=== PATIENT | female | born 1945 | race Caucasian/White ===

== ENCOUNTER 2023-05-15 14:36 | Inpatient (IN) | payer OTHER, SELFPAY ==
[2023-05-15] VITALS (9 sets, daily range): BP systolic 102–175; BP diastolic 60–108; BMI 19.4
--- NOTE | 2023-05-15 10:14 | ED.GENMED ---
History of Present Illness
General
Chief Complaint: Abdominal Symptoms
Source: patient and ambulance crew
Exam Limitations: none
Time Seen by Provider: 05/15/23 10:11
History of Present Illness
History of Present Illness:
See MDM
Past History
Past History
ED Past Medical History: Arrthythmia, Cancer (Breast) and Other (Recurrent urinary tract infection.)
ED Past Surgical History: Cardiac (AICD 03/27/2015) and Gynecological (Hysterectomy)
Social History
Tobacco: Non-smoker
Alcohol: None
Drug: None
Personal:
Living: with family
Employment: Retired
Family History
Family History: Other (Noncontributory)
Phy Exam
Physical Exam
Physical Exam:
See MDM
Course
Orders/Labs/Results
Orders:
Orders
05/15/23 10:13
Electrocardiogram (*1) Urgent
Reason for Study: Abdominal Pain
CT Abd/pelvis W Iv Cont Urgent
Comment:
Reason For Exam: vomiting, general abd pain
EKG- Treatment ONCE
0.9% Sodium Chloride 1000 ml [Nss] 1,000 ml IV BOLUS
Ondansetron Injectable [Zofran] 4 mg IV NOW STA
05/15/23 10:38
Complete Blood Count/With Diff Urgent
Comprehensive Metabolic Panel Urgent
Lipase Urgent
Troponin I Urgent
Abnormal Lab Results
05/15/23
10:38
MCH 31.1 H pg
(27.0-31.0)
Absolute Neuts (auto) 6.9 H 10^3/uL
(1.4-6.5)
Absolute Lymphs (auto) 1.1 L 10^3/uL
(1.2-3.4)
Neutrophils % 81.5 H %
(42.2-75.2)
Lymphocytes % 12.5 L %
(20.5-51.1)
Sodium 132 L mmol/L
(135-145)
Carbon Dioxide 21 L mmol/L
(22-30)
Glucose 149 H mg/dl
(70-99)
AST 43 H U/L
(14-36)
05/15/23 10:38
05/15/23 10:38
Vital Signs
Initial and Last Documented VS:
Initial Vital Signs
Pulse Resp Pulse Ox
112 20 96
05/15/23 10:17 05/15/23 10:17 05/15/23 10:17
Last Documented Vital Signs
Temp Pulse Resp BP Pulse Ox
98.4 F 109 29 162/91 97
05/15/23 10:23 05/15/23 12:00 05/15/23 12:00 05/15/23 12:00 05/15/23 12:00
MDM/Problems Addressed
Differential Diagnosis Includes:
HPI and MDM Narrative:
77-year-old female presenting with generalized abdominal discomfort that is associated with vomiting and diarrhea. This has been ongoing for the past day or so. Patient has been having trouble with p.o. intake. She denies sick contact
On arrival, patient actively vomiting. Will start IV fluids and give Zofran. Given her age and GI complaint, will obtain EKG and troponin in addition to CT abdomen/pelvis to rule out small bowel obstruction
Physical exam
General: Intermittently gagging and vomit
HEENT: protecting airway. Dry mucous membranes
Neck: appears supple
CV: No evidence of cyanosis. Regular rate and rhythm
Resp: No accessory muscle use. Lungs clear
Abd: Non-distended. No point tenderness. Vague discomfort. No distention
Extremities: No deformities
Neuro: alert
Psych: Normal affect
Skin: Intact
Problems Addressed including Acute and Chronic Conditions affecting care:
1. Nausea and vomiting
Acuity: acute
Prognosis: stable
Details: Will give dose of Zofran
2. [Dehydration
Acuity: acute
Prognosis: stable
Details: Will start IV fluids
3. Abdominal pain
Acuity: acute
Prognosis: stable
Details: Will obtain CT abdomen/pelvis
Updates
CT negative for acute pathology. There are many chronic findings. On reassessment, patient still wiped out and unable to tolerate p.o. Given her inability to tolerate p.o., will
Differential Diagnosis (but not limited to): Viral gastroenteritis, small bowel obstruction, ACS, colitis, pancreatitis
Testing considered: Urinalysis
Drug therapy (if applicable): OTC meds, please see d/c instruction regarding Rx drugs
Amount and/or Complexity of Data Reviewed
Clinical info obtained from: Patient
External data reviewed: N/A
Labs I independently reviewed (but not limited to): White blood cell count normal
Radiology: The CT scan was personally and independently reviewed. In addition, official CT report reviewed.
Pulse Ox: not hypoxic
EKG independently reviewed: N/A
Casting Machine Operator: N/A
Critical Care: N/A
Risk of Complication:
Social Determinants of health: Good social support
Discussed with other providers: Hospitalist
Escalation of Care includes Admit/Obs: Given her inability to tolerate p.o., will admit
Occasional wrong word or 'sound a like' substitutions may have occurred due to the inherent limitations of voice recognition software. Read the chart carefully and recognize, using context, where substitutions have occurred.
*Critical Care Note
Total Time (30-74mins, 75-104mins- exclusive of procedures): Not Applicable
ED Attending Note
-
Portions of this chart may have been created with voice recognition software.� Occasional wrong word or��sound alike� substitutions may have occurred due to the inherent limitations of voice recognition software.
Discharge Plan
Departure
Patient Disposition: Admit
Date of Disposition: 05/15/23
Time of Disposition: 13:14
Admit to: Med/Surg
Presentation/result/management discussed w/ accepting MD/DO: Hospitalist
Discharge Problem:
Acute dehydration, Gastroenteritis
Prescriptions:
No Action
latanoprost 0.005 % Drops
1 drp BOTH EYES HS
carvedilol 6.25 mg Tablet
6.25 mg PO BID
methimazole 5 mg Tablet
2.5 mg PO DAILY
brimonidine-timolol [Combigan] 0.2-0.5 % Drops
1 drp BOTH EYES BID
Eliquis 5 mg Tablet
5 mg PO BID
gabapentin 100 mg Capsule
100 mg PO DAILY
gabapentin 100 mg Capsule
200 mg PO HS
methenamine hippurate 1 gram Tablet
1 g PO BID
lorazepam 0.5 mg Tablet
0.5 mg PO BID
Probiotic
1 cap PO DAILY
Vitamin D3
1 cap PO DAILY
tramadol 50 mg tablet
50 mg PO Q8H PRN (Reason: Pain) Qty: 20 0RF
Referrals:
Petty Wall PA-C [Family Provider] -
Interventions
Interventions:
*Risk Screen - Suicide Last Done: 05/15/23 10:17
*General Assessment Last Done: 05/15/23 10:17
*Neglect/Abuse Screening Last Done: 05/15/23 10:17
VJ-Xfbaxn-Piaancdonq Assessment Last Done: 05/15/23 10:17
[2023-05-15] MEDS: ZOFRAN 4 MG IV ×2 (10:41→16:08)
[2023-05-15] MEDS: NSS 1000 IV (10:42)
[2023-05-15 10:45] LABS: % Basophils 0.2 % (0-2); % Eosinophils 0.1 % (0-6); % Immature Granulocytes 0.4 % (0-0.5); % Lymphocytes 12.5 % (20.5-51.1); % Monocytes 5.3 % (1.7-9.3); % Neutrophils 81.5 % (42.2-75.2); Absolute Lymphocytes 1.1 10^3/uL (1.2-3.4); Absolute Monocytes 0.5 10^3/uL (0.1-0.6); Absolute Neutrophils 6.9 10^3/uL (1.4-6.5); Hematocrit 41.1 % (37.0-47.0); Hemoglobin 14.5 g/dL (12.0-16.0); Mean Corp Hgb Conc. 35.3 g/dL (33.0-37.0); Mean Corpuscular Hgb 31.1 pg (27.0-31.0); Mean Corpuscular Volume 88.2 fL (81.0-99.0); Nucleated Red Blood Cells % 0 %; Platelet Count 175 10^3/uL (130-400); Red Blood Cell Count 4.66 10^6/uL (4.20-5.40); Red Cell Dist. Width 13.6 % (11.5-14.5); White Blood Cell Count 8.5 10^3/uL (4.8-10.8)
[2023-05-15 11:00] LABS: ALT (SGPT) 21 U/L (0-35); AST (SGOT) 43 U/L (14-36); Albumin 4.6 g/dl (3.5-5.0); Alkaline Phosphatase 85 U/L (38-126); Blood Urea Nitrogen 15 mg/dl (7-17); Calcium 9.2 mg/dl (8.4-10.2); Carbon Dioxide 21 mmol/L (22-30); Chloride 98 mmol/L (98-107); Glucose 149 mg/dl (70-99); Lipase 90 U/L (23-300); Potassium 4.3 mmol/L (3.5-5.1); Sodium 132 mmol/L (135-145); Total Bilirubin 1.2 mg/dl (0.2-1.3); eGFR > 60.00
[2023-05-15 11:11] LABS: Troponin I 0.019 ng/ml
--- NOTE | 2023-05-15 13:14 | HPS.HSE ---
Addendum entered and electronically signed by Nomi Elliott MD 05/15/23 17:40:
Patient apparently also has a new left bundle branch block we will have to be careful with Zofran dosing we will get another EKG in the a.m.
Addendum entered and electronically signed by Nomi Elliott MD 05/15/23 15:05:
Patient's proBNP trended to be almost 14,000/her cough by description is intractable and that is what causes her eventual emesis so cough is also probably cardiogenic we will give IV Lasix tonight obtain cardiology consultation 2D echocardiogram may
also benefit from small doses of morphine for her cardiogenic cough.
Addendum entered and electronically signed by Nomi Elliott MD 05/15/23 14:29:
I saw and examined the patient.
The SCALE INSTALLER or PA's note was reviewed and I agree with the note.
Comment:
77-year-old with intractable emesis and some diarrhea started as upper respiratory cough tested numerous times negative for COVID presents with tachycardia and dehydration initial tx �replacing with fluids but being cautious �also CT imaging showing
mild cardiogenic edema that could be instigating her cough getting BNP if markedly elevated would �get cardiology ( CBC) involved as has history of nonischemic cardiomyopathy and bioprosthetic AV from AI/unable to take her Coreg or Eliquis for days
for PAF also markedly distended bladder on CT / �ED did not order urine/ ordered straight cath as needed and urine for culture checking for influenza and norovirus. On my exam does not look to be fluid overloaded and seems to be hypovolemic
although blood pressure is elevated but she is tachycardic otherwise for the time being we will treat as presentation of probable viral gastroenteritis with the above concerns.
Original Note:
Family Physician
-
Family Physician: Petty Wall PA-C
Chief Complaint
-
n/v/d
cough runny nose, congestion
History of Present Illness
77 year old with PMH for breast ca, UTI, atrial fib,hyperthyroidism presented to us with n/v/d since . patient stated it started off with non productive, runny nose and congestion. then she developed constant diarrhea, vomiting. patient not
tolerating any oral intake. denied abdominal pain. denied fever, chills, chest pain, sob. denied ALTMAN, dizzy or syncopal episode. denied dysuria or hematuria. denied any recent use of abx. denied any recent travel. denied any sick contract.
CT abdomen pelvis negative. admitting for further management.
Medical History
Past Medical History
Past Medical History: Reports Other
Additional Past Medical History:
breast ca
atrial fib
UTI
Past Surgical History: Reports Other
Additional Past Surgical History:
colon resection
pacemaker
CABG
AICD
hysterectomy
Social History
Tobacco: Non-smoker
Alcohol: Occasional
Drug: None
Personal:
Living: With Family
Family History
Family History: Not pertinent
Allergies / Home Medications
Allergies reflects when Allergies were last updated in [employer].
Home Medications with original date entered in [employer]
Allergy/Medication List:
Allergies
Allergy/AdvReac Type Severity Reaction Status Date / Time
levofloxacin AdvReac developed Verified 05/15/23 10:23
C-Diff
vancomycin AdvReac developed Verified 05/15/23 10:23
C-diff
Home Medications
apixaban 5 mg tablet (Eliquis) 5 mg PO BID Blood Clot Prevention/Tx 08/26/22
brimonidine 0.2 %-timolol 0.5 % eye drops (Combigan) 1 drp BOTH EYES BID Eye Condition 08/26/22
carvedilol 6.25 mg tablet 6.25 mg PO BID Blood Pressure 08/26/22
gabapentin 100 mg capsule 100 mg PO BID Pain 08/26/22
gabapentin 100 mg capsule 100 mg PO DAILY Pain 08/26/22
latanoprost 0.005 % eye drops 1 drp BOTH EYES HS Eye Condition 08/26/22
methimazole 5 mg tablet 2.5 mg PO DAILY Thyroid 08/26/22
Probiotic 1 cap PO DAILY Supplement 11/10/22
Vitamin D3 1 cap PO DAILY Supplement 11/10/22
lorazepam 0.5 mg tablet 0.5 mg PO BID Mental Health/Anxiety 11/10/22
methenamine hippurate 1 gram tablet 1 g PO BID Urinary Issue 11/10/22
tramadol 50 mg tablet 50 mg PO Q8H PRN Pain #20 tabs 11/17/22
mirtazapine 15 mg tablet (Remeron) 7.5 mg PO HS 05/15/23
Review of Systems
-
Constitutional: Reports No Symptoms
EENT: Reports No Symptoms
Respiratory: Reports Cough, Hemoptysis and Trouble Breathing
Cardiac: Reports No Symptoms
Abdomen/GI: Reports Nausea, Vomiting and Diarrhea
: Reports No Symptoms
Musculoskeletal: Reports No Symptoms
Skin: Reports No Symptoms
Neurological: Reports No Symptoms
Endocrine: Reports No Symptoms
Hematologic/Lymphatic: Reports No Symptoms
Psych: Reports No Symptoms
Physical Exam
Vital Signs
Vital Signs
Temp Pulse Resp BP Pulse Ox
98.4 F 116 27 154/91 95
05/15/23 10:23 05/15/23 13:00 05/15/23 13:00 05/15/23 13:00 05/15/23 13:00
Physical Exam
General: Well Developed, Well Nourished and No Apparent Distress
HEENT: NormoCephalic, Moist mucous membranes and Atraumatic
Respiratory: Clear
Cardiac: S1/S2 and Regular Rhythm; No Murmur or Rub
GI: Soft, Non Tender, Non Distended and Normal Bowel Sounds; No Organomegaly
Rectal: Deferred by Provider
Musculoskeletal: No Clubbing, No Cyanosis and No Edema
Skin: No Rash
Neuro: AO x 3 and Nonfocal/grossly intact
Psych: Calm
Laboratory Results
-
05/15/23 10:38
05/15/23 10:38
Laboratory Results
Total Bilirubin 1.2 mg/dl (0.2-1.3) 05/15/23 10:38
AST 43 U/L (14-36) H 05/15/23 10:38
ALT 21 U/L (0-35) 05/15/23 10:38
Alkaline Phosphatase 85 U/L (38-126) 05/15/23 10:38
Troponin I 0.019 ng/ml 05/15/23 10:38
Lipase 90 U/L (23-300) 05/15/23 10:38
Data Reviewed
-
Lab Data: Labs Reviewed by me
Impression/Plan
-
#n/v/d likely gastroenteritis
-Ct abdomen pelvis �Severe distention of the urinary bladder.
2. � Weakness of the muscles of the pelvic floor with a cystocele and rectocele.
3. � Severe calcific atherosclerotic plaque in the abdominal aorta.
4. � Moderate chronic left renal atrophy.
5. � Small hiatal hernia.
6. � Mild biliary and pancreatic ductal dilatation which appears unchanged.
7. � 7.8 mm calcified appendicolith or radiopaque pill at the base of the appendix.
8. � Previous cholecystectomy, hysterectomy, and sigmoidectomy.
9. � Severe multilevel discogenic degenerative disease in the lumbar spine.
10. � Left total hip arthroplasty in place.
11. � Mild interstitial cardiogenic pulmonary edema.
-sips of clears, advance as tolerated
-fluids continued for hydration
-Zofran prn for n/v
-obtain flu, covid
-obtain stool for cultures, c diff
#cough/runny nose congestion
-likely from cardiogenic
-Tessalon, Mucinex prn for cough
#severe distention of urinary bladder
-obtain bladder scan
-obtain UA
#Hyponatremia likely from n/v/d
-na 132
-fluids continued
-monitor BMP in am
#tachycardia likely from dehydration
-HR 100's
-monitor HR
#paroxysmal Atrial Fibrillation
-Continue Eliquis for anticoagulation
-Continue Coreg for rate control
#Essential Hypertension
-Continue Coreg
#Hyperthyroidism
-Continue Methimazole
#Insomnia
-Continue Xanax
�
#Hx Breast Cancer s/p Right Lumpectomy
#Hx Valvular Heart Disease s/p Bioprosthetic Aortic Valve Replacement and Mitral Valve Repair
#DVT proph: Eliquis
#Code Status: Full Code
[2023-05-15 14:43] LABS: COVID-19 Antigen Negative (Negative)
[2023-05-15 14:50] LABS: NT-proBNP 13800 pg/ml
[2023-05-15 14:58] LABS: Urine Albumin 3+ (Neg - Trace); Urine Bilirubin Negative (Negative); Urine Character Clear (Clear); Urine Color Yellow; Urine Glucose Negative (Negative); Urine Ketone 1+ (Negative); Urine Leukocyte Negative (Negative); Urine Nitrite Negative (Negative); Urine Occult Blood Negative (Negative); Urine Urobilinogen Negative (Neg - 1+); Urine pH 6.5 (5.0-9.0)
[2023-05-15] MEDS: LASIX 40 MG IV (15:09)
[2023-05-15 15:15] LABS: Urine Bacteria Few (Negative); Urine Red Blood Cell 0-2 /HPF (0-2)
[2023-05-15] MEDS: MORPHINE SULFATE 0.5 MG IV (16:09)
--- NOTE | 2023-05-15 17:30 | PTCARENOTE ---
05/15- Patient transferred and oriented to unit. AAOX3 but fatigued, flat affect and drowsy. She vomited once upon sitting in bed. UF=464, MH=695/115, checked twice automatic. Manual AX=612/110. Notified Physician immediately. Patient
currently denies headache, changes in vision, SOB or CP. Skin=pale/warm/dry; Cap refill<2sec X4; +pulses/sensationX4.
[2023-05-15] MEDS: LOPRESSOR 5 MG IV (18:18)
[2023-05-15 19:35] LABS: TSH Reflex To Free T4 2.85 uIU/ml (0.47-4.68)
[2023-05-15] MEDS: COREG 6.25 MG PO (20:17)
[2023-05-15] MEDS: MUCINEX 600 MG PO (20:17)
[2023-05-15] MEDS: HIPREX 1 GRAM PO (20:17)
[2023-05-15] MEDS: ELIQUIS 5 MG PO (20:17)
[2023-05-15] MEDS: REGLAN 5 MG IV (20:17)
[2023-05-15] MEDS: ULTRAM 50 MG PO (20:18)
[2023-05-15] MEDS: COMBIGAN EYE DROPS 1 DROP BOTH EYES (20:19)
[2023-05-16] MEDS: XALATAN OPHTHALMIC SOLUTION BOTH EYES (00:32)
[2023-05-16 03:20] VITALS: BP 105/68
[2023-05-16 07:00] VITALS: BP 124/75
[2023-05-16 07:34] LABS: Hematocrit 39.9 % (37.0-47.0); Hemoglobin 13.8 g/dL (12.0-16.0); Mean Corp Hgb Conc. 34.6 g/dL (33.0-37.0); Mean Corpuscular Hgb 31.5 pg (27.0-31.0); Mean Corpuscular Volume 91.1 fL (81.0-99.0); Mean Platelet Volume 10.6 fL (7.4-10.4); Platelet Count 171 10^3/uL (130-400); Red Blood Cell Count 4.38 10^6/uL (4.20-5.40); Red Cell Dist. Width 13.7 % (11.5-14.5); White Blood Cell Count 7.7 10^3/uL (4.8-10.8)
[2023-05-16 08:24] LABS: Blood Urea Nitrogen 29 mg/dl (7-17); Calcium 9.4 mg/dl (8.4-10.2); Carbon Dioxide 25 mmol/L (22-30); Chloride 97 mmol/L (98-107); Estimated Creatinine Clearance 37 ml/min; Glucose 106 mg/dl (70-99); Potassium 3.9 mmol/L (3.5-5.1); Sodium 135 mmol/L (135-145); eGFR > 60.00
--- NOTE | 2023-05-16 08:45 | CON.CAR ---
Addendum entered and electronically signed by Barak Gautam MD 05/16/23 11:37:
I saw and examined the patient.
The DIRECTOR OF RESPIRATORY THERAPY's note was reviewed and I agree with the note.
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
MR) who is here for evaluation. She had been having nausea, vomiting, and diarrhea. However, on today's TTE she has new mild to moderately reduced EF and I discussed further evaluation with coronary angiography. She would like to discuss with her
and Dr Quintana. We will start GDMT in the interim.
- NPO after midnight in case of possible cath tomorrow
- Aspirin 325 today and 81 mg starting tomorrow
- Hold Eliquis tomorrow AM
- Entresto low dose starting this evening
- lipid profile tomorrow AM
- Consider SGLT2i once tolerating Entresto
Original Note:
Consultation
Consultation Request
Date/Time Consultation Requested: 05/15/23 3542
Date/Time Consultation Performed: 05/16/23 0815
Requesting Provider: Mare Peña
Performing Provider: Rayne BARRERA for Dr. Gautam
Reason for Consultation: concern for heart failure
Medical History
-
Chief Complaint: cough
History of Present Illness:
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
is here for evaluation. Per chart, she has been having nausea, vomiting, and poor intake. However, she told me that her main issue has been cough since . She feels congested. Cough minimally productive. No fever/chills. She thinks the n/v is
related to cough. There is no SOB or PND. She always sleeps propped up because it is more comfortable. She denies any weight gain or edema. Covid and flu are negative. On arrival, she was felt to be dehydrated and was given fluids, but afterward it
was noted that her BNP was elevated. CT scan read severe bladder distention (now s/p straight cath), and mild interstitial cardiogenic pulmonary edema. Therefore, we are consulted to evaluate for possible heart failure. She follows with .
Mariano as OP.
Past Medical History
Past Medical History: Arrhythmias, Cancer, HTN, Valvular Disease and Other (As above)
Social History
Tobacco: Non-Smoker
Family History
Family History: Reviewed & Not Pertinent
Allergies / Home Medications
Allergy/AdvReac Type Severity Reaction Status Date / Time
levofloxacin AdvReac developed Verified 05/15/23 10:23
C-Diff
vancomycin AdvReac developed Verified 05/15/23 10:23
C-diff
Medication Instructions Recorded Confirmed Type
apixaban 5 mg tablet (Eliquis) 5 mg PO BID Blood Clot 08/26/22 05/15/23 History
Prevention/Tx
brimonidine 0.2 %-timolol 0.5 % 1 drp BOTH EYES BID Eye Condition 08/26/22 05/15/23 History
eye drops (Combigan)
carvedilol 6.25 mg tablet 6.25 mg PO BID Blood Pressure 08/26/22 05/15/23 History
gabapentin 100 mg capsule 100 mg PO BIDPRN PRN NERVE PAIN 08/26/22 05/15/23 History
latanoprost 0.005 % eye drops 1 drp BOTH EYES HS Eye Condition 08/26/22 05/15/23 History
methimazole 5 mg tablet 2.5 mg PO DAILY Thyroid 08/26/22 05/15/23 History
Lactobac no.2-Bifidobac no.1-S. 1 cap PO DAILY Supplement ##0 11/10/22 05/15/23 History
thermo 112.5 billion cell capsule
(Visbiome)
methenamine hippurate 1 gram tablet 1 g PO BID Urinary Issue 11/10/22 05/15/23 History
acetaminophen 325 mg tablet 650 mg PO Q4H PRN MILD PAIN 05/15/23 05/15/23 History
(Tylenol)
benzonatate 100 mg capsule 100 mg PO BID PRN COUGH 05/15/23 05/15/23 History
bisacodyl 5 mg tablet,delayed 5 mg PO HSPRN PRN CONSTIPATION 05/15/23 05/15/23 History
release (Dulcolax (bisacodyl))
therapeutic multivitamin 1 tab PO DAILY Supplement 05/15/23 05/15/23 History
tramadol 50 mg tablet 50 mg PO BID PRN SEVERE PAIN 05/15/23 05/15/23 History
Review of Systems
-
History Source: Patient
All other systems: Negative unless noted
Respiratory: Cough
Abdomen/GI: Nausea and Vomiting
Physical Exam
Vital Signs
Temp Pulse Resp BP Pulse Ox
98.5 F 97 18 124/75 97
05/16/23 07:00 05/16/23 07:00 05/16/23 07:00 05/16/23 07:00 05/16/23 07:00
Lab Results
05/16/23 07:12
05/16/23 07:12
Troponin I 0.019 ng/ml 05/15/23 10:38
Lic-C-Omumvpxufft Pept 20723 pg/ml 05/15/23 10:38
Physical Exam
General: Well Developed and No Apparent Distress
HEENT: Normocephalic and Anicteric
Respiratory: Clear and Non Labored Respirations
Cardiac: Regular Rhythm
GI: Soft, Non Distended and Normal Bowel Sounds
Musculoskeletal: No Edema
Skin: Warm and Dry
Neuro: AO x 3
Psych: Calm
Impression / Plan
-
Cough, congestion, nausea/vomiting:
-etiology currently unclear
Elevated BNP, abnormal CT scan (mild interstitial cardiogenic pulmonary edema):
-first received IVF, then dose IV lasix
-does not appear volume overloaded to clinical assessment this AM (lungs clear, no edema)
-check echo
VT:
-continue BB
-ICD in place, denies shocks- stable on recent outpatient check
-continue monitoring telemetry
Severe AI, severe MR:
-stable s/p bio AVR, MV repair (now mild to moderate)
-checking echo
PAF:
-stable in SR
-continue coreg and Eliquis
Data Reviewed
-
EKG: Tracing Personally Visualized and interpreted (ST, LBBB [address] Scan: Report Reviewed by me (CT scan: Mild interstitial cardiogenic pulmonary edema. Severe bladder distention.)
Medical Tests (Nuc Med, Echo etc): Report Reviewed by me (02/09/22: Ejection fraction is 60%, Mitral valve repair with mean gradient of 7 mmHg, Mild to moderate mitral regurgitation. Bioprosthetic aortic valve replacement with peak/mean gradients
of 16/11 mmHg.)
Labs: Labs Reviewed by me
[2023-05-16] MEDS: TAPAZOLE 2.5 MG PO (09:03)
[2023-05-16] MEDS: COMBIGAN EYE DROPS 1 DROP BOTH EYES ×2 (09:05→19:45)
[2023-05-16] MEDS: HIPREX 1 GRAM PO (09:05)
[2023-05-16] MEDS: ELIQUIS 5 MG PO ×2 (09:05→19:40)
[2023-05-16] MEDS: MUCINEX 600 MG PO (09:05)
[2023-05-16] MEDS: COREG 6.25 MG PO ×2 (09:05→19:40)
--- NOTE | 2023-05-16 11:17 | CM ---
Addendum entered by Marisela Angel 05/16/23 11:46:
CM consult re medication costs:
Entresto 24/26 mg po BID
Per [facility] pharmacy: $47 per month.
Original Note:
Patient seen bedside.
IA completed.
Patient lives with spouse in a 1 story apartment with elevator access.
Patient ambulates with a cane.
Does not drive.
Patient has had [facility] in the past and been in [facility].
Patient denies home care needs at this time.
[place]: [place] Croft ([place]
Pharmacy: [facility]
Plan: home no needs anticipated.
--- NOTE | 2023-05-16 11:22 | W.PN.UPDATE ---
Update Note
Progress Note Update
Patient EF reduced by echo. Dr. Gautam spoke with her about cath. She currently doesn't think that she will want that (per GK), but wants to talk to Dr. Quintana in AM (her primary investment trader). We will start aspirin. We will start Entresto
(consult CM for pricing). We will make her NPO for AM in case she decides that she would like to proceed. I will hold AM Eliquis, but it will need to be resumed if she does not have cath, or post-cath if she goes that route.
[2023-05-16 11:28] VITALS: BP 113/69
--- NOTE | 2023-05-16 12:00 | PTCARENOTE ---
11:30 Noted pt no c/o further diarrhea or vomiting. Pt had small soft BM this am. Dr. Allen notified ordered low cholesterol diet and cancelled stool specimen orders. Explain to pt, continue to monitor pt closely.
[2023-05-16] MEDS: TESSALON PERLES 100 MG PO ×2 (13:55→21:05)
[2023-05-16] MEDS: ASPIRIN 325 MG PO (13:55)
[2023-05-16 15:00] VITALS: BP 118/63
--- NOTE | 2023-05-16 15:12 | W.PN.HOSP.TC ---
Today's Communication/Plan
-
Supportive care
Possible Cath tomorrow
ASA, Entresto
Cont BB
Assessment / Plan
Assessment / Plan
Physical Exam
General: Well Developed, Well Nourished and No Apparent Distress
HEENT: NormoCephalic, Moist mucous membranes and Atraumatic
Respiratory: Clear
Cardiac: S1/S2 and Regular Rhythm; No Murmur or Rub
GI: Soft, Non Tender, Non Distended and Normal Bowel Sounds; No Organomegaly
Rectal: Deferred by Provider
Musculoskeletal: No Clubbing, No Cyanosis and No Edema
Skin: No Rash
Neuro: AO x 3 and Nonfocal/grossly intact
Psych: Calm
#Cough
#Acute on chronic HFrEF
-I believe cardiogenic +/- URI symptoms causing cough
-EF 35-40%
-S/p IV lasix
-ctm response
�N.p.o. for possible cath tomorrow if patient confirms after speaking to and Dr. Quintana
� Continue aspirin, Entresto
� Hold Eliquis anticipating cath
#N/V
-most likely reflexive 2/2 to intractable cough
-no longer having similar symptoms inpatient
�Advance diet as tolerated
#severe distention of urinary bladder
-no urinary symptoms
-ctm, has had this issue in the past
-monitor TOV
#Hyponatremia
-improving
-ctm
#paroxysmal Atrial Fibrillation
-Eliquis for anticoagulation (holding for cath)
-Continue Coreg for rate control
#Essential Hypertension
-Continue Coreg
#Hyperthyroidism
-Continue Methimazole
#Insomnia
-Continue Xanax
�
#Hx Breast Cancer s/p Right Lumpectomy
#Hx Valvular Heart Disease s/p Bioprosthetic Aortic Valve Replacement and Mitral Valve Repair
#DVT proph: Holding Eliquis for Cath tomorrow
#Code Status: Full Code
Total time spent on today's encounter was 50 minutes which included time spent in counseling the patient/family regarding diagnosis and treatment plan as listed above, goals of care, and symptom management. Case was discussed with nursing staff,
specialists, and care coordinators/case management. All labs and imaging personally reviewed by me. Remainder the time spent in detailed review of previous records, lab data, imaging, and other medical provider documentation.
Anticipated Discharge: 24 - 48 hours
Subjective/Interval History
-
Date of Service: May 16, 2023
Coughing, no further vomiting
Objective Data
-
Labs:
Laboratory Results
05/16/23
07:12
WBC 7.7
Hgb 13.8
Hct 39.9
Plt Count 171
Sodium 135
Potassium 3.9
Chloride 97 L
Carbon Dioxide 25
BUN 29 H
Creatinine 0.9
Glucose 106 H
Calcium 9.4
Vital Signs:
Vital Signs
Temp Pulse Resp BP Pulse Ox
98.6 F 95 16 113/69 95
05/16/23 11:28 05/16/23 11:28 05/16/23 11:28 05/16/23 11:28 05/16/23 11:28
Review of Systems
-
History Source: Patient
All other systems: Not reviewed unless documented
Data Reviewed
-
CT Scan: Image personally visualized and interpreted and Report Reviewed by me
Medical Tests (Nuc Med, Echo etc): Image personally visualized and interpreted and Report Reviewed by me
Labs: Labs Reviewed by me
[2023-05-16] MEDS: ENTRESTO 24 MG/26 MG 1 TAB PO (19:41)
[2023-05-16] MEDS: HIPREX PO ×2 (19:41→22:36)
[2023-05-16] MEDS: XALATAN OPHTHALMIC SOLUTION 1 DROP BOTH EYES (21:05)
[2023-05-16] MEDS: MELATONIN 5 MG PO (22:30)
[2023-05-16 23:00] VITALS: BP 102/53
[2023-05-17] VITALS (8 sets, daily range): BP systolic 92–127; BP diastolic 50–69; PULSE 96; BMI 19.1
[2023-05-17] MEDS: TAPAZOLE 2.5 MG PO (08:08)
[2023-05-17] MEDS: COREG 6.25 MG PO ×2 (08:08→20:24)
[2023-05-17] MEDS: ENTRESTO 24 MG/26 MG 1 TAB PO ×2 (08:11→20:23)
[2023-05-17] MEDS: HIPREX 1 GRAM PO (08:11)
[2023-05-17] MEDS: LOW STRENGTH ASPIRIN 81 MG PO (08:11)
[2023-05-17] MEDS: COMBIGAN EYE DROPS 1 DROP BOTH EYES ×2 (08:13→20:24)
[2023-05-17 08:34] LABS: Hematocrit 41.7 % (37.0-47.0); Hemoglobin 14.7 g/dL (12.0-16.0); Mean Corp Hgb Conc. 35.3 g/dL (33.0-37.0); Mean Platelet Volume 10.9 fL (7.4-10.4); Platelet Count 198 10^3/uL (130-400); Red Blood Cell Count 4.74 10^6/uL (4.20-5.40); Red Cell Dist. Width 13.6 % (11.5-14.5); White Blood Cell Count 7.9 10^3/uL (4.8-10.8)
--- NOTE | 2023-05-17 09:02 | W.PN.CD ---
Today's Communication / Plan
-
- BB/ARNI
- no further inpatient cardiac workup anticipated and I will sign off
- I will follow up re: decline EF in the office (Jun 01 at 2:40)
- MEDS: carvedilol 6.25 po BID, Eliquis 5 po BID, Entresto / po BID (new)
- BMP in 10 days
Impression / Plan
-
Impression: 77F admitted with N/V and hypovolemia. Then cough, interstitial edema, elevated pBNP after volume resuscitation. Echo shows her EF has declined again to 40-45% and there are concerning regional wall motion abnormalities.
Plan
Abnormal Echo
- ARNI started
- Continue BB
- we discussed C to evaluate for CAD. We will defer to outpatient setting given her complete lack of CP.
Cough, congestion, nausea/vomiting: etiology currently unclear
Elevated BNP, abnormal CT scan (mild interstitial cardiogenic pulmonary edema): CXR pending
VT:
-continue BB
-ICD in place, denies shocks - stable on recent outpatient check
-continue monitoring telemetry
Severe AI, severe MR:
-stable s/p bio AVR, MV repair (now 'at least' moderate)
PAF:
-stable in SR
-continue Coreg and Eliquis
Dispo
- BB/ARNI
- no further inpatient cardiac workup anticipated and I will sign off
- I will follow up re: decline EF in the office (Jun 01 at 2:40)
- MEDS: carvedilol 6.25 po BID, Eliquis 5 po BID, Entresto / po BID (new)
- BMP in 10 days
Subjective: No CP or palps. Still with productive cough.
Laboratory Data
05/15/23 05/16/23 05/17/23
10:38 07:12 07:04
Hgb 14.7
Creatinine 0.9
Hhi-Q-Titximgvaxv Pept [id number]
Generic Name Dose Route Start Last Admin
Trade Name Deepali PRN Reason Stop Dose Admin
Apixaban 5 mg 05/15/23 20:00
Apixaban (Eliquis) 5 Mg Tablet PO 06/12/23 19:59
BID JOSE
Carvedilol 6.25 mg 05/15/23 20:00
Carvedilol 6.25 Mg Tablet PO 06/12/23 19:59
BID JOSE
Aspirin 81 mg 05/17/23 08:00
Aspirin 81 Mg Chewable Tablet PO 06/14/23 07:59
DAILY JOSE
Sacubitril/Valsartan 1 tab 05/16/23 20:00
Sacubitril 24 Mg/Valsartan 26 Mg (Entresto) Tab PO 06/13/23 19:59
BID JOSE
Physical Exam
Vital Signs/Labs
Vital Signs
Temp Pulse Resp BP Pulse Ox
36.6 C 92 18 127/69 97
05/17/23 07:00 05/17/23 08:11 05/17/23 07:00 05/17/23 08:11 05/17/23 07:00
05/16/23 05/17/23 05/18/23
06:59 06:59 06:59
Actual Weight 102 lb 8 oz 100 lb 14.4 oz
05/17/23 07:04
05/15/23
10:38
Pwu-G-Biffrgeusql Pept [id number]
LAB Results
05/15/23
10:38
Troponin I 0.019
Physical Exam
Constitutional: No acute distress
EENT: Anicteric and Moist mucous membranes
Cardiovascular: Rhythm & rate is regular, Pedal edema is absent, Systolic murmur absent and Diastolic murmur absent
Respiratory: Respiratory effort normal
GI: Soft, Distention absent, Non tender and Normal bowel sounds
Neuro/Psych: Alert
Data Reviewed
-
Date of Service: May 17, 2023
Echo: Other (Reviewed echo - not sure WMA is not LBBB)
[2023-05-17 09:28] LABS: Blood Urea Nitrogen 35 mg/dl (7-17); Calcium 9.5 mg/dl (8.4-10.2); Carbon Dioxide 22 mmol/L (22-30); Chloride 97 mmol/L (98-107); Estimated Creatinine Clearance 41 ml/min; Glucose 106 mg/dl (70-99); HDL Cholesterol 36 mg/dl; LDL Cholesterol, Calculated 86 mg/dl; Potassium 3.9 mmol/L (3.5-5.1); Sodium 133 mmol/L (135-145); Total Cholesterol 154 mg/dl (50-199); Triglyceride 163 mg/dl (10-149); Very Low Density Lipoprotein 32 mg/dl (0-30); eGFR > 60.00
--- NOTE | 2023-05-17 11:16 | PTCARENOTE ---
At 1050 pt with 11-beat run of vtach. Pt says she was having a coughing fit at the time, otherwise no new complaints. Pt now back in SR with HR in 90s. BP 94/56, SpO2 94% on RA. Dr. Allen notified. Will await further orders.
--- NOTE | 2023-05-17 12:00 | W.PN.HOSP.TC ---
Today's Communication/Plan
-
Trial Doxycycline x 5 days
F/u PCP within 1 week
carvedilol 6.25 po BID, Eliquis 5 po BID, Entresto 24/26 po BID�
BMP in 10 days
F/u With Dr. Quintana as scheduled
Assessment / Plan
Assessment / Plan
Physical Exam
General: Well Developed, Well Nourished and No Apparent Distress
HEENT: NormoCephalic, Moist mucous membranes and Atraumatic
Respiratory: Clear
Cardiac: S1/S2 and Regular Rhythm; No Murmur or Rub
GI: Soft, Non Tender, Non Distended and Normal Bowel Sounds; No Organomegaly
Rectal: Deferred by Provider
Musculoskeletal: No Clubbing, No Cyanosis and No Edema
Skin: No Rash
Neuro: AO x 3 and Nonfocal/grossly intact
Psych: Calm
#Cough
#Viral Bronchitis
-URI symptoms
-Supportive Care
-Can Rx Doxycycline x 5 days
-F/u PCP within 1 week
-CXR with no evidence of PNA, afebrile, non purelent sputum
-Incentive Madhav
#Acute on Chronic HFrEF
-EF 35-40%
-S/p IV lasix
-now appears euvolemic
�As per Cardiology: no further inpatient cardiac workup anticipated
-Cards will follow up re: decline EF in the office (Jun 01 at 2:40)
-MEDS: carvedilol 6.25 po BID, Eliquis 5 po BID, Entresto 24/26 po BID (new)
- BMP in 10 days
#N/V
-most likely reflexive 2/2 to intractable cough
-no longer having similar symptoms inpatient
�Advance diet as tolerated - Low residue if this is in fact viral gastroenteritis
#severe distention of urinary bladder
-no urinary symptoms
-ctm, has had this issue in the past
-monitor TOV
-Urology outpatient
#Hyponatremia
-ctm
-f/u bmp outpatient
#paroxysmal Atrial Fibrillation
-Eliquis
-Continue Coreg for rate control
#Essential Hypertension
-Continue Coreg
#Hyperthyroidism
-Continue Methimazole
#Insomnia
-Continue Xanax
�
#Hx Breast Cancer s/p Right Lumpectomy
#Hx Valvular Heart Disease s/p Bioprosthetic Aortic Valve Replacement and Mitral Valve Repair
#DVT proph:eliquis
#Code Status: Full Code
More than 30 minutes spent in discharge including
Final examination of the patient
Summarizing hospital stay
Instructions for continuing care to all relevant caregivers
Preparation of discharge records, prescriptions, and referral forms
Total time spent (35 in minutes):
Anticipated Discharge: Today
Subjective/Interval History
-
Date of Service: May 17, 2023
still coughing, mild sputum production, non purulent
Objective Data
-
Labs:
Laboratory Results
05/17/23
07:04
WBC 7.9
Hgb 14.7
Hct 41.7
Plt Count 198
Sodium 133 L
Potassium 3.9
Chloride 97 L
Carbon Dioxide 22
BUN 35 H
Creatinine 0.8
Glucose 106 H
Calcium 9.5
Vital Signs:
Vital Signs
Temp Pulse Resp BP Pulse Ox
97.8 F 97 18 94/56 94
05/17/23 07:00 05/17/23 11:00 05/17/23 11:00 05/17/23 11:00 05/17/23 11:00
I&O
05/16/23 05/17/23 05/18/23
06:59 06:59 06:59
Intake Total 920 / 920
Balance /
Review of Systems
-
History Source: Patient
All other systems: Not reviewed unless documented
Data Reviewed
-
Diagnostic Radiology: Image personally visualized and interpreted and Report Reviewed by me
CT Scan: Image personally visualized and interpreted and Report Reviewed by me
Medical Tests (Nuc Med, Echo etc): Image personally visualized and interpreted and Report Reviewed by me
Labs: Labs Reviewed by me
--- NOTE | 2023-05-17 12:10 | W.DS.TRANS ---
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
-
Discharge Instructions:
Discharge Diagnosis/Procedures bronchitis - most likely viral, URI
Diet Low Fiber,Restrict fluids to 48 oz
Activity As tolerated
Blood Work BMP in [address] Quintana
Instructions:
Stand-Alone Forms:
Changes to Home Medications: Yes
Discharge Medications:
DC Medications w/original date entered in [employer]
apixaban 5 mg tablet (Eliquis) 5 mg PO BID Blood Clot Prevention/Tx 08/26/22
brimonidine 0.2 %-timolol 0.5 % eye drops (Combigan) 1 drp BOTH EYES BID Eye Condition 08/26/22
carvedilol 6.25 mg tablet 6.25 mg PO BID Blood Pressure 08/26/22
gabapentin 100 mg capsule 100 mg PO BIDPRN PRN NERVE PAIN 08/26/22
latanoprost 0.005 % eye drops 1 drp BOTH EYES HS Eye Condition 08/26/22
methimazole 5 mg tablet 2.5 mg PO DAILY Thyroid 08/26/22
Lactobac no.2-Bifidobac no.1-S. thermo 112.5 billion cell capsule (Visbiome) 1 cap PO DAILY Supplement ##0 11/10/22
methenamine hippurate 1 gram tablet 1 g PO BID Urinary Issue 11/10/22
acetaminophen 325 mg tablet (Tylenol) 650 mg PO Q4H PRN MILD PAIN 05/15/23
benzonatate 100 mg capsule 100 mg PO BID PRN COUGH 05/15/23
bisacodyl 5 mg tablet,delayed release (Dulcolax (bisacodyl)) 5 mg PO HSPRN PRN CONSTIPATION 05/15/23
therapeutic multivitamin 1 tab PO DAILY Supplement 05/15/23
tramadol 50 mg tablet 50 mg PO BID PRN SEVERE PAIN 05/15/23
melatonin 5 mg tablet 5 mg PO HS PRN sleep 05/16/23
doxycycline hyclate 100 mg capsule 100 mg PO Q12 5 days #10 caps 05/17/23
sacubitril 24 mg-valsartan 26 mg tablet (Entresto) 1 tab PO BID 30 days #60 tabs 05/17/23
Home Medication Changes
doxycycline hyclate 100 mg capsule 100 mg PO Q12 5 days #10 caps 05/17/23
sacubitril 24 mg-valsartan 26 mg tablet (Entresto) 1 tab PO BID 30 days #60 tabs 05/17/23
Pending Results: No
[2023-05-17] MEDS: VIBRAMYCIN 100 MG PO ×2 (12:12→20:23)
--- NOTE | 2023-05-17 12:44 | CM ---
Addendum entered by Marisela Angel 05/17/23 12:49:
IMM completed.
Original Note:
Patient seen bedside.
Spouse concerned with patients decr activity level at home and would like Vn.
patient had [facility] in the past.
Referral placed.
Private caregiver info provided.
Plan: home with [facility]
[2023-05-17] MEDS: HIPREX PO ×2 (20:22→21:04)
[2023-05-17] MEDS: ELIQUIS 5 MG PO (20:23)
[2023-05-17] MEDS: MELATONIN 10 MG PO (22:05)
[2023-05-17] MEDS: XALATAN OPHTHALMIC SOLUTION 1 DROP BOTH EYES (22:05)
[2023-05-17] MEDS: TESSALON PERLES 100 MG PO (22:11)
[2023-05-18] VITALS (8 sets, daily range): BP systolic 78–122; BP diastolic 47–82; PULSE 81; O2SAT 99; BMI 19.0
[2023-05-18] MEDS: TYLENOL 650 MG PO (00:17)
[2023-05-18] MEDS: LOPRESSOR 5 MG IV (00:40)
--- NOTE | 2023-05-18 00:59 | PTCARENOTE ---
Pt reports difficulty sleeping. House URBAN SOCIOLOGIST Radha Millan notified, order for melatonin 5mg HS increased to 10mg HS. Pt woke up around midnight this AM saying she doesn't 'know where she is. I thought it was midday' and called her to ask
where he was. Pt reoriented to place and time, dunn loring HETAL Millan notified and melatonin decreased back to 5mg HS. Will continue to monitor.
[2023-05-18] MEDS: ULTRAM 50 MG PO (01:34)
--- NOTE | 2023-05-18 05:20 | PTCARENOTE ---
Pt's BP manually this AM was 82/50. Pt reports feeling dizzy when standing up but not laying down. House WILDLIFE ECOLOGY PROFESSOR Radha Millan notified, order for 1x IV bolus normal saline 500mL ordered. Will continue to monitor.
[2023-05-18] MEDS: NSS 500 IV (05:47)
[2023-05-18 07:43] LABS: Hematocrit 41.3 % (37.0-47.0); Hemoglobin 14.7 g/dL (12.0-16.0); Mean Corp Hgb Conc. 35.6 g/dL (33.0-37.0); Mean Corpuscular Hgb 31.3 pg (27.0-31.0); Mean Corpuscular Volume 88.1 fL (81.0-99.0); Mean Platelet Volume 10.8 fL (7.4-10.4); Platelet Count 220 10^3/uL (130-400); Red Blood Cell Count 4.69 10^6/uL (4.20-5.40); Red Cell Dist. Width 13.6 % (11.5-14.5); White Blood Cell Count 9.7 10^3/uL (4.8-10.8)
[2023-05-18] MEDS: COMBIGAN EYE DROPS 1 DROP BOTH EYES (07:50)
[2023-05-18] MEDS: TAPAZOLE 2.5 MG PO (07:50)
[2023-05-18] MEDS: VIBRAMYCIN 100 MG PO (07:51)
[2023-05-18] MEDS: ELIQUIS 5 MG PO (07:52)
[2023-05-18] MEDS: LOW STRENGTH ASPIRIN PO ×2 (07:52→08:04)
[2023-05-18] MEDS: HIPREX PO (07:59)
[2023-05-18] MEDS: ENTRESTO 24 MG/26 MG PO (10:08)
--- NOTE | 2023-05-18 10:11 | W.PN.CD ---
Today's Communication / Plan
-
- stop Entresto 2/2 hypotension, will try and add as outpt
Impression / Plan
-
Impression: 77F admitted with N/V and hypovolemia. Then cough, interstitial edema, elevated pBNP after volume resuscitation. Echo shows her EF has declined again to 40-45% and there are concerning regional wall motion abnormalities.
Plan
Abnormal Echo
- Entresto will hold given low BP, will try and add as outpt
- Continue BB
- we discussed C to evaluate for CAD. We will defer to outpatient setting given her complete lack of CP.
Cough, congestion, nausea/vomiting: etiology currently unclear
Elevated BNP, abnormal CT scan (mild interstitial cardiogenic pulmonary edema): CXR pending
VT:
-continue BB
-ICD in place, denies shocks - stable on recent outpatient check
-continue monitoring telemetry
Severe AI, severe MR:
-stable s/p bio AVR, MV repair (now 'at least' moderate)
PAF:
-stable in SR
-continue Coreg and Eliquis
Dispo
- BB/ARNI
- no further inpatient cardiac workup anticipated and I will sign off
- I will follow up re: decline EF in the office (Jun 01 at 2:40)
- MEDS: carvedilol 6.25 po BID, Eliquis 5 po BID, Entresto po BID (new)
- BMP in 10 days
Subjective: No CP or palps. Still with productive cough.
Laboratory Data
05/15/23 05/16/23 05/17/23
10:38 07:12 07:04
Hgb 14.7
Creatinine 0.9
Apf-J-Ikhqghrumhx Pept [id number]
Generic Name Dose Route Start Last Admin
Trade Name Freq PRN Reason Stop Dose Admin
Apixaban 5 mg 05/15/23 20:00
Apixaban (Eliquis) 5 Mg Tablet PO 06/12/23 19:59
BID JOSE
Carvedilol 6.25 mg 05/15/23 20:00
Carvedilol 6.25 Mg Tablet PO 06/12/23 19:59
BID JOSE
Aspirin 81 mg 05/17/23 08:00
Aspirin 81 Mg Chewable Tablet PO 06/14/23 07:59
DAILY JOSE
Sacubitril/Valsartan 1 tab 05/16/23 20:00
Sacubitril 24 Mg/Valsartan 26 Mg (Entresto) Tab PO 06/13/23 19:59
BID JOSE
Physical Exam
Vital Signs/Labs
Vital Signs
Temp Pulse Resp BP Pulse Ox
98.1 F 85 18 78/54 96
05/18/23 07:30 05/18/23 07:30 05/18/23 07:30 05/18/23 10:04 05/18/23 07:30
05/17/23 05/18/23 05/19/23
06:59 06:59 06:59
Actual Weight 100 lb 14.4 oz 100 lb 4 oz
05/18/23 06:59
Triglycerides 163 mg/dl (10-149) H 05/17/23 07:04
LDL Cholesterol, Calc 86 mg/dl 05/17/23 07:04
VLDL Cholesterol, Calc 32 mg/dl (0-30) H 05/17/23 07:04
HDL Cholesterol 36 mg/dl 05/17/23 07:04
05/15/23
10:38
Kph-X-Ejbebdwjzmk Pept [id number]
LAB Results
05/15/23
10:38
Troponin I 0.019
Physical Exam
Constitutional: No acute distress
EENT: Anicteric
Cardiovascular: Rhythm & rate is regular and Pedal edema is absent
Respiratory: Respiratory effort normal and Lungs clear to auscul.
GI: Soft
Neuro/Psych: AO x 3
Data Reviewed
-
Date of Service: May 18, 2023
EKG: Tracing Personally Visualized and interpreted
Echo: Report Reviewed by me
Labs: Labs Reviewed by me
[2023-05-18 10:18] LABS: Blood Urea Nitrogen 47 mg/dl (7-17); Calcium 9.8 mg/dl (8.4-10.2); Carbon Dioxide 23 mmol/L (22-30); Chloride 98 mmol/L (98-107); Estimated Creatinine Clearance 18 ml/min; Glucose 145 mg/dl (70-99); Potassium 3.8 mmol/L (3.5-5.1); Sodium 135 mmol/L (135-145); eGFR 28.31
--- NOTE | 2023-05-18 11:14 | CM ---
Spoke with pt and
Discussed IMM
Plan - d/c to home with LETICIA Fierro
Sri
[2023-05-18] MEDS: COREG PO (11:25)
--- NOTE | 2023-05-18 12:01 | W.PN.HOSP.TC ---
Addendum entered and electronically signed by Jacob Allen MD 05/18/23 18:14:
[id number]
Addendum entered and electronically signed by Jacob Allen MD 05/18/23 17:36:
Underweight
Addendum entered and electronically signed by Jacob Allen MD 05/18/23 17:36:
Spoke to and patient regarding ALCON. Patient was given options of me providing a lab prescription, PCP provide muscular: Back to the hospital. Patient has did not come back to the hospital. Therefore educated on adequate p.o. intake,
increasing fluid intake for the next 2 days. Follow-up BMP in 2 days. Also advised to come back to the hospital if urine output decreases. At this point patient is urinating 3 times daily. Will closely monitor patient
Addendum entered and electronically signed by Jacob Allen MD 05/18/23 17:24:
ALCON 0- f/u outpatient; spoke to patient to drink adeqaute fluids and f/u bmp in 2 days with pcp
Original Note:
Today's Communication/Plan
-
Trial Doxycycline x 5 days
F/u PCP within 1 week
carvedilol 6.25 po BID, Eliquis 5 po BID, holding Entresto 24/ po BID�for hypotension, can consider starting outpatient
BMP in 9 days
F/u With Dr. Quintana as scheduled
Assessment / Plan
Assessment / Plan
Physical Exam
General: Well Developed, Well Nourished and No Apparent Distress
HEENT: NormoCephalic, Moist mucous membranes and Atraumatic
Respiratory: Clear
Cardiac: S1/S2 and Regular Rhythm; No Murmur or Rub
GI: Soft, Non Tender, Non Distended and Normal Bowel Sounds; No Organomegaly
Rectal: Deferred by Provider
Musculoskeletal: No Clubbing, No Cyanosis and No Edema
Skin: No Rash
Neuro: AO x 3 and Nonfocal/grossly intact
Psych: Calm
#Cough
#Viral Bronchitis
-URI symptoms
-Supportive Care
-Can Rx Doxycycline x 5 days
-F/u PCP within 1 week
-CXR with no evidence of PNA, afebrile, non purelent sputum
-Incentive Madhav
#Acute on Chronic HFrEF
-EF 35-40%
-S/p IV lasix
-now appears euvolemic
�As per Cardiology: no further inpatient cardiac workup anticipated
-Cards will follow up re: decline EF in the office (Jun 01 at 2:40)
-MEDS: carvedilol 6.25 po BID, Eliquis 5 po BID, holding Entresto 24/26 po BID due to lower Blood pressure - can f/u outpatient for resuming
- BMP in 9 days
#N/V
-most likely reflexive 2/2 to intractable cough
-no longer having similar symptoms inpatient
�Advance diet as tolerated - Low residue if this is in fact viral gastroenteritis
-resolved
#severe distention of urinary bladder
-no urinary symptoms
-ctm, has had this issue in the past
-monitor TOV
-Urology outpatient
#Hyponatremia
-ctm
-f/u bmp outpatient
#paroxysmal Atrial Fibrillation
-Eliquis
-Continue Coreg for rate control
#Essential Hypertension
-Continue Coreg
#Hyperthyroidism
-Continue Methimazole
#Insomnia
-Continue Xanax
�
#Hx Breast Cancer s/p Right Lumpectomy
#Hx Valvular Heart Disease s/p Bioprosthetic Aortic Valve Replacement and Mitral Valve Repair
#DVT proph:eliquis
#Code Status: Full Code
More than 30 minutes spent in discharge including
Final examination of the patient
Summarizing hospital stay
Instructions for continuing care to all relevant caregivers
Preparation of discharge records, prescriptions, and referral forms
Total time spent (35 in minutes):
Anticipated Discharge: Today
Subjective/Interval History
-
Date of Service: May 18, 2023
Patient hypotensive, stop Entresto
Objective Data
-
Labs:
Laboratory Results
05/18/23
06:59
WBC 9.7
Hgb 14.7
Hct 41.3
Plt Count 220
Sodium 135
Potassium 3.8
Chloride 98
Carbon Dioxide 23
BUN 47 H
Creatinine 1.8 H
Glucose 145 H
Calcium 9.8
Vital Signs:
Vital Signs
Temp Pulse Resp BP Pulse Ox
98.1 F 85 18 78/54 96
05/18/23 07:30 05/18/23 07:30 05/18/23 07:30 05/18/23 10:04 05/18/23 07:30
I&O
05/17/23 05/18/23 05/19/23
06:59 06:59 06:59
Intake Total 920 / 920 720 / 720
Balance 920 / 920 720 / 720
Review of Systems
-
History Source: Patient
All other systems: Not reviewed unless documented
Data Reviewed
-
Diagnostic Radiology: Image personally visualized and interpreted and Report Reviewed by me
CT Scan: Image personally visualized and interpreted and Report Reviewed by me
Medical Tests (Nuc Med, Echo etc): Image personally visualized and interpreted and Report Reviewed by me
Labs: Labs Reviewed by me
--- NOTE | 2023-05-18 12:02 | PN.CDI ---
CDI
- -
CDI:
Physician Documentation Request
Admit Date: 05/15/23 14:36
Dear Doctor Alejandro ,
Please review the following and provide your response in the progress notes.
Clinical Indicators:
Height: 5 ft 1 in
Weight: 100 lb 4 oz
BMI: 18.9
If possible, please provide an associated diagnosis related to the abnormal BMI, such as:
BMI < or = to 19
Underweight
Cachectic
- Other
Use of terms such as suspected, likely, concern for, or probable (associated with a specific diagnosis that is being evaluated, monitored, or treated as if it exists) are acceptable and can be coded in the inpatient setting, when documented at the
time of discharge.
Thank you,
Liset Roman RN
CDI Specialist
[place] [employer]
Please use your independent medical judgment in providing your response.
--- NOTE | 2023-05-18 12:04 | W.DS.TRANS ---
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
-
Discharge Instructions:
Discharge Diagnosis/Procedures bronchitis - most likely viral, URI
Diet Low Fiber,Restrict fluids to 48 oz
Activity As tolerated
Blood Work BMP in [address] Quintana
Instructions:
Stand-Alone Forms:
Changes to Home Medications: Yes
Discharge Medications:
DC Medications w/original date entered in [employer]
apixaban 5 mg tablet (Eliquis) 5 mg PO BID Blood Clot Prevention/Tx 08/26/22
brimonidine 0.2 %-timolol 0.5 % eye drops (Combigan) 1 drp BOTH EYES BID Eye Condition 08/26/22
carvedilol 6.25 mg tablet 6.25 mg PO BID Blood Pressure 08/26/22
gabapentin 100 mg capsule 100 mg PO BIDPRN PRN NERVE PAIN 08/26/22
latanoprost 0.005 % eye drops 1 drp BOTH EYES HS Eye Condition 08/26/22
methimazole 5 mg tablet 2.5 mg PO DAILY Thyroid 08/26/22
Lactobac no.2-Bifidobac no.1-S. thermo 112.5 billion cell capsule (Visbiome) 1 cap PO DAILY Supplement ##0 11/10/22
methenamine hippurate 1 gram tablet 1 g PO BID Urinary Issue 11/10/22
acetaminophen 325 mg tablet (Tylenol) 650 mg PO Q4H PRN MILD PAIN 05/15/23
benzonatate 100 mg capsule 100 mg PO BID PRN COUGH 05/15/23
bisacodyl 5 mg tablet,delayed release (Dulcolax (bisacodyl)) 5 mg PO HSPRN PRN CONSTIPATION 05/15/23
therapeutic multivitamin 1 tab PO DAILY Supplement 05/15/23
tramadol 50 mg tablet 50 mg PO BID PRN SEVERE PAIN 05/15/23
melatonin 5 mg tablet 5 mg PO HS PRN sleep 05/16/23
doxycycline hyclate 100 mg capsule 100 mg PO BID 4 days #8 caps 05/18/23
Home Medication Changes
doxycycline hyclate 100 mg capsule 100 mg PO BID 4 days #8 caps 05/18/23
Pending Results: No
--- NOTE | 2023-05-18 12:08 | PN.CDI ---
CDI
- -
CDI:
Physician Documentation Request
Admit Date: 05/15/23 14:36
Dear Doctor Alejandro,
Please review the following and provide your response in the progress notes.
Clinical Indicators:
Pt admitted with Acute on Chronic HFrEF /on IV diuresis
Renal functions are as below /Did get IVF bolus today
05/15/23 05/16/23 05/17/23
10:38 07:12 07:04
Creatinine 0.7 0.9 0.8
05/18/23
06:59
Creatinine 1.8 H
Clarify which of the following accurately represents the patient's renal status:
ALCON
Abnormal lab value of clinical insignificance
Other
Criteria for ALCON*
1 Increase in serum creatinine by > or = to 0.3 mg/dL (> or = to 26.5 micromol/L) within 48 hours, OR
2 Increase in serum creatinine to > or = to 1.5 times baseline, which is known or presumed to have occurred within 7 days, OR
3 Urine volume < 0.5 nL/kg/hour for six hours
Use of terms such as suspected, likely, concern for, or probable (associated with a specific diagnosis that is being evaluated, monitored, or treated as if it exists) are acceptable and can be coded in the inpatient setting, when documented at the
time of discharge.
Thank you,
Liset Roman RN
CDI Specialist
[place] [employer]
Please use your independent medical judgment in providing your response.
*Source: Kidney Disease: Improving Global Outcomes (KDIGO) 2012
[2023-05-18] MEDS: COREG 6.25 MG PO (15:03)
--- NOTE | 2023-05-24 14:00 | W.HF.CON ---
Heart Failure
- LV Function
Left ventricular function study result: LV Ejection fraction >35% - 40%
Ejection Fraction Percentage: 35-40
- ARNI
Patient already on ARNI: No
Heart Failure ARNI Contraindication: Acute Renal Failure, Hypotension
- ACEI/ARB
Patient already on ACEI/ARB: No
Heart Failure ACEI/ARB Contraindication: Acute Renal Failure, Hypotension
- Beta Rebeca
Patient already on Evidence Based Beta Rebeca: Yes
- Mineralocorticord Receptor Antagonist
Patient already on MRA: No
Heart Failure MRA Contraindication: Acute Renal Insufficiency
- SGLT-2 Inhibitor
Patient already on SGLT-2 Inhibitor: No
Heart Failure SGLT-2 Inhibitor Contraindication: Patient Refusal
- Afib Anticoagulation
Patient already on Anticoagulation for Afib: Yes
- NYHA CHF Classification
NYHA CHF Classification Level: Class III - Symptoms w/ min exertion, interferes w/ nml daily activity
- ACC/AHA Stage
ACC/AHA Stage: Stage C: Symptomatic Heart Failure
== END 2023-05-18 15:49 | disposition home health service (06) | DRG 291 ==
LOC: 4 WEST ACU 14:36
PROVIDERS: Registered Nurse; ADMITTING PHYSICIAN Internal Medicine; ATTENDING PHYSICIAN Internal Medicine; EMERGENCY PHYSICIAN Student in an Organized Health Care Education/Training Program; FAMILY PHYSICIAN Student in an Organized Health Care Education/Training Program; OTHER PHYSICIAN Internal Medicine Cardiovascular Disease
DX: I11.0 Hypertensive heart disease with heart failure (principal); I50.23 Acute on chronic systolic (congestive) heart failure; E87.1 Hypo-osmolality and hyponatremia; Z68.1 Body mass index [BMI] 19.9 or less, adult; N17.9 Acute kidney failure, unspecified; J20.8 Acute bronchitis due to other specified organisms; I42.8 Other cardiomyopathies; E86.0 Dehydration; I44.7 Left bundle-branch block, unspecified; I48.0 Paroxysmal atrial fibrillation; N26.1 Atrophy of kidney (terminal); N32.89 Other specified disorders of bladder; K38.1 Appendicular concretions; K44.9 Diaphragmatic hernia without obstruction or gangrene; K86.89 Other specified diseases of pancreas; R00.0 Tachycardia, unspecified; I08.0 Rheumatic disorders of both mitral and aortic valves; R11.2 Nausea with vomiting, unspecified; R63.6 Underweight; M62.81 Muscle weakness (generalized); N99.3 Prolapse of vaginal vault after hysterectomy; E05.90 Thyrotoxicosis, unspecified without thyrotoxic crisis or storm; Z87.440 Personal history of urinary (tract) infections; Z95.810 Presence of automatic (implantable) cardiac defibrillator; Z85.3 Personal history of malignant neoplasm of breast; Z11.52 Encounter for screening for COVID-19; Z79.01 Long term (current) use of anticoagulants; Z95.1 Presence of aortocoronary bypass graft; Z88.1 Allergy status to other antibiotic agents; Z90.49 Acquired absence of other specified parts of digestive tract; Z96.642 Presence of left artificial hip joint; Z95.3 Presence of xenogenic heart valve
CPT/HCPCS: 71046; 74177; 80048; 80053; 80061; 81003; 81015; 83690; 83880; 84443; 84484; 85025; 85027; 87502; 87811; 93005; 93306; 96361; 96374; 97162; 97166; 99285; Q9967

== ENCOUNTER → 2023-05-20 10:57 | Outpatient (REF) | payer OTHER, SELFPAY ==
[2023-05-20 14:09] LABS: Blood Urea Nitrogen 29 mg/dl (7-17); Carbon Dioxide 27 mmol/L (22-30); Chloride 101 mmol/L (98-107); Glucose 109 mg/dl (70-99); Potassium 4.2 mmol/L (3.5-5.1); Sodium 139 mmol/L (135-145); eGFR 57.31
== END ==
LOC: HWLAB 10:57
PROVIDERS: ATTENDING PHYSICIAN Internal Medicine; FAMILY PHYSICIAN Student in an Organized Health Care Education/Training Program
DX: R79.89 Other specified abnormal findings of blood chemistry (principal)
CPT/HCPCS: 36415; 80048

== ENCOUNTER → 2023-07-13 11:49 | Outpatient (REF) | payer OTHER, SELFPAY | LOC: HWWDC 11:49 | PROVIDERS: ATTENDING PHYSICIAN Student in an Organized Health Care Education/Training Program | DX: Z12.31 Encounter for screening mammogram for malignant neoplasm of breast (principal) | CPT/HCPCS: 77063; 77067 ==

== ENCOUNTER → 2023-08-17 11:17 | Outpatient (REF) | payer OTHER, SELFPAY | LOC: HWRCS 11:17 | PROVIDERS: ATTENDING PHYSICIAN Internal Medicine Cardiovascular Disease; FAMILY PHYSICIAN Student in an Organized Health Care Education/Training Program | DX: I42.8 Other cardiomyopathies (principal) | CPT/HCPCS: 93306 ==

== ENCOUNTER → 2023-08-24 | Outpatient (REF) | payer OTHER, SELFPAY | LOC: DHSLP | PROVIDERS: ATTENDING PHYSICIAN Nurse Practitioner Adult Health; FAMILY PHYSICIAN Internal Medicine | DX: G47.33 Obstructive sleep apnea (adult) (pediatric) (principal) | CPT/HCPCS: 95800 ==

== ENCOUNTER → 2023-12-21 09:00 | Outpatient (REF) | payer OTHER, SELFPAY ==
[2023-12-21 13:01] VITALS: BMI 19.5
[2023-12-21 13:32] LABS: % Basophils 0.2 % (0-2); % Immature Granulocytes 0.2 % (0-0.5); % Lymphocytes 20.2 % (20.5-51.1); % Monocytes 7.3 % (1.7-9.3); % Neutrophils 71.1 % (42.2-75.2); Absolute Eosinophils 0.1 10^3/uL (0-0.7); Absolute Lymphocytes 2.5 10^3/uL (1.2-3.4); Absolute Monocytes 0.9 10^3/uL (0.1-0.6); Absolute Neutrophils 8.8 10^3/uL (1.4-6.5); Hematocrit 38.2 % (37.0-47.0); Hemoglobin 12.7 g/dL (12.0-16.0); Mean Corp Hgb Conc. 33.2 g/dL (33.0-37.0); Mean Corpuscular Hgb 31.5 pg (27.0-31.0); Mean Corpuscular Volume 94.8 fL (81.0-99.0); Mean Platelet Volume 10.2 fL (7.4-10.4); Nucleated Red Blood Cells % 0 %; Platelet Count 210 10^3/uL (130-400); Red Blood Cell Count 4.03 10^6/uL (4.20-5.40); Red Cell Dist. Width 13.7 % (11.5-14.5); White Blood Cell Count 12.4 10^3/uL (4.8-10.8)
[2023-12-21 14:20] LABS: ALT (SGPT) 18 U/L (0-35); AST (SGOT) 24 U/L (14-36); Albumin 4.3 g/dl (3.5-5.0); Alkaline Phosphatase 69 U/L (38-126); Blood Urea Nitrogen 14 mg/dl (7-17); Calcium 9.6 mg/dl (8.4-10.2); Carbon Dioxide 26 mmol/L (22-30); Chloride 105 mmol/L (98-107); Estimated Creatinine Clearance 38 ml/min; Glucose 85 mg/dl (70-99); Potassium 4.2 mmol/L (3.5-5.1); Sodium 143 mmol/L (135-145); Total Bilirubin 0.5 mg/dl (0.2-1.3); Total Protein 7.2 g/dl (6.3-8.2); eGFR > 60.00
== END ==
LOC: REG 09:00
PROVIDERS: ATTENDING PHYSICIAN Internal Medicine Cardiovascular Disease; FAMILY PHYSICIAN Student in an Organized Health Care Education/Training Program
DX: Z01.810 Encounter for preprocedural cardiovascular examination (principal); I11.0 Hypertensive heart disease with heart failure
CPT/HCPCS: 36415; 80053; 85025; 93005

== ENCOUNTER 2024-01-18 07:04 | Emergency (ER) | payer OTHER, SELFPAY ==
[2024-01-18 07:07] VITALS: BP 154/89
[2024-01-18] MEDS: DECADRON 10 MG PO (08:15)
[2024-01-18] MEDS: ROXICODONE 5 MG PO ×2 (08:15→10:26)
--- NOTE | 2024-01-18 09:00 | ED.GENMED ---
History of Present Illness
General
Chief Complaint: Extremity Pain (non-traumatic)
Source: patient and spouse
Exam Limitations: none
Time Seen by Provider: 01/18/24 07:12
Nursing documentation reviewed up to this point in time: agreed with
History of Present Illness
History of Present Illness:
78-year-old female with past ministry of A-fib currently on Eliquis, cardiac defibrillator, inflammatory arthritis presenting to the emergency department today with concerns of right-sided wrist and hand discomfort over the past week or so has been
taking Medrol Dosepak and concluded this yesterday relief. Denies fevers or any additional symptoms other than wrist pain. Denies any preceding trauma. Does have follow-up with a administrative processor at 1:00 today.
Past History
Past History
ED Past Medical History: Arrthythmia, Cancer (Breast) and Other (Recurrent urinary tract infection.)
ED Past Surgical History: Cardiac (AICD 03/27/2015) and Gynecological (Hysterectomy)
Social History
Tobacco: Non-smoker
Alcohol: None
Drug: None
Personal:
Living: with family
Employment: Retired
Family History
Family History: Other (Noncontributory)
Review of Systems
Review of Systems
Allergies reviewed?: Yes
All Other Systems: ROS reviewed and negative except as documented in HPI and ROS
Phy Exam
Physical Exam
Physical Exam:
GENERAL: Alert , in no apparent distress
EYE: pupils equal and reactive
NECK: Supple, no significant adenopathy.
ENT: o/p clr, mmm.
CARDIAC: Regular rate and rhythm .
LUNGS: Clear breath sounds bilaterally, no acute respiratory distress, no wheezes/rales/rhonchi
ABDOMEN: Soft, without focal tenderness, no r/g, no cvat
NEUROLOGICAL: Alert and oriented, no focal neuro deficits
SKIN: Warm and dry, skin intact.
MUSCULOSKELETAL: No significant swelling to the right wrist but does have discomfort mainly on the dorsal aspect of the wrist no significant warmth is able to range but does have discomfort when moving at the wrist flexion and extension. No
tenderness about the hand fingers or remainder of the forearm. No edema, well perfused.
PSYCH: Normal and appropriate interaction.
Course
Orders/Labs/Results
Orders:
Orders
01/18/24 08:07
Dexamethasone [Decadron] 10 mg PO NOW STA
Oxycodone [Roxicodone] 5 mg PO NOW STA
CR Wrist - Right Min 3 Views Urgent
Comment:
Reason For Exam: wrist pain
01/18/24 10:22
Oxycodone [Roxicodone] 5 mg PO NOW STA
Vital Signs
Initial and Last Documented VS:
Initial Vital Signs
Temp Pulse Resp BP Pulse Ox
97.7 F 89 18 154/89 99
01/18/24 07:07 01/18/24 07:07 01/18/24 07:07 01/18/24 07:07 01/18/24 07:07
Last Documented Vital Signs
Temp Pulse Resp BP Pulse Ox
97.7 F 89 18 154/89 99
01/18/24 07:07 01/18/24 07:07 01/18/24 07:07 01/18/24 07:07 01/18/24 07:07
MDM/Problems Addressed
MDM/Problems Addressed:
78-year-old female presenting to the emergency department with right hand and wrist discomfort over the past week tried taking Medrol Dosepak considering this felt very similar to previous episodes of arthritis without relief. Will be following up
with the administrative processor later today. Denies fever or any systemic symptoms. On examination there is very small amount of light redness to the dorsal aspect of the wrist but otherwise had does have some range of motion septic arthritis seems
unlikely concern no progression of symptoms no fever after a week. Vital signs are normal here. Otherwise generally well-appearing will follow-up with the administrative processor 1:00 today stable for outpatient management return precautions given.
*Critical Care Note
Total Time (30-74mins, 75-104mins- exclusive of procedures): Not Applicable
ED Attending Note
-
Portions of this chart may have been created with voice recognition software.� Occasional wrong word or��sound alike� substitutions may have occurred due to the inherent limitations of voice recognition software.
Discharge Plan
Departure
Patient Disposition: Home (Routine Discharge)
Date of Disposition: 01/18/24
Time of Disposition:
Patient with high blood pressure during this ER visit?: No
Condition: Good
Covid-19: Not Applicable
Discharge Problem:
Right wrist pain
Instructions: Rheumatoid Arthritis (DC)
Prescriptions:
New
prednisone 10 mg Tablet
See Rx Instructions .ROUTE .COMPLEX Qty: 30 0RF
Rx Instructions:
Take By Mouth:
40 mg daily x3 days, 30 mg daily x3 days,
20 mg daily x3 days, 10 mg daily x3 days.
oxycodone 5 mg tablet
5 mg PO Q6H PRN (Reason: Pain) Qty: 7 0RF
No Action
latanoprost 0.005 % Drops
1 drp BOTH EYES HS
carvedilol 6.25 mg Tablet
6.25 mg PO BID
methimazole 5 mg Tablet
2.5 mg PO DAILY
brimonidine-timolol [Combigan] 0.2-0.5 % Drops
1 drp BOTH EYES BID
Eliquis 5 mg Tablet
5 mg PO BID
gabapentin 100 mg Capsule
100 mg PO BIDPRN PRN (Reason: NERVE PAIN)
methenamine hippurate 1 gram Tablet
1 g PO BID
Visbiome 112.5 billion cell Capsule
1 cap PO DAILY Qty: 0
acetaminophen [Tylenol] 325 mg Tablet
650 mg PO Q4H PRN (Reason: MILD PAIN)
therapeutic multivitamin Tablet
1 tab PO DAILY
tramadol 50 mg Tablet
50 mg PO BID PRN (Reason: SEVERE PAIN)
melatonin 5 mg Tablet
5 mg PO HS PRN (Reason: sleep)
Referrals:
Petty Ventura PA-C [Family Provider] -
Activity Restrictions/Additional Instructions:
You came to the emergency department today with concerns of inflammation and discomfort to your wrist. Your x-ray showed arthritis but no evidence of emergent process otherwise. Please take prescribed medications and follow-up closely with your
rheumatology group. Return to the emergency department any worsening, new or concerning symptoms.
Interventions
Interventions:
*Risk Screen - Suicide Last Done: 01/18/24 07:07
*General Assessment Last Done: 01/18/24 10:46
*Neglect/Abuse Screening Last Done: 01/18/24 07:07
ED- Fall Risk Assessment Last Done: 01/18/24 10:46
*ED COVID-19 Vaccine History Last Done: 01/18/24 07:07
*Nursing Disposition Last Done: 01/18/24 10:46
ED-Skin Assessment Last Done: 01/18/24 10:45
ED-Peripheral Vascular Assessment Last Done: 01/18/24 10:45
ED-Musculoskeletal Assessment Last Done: 01/18/24 10:45
Discharge Date and Time
Discharge Date/Time: 01/18/24 10:47
Print Language: TUNISIAN
== END 2024-01-18 10:47 | disposition home or self-care (01) ==
LOC: EMR 07:04
PROVIDERS: EMERGENCY PHYSICIAN Emergency Medicine; FAMILY PHYSICIAN Student in an Organized Health Care Education/Training Program
DX: M25.531 Pain in right wrist (principal); I48.91 Unspecified atrial fibrillation; Z79.01 Long term (current) use of anticoagulants; Z85.3 Personal history of malignant neoplasm of breast; Z90.710 Acquired absence of both cervix and uterus; Z95.810 Presence of automatic (implantable) cardiac defibrillator
CPT/HCPCS: 99283; 73110

== ENCOUNTER → 2024-02-02 12:37 | Outpatient (REF) | payer OTHER, SELFPAY | LOC: HWRAD 12:37 | PROVIDERS: ATTENDING PHYSICIAN Physician Assistant; FAMILY PHYSICIAN Student in an Organized Health Care Education/Training Program | DX: E04.1 Nontoxic single thyroid nodule (principal) | CPT/HCPCS: 76536 ==

== ENCOUNTER 2024-02-03 08:31 | Day surgery (SDC) | payer OTHER, SELFPAY ==
[2024-01-25 12:32] VITALS: BMI 18.9
[2024-01-25 13:01] LABS: % Basophils 0.1 % (0-2); % Eosinophils 0.1 % (0-6); % Immature Granulocytes 1.2 % (0-0.5); % Lymphocytes 10.5 % (20.5-51.1); % Monocytes 3.8 % (1.7-9.3); % Neutrophils 84.3 % (42.2-75.2); Absolute Immature Granulocytes 0.2 10^3/uL (0-0.05); Absolute Lymphocytes 1.8 10^3/uL (1.2-3.4); Absolute Monocytes 0.6 10^3/uL (0.1-0.6); Absolute Neutrophils 14.4 10^3/uL (1.4-6.5); Hematocrit 38.7 % (37.0-47.0); Hemoglobin 12.8 g/dL (12.0-16.0); Mean Corp Hgb Conc. 33.1 g/dL (33.0-37.0); Mean Corpuscular Hgb 30.1 pg (27.0-31.0); Mean Corpuscular Volume 91.1 fL (81.0-99.0); Mean Platelet Volume 10.2 fL (7.4-10.4); Nucleated Red Blood Cells % 0 %; Platelet Count 239 10^3/uL (130-400); Red Blood Cell Count 4.25 10^6/uL (4.20-5.40); Red Cell Dist. Width 14.1 % (11.5-14.5); White Blood Cell Count 17.1 10^3/uL (4.8-10.8)
[2024-01-25 13:15] LABS: ALT (SGPT) 25 U/L (0-35); AST (SGOT) 26 U/L (14-36); Albumin 4.3 g/dl (3.5-5.0); Alkaline Phosphatase 67 U/L (38-126); Blood Urea Nitrogen 29 mg/dl (7-17); Calcium 9.8 mg/dl (8.4-10.2); Carbon Dioxide 26 mmol/L (22-30); Chloride 101 mmol/L (98-107); Estimated Creatinine Clearance 38 ml/min; Glucose 99 mg/dl (70-99); Potassium 4.6 mmol/L (3.5-5.1); Sodium 140 mmol/L (135-145); Total Bilirubin 0.4 mg/dl (0.2-1.3); Total Protein 7.2 g/dl (6.3-8.2); eGFR > 60.00
--- NOTE | 2024-01-25 13:35 | HPS.HSE ---
Family Physician
-
Family Physician: Petty Ventura PA-C
Chief Complaint
-
Ventricular tachycardia. Nonischemic cardiomyopathy. Congestive heart failure.
History of Present Illness
The patient is an 78-year-old female with a past medical history of ventricular tachycardia, nonischemic cardiomyopathy, and congestive heart failure. She had a Medtronic dual-chamber ICD implanted March 27, 2015, due to recurrent syncope. Her most
recent transthoracic echocardiogram on August 17, 2023 demonstrated an ejection fraction of 35-40% with global hypokinesis, a well-seated mitral annuloplasty ring, and a well-seated Trifecta bioprosthetic aortic valve replacement. She is currently due
for a generator change and denies significant complaints today, including chest pain, shortness of breath, palpitations, nausea, vomiting, diarrhea, lightheadedness, dizziness, cough, sore throat, or fever.
Medical History
Past Medical History
Past Medical History: Reports Other
Additional Past Medical History:
1. Ventricular tachycardia with recurrent syncope, status post Medtronic dual chamber ICD insertion 2015.
2. Nonischemic cardiomyopathy.
3. Congestive heart failure, reduced ejection fraction.
4. Left bundle branch block.
5. Paroxysmal atrial fibrillation, pharmacological therapy with Carvedilol and oral anticoagulation with Eliquis.
6. Severe aortic insufficiency, status post [employer] bioprosthetic aortic valve replacement.
7. Severe mitral regurgitation, status post mitral valve repair.
8. Mild obstructive sleep apnea, no current device.
9. Diverticulitis, 11/2022, status post sigmoid resection.
10. Irritable bowel syndrome.
11. Peripheral neuropathy.
12. Degenerative disc disease.
13. Osteoarthritis.
14. Reactive arthritis with recent Prednisone use.
15. Hyperthyroidism.
16. Breast cancer, >10 years ago, status post right lumpectomy and lymph node dissection, chemotherapy, and radiation.
17. Melanoma, >10 years ago, status post excision.
18. Glaucoma.
19. Questionable history of Lyme disease.
20. History of C diff.
21. Osteopenia.
22. Insomnia.
23. Leukocytosis in the setting of recent Prednisone, asymptomatic.
Past Surgical History: Reports Other
Additional Past Surgical History:
1. Medtronic dual-chamber ICD implantation.
2. Mitral valve repair.
3. [employer] bioprosthetic aortic valve repair.
4. Right total knee arthroplasty.
5. Right total knee revision.
6. Left total hip arthroplasty.
7. Left total hip revision x2.
8. Sigmoid resection and cholecystectomy.
9. Right breast lumpectomy with lymph node dissection.
10. Cataract extraction.
11. Multiple colonoscopies.
Social History
Tobacco: Non-smoker
Alcohol: Occasional
Personal:
Living: Other (She lives in a second floor, 1 story apartment at [facility]. )
Family History
Family History: Not pertinent
Allergies / Home Medications
Allergy/Medication List:
Home medications:
1. Combigan ophthalmic solution 1 drop both eyes twice a day.
2. Carvedilol 6.25 mg p.o. twice a day.
3. Eliquis 5 mg p.o. twice a day.
4. Gabapentin 200 mg p.o. at bedtime.
5. Latanoprost ophthalmic solution 1 drop both eyes at bedtime.
6. Melatonin 5 mg p.o. at bedtime as needed.
7. Methenamine hippurate 1 gm p.o. twice a day.
8. Methimazole 2.5 mg p.o. daily.
9. Tramadol 50 mg p.o. twice a day as needed.
10. Multivitamin 1 tablet p.o. daily.
11. Visbiome 1 capsule p.o. daily.
12. Prednisone 10 mg tablets p.o. as directed.
13. Acetaminophen 650 mg p.o. every 4 hours as needed.
Allergies: Levofloxacin. Vancomycin.
Review of Systems
-
A 12 point ROS was completed and negative except as noted: Yes
Physical Exam
Vital Signs
Blood pressure 151/83. Heart rate 82. Respirations 18. Pulse ox 97% on room air.
Height 5 feet, 3 inches. Weight 48.3 kg. BMI 18.9.
Physical Exam
General: Well Developed, Well Nourished and No Apparent Distress
HEENT: NormoCephalic, Moist mucous membranes and Atraumatic
Respiratory: Clear
Cardiac: Regular Rhythm and Other (ICE site intact. )
GI: Soft, Non Tender and Non Distended
Musculoskeletal: No Edema and Other (Patient walks with a single point cane. )
Skin: Warm and Dry
Neuro: AO x 3 and Nonfocal/grossly intact
Laboratory Results
-
01/25/24 12:41
01/25/24 12:41
Laboratory Results
Total Bilirubin 0.4 mg/dl (0.2-1.3) 01/25/24 12:41
AST 26 U/L (14-36) 01/25/24 12:41
ALT 25 U/L (0-35) 01/25/24 12:41
Alkaline Phosphatase 67 U/L (38-126) 01/25/24 12:41
EKG 01/25/2024: Normal sinus rhythm with first degree AV block. Left axis deviation. Left bundle branch block.
Impression/Plan
-
IMPRESSION/PLAN:
1. Ventricular tachycardia, nonischemic cardiomyopathy, congestive heart failure: The patient is in need of an ICD generator change with Dr. Fabián Marrufo on 02/03/2024. The benefits and risks of the procedure have been explained to the patient. The
patient understands these risks and wishes to proceed. She was noted to have leukocytosis pre-operatively which is likely related to her Prednisone use for reactive arthritis. She will be off Prednisone prior to surgery. She denies fever, shortness
of breath, cough, sore throat, nausea, vomiting, and urinary frequency and burning. Should symptoms present prior to her procedure, she will call Dr. Marrufo's office for possible postponement.
[2024-02-03] VITALS (8 sets, daily range): BP systolic 144–179; BP diastolic 73–142; BMI 19.0
--- NOTE | 2024-02-03 09:12 | W.ICD.CONTRA ---
Post ICD/FARM WORKER-D
-
History of MA?: No
LV Function
Left ventricular function study result?: Ejection Fraction >35% - <40%
ACEI/ARB/ARNI
Patient already on ACEI/ARB/ARNI: No
ACEI/ARB/ARNI Contraindication: Hypotension
Beta-Rebeca
Patient already on Beta Rebeca: Yes
--- NOTE | 2024-02-03 11:32 | ITS.CL.ICD ---
Grinder Setup Operator - ICD
Implantable Cardioverter Defibrillator
Procedure Report:
Date of Procedure: February 03, 2024.
Procedures: ICD Pulse Generator Explantation and ICD Pulse Generator Implantation.
Indication: ICD at the elective replacement indicator from natural battery depletion. The initial device was implanted as a secondary prevention ICD.
Performing physician: Fabián Marrufo MD, [facility].
Implant: ICD Pulse Generator: Medtronic; Model# [id number]; Serial# [id number].
Explanted ICD Pulse Generator (Implanted 03/27/2015): Medtronic; Model#[id number]; Serial#[id number]
Retained Leads (Implanted 03/27/2015):
Atrial Lead: Medtronic: Model# [id number]; Serial# [id number]
Right Ventricular Lead: Medtronic; Model# [id number]; Serial#[id number]
Technique: A time-out was performed. The procedure site was identified. The anesthesia service anesthetized the patient. Preoperative cefazolin was administered before the skin incision. The patient was prepped and draped in the usual fashion. Local
anesthetic was applied to the left pre-pectoral subcutaneous tissue. A 3-inch incision was made over the pulse generator. The capsule was entered with Bovie cautery. The old ICD pulse generator was explanted. No Bovie cautery was applied to the lead
system. The leads were appropriately attached to the new ICD pulse generator. The pocket was revised to allow the new device to be inserted. The pocket was irrigated with an antibiotic solution. Hemostasis was excellent. The device and leads were
placed in the pocket. The incision was closed in three layers with an absorbable suture. Steri-strips and an silver impregnated dressing were applied. The estimated blood loss was 1 mL. There were no complications. No fluoroscopy was used.
Lead Analysis:
RA lead: P: 3 mV; Threshold: 0.75 V @ 0.4 ms; Impedance: 450 ohms.
RV lead: R: 10 mV; Threshold: 0.75 V @ 0.4 ms; Impedance: 1170 ohms.
Final Programming: VT/VF 188 bpm; Parish: MVP-R (AAIR to DDDR) 60-130 bpm.
Conclusion: Uncomplicated ICD pulse generator change. The ICD system is MRI safe/conditional.
Recommendation: Routine post ICD care.
cc: KULWANT Goodwin and Theodore Henderson MD.
== END 2024-02-03 12:20 | disposition home or self-care (01) ==
LOC: CATH 08:31
PROVIDERS: ATTENDING PHYSICIAN Internal Medicine Cardiovascular Disease; FAMILY PHYSICIAN Student in an Organized Health Care Education/Training Program
DX: Z45.02 Encounter for adjustment and management of automatic implantable cardiac defibrillator (principal); I47.20 Ventricular tachycardia, unspecified; I11.0 Hypertensive heart disease with heart failure; R55 Syncope and collapse; I42.8 Other cardiomyopathies; I50.22 Chronic systolic (congestive) heart failure; I48.0 Paroxysmal atrial fibrillation; Z95.3 Presence of xenogenic heart valve; G47.33 Obstructive sleep apnea (adult) (pediatric); I08.0 Rheumatic disorders of both mitral and aortic valves; Z90.49 Acquired absence of other specified parts of digestive tract; K58.9 Irritable bowel syndrome, unspecified; G62.9 Polyneuropathy, unspecified; M19.90 Unspecified osteoarthritis, unspecified site; E05.90 Thyrotoxicosis, unspecified without thyrotoxic crisis or storm; Z92.21 Personal history of antineoplastic chemotherapy; Z85.3 Personal history of malignant neoplasm of breast; H40.9 Unspecified glaucoma; Z86.19 Personal history of other infectious and parasitic diseases; M85.80 Other specified disorders of bone density and structure, unspecified site; G47.00 Insomnia, unspecified; D72.829 Elevated white blood cell count, unspecified; Z79.899 Other long term (current) drug therapy; Z79.01 Long term (current) use of anticoagulants; Z79.52 Long term (current) use of systemic steroids; Z88.1 Allergy status to other antibiotic agents
CPT/HCPCS: 33263; 36415; 80053; 85025; 93005; C1721

== ENCOUNTER 2024-03-06 07:48 | Day surgery (SDC) | payer OTHER, SELFPAY ==
[2024-03-06 08:42] VITALS: BMI 19.8
== END 2024-03-06 09:43 | disposition home or self-care (01) ==
LOC: CATH 07:48
PROVIDERS: ATTENDING PHYSICIAN Internal Medicine Cardiovascular Disease; FAMILY PHYSICIAN Student in an Organized Health Care Education/Training Program; OTHER PHYSICIAN Student in an Organized Health Care Education/Training Program
DX: I48.0 Paroxysmal atrial fibrillation (principal); Z53.09 Procedure and treatment not carried out because of other contraindication; I47.20 Ventricular tachycardia, unspecified; I42.8 Other cardiomyopathies; I50.22 Chronic systolic (congestive) heart failure; I44.7 Left bundle-branch block, unspecified; Z85.3 Personal history of malignant neoplasm of breast; Z79.01 Long term (current) use of anticoagulants
CPT/HCPCS: 93005

== ENCOUNTER → 2024-03-09 09:11 | Outpatient (REF) | payer OTHER, SELFPAY | LOC: HWRAD 09:11 | PROVIDERS: ATTENDING PHYSICIAN Student in an Organized Health Care Education/Training Program; FAMILY PHYSICIAN Student in an Organized Health Care Education/Training Program | DX: M54.50 Low back pain, unspecified (principal); G89.29 Other chronic pain; R10.30 Lower abdominal pain, unspecified; M25.531 Pain in right wrist; M79.641 Pain in right hand; M79.642 Pain in left hand; M79.671 Pain in right foot; M79.672 Pain in left foot; M81.0 Age-related osteoporosis without current pathological fracture | CPT/HCPCS: 73130; 73630; 74176 ==

== ENCOUNTER → 2024-03-27 10:52 | Outpatient (REF) | payer OTHER, SELFPAY | LOC: HWRAD 10:52 | PROVIDERS: ATTENDING PHYSICIAN Student in an Organized Health Care Education/Training Program | DX: M54.50 Low back pain, unspecified (principal) | CPT/HCPCS: 72110 ==

== ENCOUNTER 2024-03-29 12:22 | Emergency (ER) | payer OTHER, SELFPAY ==
[2024-03-29] VITALS (16 sets, daily range): BP systolic 89–142; BP diastolic 53–119; PULSE 76–95; BMI 20.3
[2024-03-29 13:02] LABS: % Basophils 0.5 % (0-2); % Immature Granulocytes 0.9 % (0-0.5); % Monocytes 6.5 % (1.7-9.3); % Neutrophils 62.1 % (42.2-75.2); Absolute Basophils 0.1 10^3/uL (0-0.2); Absolute Eosinophils 0.3 10^3/uL (0-0.7); Absolute Immature Granulocytes 0.1 10^3/uL (0-0.05); Absolute Lymphocytes 3.6 10^3/uL (1.2-3.4); Absolute Monocytes 0.8 10^3/uL (0.1-0.6); Hematocrit 39.6 % (37.0-47.0); Hemoglobin 12.9 g/dL (12.0-16.0); Mean Corp Hgb Conc. 32.6 g/dL (33.0-37.0); Mean Corpuscular Hgb 30.4 pg (27.0-31.0); Mean Corpuscular Volume 93.4 fL (81.0-99.0); Mean Platelet Volume 10.2 fL (7.4-10.4); Nucleated Red Blood Cells % 0 %; Platelet Count 227 10^3/uL (130-400); Red Blood Cell Count 4.24 10^6/uL (4.20-5.40); Red Cell Dist. Width 15.1 % (11.5-14.5); White Blood Cell Count 12.8 10^3/uL (4.8-10.8)
[2024-03-29 13:05] LABS: COVID-19 Antigen Negative (Negative)
[2024-03-29 13:11] LABS: Lactic Acid 1.7 mmol/L (0.7-2.0)
[2024-03-29 13:12] LABS: ALT (SGPT) 18 U/L (0-35); AST (SGOT) 23 U/L (14-36); Alkaline Phosphatase 65 U/L (38-126); Blood Urea Nitrogen 24 mg/dl (7-17); Calcium 9.6 mg/dl (8.4-10.2); Carbon Dioxide 25 mmol/L (22-30); Chloride 102 mmol/L (98-107); Estimated Creatinine Clearance 34 ml/min; Glucose 114 mg/dl (70-99); Potassium 4.2 mmol/L (3.5-5.1); Sodium 138 mmol/L (135-145); Total Bilirubin 0.5 mg/dl (0.2-1.3); Total Protein 6.8 g/dl (6.3-8.2); eGFR 56.95
--- NOTE | 2024-03-29 13:56 | ED.GENMED ---
History of Present Illness
General
Chief Complaint: Weakness
Source: patient and spouse
Exam Limitations: none
Time Seen by Provider: 03/29/24 12:41
Nursing documentation reviewed up to this point in time: agreed with
History of Present Illness
History of Present Illness:
78-year-old female with past medical history of hypertension, hyperlipidemia, atrial fibrillation, AICD/pacemaker who presents to the ER with her for evaluation of lightheadedness. Of note patient has recently had UTI symptoms�she reports
over the past 48 hours she has had some mild dysuria and cloudy urine and yesterday she was started on Macrobid and took a dose last night and a dose this morning. She comes to the emergency room today because she has had lightheadedness and had
near syncopal event�she says that she was outside of her apartment building/living facility with her and she felt lightheaded and sat down to her chair. She says she did not pass out or have any serious fall/injury. She says that she asked
her to take her upstairs to their apartment in a wheelchair because of this episode and when they got upstairs says that she looked somewhat clammy and pale and so he checked her blood pressure and noted that it was in the 70s. He
waited a bit and checked again and it remained in the 70s and so EMS was called to bring her to the hospital. She says that she still feels mildly weak/lightheaded here but denies any other complaints. She says that she did not have and does not
have any chest pain, palpitations, shortness of breath. She denies any abdominal pain. Has not had any nausea or vomiting. She has had an episode of loose stools today, nonbloody�she attributed this to Macrobid. She says that cloudy urine
actually has improved today after only a few doses of antibiotics. She denies any flank pain. She denies fever or chills. She denies any other complaints.
Past History
Past History
ED Past Medical History: Arrthythmia, Cancer (Breast) and Other (Recurrent urinary tract infection.)
ED Past Surgical History: Cardiac (AICD 03/27/2015) and Gynecological (Hysterectomy)
Social History
Tobacco: Non-smoker
Alcohol: None
Drug: None
Personal:
Living: with family
Employment: Retired
Family History
Family History: Other (Noncontributory)
Review of Systems
Review of Systems
All Other Systems: ROS reviewed and negative except as documented in HPI and ROS
Constitutional: Denies fever or chills
Respiratory: Denies cough or trouble breathing
Cardiac: Reports syncope (Near syncope); Denies chest pain or palpitations
ABD/GI: Reports diarrhea; Denies abdominal pain, nausea, vomiting or bloody stools
: Reports dysuria and dark urine; Denies flank pain
Musculoskeletal: Denies neck pain or back pain
Neurological: Reports dizzy; Denies headache
Phy Exam
Physical Exam
Physical Exam:
General: Awake, alert, oriented x3; no acute distress
Head: Normocephalic, atraumatic
Eyes: Conjunctiva normal, EOMI
Throat: Airway intact, slightly dry mucous membrane
Neck: Trachea midline, supple without meningismus
Lungs: Clear to auscultation bilaterally, no wheezing, rales, rhonchi
Heart: Regular rate and rhythm, midsystolic murmur
Abd: Soft, non distended, nontender, no palpable masses
Back: No CVA tenderness
Neuro: No gross deficit
Skin: no rash
Extremities: No edema in extremities, warm and well-perfused
Scores
Heart Failure Risk
Heart Failure Risk Score: Not Applicable
Heart Score for Chest Pain Patients
STEMI patient?: Not applicable
Withdrawal Assessment of Alcohol
Withdrawal Assessment Completed?: Not applicable
Course
Orders/Labs/Results
Orders:
Orders
03/29/24 12:42
Electrocardiogram (*1) Urgent
Reason for Study: Fatigue / Weakness
EKG- Treatment ONCE
03/29/24 12:43
Orthostatic VS- Treatment ONCE
03/29/24 12:47
COVID-19 Antigen Urgent
Source: Nasal Swab
Complete Blood Count/With Diff Urgent
Comprehensive Metabolic Panel Urgent
Lactate Level [Lactic Acid] Urgent
Influenza A+B Rapid Molecular Urgent
TONY Source: Nasal Swab
Specimen Description:
03/29/24 13:56
0.9% Sodium Chloride 1000 ml [Nss] 1,000 ml IV BOLUS
03/29/24 13:57
Interrogate Pacemaker- Treatment ONCE
03/29/24 15:58
Urinalysis Reflex To Culture Urgent
Date Specimen was Collected: 03/29/24
Time Specimen was Collected: 15:54
Urine Microscopic Reflex Cult Urgent
Urine Culture Urgent
TONY Source: U
Specimen Description:
Date Specimen was Collected: 03/29/24
Time Specimen was Collected: 15:54
03/29/24 17:09
Orthostatic VS- Treatment ONCE
Abnormal Lab Results
03/29/24 03/29/24
12:47 15:58
WBC 12.8 H 10^3/uL
(4.8-10.8)
MCHC 32.6 L g/dL
(33.0-37.0)
RDW 15.1 H %
(11.5-14.5)
Abs Immat Gran (auto) 0.1 H 10^3/uL
(0-0.05)
Absolute Neuts (auto) 8.0 H 10^3/uL
(1.4-6.5)
Absolute Lymphs (auto) 3.6 H 10^3/uL
(1.2-3.4)
Absolute Monos (auto) 0.8 H 10^3/uL
(0.1-0.6)
Immature Gran % 0.9 H %
(0-0.5)
BUN 24 H mg/dl
(7-17)
Glucose 114 H mg/dl
(70-99)
Ur Occult Blood Reflex 4+ A
(Negative)
Leukocyte Esterase Rfl 2+ A
(Negative)
Urine RBC 16-20 A /HPF
(0-2)
Urine WBC (Reflex) 90-100 A /HPF
(0-5)
Urine Bacteria (Reflex) Many A
(Negative)
Urine Albumin (Reflex) 1+ A
(Neg - Trace)
03/29/24 12:47
03/29/24 12:47
Vital Signs
Blood pressure: 143/62
Initial and Last Documented VS:
Initial Vital Signs
Temp Pulse Resp BP Pulse Ox
36.5 C 81 28 130/73 99
03/29/24 12:27 03/29/24 12:27 03/29/24 12:27 03/29/24 12:27 03/29/24 12:27
Last Documented Vital Signs
Temp Pulse Resp BP Pulse Ox
36.5 C 83 17 125/53 100
03/29/24 12:27 03/29/24 16:00 03/29/24 16:00 03/29/24 15:00 03/29/24 16:00
MDM/Problems Addressed
Differential Diagnosis Includes:
Dehydration, sepsis, orthostasis; nothing on exam or by history to suggest heart failure/cardiogenic cause of hypertension; similarly no findings to suggest obstructive shock
MDM/Problems Addressed:
78-year-old female presents for evaluation of lightheadedness and hypotension in the setting of recent UTI symptoms. Hypertensive at home currently in the 70s. Blood pressure initially normal here on my assessment she was 92/76. Rest of vitals
normal. Physical exam as above. She does appear slightly dehydrated on exam. Place an IV check labs including CBC and CMP. Will check urinalysis. Check lactate. Will send blood cultures. Will provide IV fluids. Check chest x-ray and EKG.
Interrogate device. Monitor closely reassess after the above.
Pacemaker report reviewed: Patient did have 1 episode of AT/AF on March 26 with heart rate of 107 lasted 2 hours and 10 minutes. No sensed episodes of VT/VF, no shocks/treatable rhythms. Low suspicion at this accounts for her lightheadedness
today.
Labs reviewed: CBC shows marginal leukocytosis 12.8 in the setting of current treatment for UTI. Her CMP shows no clinically significant abnormalities. Lactate less than 2. Her urinalysis is cloudy with signs of acute infection. Her blood
pressure has normalized after liter of IV fluids and after initially positive orthostatic vital signs patient felt well with change in position. Continue to monitor blood pressure remained stable and she feels well I think be reasonable to continue
outpatient treatment for UTI and follow-up with PCP. She has only had 2 doses of Macrobid, I think she can continue this course.
Blood pressure normal to slightly high after fluids. Orthostatic vital signs which were initially positive have normalized. She is feeling much better�this point I think she stable for discharge. Continue antibiotic course as described. She
feels very comfortable with this plan. We spoke about return precautions all questions answered.
*Radiology
Radiology exam reviewed: radiology read reviewed
*Pulse Oximetry
Patient hypoxic: no
*EKG
Interpreted by ED Provider?: Yes
Comparison EKG: no changes
Heart Rate: 78
Rate: normal
Rhythm: sinus
Ford: left axis deviation
Interval: normal interval
QRS Pattern: left bundle branch block
Ischemia: non-specific ST changes
*Critical Care Note
Total Time (30-74mins, 75-104mins- exclusive of procedures): Not Applicable
Data Reviewed
Source: patient, records and spouse
Patient Management
Escalation/DeEscalation of care consider admission/obs:
Considered admission for observation�patient declined, plan for outpatient treatment
ED Attending Note
-
Portions of this chart may have been created with voice recognition software.� Occasional wrong word or��sound alike� substitutions may have occurred due to the inherent limitations of voice recognition software.
Discharge Plan
Departure
Patient Disposition: Home (Routine Discharge)
Date of Disposition: 03/29/24
Time of Disposition: 17:37
Patient with high blood pressure during this ER visit?: No
Discharge Problem:
Acute UTI, Orthostatic hypotension, Dehydration
Instructions: Urinary tract infections in adults, Orthostatic hypotension
Prescriptions:
No Action
latanoprost 0.005 % Drops
1 drp BOTH EYES HS
methimazole 5 mg Tablet
2.5 mg PO DAILY
Eliquis 5 mg Tablet
5 mg PO BID
gabapentin 100 mg Capsule
200 mg PO HS
acetaminophen [Tylenol] 325 mg Tablet
650 mg PO Q4H PRN (Reason: MILD PAIN)
therapeutic multivitamin Tablet
1 tab PO DAILY
tramadol 50 mg Tablet
50 mg PO BID PRN (Reason: SEVERE PAIN)
methylprednisolone 4 mg Tablets,Dose Pack
3 mg PO PER PKG DIR
metoprolol tartrate 50 mg Tablet
50 mg PO BID
mirtazapine 7.5 mg Tablet
7.5 mg PO HS
brimonidine-timolol [Combigan] 0.2-0.5 % Drops
1 drp OPHTHALMIC (EYE) BID
Referrals:
Era Klein DO [Family Provider] - Follow up in 2-3 days
Activity Restrictions/Additional Instructions:
Thank you for visiting the Emergency Department at [facility].
1. Please schedule a follow up appointment as directed. Call first thing tomorrow morning to make an appointment.
2. If indicated, please take your medications as instructed and indicated on discharge paperwork.
3. If any of your symptoms do not improve, or persist, or become more severe within 6-12 hours, please return to the emergency department for further care.
4. Please return to the emergency department if you develop a headache, neck pain/stiffness, fever greater than 100.4F, chest pain, shortness of breath, persistent nausea, vomiting, slurred speech, difficulty walking, numbness/tingling, weakness,
signs of infection or any other symptoms that are worrisome to you.
Please call [phone] if you have any questions.
Interventions
Interventions:
*Risk Screen - Suicide Last Done: 03/29/24 12:27
*General Assessment Last Done: 03/29/24 12:27
*Neglect/Abuse Screening Last Done: 03/29/24 12:27
ED- Fall Risk Assessment Last Done: 03/29/24 13:08
*ED COVID-19 Vaccine History Last Done: 03/29/24 12:27
ED- Cardiac Assessment Last Done: 03/29/24 13:08
ED- Neurological Assessment Last Done: 03/29/24 13:08
ED- Pulmonary Assessment Last Done: 03/29/24 13:08
Discharge Date and Time
Print Language: ROMANIAN
[2024-03-29] MEDS: NSS 1000 IV (14:35)
[2024-03-29 16:25] LABS: Urine Albumin 1+ (Neg - Trace); Urine Bilirubin Negative (Negative); Urine Character Very Cloudy (Clear); Urine Color Yellow; Urine Glucose Negative (Negative); Urine Ketone Negative (Negative); Urine Leukocyte 2+ (Negative); Urine Nitrite Negative (Negative); Urine Occult Blood 4+ (Negative); Urine Specific Gravity 1.015 (<1.030); Urine Urobilinogen Negative (Neg - 1+)
[2024-03-29 16:39] LABS: Urine Squamous Cell 0-2 /LPF (Few)
[2024-03-29 16:40] LABS: Urine Bacteria Many (Negative); Urine Red Blood Cell 16-20 /HPF (0-2); Urine White Cell 90-100 /HPF (0-5)
== END 2024-03-29 18:27 | disposition home or self-care (01) ==
LOC: EMR 12:22
PROVIDERS: EMERGENCY PHYSICIAN Emergency Medicine; FAMILY PHYSICIAN Family Medicine
DX: N39.0 Urinary tract infection, site not specified (principal); I95.1 Orthostatic hypotension; E86.0 Dehydration; Z95.810 Presence of automatic (implantable) cardiac defibrillator; Z11.52 Encounter for screening for COVID-19; I10 Essential (primary) hypertension; E78.5 Hyperlipidemia, unspecified; I48.91 Unspecified atrial fibrillation
CPT/HCPCS: 99284; 96360; 93289; 80053; 81003; 81015; 83605; 85025; 87086; 87502; 87811; 93005

== ENCOUNTER 2024-04-09 13:43 | Inpatient (IN) | payer OTHER, SELFPAY ==
[2024-04-09] VITALS (15 sets, daily range): BP systolic 112–198; BP diastolic 61–98; BMI 21.1; BMI 20.3
[2024-04-09 07:04] LABS: % Basophils 0.2 % (0-2); % Eosinophils 0.4 % (0-6); % Immature Granulocytes 1.5 % (0-0.5); % Lymphocytes 14.6 % (20.5-51.1); % Monocytes 3.5 % (1.7-9.3); % Neutrophils 79.8 % (42.2-75.2); Absolute Eosinophils 0.1 10^3/uL (0-0.7); Absolute Immature Granulocytes 0.3 10^3/uL (0-0.05); Absolute Lymphocytes 2.6 10^3/uL (1.2-3.4); Absolute Monocytes 0.6 10^3/uL (0.1-0.6); Absolute Neutrophils 14.3 10^3/uL (1.4-6.5); Hematocrit 39.6 % (37.0-47.0); Hemoglobin 12.9 g/dL (12.0-16.0); Mean Corp Hgb Conc. 32.6 g/dL (33.0-37.0); Mean Corpuscular Hgb 30.4 pg (27.0-31.0); Mean Corpuscular Volume 93.4 fL (81.0-99.0); Mean Platelet Volume 10.1 fL (7.4-10.4); Nucleated Red Blood Cells % 0 %; Platelet Count 257 10^3/uL (130-400); Red Blood Cell Count 4.24 10^6/uL (4.20-5.40); Red Cell Dist. Width 14.5 % (11.5-14.5); White Blood Cell Count 17.9 10^3/uL (4.8-10.8)
--- NOTE | 2024-04-09 07:06 | ED.GENMED ---
History of Present Illness
General
Chief Complaint: Facial Problem
Time Seen by Provider: 04/09/24 06:10
History of Present Illness
History of Present Illness:
Patient is a 78 year old woman with history of A-fib on Eliquis, rheumatoid arthritis presenting to the emergency department with headache. Patient states that a week ago she developed a left-sided headache that was worse on her [employer]. She went
to her national coverage specialist who had blood work and 2 days ago she was started on prednisone. She is taking 40 mg prednisone daily. Yesterday the headache worsened. Is all over her entire left side. It is not in her jaw. She denies any shooting pain.
No vision changes. No numbness tingling. No weakness. No trauma. No neck pain. No fevers or chills.
Past History
Past History
ED Past Medical History: Arrthythmia, Cancer (Breast) and Other (Recurrent urinary tract infection.)
ED Past Surgical History: Cardiac (AICD 03/27/2015) and Gynecological (Hysterectomy)
Social History
Tobacco: Non-smoker
Alcohol: None
Drug: None
Personal:
Living: with family
Employment: Retired
Family History
Family History: Other (Noncontributory)
Phy Exam
Physical Exam
Physical Exam:
GENERAL: in no acute distress
HEENT: normocephalic, left-sided temporal artery tenderness, extraocular movements intact, moist oral mucosa
NECK: normal inspection
RESPIRATORY: no respiratory distress, clear to auscultation bilaterally
CARDIOVASCULAR: regular rate and rhythm
ABDOMEN/: soft, non-distended, non-tender to palpation, no rebound or guarding
EXTREMITIES: non-tender, no edema/swelling
NEUROLOGIC: awake and alert, moves all extremities
SKIN: warm
Course
Orders/Labs/Results
Orders:
Orders
04/09/24 06:41
0.9% Sodium Chloride 1000 ml [Nss] 1,000 ml IV BOLUS
Acetaminophen [Tylenol] 1,000 mg PO NOW STA
Metoclopramide [Reglan] 10 mg IV NOW STA
04/09/24 06:42
CT Head W/o Iv Contrast Urgent
Comment:
Reason For Exam: headache
04/09/24 06:58
Basic Metabolic Panel Urgent
C-Reactive Protein Urgent
Comment: ADD ON
Complete Blood Count/With Diff Urgent
Erythrocyte Sed Rate Urgent
Comment: ADD ON
04/09/24 10:50
Add On- LAB Urgent
Tests Added?: esr, crp
04/09/24 11:06
MethylPREDNISolone PF [Solu-Medrol Pf] 500 mg IV NOW STA
Abnormal Lab Results
04/09/24
06:58
WBC 17.9 H 10^3/uL
(4.8-10.8)
MCHC 32.6 L g/dL
(33.0-37.0)
Abs Immat Gran (auto) 0.3 H 10^3/uL
(0-0.05)
Absolute Neuts (auto) 14.3 H 10^3/uL
(1.4-6.5)
Immature Gran % 1.5 H %
(0-0.5)
Neutrophils % 79.8 H %
(42.2-75.2)
Lymphocytes % 14.6 L %
(20.5-51.1)
BUN 28 H mg/dl
(7-17)
04/09/24 06:58
04/09/24 06:58
Vital Signs
Initial and Last Documented VS:
Initial Vital Signs
Temp
97.6 F
04/09/24 05:50
Last Documented Vital Signs
Temp Pulse Resp BP Pulse Ox
97.6 F 68 16 174/78 98
04/09/24 05:50 04/09/24 10:55 04/09/24 10:55 04/09/24 10:55 04/09/24 10:55
MDM/Problems Addressed
Differential Diagnosis Includes:
Patient is a 78-year-old woman presenting to the emergency department with a headache for the past week. On arrival patient vitals unremarkable and exam does show temporal artery tenderness. Differential consists of temporal arteritis versus
tension headache versus migraine. History and exam not consistent with meningitis or thrombosis or glaucoma. It is reassuring that she does not have any vision involvement. Will check blood work as well as a CT scan of her head. Will pain
control. Will discuss with rheumatology.
*Critical Care Note
Total Time (30-74mins, 75-104mins- exclusive of procedures): Not Applicable
Update Note
Update Note:
On reevaluation still has a mild headache. It is notable for leukocytosis. Certainly could be secondary to steroids. CT of the head per my interpretation with no obvious hemorrhage or mass
On reevaluation patient states the headache is resolved. I discussed with patient's national coverage specialist who recommended admission for biopsy given that this diagnosis is still a work in progress. After discussion we will start on IV steroids at 500 mg
Solu-Medrol. Discussed with hospitalist who accepted patient to their service
ED Attending Note
-
Portions of this chart may have been created with voice recognition software.� Occasional wrong word or��sound alike� substitutions may have occurred due to the inherent limitations of voice recognition software.
Discharge Plan
Departure
Patient Disposition: Admit
Date of Disposition: 04/09/24
Time of Disposition: 11:07
Presentation/result/management discussed w/ accepting MD/DO: Hospitalist
Discharge Problem:
Headache
Prescriptions:
No Action
latanoprost 0.005 % Drops
1 drp BOTH EYES HS
methimazole 5 mg Tablet
2.5 mg PO DAILY
Eliquis 5 mg Tablet
5 mg PO BID
gabapentin 100 mg Capsule
200 mg PO HS
acetaminophen [Tylenol] 325 mg Tablet
650 mg PO Q4H PRN (Reason: MILD PAIN)
therapeutic multivitamin Tablet
1 tab PO DAILY
tramadol 50 mg Tablet
50 mg PO BID PRN (Reason: SEVERE PAIN)
methylprednisolone 4 mg Tablets,Dose Pack
3 mg PO PER PKG DIR
metoprolol tartrate 50 mg Tablet
50 mg PO BID
mirtazapine 7.5 mg Tablet
7.5 mg PO HS
brimonidine-timolol [Combigan] 0.2-0.5 % Drops
1 drp OPHTHALMIC (EYE) BID
Referrals:
Petty Ventura PA-C [Family Provider] -
Interventions
Interventions:
*Risk Screen - Suicide Last Done: 04/09/24 05:50
*General Assessment Last Done: 04/09/24 05:50
*Neglect/Abuse Screening Last Done: 04/09/24 05:50
ED- Fall Risk Assessment Last Done: 04/09/24 05:50
*ED COVID-19 Vaccine History Last Done: 04/09/24 05:50
ED- Neurological Assessment Last Done: 04/09/24 05:50
ED-Skin Assessment Last Done: 04/09/24 05:56
Discharge Date and Time
Print Language: HUNGARIAN
[2024-04-09 07:22] LABS: Blood Urea Nitrogen 28 mg/dl (7-17); Carbon Dioxide 26 mmol/L (22-30); Chloride 105 mmol/L (98-107); Estimated Creatinine Clearance 44 ml/min; Glucose 98 mg/dl (70-99); Sodium 139 mmol/L (135-145); eGFR > 60.00
--- NOTE | 2024-04-09 07:33 | EDRN ---
the pt was received from previous night coordinator RN, the pt is resting in stretcher in the lowest position, side rails up x2, call laguerre within reach, HOB elevated, no s/s of distress, the pt is hypertensive and the provider Dr. Monroe was notified, the
pt refused tylenol due to the pt stating that she took tylenol at 0400 this AM and the pt refused reglan due to 'googling it and i really don't need that', the pt denies needing anything at this time, will continue to monitor the pt closely
[2024-04-09] MEDS: NSS 1000 IV (07:35)
--- NOTE | 2024-04-09 09:21 | EDRN ---
Dr. Monroe currently at the pts bedside
--- NOTE | 2024-04-09 09:54 | EDRN ---
the pt is resting in stretcher in the lowest position, side rails up x2, call laguerre within reach, HOB elevated, no s/s of distress, no c/o headache, the pt denies needing anything at this time, awaiting for an update from Dr. Monroe
--- NOTE | 2024-04-09 10:53 | EDRN ---
Dr. Monroe currently at the pts bedside
--- NOTE | 2024-04-09 10:53 | EDRN ---
the provider is aware of the pts elevated blood pressure
[2024-04-09 11:17] LABS: Erythrocyte Sed Rate 24 mm/hour (0-20)
[2024-04-09] MEDS: SOLU-MEDROL PF 500 MG IV (11:53)
--- NOTE | 2024-04-09 12:12 | EDRN ---
awaiting for the pt to be admitted, IV steroids administered
--- NOTE | 2024-04-09 12:43 | HPS.HSE ---
Addendum entered and electronically signed by Steven Crisostomo MD 04/09/24 14:32:
Seen and examined by me independently in collaboration with the nurse practitioner Casey.
Past medical history/social history/medication/allergies reviewed.
Lab data and imaging data reviewed.
78-year-old patient with history of reactive arthritis for which she requires Medrol Dosepak.
Couple of weeks ago she had a back pain for which a Medrol Dosepak was prescribed by PCP and then she had another Medrol Dosepak again.
1 week ago she had a sudden onset of left-sided headache.
Continuous More intensified.
It started mostly in the back of her head, sort of radiates to the center of the head and comes around the ER to the front. She has no facial pain. No frontal headache. No neck stiffness.
No associated nausea or vomiting.
No associated photo or phonophobia.
No tinnitus. No jaw claudication.
Denies shoulder or pelvic girdle weakness.
No history of primary headaches like migraine.
Her linotype operator was concerned about temporal arteritis and she was started on 40 mg of prednisone which she has been taking since Tuesday without much benefit.
She had methylprednisolone in the ER and that she says she is feeling improved in the ER so far. Did not receive any pain medication.
Nonfocal neurologically. Left temporal artery palpable but not hard, pulsatile and not tenderness over it. No scalp tenderness anteriorly. She had some scalp tenderness in the left lateral occipital area. She said it was more intense therefore
could not touch that area.
Acute onset of left-sided headache predominantly posterior with no other associated symptoms.
Unclear if this is GCA-no systemic complaints, acute presentation, very intense pain, no temporal artery tenderness. Continue with the plan of ruling out temporal arteritis per rheumatology-obtain biopsy, continue with empirical steroids for now.
Rule out primary headache syndrome including type of migraine
Rule out posterior occipital neuralgia
Will add as needed Toradol for breakthrough pains along with Tylenol. Consult neurology. CT of the head shows no evidence of acute findings.
Holding Eliquis for TA bx tomorrow.
Original Note:
Family Physician
-
Family Physician: Petty Ventura PA-C
Chief Complaint
-
Headache
History of Present Illness
Patient is an 78-year-old female past medical history of CHF, A-fib, diabetes heart disease, hypothyroidism, and reactive arthritis who presents with headache. Patient developed left-sided headache about 1 week ago. It got progressively worse over
the course of the week. She had routine appointment with her linotype operator on Tuesday at which time she was started on oral prednisone for possible temporal arteritis. Despite starting oral steroids she continues with significant headache. She
describes pain located in the left side of her posterior head and face. She denies any visual changes.
Medical History
Past Medical History
Past Medical History: Reports Other
Additional Past Medical History:
Chronic HFrEF
Ventricular Tachycardia s/p ICD
Paroxysmal Atrial Fibrillation
Valvular Heart Disease s/p Bioprosthetic Aortic Valve Replacement and Dianne Valve Reapir
Essential Hypertension
Hyperthyroidism
Peripheral Neuropathy
Degenerative Disc Disease
Osteoarthritis
Insomnia
Reactive Arthritis
Irritable Bowel Syndrome
Diverticulitis s/p Sigmoid Resection
Breast Cancer s/p Right Lumpectomy and Lymph Node Dissection, Chemotherapy and Radiation
Past Surgical History: Reports Other
Additional Past Surgical History:
Pacemaker/AICD
Bioprosthetic Aortic Valve Replacement
Mitral Valve Repair
Right Breast Lumpectomy
Hysterectomy
Siigmoidectomy
Melanoma Excision
Left Hip Replacement
Right Knee Replacement
Social History
Tobacco: Non-smoker
Alcohol: None
Personal:
Living: With Family
Family History
Family History: Not pertinent
Allergies / Home Medications
Allergies reflects when Allergies were last updated in [employer].
Home Medications with original date entered in [employer]
Allergy/Medication List:
Allergies
Allergy/AdvReac Type Severity Reaction Status Date / Time
allopurinol Allergy Unknown Verified 04/09/24 05:49
colchicine Allergy Unknown Verified 04/09/24 05:49
levofloxacin AdvReac developed Verified 04/09/24 05:49
C-Diff
vancomycin AdvReac developed Verified 04/09/24 05:49
C-diff
Home Medications
apixaban 5 mg tablet (Eliquis) 5 mg PO BID Blood Clot Prevention/Tx 08/26/22
gabapentin 100 mg capsule 200 mg PO HS 08/26/22
latanoprost 0.005 % eye drops 1 drp BOTH EYES HS Eye Condition 08/26/22
methimazole 5 mg tablet 2.5 mg PO DAILY Thyroid 08/26/22
brimonidine 0.2 %-timolol 0.5 % eye drops (Combigan) 1 drp BOTH EYES BID 03/06/24
mirtazapine 7.5 mg tablet 7.5 mg PO HS 03/06/24
acetaminophen 500 mg tablet (Tylenol Extra Strength) 1,000 mg PO DAILYPRN PRN HEADACHES 04/09/24
carvedilol 6.25 mg tablet (Coreg) 6.25 mg PO BID 04/09/24
methenamine hippurate 1 gram tablet 1 g PO BID 04/09/24
prednisone 10 mg tablet 40 mg PO DAILY 04/09/24
Review of Systems
-
A 12 point ROS was completed and negative except as noted: Yes
Constitutional: Denies Fever or Chills
Respiratory: Denies Cough or Trouble Breathing
Cardiac: Denies Chest Pain or Palpitations
Neurological: Reports See HPI
Physical Exam
Vital Signs
Vital Signs
Temp Pulse Resp BP Pulse Ox
97.6 F 68 16 174/78 98
04/09/24 05:50 04/09/24 10:55 04/09/24 10:55 04/09/24 10:55 04/09/24 10:55
Physical Exam
General: Comfortable and Conversant
HEENT: Anicteric and Moist mucous membranes
Respiratory: Clear and Non Labored Respirations
Cardiac: S1/S2 and Regular Rhythm
GI: Soft and Non Tender
Rectal: Deferred by Provider
Musculoskeletal: No Clubbing, No Cyanosis and No Edema
Skin: Warm and Dry
Neuro: Awake, Alert and Oriented
Psych: Calm
Laboratory Results
-
04/09/24 06:58
04/09/24 06:58
Data Reviewed
-
Lab Data: Labs Reviewed by me
Old Records: Reviewed
Impression/Plan
-
Severe Left Headache/Facial Pain, differential includes trigeminal/occipital neuralgia, migraine headache, low suspicion for temporal artertitis
-Consult Vascular Surgery for temporal artery biopsy
-Consult Neurology
-Continue methylprednisolone 500mg IV Daily as recommended by Rheumatology
-Continue Tylenol and Toradol for pain
Chronic HFrEF
-Echo July 2023: Left ventricular ejection fraction 3-40%. Global hypokinesis.
-Monitor Daily Weights particularly while on high dose steroids
Paroxysmal Atrial Fibrillation
-Eliquis on hold for biopsy
-Continue Coreg for rate control
Essential Hypertension
-Continue Coreg with hold parameters
Hyperthyroidism
-Continue Methimazole
Peripheral Neuropathy
-Continue gabapentin
Reactive Arthritis
-Follows with Rheumatology as outpatient
Hx Ventricular Tachycardia s/p ICD
Hx Valvular Heart Disease s/p Bioprosthetic Aortic Valve Replacement and Mitral Valve Repair
Hx Breast Cancer s/p Right Lumpectomy and Lymph Node Dissection, Chemotherapy and Radiation
DVT Proph: SCDs until able to resume Eliquis
Code Status: Full Code
--- NOTE | 2024-04-09 13:34 | EDRN ---
hospitalist currently at the pts bedside
--- NOTE | 2024-04-09 13:43 | CON.VAS ---
Consultation
Consultation Request
Requesting Provider: Hospitalist
Performing Provider: Divya Giron, HETAL-C for Blaine Lockhart MD
Reason for Consultation: Left sided headache rule out giant cell arteritis
Medical History
-
Chief Complaint: Left-sided headache
History of Present Illness:
This is a 78-year-old female significant past medical history for chronic HFrEF, ventricular tachycardia, paroxysmal atrial fibrillation, valvular heart disease, hypertension, hypothyroidism, peripheral neuropathy, osteoarthritis, irritable bowel
syndrome, diverticulitis, and breast cancer who presents to [facility] on 04/09/2024 with reports of worsening acute left sided headache over roughly the past week. Patient and patient's are at bedside contributing to HPI. Patient
and her endorse roughly 1 week ago she had acute onset of left-sided headache mostly in the occipital area that radiates up towards her head and back of neck. She was evaluated by her vp security on Tuesday (04/06/2024) who initiated oral
prednisone for concern of giant cell arteritis. However, over the weekend pain persisted and did not improve prompting her to seek ED evaluation. Patient denies accompanying vision loss or changes aside from her baseline floaters. She denies pain
over her temporal area or any pain with palpation at moravian area. She denies accompanying tinnitus, jaw pain, nausea, vomiting, fever, or chills. She does endorse receiving some headache relief following administration of increase steroid here in
the ED. Currently resting comfortably in stretcher.
Past Medical History
Past Medical History: Arrhythmias (Paroxysmal Atrial Fibrillation, ventricular tachycardia), CHF (Chronic HFrEF), HTN, Hyperthyroidism, Valvular Disease (Valvular Heart Disease s/p Bioprosthetic Aortic Valve Replacement and mitral valve Reapir) and
Other (Peripheral neuropathy, degenerative disc disease, osteoarthritis, insomnia, reactive arthritis, irritable bowel syndrome, diverticulitis, breast cancer)
Past Surgical History: Cardiac (Pacemaker/AICD, Bioprosthetic Aortic Valve Replacement, Mitral Valve Repair), Gynecological (Hysterectomy) and Other (Sigmoidectomy, left hip replacement, right knee replacement, melanoma excision, right breast
lumpectomy)
Social History
Tobacco: Non-Smoker
Alcohol: None
Drug: None
Personal:
Living: With Family
Allergies / Home Medications
Allergy/AdvReac Type Severity Reaction Status Date / Time
allopurinol Allergy Unknown Verified 04/09/24 05:49
colchicine Allergy Unknown Verified 04/09/24 05:49
levofloxacin AdvReac developed Verified 04/09/24 05:49
C-Diff
vancomycin AdvReac developed Verified 04/09/24 05:49
C-diff
�Medication �Instructions �Recorded �Confirmed �Type
apixaban 5 mg tablet (Eliquis) 5 mg PO BID Blood Clot 08/26/22 04/09/24 History
Prevention/Tx
gabapentin 100 mg capsule 200 mg PO HS 08/26/22 04/09/24 History
latanoprost 0.005 % eye drops 1 drp BOTH EYES HS Eye Condition 08/26/22 04/09/24 History
methimazole 5 mg tablet 2.5 mg PO DAILY Thyroid 08/26/22 04/09/24 History
brimonidine 0.2 %-timolol 0.5 % 1 drp BOTH EYES BID 03/06/24 04/09/24 History
eye drops (Combigan)
mirtazapine 7.5 mg tablet 7.5 mg PO HS 03/06/24 04/09/24 History
acetaminophen 500 mg tablet 1,000 mg PO DAILYPRN PRN HEADACHES 04/09/24 04/09/24 History
(Tylenol Extra Strength)
carvedilol 6.25 mg tablet (Coreg) 6.25 mg PO BID 04/09/24 04/09/24 History
methenamine hippurate 1 gram tablet 1 g PO BID 04/09/24 04/09/24 History
prednisone 10 mg tablet 40 mg PO DAILY 04/09/24 04/09/24 History
Review of Systems
-
History Source: Patient
Constitutional: Reports No Symptoms
EENT: Reports Other (Left-sided headache persistent for 1 week)
Respiratory: Reports No Symptoms
Cardiac: Reports No Symptoms
Abdomen/GI: Reports No Symptoms
: Reports No Symptoms
Musculoskeletal: Reports No Symptoms
Skin: Reports No Symptoms
Neurological: Reports Headache (Left-sided headache)
Endocrine: Reports No Symptoms
Physical Exam
Vital Signs
Temp Pulse Resp BP Pulse Ox
97.6 F 68 16 176/65 97
04/09/24 05:50 04/09/24 10:55 04/09/24 10:55 04/09/24 12:00 04/09/24 12:45
Lab Results
04/09/24 06:58
04/09/24 06:58
Physical Exam
General: No Apparent Distress and Comfortable
HEENT: Normocephalic, Anicteric and Atraumatic
Respiratory: Non Labored Respirations
Cardiac: Negative JVD
GI: Soft, Non Tender and Non Distended
Musculoskeletal: No Edema
Skin: Warm
Neuro: AO x 3
Psych: Calm
Assessment / Plan
-
Assessment: 78-year-old female admitted for rule out giant cell arteritis, left-sided
Plan:
Asked for rheumatology and hospitalist team to do left temporal artery biopsy to rule out giant cell arteritis, we will proceed with the OR tomorrow with Dr. Ti Rios III
N.p.o. after midnight
Agree with holding Eliquis for procedure tomorrow
--- NOTE | 2024-04-09 13:53 | CON.NEURO4 ---
Addendum entered and electronically signed by Estevan Bernal MD 04/09/24 16:03:
Studies reviewed.
I have personally examined the patient. I reviewed and agree with the PARA MACHINE OPERATOR's Note.
My addenda:
Awake, alert, interactive. No acute distress.
Speech intact.
Follows 2-step requests w/o difficulty. No tremor.
Extra-ocular movements grossly intact.
Facial movements full and symmetric. Hearing intact to normal conversational volume.
Normal UE movements bilaterally.
Neck: full ROM.
Chest: no dyspnea
Heart: no JVD
Ext: (-) Clubbing, (-) Cyanosis, (-) Edema
IMPRESSIONS/RECOMMENDATIONS:
Abrupt onset of left sided headache with radiation down the left neck across multiple days
Not clearly emblematic of temporal arteritis. Not all criteria met for migraine, although more likely diagnosis. Reactive headache due to hypertension is also possible
goal of normotension
unable to obtain MRI of brain due to ICD, repeat CT head in AM for comparison
provide metoclopramide and diphenhydramine for headache control for now
continue prednisone for now
consider valproic acid for headache control
OK for temporal artery biopsy although both ESR and CRP minimally elevated days after start of prednisone
restart apixaban after biopsy
continue Gabapentin for neuropathy pain presumed to be due to Lyme disease
Will continue to follow patient.
Original Note:
Consultation - Neurology 4
-
CONSULTING PHYSICIAN: Dr. Estevan Bernal
REFERRING PHYSICIAN: MARCO A Valentine
DICTATED BY: HOLLY Cherry
DATE/TIME OF REQUEST: 04/09/2024
DATE/TIME OF CONSULTATION: 04/09/2024
Reason for Consultation: headache, possible temporal arteritis
History of Present Illness:
This is a 78-year-old female patient with past medical history inflammatory arthritis, hypertension, right breast cancer, malignant melanoma, mitral valve prolapse, atrial fibrillation with defibrillator on Eliquis, nonischemic cardiomyopathy,
herniated disc, osteoarthritis, Magalie's syndrome, glaucoma, C. difficile, hypothyroid, glaucoma, peripheral neuropathy, and Lyme disease who presented to the hospital with severe left-sided headache in the middle of the night at 4 AM on 04/09/2024.
She reports headache started about 1 week ago. Since it has significantly increased. She did see her bagger meat on who thought this was possible temporal arteritis and started her on prednisone 40 mg. She is going to
coordinate and outpatient temporal artery biopsy. She had a dose of prednisone on Tuesday and Tuesday however in the middle the night last night pain was so severe she could no longer tolerate it. Reported sharp 10/10 pain. She reports
pain was left-sided head radiating backwards down her neck. She denied any acute vision changes. She does report she has had floaters for over 30 years. She denies any facial pain. She denies any pain with chewing or brushing her teeth. She
denies any significant pain upon palpation. Early this morning in the ER she was given Reglan 10 mg as well as methylprednisone 500 mg and she had significant improvement in headache.
Past Medical History: inflammatory arthritis, hypertension, right breast cancer, malignant melanoma, mitral valve prolapse, atrial fibrillation with defibrillator on , nonischemic cardiomyopathy, herniated disc, osteoarthritis, Magalie's
syndrome, glaucoma, C. difficile, hypothyroid, glaucoma, peripheral neuropathy, Lyme disease
Surgical History: Right breast lumpectomy, right knee replacement, right knee revision, bilateral hip replacements with revisions, [employer] ICD, mitral valve repair, aortic valve replacement, D&C, cataract surgery, sigmoid resection, cholecystectomy
Family History: Reviewed and noncontributory
Social History: lives with does not smoke or drink ETOH
Allergies: see below
Home Medications: see below
Review of Symptoms:
Patient denies any fever, headache, chest pain, shortness of breath, GI or symptoms.
Vital Signs: see below
Physical Exam:
The patient is afebrile, No dyspnea, abd soft NT.
Neurologic Examination:
The patient is awake, alert and oriented x 3. She is able to follow commands and answer questions appropriately. There is no aphasia or dysarthria. On cranial nerve assessment, pupils are 3 mm bilateral, round and reactive to light and
accommodation. Visual krishnamurthy are full. Extraocular movements are intact. Facial sensations are intact and bilaterally symmetrical, there is no facial asymmetry. Hearing is intact bilaterally to normal conversation volume. Tongue palate and uvula
are midline. Sternocleidomastoid strengths are full bilaterally. Motor strengths are 5/5 bilateral upper and lower extremities on medical research [place] scale. There is no drift or involuntary movement noted. Deep tendon reflexes are 2+ bilateral
upper and lower extremities and Babinski is absent bilaterally. Sensations of pain, touch, temperature and vibration are intact and bilaterally symmetrical. There was no extinction noted on double simultaneous stimulation. Coordination is intact by
finger to nose bilaterally.
Lab Results: see below
Neuro Imaging:
CT head 04/09/2024
No acute intracranial abnormalities.
Findings compatible with diffuse cortical atrophy with nonspecific white matter changes
Impression:
JAYSON COLLIER is a 78 year old F who has presented to the hospital with severe left sided headache possible causes temporal arteritis, migraine, or structural cause not likely trigeminal neuralgia. Patient also with history of peripheral
neuropathy.
Recommendations:
-reviewed CT head, will repeat, ideally MRI brain if defibrillator compatible
-continue prednisone for now, plan for bx,
-hold apixaban for temporal bx for tomorrow, restart as soon as possible
-Need rheumatology records for review
-Continue Reglan, Benadryl, and Tylenol as a headache breaker if needed
-Continue gabapentin 200 mg nightly
-DVT prophylaxis
-Rest of medical management per primary care team
-Will need follow-up in our office as an outpatient
Discussed patient care with: Patient, , and neurologist Dr. Bernal
Medication and Allergies
Home Medications
Home Medications
�Medication �Instructions �Recorded
apixaban 5 mg tablet (Eliquis) 5 mg PO BID Blood Clot 06/08/23
Prevention/Tx
gabapentin 100 mg capsule 200 mg PO HS 08/26/22
latanoprost 0.005 % eye drops 1 drp BOTH EYES HS Eye Condition 08/26/22
methimazole 5 mg tablet 2.5 mg PO DAILY Thyroid 08/26/22
brimonidine 0.2 %-timolol 0.5 % 1 drp BOTH EYES BID 03/06/24
eye drops (Combigan)
mirtazapine 7.5 mg tablet 7.5 mg PO HS 03/06/24
acetaminophen 500 mg tablet 1,000 mg PO DAILYPRN PRN HEADACHES 04/09/24
(Tylenol Extra Strength)
carvedilol 6.25 mg tablet (Coreg) 6.25 mg PO BID 04/09/24
methenamine hippurate 1 gram tablet 1 g PO BID 04/09/24
prednisone 10 mg tablet 40 mg PO DAILY 04/09/24
Allergies
Allergies
Allergy/AdvReac Type Severity Reaction Status Date / Time
allopurinol Allergy Unknown Verified 04/09/24 05:49
colchicine Allergy Unknown Verified 04/09/24 05:49
levofloxacin AdvReac developed Verified 04/09/24 05:49
C-Diff
vancomycin AdvReac developed Verified 04/09/24 05:49
C-diff
Vital Signs / Labs
-
Vital Signs and Labs:
Temp Pulse Resp BP Pulse Ox
97.6 F 68 16 189/90 97
04/09/24 05:50 04/09/24 10:55 04/09/24 10:55 04/09/24 14:00 04/09/24 14:45
04/09/24 06:58
04/09/24 06:58
04/09/24
06:58
WBC 17.9 H
MCHC 32.6 L
Abs Immat Gran (auto) 0.3 H
Absolute Neuts (auto) 14.3 H
Immature Gran % 1.5 H
Neutrophils % 79.8 H
Lymphocytes % 14.6 L
ESR 24 H
BUN 28 H
C-Reactive Protein 12.30 H
--- NOTE | 2024-04-09 14:18 | EDRN ---
this RN called the receiving nurse and notified them that paper report was tubed up
--- NOTE | 2024-04-09 14:43 | CM ---
CM met with pt and spouse bedside
They reside in a [place] apartment at [facility]
0STE and elevator access
Pt is indep with her ADLs with use of a SPC
Pt has a raised toilet seat, grab bars, wheelchair, and rollator as well for use as needed
Does not drive
Denies financial insecurities
PCP- Petty Allen
Rx- JOSETTE Kim
Discharge Disposition- anticipate home, watch for possible VN needs
[2024-04-09] MEDS: BENADRYL 25 MG IV (17:13)
[2024-04-09] MEDS: TORADOL 15 MG IV (17:53)
[2024-04-09] MEDS: APRESOLINE 5 MG IV (17:53)
[2024-04-09] MEDS: COREG 6.25 MG PO (20:10)
[2024-04-09] MEDS: HIPREX 1 GRAM PO (20:11)
[2024-04-09] MEDS: REMERON 7.5 MG PO (22:21)
[2024-04-09] MEDS: NEURONTIN 200 MG PO (22:21)
[2024-04-10] VITALS (12 sets, daily range): BP systolic 139–191; BP diastolic 72–94; BMI 19.9
[2024-04-10 07:28] LABS: Hematocrit 38.2 % (37.0-47.0); Hemoglobin 12.5 g/dL (12.0-16.0); Mean Corp Hgb Conc. 32.7 g/dL (33.0-37.0); Mean Corpuscular Hgb 30.3 pg (27.0-31.0); Mean Corpuscular Volume 92.5 fL (81.0-99.0); Mean Platelet Volume 10.2 fL (7.4-10.4); Platelet Count 282 10^3/uL (130-400); Red Blood Cell Count 4.13 10^6/uL (4.20-5.40); Red Cell Dist. Width 14.7 % (11.5-14.5); White Blood Cell Count 13.9 10^3/uL (4.8-10.8)
[2024-04-10 07:49] LABS: INR 1.23; PT 15.8 Sec (11.4-14.6)
[2024-04-10 07:50] LABS: Blood Urea Nitrogen 38 mg/dl (7-17); Calcium 9.3 mg/dl (8.4-10.2); Carbon Dioxide 21 mmol/L (22-30); Chloride 108 mmol/L (98-107); Estimated Creatinine Clearance 34 ml/min; Glucose 139 mg/dl (70-99); Potassium 3.7 mmol/L (3.5-5.1); Sodium 140 mmol/L (135-145); eGFR 56.95
[2024-04-10] MEDS: COREG 6.25 MG PO ×2 (08:01→20:09)
[2024-04-10] MEDS: HIPREX 1 GRAM PO ×2 (08:01→20:09)
[2024-04-10] MEDS: TAPAZOLE 2.5 MG PO (08:01)
--- NOTE | 2024-04-10 11:14 | W.PN.NEURO.1 ---
Addendum entered and electronically signed by Estevan Bernal MD 04/10/24 13:37:
Studies reviewed.
I have personally examined the patient. I reviewed and agree with the DIGITAL SALES ASSISTANT's Note.
My addenda:
Awake, alert, interactive. No acute distress.
Speech intact.
Follows 2-step requests w/o difficulty. No tremor.
Extra-ocular movements grossly intact.
Facial movements full and symmetric. Hearing intact to normal conversational volume.
Normal UE movements bilaterally.
Neck: full ROM.
Chest: no dyspnea
Heart: no JVD
Ext: (-) Clubbing, (-) Cyanosis, (-) Edema
IMPRESSIONS/RECOMMENDATIONS:
Abrupt onset of left sided headache. Prior presumption was temporal arteritis. Current diagnosis is daily persistent headache. Patient is significantly improved today
Continue to provide metoclopramide as needed for headache management
Patient likely will require rimegepant as outpatient to remediate symptomatology completely
Would restart apixaban when possible following temporal artery biopsy
Would taper the patient's methylprednisolone by 10 mg/week until off
Repeated CT of the head was unrevealing for new changes
D/W patient / family
All questions answered.
Will continue to follow as outpatient.
Original Note:
Documented by User: HOLLY Cherry 04/10/24 11:25
Today's Communication / Plan
-
-Temporal artery biopsy
-Continue methylprednisone
-Headache management
Neuro Assessment/Plan
Assessment
This is an 78-year-old female patient who presented to the ER yesterday in the wee hours on 04/09/2024 with significant left-sided headache. Headache had been going on for about a week. Coincidentally she had seen her clinical exercise specialist, who she sees
for reactive arthritis, who thought this may be temporal arteritis and started prednisone 40 mg. Unfortunately after 2 days of medication she continued to have significant headache and worsened early Tuesday morning. C-reactive protein 12.3 ESR
24. Has planned biopsy today for possible temporal arteritis.
Plan
-Agree with continued plan for temporal artery biopsy
-Continue medication for headache management including Tylenol, Reglan, and Benadryl if needed
-Would avoid NSAIDs as patient is on Eliquis which is being held temporarily for biopsy
-Continue methylprednisone at this time
-Reviewed repeat CT of the head which was unremarkable
-Continue gabapentin for neuropathy
-DVT prophylaxis
-Rest of medical management per primary care team
Subjective/Objective
Subjective Data
Date of Service: April 10, 2024
Patient seen at bedside. She reports headache was well-controlled throughout the night. She does report she has not slept well.
Objective Data
Vital Signs
Temp Pulse Resp BP Pulse Ox
97.5 F 87 20 145/79 97
04/10/24 07:44 04/10/24 08:01 04/10/24 07:44 04/10/24 08:01 04/10/24 07:44
Lab Results
04/10/24 07:07
04/10/24 07:07
PT 15.8 Sec (11.4-14.6) H 04/10/24 07:07
INR 1.23 04/10/24 07:07
Sodium 140 mmol/L (135-145) 04/10/24 07:07
Potassium 3.7 mmol/L (3.5-5.1) 04/10/24 07:07
BUN 38 mg/dl (7-17) H 04/10/24 07:07
Glucose 139 mg/dl (70-99) H 04/10/24 07:07
Calcium 9.3 mg/dl (8.4-10.2) 04/10/24 07:07
Patient Allergies
allopurinol Allergy (Verified 04/09/24 05:49)
Unknown
colchicine Allergy (Verified 04/09/24 05:49)
Unknown
levofloxacin Allergy (Verified 04/09/24 17:42)
developed C-Diff
vancomycin Allergy (Verified 04/09/24 17:42)
developed C-diff
Review of Systems
-
History Source: Patient
All other systems: Reviewed and negative
Constitutional: No Symptoms
EENT: No Symptoms Reported
Respiratory: No Symptoms
Cardiac: No Symptoms
Abdomen/GI: No Symptoms
Genitourinary: No Symptoms
Musculoskeletal: No Symptoms
Skin: No Symptoms
Neuro: Headache (significantly improved), Numbness (b/l toes) and See existing Neuro Note
Endocrine: No Symptoms
Allergy / Immunology: No Symptoms
Physical Exam
-
General: Well Developed, Well Nourished and No Apparent Distress
Eyes: Round OU
HEENT: Normocephalic and Atraumatic
Neck: Full Range of Motion
Respiratory: No Dyspnea
GI: Soft
Skin: Unremarkable
Extremities: No Clubbing
Extended Neurological Exam
Mood & Affect: Mood Unremarkable and Affect Unremarkable
Attention Span & Concentration: Awake, Alert, Interactive, No Difficulty with 2 Step Request and No Problem with Right/Left Differentiation
Memory: Unremarkable
Tremor: Hand Tremor Absent and Head Tremor Absent
Involuntary Movement: None
Speech: Quality Unremarkable, Quantity Unremarkable and Rate of Production Unremarkable
Cranial Nerve II: Left Eye: Pupillary Reactivity Unremarkable and Pupillary Size Unremarkable
Cranial Nerve II: Right Eye: Pupillary Reactivity Unremarkable and Pupillary Size Unremarkable
Cranial Nerves III, IV, : Extraocular Movement: Extraocular Movement Full in all Directions
Cranial Nerve VII: Facial Symmetry: Normal Facial Symmetry
Cranial Nerve VIII: Hearing: Unremarkable Hearing to Normal Conversational Volume
Cranial Nerves IX, X: Palate Movement: Palate Elevation Symmetric
Cranial Nerve XI: Shoulder Shrug: Unremarkable
Cranial Nerve XII: Tongue Protusion: Midline
Muscle Strength, Overall: Full Throughout
Muscle Bulk & Tone: Bulk Unremarkable and Tone Unremarkable
Pronator Drift: No Drift in Upper Extremities and No Drift in Lower Extremities
Coordination: Hsdkst-rctt-[id number] Testing Unremarkable
Data Reviewed
-
CT Head: Report Reviewed
Lipid Profile: Report Reviewed

Documented by User: Estevan Bernal MD 04/10/24 13:23
Past History
Past History
ED Past Medical History: Arrthythmia, Cancer (Breast) and Other (Recurrent urinary tract infection, episode of change of mental status 2016)
ED Past Surgical History: Cardiac (AICD 03/27/2015) and Gynecological (Hysterectomy)
Social History
Tobacco: Non-smoker
Alcohol: None
Drug: None
Personal:
Living: with family
Employment: Retired
Family History
Family History: Other (Noncontributory)
Medications
-
Medications:
Generic Name Dose Route Start Last Admin
Trade Name Freq PRN Reason Stop Dose Admin
Acetaminophen 650 mg 04/09/24 15:54
Acetaminophen 325 Mg Tablet PO 05/07/24 15:53
Q4HPRN PRN
mild pain/ fever>100.5F
Carvedilol 6.25 mg 04/09/24 20:00 04/10/24 08:01
Carvedilol 6.25 Mg Tablet PO 05/07/24 19:59 6.25 mg
BID JOSE Administration
Gabapentin 200 mg 04/09/24 22:00 04/09/24 22:21
Gabapentin 100 Mg Capsule PO 05/07/24 21:59 200 mg
HS JOSE Administration
Hydralazine HCl 5 mg 04/09/24 17:40 04/09/24 17:53
Hydralazine 20 Mg/Ml Vial IV 05/07/24 17:39 5 mg
Q4HPRN PRN Administration
SBP>160 or DBP>100
Hydromorphone HCl 0.25 mg 04/10/24 11:29
Hydromorphone 0.25 Mg/0.5 Ml Syringe IV 04/11/24 11:29
PACU-Q5MPRN PRN
severe pain
Methylprednisolone Sodium 108 mls @ 108 mls/hr 04/10/24 12:00
Succinate 500 mg/ Sodium IV 04/12/24 11:59
Chloride Q24H JOSE
Parenteral Electrolytes 1,000 mls @ 100 mls/hr 04/10/24 11:30
Normosol-R/Plasmalyte-A IV 04/11/24 11:29
PER PROTOCOL JOSE
Ketorolac Tromethamine 15 mg 04/09/24 15:54 04/09/24 17:53
Ketorolac 15 Mg/Ml Injection IV 04/14/24 15:53 15 mg
Q6HPRN PRN Administration
moderate/severe pain
Meperidine HCl 12.5 mg 04/10/24 11:29
Meperidine 25 Mg/Ml Injection IV 04/11/24 11:29
PACU-Q5MPRN PRN
shivers
Methenamine Hippurate 1 gram 04/09/24 20:00 04/10/24 08:01
Methenamine Hippurate 1 Gram Tablet PO 1 gram
BID JOSE Administration
Methimazole 2.5 mg 04/10/24 08:00 04/10/24 08:01
Methimazole 5 Mg Tablet PO 05/08/24 07:59 2.5 mg
DAILY JOSE Administration
Mirtazapine 7.5 mg 04/09/24 22:00 04/09/24 22:21
Mirtazapine 7.5 Mg Regular Release Tablet PO 05/07/24 21:59 7.5 mg
HS JOSE Administration
Morphine Sulfate 1 mg 04/10/24 11:29
Morphine 2 Mg/Ml Syringe IV 04/11/24 11:29
PACU-Q5MPRN PRN
moderate pain
Ondansetron HCl 4 mg 04/10/24 11:29
Ondansetron 4 Mg/2 Ml Vial IV 04/11/24 11:29
PACU-ONCEPRN PRN
nausea/vomiting
Prochlorperazine Edisylate 5 mg 04/10/24 11:29
Prochlorperazine 10 Mg/2 Ml Vial IV 04/11/24 11:29
PACU-ONCEPRN PRN
nausea/vomiting
Sodium Chloride 0 flush 04/09/24 17:00
Sodium Chloride 0.9% (Flush) Syringe IV 05/07/24 16:59
PER PROTOCOL JOSE
[2024-04-10] MEDS: BACTROBAN 2% OINTMENT 1 APPLIC NASAL (11:56)
[2024-04-10] MEDS: PERIDEX 0.12% ORAL RINSE 15 ML PO (11:58)
--- NOTE | 2024-04-10 12:37 | W.SUR.PREOP ---
Pre-Operative Surgical Note
-
I have examined this patient prior to the performance of the scheduled procedure.
The patient's condition is unchanged from the time of the current History and
Physical and the patient is able to undergo the scheduled procedure.
[2024-04-10] MEDS: SOLU-MEDROL 108 MG IV (13:05)
--- NOTE | 2024-04-10 13:51 | W.IMMPOSTOP ---
Surgical Immed Post Op Note
-
Primary Surgeon: Blanca
Assisting Surgeon: Yany
Pre-op Diagnosis: Constellation of symptoms c/f giant cell arteritis
Post-op Diagnosis: Constellation of symptoms c/f giant cell arteritis
Procedure Performed: L sided temporal artery biopsy
Anesthesia Type: Sedation/local
Specimen / Cultures: None
Estimated Blood Loss: 2 cc
Complications: None
Operative Findings: L sided temporal artery biopsy
--- NOTE | 2024-04-10 13:56 | OR.RPT ---
Operative Report
Operative Report
Date of Operation: 04/10/2024
Pre Op Diagnosis: Symptom constellation raising suspicion for temporal arteritis
Post Op Diagnosis: Symptom constellation raising suspicion for temporal arteritis
Procedure: LEFT temporal artery biopsy
Surgeon: Ti Rios III, MD
Hospital Chief Executive Officer: Harley Slade MD PGY1
Anesthesia: Sedation/local
Complications: None
Estimated Blood Loss: Less than 5 cc
History and Indications for Procedure: 78-year-old female with symptom constellation concerning for temporal arteritis.
Procedure in Detail: Maria A Cisneros was correctly identified and placed supine on the operating table. After adequate induction of anesthesia, the left temporal pulse was palpated. The left temporal region was then shaved. The temporal artery
pulse was marked and then the temporal region was prepped and draped in the usual sterile fashion. Preoperative antibiotics were administered. A time-out procedure was performed with the nursing and anesthesia staff confirming the patient's
identity as well as nature and laterality of the procedure. An incision was made over the marked temporal pulse. Careful sharp dissection and electrocautery were used to dissect down to the temporal artery. Adequate length of specimen was then
sharply dissected out and the proximal and distal artery was ligated with silk ties. The intervening segment of artery was then removed after ligating the proximal and distal ends. The artery segment was identified and then passed off to the back
table to be sent to pathology. Hemostasis was then achieved within the wound bed. The wound was irrigated with warm saline solution. The wound was closed in layers and sterile skin glue was applied. The patient tolerated the procedure well and
was taken to the recovery room in good condition.
Attestation: I was present and responsible for the entire procedure.
Signed:
Ti Rios III, MD
[facility]
[phone] (edta)
--- NOTE | 2024-04-10 15:09 | CM ---
patient s/p biopsy today
Cm will continue to follow for d/c needs.
--- NOTE | 2024-04-10 15:19 | PTCARENOTE ---
received pt back from procedure. aaox3, GAR, Left temporal site approximated with surgical glue present. MD Crisostomo made aware of BP. spouse at bedside. plan of care continues to be followed.
[2024-04-10] MEDS: APRESOLINE 5 MG IV (15:27)
--- NOTE | 2024-04-10 16:11 | W.PN.HOSP.TC ---
Today's Communication/Plan
-
Resume Eliquis.
Continue with steroids
Continue with as needed Reglan and Benadryl
Follow blood pressure readings and use as needed hydralazine along with Coreg for now.
Assessment / Plan
Assessment / Plan
Acute onset of left-sided headache predominantly posterior with no other associated symptoms.
Unclear if this is GCA-no systemic complaints, acute presentation, very intense pain, no temporal artery tenderness. Continue with the plan of ruling out temporal arteritis per rheumatology-obtain biopsy, continue with empirical steroids for now.
Rule out primary headache syndrome including type of migraine, posterior occipital neuralgia
Appreciate neurology input who thinks this may be primary headache syndromes and advises symptomatic treatment with Reglan and Benadryl. It is also advises to consider tapering of steroids.
Will add as needed Toradol for breakthrough pains along with Tylenol. CT of the head shows no evidence of acute findings.
Chronic HFrEF
-Echo July 2023: Left ventricular ejection fraction 3-40%. Global hypokinesis.
-Monitor Daily Weights particularly while on high dose steroids
Paroxysmal Atrial Fibrillation
-Resume Eliquis
-Continue Coreg for rate control
Essential Hypertension
-Continue Coreg with hold parameters
-Occasional spikes in blood pressure readings noted here and she attributes that to the headache. She says mostly her blood pressure is under goal at home. Continue with the treatments of headache and her Coreg and use as needed hydralazine for
now.
Hyperthyroidism
-Continue Methimazole
Peripheral Neuropathy
-Continue gabapentin
Reactive Arthritis
-Follows with Rheumatology as outpatient
Hx Ventricular Tachycardia s/p ICD
Hx Valvular Heart Disease s/p Bioprosthetic Aortic Valve Replacement and Mitral Valve Repair
Hx Breast Cancer s/p Right Lumpectomy and Lymph Node Dissection, Chemotherapy and Radiation
DVT Proph: SCDs until able to resume Eliquis
Code Status: Full Code
Anticipated Discharge: Within 24 hours
Subjective/Interval History
-
Date of Service: April 10, 2024
Back from left temporal artery biopsy.
Currently she is explaining some mild left posterior head twinges of pain. No nausea vomiting.
Objective Data
-
Labs:
Laboratory Results
04/10/24
07:07
WBC 13.9 H
Hgb 12.5
Hct 38.2
Plt Count 282
PT 15.8 H
INR 1.23
Sodium 140
Potassium 3.7
Chloride 108 H
Carbon Dioxide 21 L
BUN 38 H
Creatinine 1.0
Glucose 139 H
Calcium 9.3
Vital Signs:
Vital Signs
Temp Pulse Resp BP Pulse Ox
98.0 F 85 18 143/72 97
04/10/24 15:35 04/10/24 15:35 04/10/24 15:35 04/10/24 15:35 04/10/24 15:35
I&O
04/09/24 04/10/24 04/11/24
06:59 06:59 06:59
Intake Total 50 / 50
Balance 50 / 50
Review of Systems
-
Respiratory: Denies Trouble Breathing
Cardiac: Denies Chest Pain
Abdomen/GI: Denies Abdominal Pain
Neuro: Reports Headache; Denies Dizzy
Physical Exam
-
General: No Apparent Distress
Respiratory: Non Labored Respirations; Negative Accessory Resp Muscle Use
Cardiac: Regular Rhythm and S1/S2
Neuro: AO x 3 and Other (Left vertebral artery biopsy site without bleeding)
Psych: Calm; Negative Confused
Data Reviewed
-
Labs: Labs Reviewed by me
--- NOTE | 2024-04-10 16:36 | TRANSFER ---
verbal report provided via phone to Saida Ham. pt being transferred to [facility]. PCT to transport pt via wheelchair in the next 10 mins. spouse at bedside. all belongings with pt.
--- NOTE | 2024-04-10 17:44 | PTCARENOTE ---
Arrived to unit from [facility]. Oriented to room. Biopsy site to L latter-day is [place]. No complaints of headache at this time. Plan of care ongoing.
[2024-04-10] MEDS: ELIQUIS 5 MG PO (20:09)
[2024-04-10] MEDS: REMERON 7.5 MG PO (21:51)
[2024-04-10] MEDS: NEURONTIN 200 MG PO (21:51)
[2024-04-10] MEDS: TORADOL 15 MG IV (22:03)
--- NOTE | 2024-04-11 02:16 | DOWNTIME ---
There was a [employer] Client Adhesive Bandage Machine Operator Downtime on 04/11/2024 from 0100 to 04/11/2023 at 0205 . Downtime documentation of patient's care, including medication administrations, has been reconciled in the electronic record per guidelines. Refer to the
patient's paper chart under the miscellaneous tab to see printed paper medication records and downtime forms.
[2024-04-11 03:48] VITALS: BP 144/80
--- NOTE | 2024-04-11 04:17 | PTCARENOTE ---
site checks to left buddhism completed through the night Q4h. Area of incision is CDI. Pt sleeping throughout the night, plan of care ongoing.
[2024-04-11 06:47] LABS: Hemoglobin 12.6 g/dL (12.0-16.0); Mean Corp Hgb Conc. 34.1 g/dL (33.0-37.0); Mean Corpuscular Hgb 31.2 pg (27.0-31.0); Mean Corpuscular Volume 91.6 fL (81.0-99.0); Mean Platelet Volume 10.2 fL (7.4-10.4); Platelet Count 269 10^3/uL (130-400); Red Blood Cell Count 4.04 10^6/uL (4.20-5.40); Red Cell Dist. Width 15.2 % (11.5-14.5); White Blood Cell Count 13.9 10^3/uL (4.8-10.8)
[2024-04-11 07:10] LABS: Blood Urea Nitrogen 45 mg/dl (7-17); Calcium 9.5 mg/dl (8.4-10.2); Carbon Dioxide 16 mmol/L (22-30); Chloride 112 mmol/L (98-107); Estimated Creatinine Clearance 38 ml/min; Glucose 129 mg/dl (70-99); Potassium 4.9 mmol/L (3.5-5.1); Sodium 142 mmol/L (135-145); eGFR > 60.00
[2024-04-11 07:31] VITALS: BP 176/88
[2024-04-11] MEDS: TAPAZOLE 2.5 MG PO (08:15)
[2024-04-11] MEDS: COREG 6.25 MG PO (08:15)
[2024-04-11] MEDS: HIPREX 1 GRAM PO (08:15)
[2024-04-11] MEDS: ELIQUIS 5 MG PO (08:15)
--- NOTE | 2024-04-11 09:19 | PN.CDI ---
CDI
- -
CDI:
Physician Documentation Request
Admit Date: 04/09/24 13:43
Dear Doctor Kranthi,
Please review the following and provide your response in the progress notes.
Clinical Indicators:
- Patient admit for a headache
- 04/10 PN 'Essential Hypertension'
- Systolic BP >180
- IV Hydralazine given x 2
Selected Entries
04/09/24
05:56 04/09/24
06:00 04/09/24
14:00
Blood pressure 198/98 193/96 189/90
04/09/24
15:56 04/10/24
15:05 04/10/24
15:27
Blood pressure 196/98 191/94 191/94
Please clarify which, if any of the following, is a more accurate diagnosis reflecting the type and acuity of the documented hypertension:
Essential primary hypertension only
Hypertensive Urgency - B/P is severely elevated (systolic > or = to 180 or diastolic > or = to 110) but there is no associated organ damage. Symptoms may include: headache, shortness of breath, nosebleeds, severe anxiety. Treatment usually consists
of addition to or adjusting of oral medications and does not generally necessitate hospitalization.
Hypertensive Emergency - B/P is severely elevated (systolic > or = to 180 or diastolic > or = to 110) but can occur at lower levels especially in patients who did not previously have high B/P. There is usually associated organ damage. Symptoms may
include: memory loss, LOC, CVA, FL, angina, renal failure, pulmonary edema. Generally requires more aggressive treatment and a hospitalization.
Hypertensive Crisis - an acute elevation in B/P that can lead to organ damage. Broad term that is further differentiated to include urgency or emergency based on presence of organ damage.
Other (please specify)
Use of terms such as suspected, likely, concern for, or probable (associated with a specific diagnosis that is being evaluated, monitored, or treated as if it exists) are acceptable and can be coded in the inpatient setting, when documented at the
time of discharge.
Thank you,
Rhiannon Lipscomb RN
CDI Specialist
Please use your independent medical judgment in providing your response.
[2024-04-11 10:39] LABS: Urine Albumin Trace (Neg - Trace); Urine Bilirubin Negative (Negative); Urine Character Clear (Clear); Urine Color Yellow; Urine Glucose Negative (Negative); Urine Ketone Negative (Negative); Urine Leukocyte Negative (Negative); Urine Nitrite Negative (Negative); Urine Occult Blood Negative (Negative); Urine Specific Gravity 1.025 (<1.030); Urine Urobilinogen Negative (Neg - 1+)
--- NOTE | 2024-04-11 10:44 | W.PN.HOSP.TC ---
Addendum entered and electronically signed by Steven Crisostomo MD 04/14/24 16:45:
Essential hypertension only
Original Note:
Today's Communication/Plan
-
DC planning
Assessment / Plan
Assessment / Plan
Acute onset of left-sided headache predominantly posterior with no other associated symptoms.
Unclear if this is GCA-no systemic complaints, acute presentation, very intense pain, no temporal artery tenderness. Continue with the plan of ruling out temporal arteritis per rheumatology-obtained biopsy 04/10, continue with empirical steroids
for now and follow with Rheum.
Rule out primary headache syndrome including type of migraine, posterior occipital neuralgia
Appreciate neurology input who thinks this may be primary headache syndromes and advises symptomatic treatment with Reglan and Benadryl. It is also advises to consider tapering of steroids.
CT of the head shows no evidence of acute findings.
Improved ALTMAN today - dc home with OP follow up .
Chronic HFrEF
-Echo July 2023: Left ventricular ejection fraction 3-40%. Global hypokinesis.
- Daily Weights stable
Paroxysmal Atrial Fibrillation
-cw Eliquis
-Continue Coreg for rate control
Essential Hypertension
-Continue Coreg with hold parameters
-Occasional spikes in blood pressure readings noted here and she attributes that to the headache. She says mostly her blood pressure is under goal at home. Continue with her Coreg and follow with PCP.
Hyperthyroidism
-Continue Methimazole
Peripheral Neuropathy
-Continue gabapentin
Reactive Arthritis
-Follows with Rheumatology as outpatient
Hx Ventricular Tachycardia s/p ICD
Hx Valvular Heart Disease s/p Bioprosthetic Aortic Valve Replacement and Mitral Valve Repair
Hx Breast Cancer s/p Right Lumpectomy and Lymph Node Dissection, Chemotherapy and Radiation
Dysuria - noted today .Afeb. Hx of recurrent UTI. Check UA with reflux culture
DVT Proph: SCDs until able to resume Eliquis
Code Status: Full Code
Anticipated Discharge: Today
Subjective/Interval History
-
Date of Service: April 11, 2024
This morning a pretty much resolved headache and some vague discomfort in the left posterior head. No nausea vomiting.
Yesterday she felt confused with all the moves from 1 unit to a unit but she feels fine now.
Denies any vision disturbance or speech disturbance. No motor weakness.
No nausea vomiting. Tolerating diet.
Objective Data
-
Labs:
Laboratory Results
04/11/24
05:57
WBC 13.9 H
Hgb 12.6
Hct 37.0
Plt Count 269
Sodium 142
Potassium 4.9 D
Chloride 112 H
Carbon Dioxide 16 L
BUN 45 H
Creatinine 0.9
Glucose 129 H
Calcium 9.5
Vital Signs:
Vital Signs
Temp Pulse Resp BP Pulse Ox
98.6 F 89 18 176/88 99
04/11/24 07:31 04/11/24 07:31 04/11/24 07:31 04/11/24 07:31 04/11/24 07:31
I&O
04/10/24 04/11/24 04/12/24
06:59 06:59 06:59
Intake Total 50 / 50
Balance 50 / 50
Review of Systems
-
Constitutional: Denies Fever
Respiratory: Denies Trouble Breathing
Cardiac: Denies Chest Pain
Genitourinary: Reports Dysuria
Neuro: Denies Dizzy
Physical Exam
-
General: Comfortable
Respiratory: Non Labored Respirations and Accessory Resp Muscle Use; Negative Clear to Auscultation
Cardiac: Regular Rhythm and S1/S2
GI: Soft and Nontender
Skin: Other (Left temporal artery biopsy site clean)
Neuro: AO x 3
Psych: Calm; Negative Confused or Agitated
Data Reviewed
-
Labs: Labs Reviewed by me
--- NOTE | 2024-04-11 10:48 | PTCARENOTE ---
Patient with complaints of burning with urination. notified. Urine culture/UA sent. Awaiting results.
[2024-04-11] MEDS: SOLU-MEDROL 108 MG IV (11:50)
--- NOTE | 2024-04-11 11:51 | CM ---
Spoke with pt she said she is waiting on test results.
She said her with drive [place]
They reside in a [place] apartment at [facility].
Offered VN she declined need.
PLAN Home no needs
[2024-04-11] MEDS: TORADOL 15 MG IV (12:44)
[2024-04-11 13:53] VITALS: BP 159/82
--- NOTE | 2024-04-11 16:10 | PTCARENOTE ---
IV removed. Reviewed discharge instructions with patient and . Both verbalize understanding of discharge instructions and deny questions. patient left via wheelchair with staff escort. at bedside to transport home.
== END 2024-04-11 16:08 | disposition home or self-care (01) | DRG 516 ==
LOC: 4 EAST ACU 13:43
PROVIDERS: Physician Assistant Medical; Surgery Vascular Surgery; ADMITTING PHYSICIAN Internal Medicine; CONSULT PHYSICIAN Psychiatry & Neurology Neurology; CONSULT PHYSICIAN Surgery Vascular Surgery; EMERGENCY PHYSICIAN Student in an Organized Health Care Education/Training Program; FAMILY PHYSICIAN Student in an Organized Health Care Education/Training Program
PROC: 03BT0ZX Excision of Left Temporal Artery, Open Approach, Diagnostic (ICD-10-PCS; 2024-04-10)
DX: M31.6 Other giant cell arteritis (principal); I50.22 Chronic systolic (congestive) heart failure; I11.0 Hypertensive heart disease with heart failure; I48.0 Paroxysmal atrial fibrillation; E05.90 Thyrotoxicosis, unspecified without thyrotoxic crisis or storm; E11.40 Type 2 diabetes mellitus with diabetic neuropathy, unspecified; Z79.01 Long term (current) use of anticoagulants; Z95.3 Presence of xenogenic heart valve
CPT/HCPCS: 88305; 37609; 70450; 80048; 81003; 85025; 85027; 85610; 85652; 86140; 88313; 96361; 96374; 99285

== ENCOUNTER → 2024-05-07 08:18 | Outpatient (REF) | payer OTHER, SELFPAY | LOC: HWRAD 08:18 | PROVIDERS: ATTENDING PHYSICIAN Physician Assistant; FAMILY PHYSICIAN Student in an Organized Health Care Education/Training Program; REFERRING PHYSICIAN Student in an Organized Health Care Education/Training Program | DX: M81.0 Age-related osteoporosis without current pathological fracture (principal) | CPT/HCPCS: 77080; 77081 ==

== ENCOUNTER 2024-07-07 10:37 | Inpatient (IN) | payer OTHER, SELFPAY ==
[2024-07-07] VITALS (33 sets, daily range): BP systolic 80–159; BP diastolic 26–102
--- NOTE | 2024-07-07 07:35 | ED.CVA ---
History of Present Illness
General
Chief Complaint: CVA/TIA Symptoms
Time Seen by Provider: 07/07/24 07:34
Onset of Stroke Symptoms
Onset of symptoms known: No
Time pt last seen normal is known: Yes
Date last time pt seen normal: 07/06/24
Time last time pt seen normal: 22:00
History of Present Illness
History of Present Illness:
TIME OF INITIAL ENCOUNTER:
HPI: At 10 PM last night, the patient was last seen normal and went to bed. I spoke to EMS and the for history. The states that at about 5:30 in the morning, the patient was found to be sitting on the bed for a prolonged period of
time which is very abnormal for her. She ultimately tried to get up and use a walker but was walking extremely slowly which was abnormal for her. She stopped in the doorway and was not responding to the appropriately. She did complain of
a headache as well. She is on Eliquis for A-fib.
EXAM:
GENERAL: The patient is ill-appearing
HEENT: Moist oral mucosa
CARDIOVASCULAR: No murmurs, tachycardic heart rate, irregular rhythm, No chest wall pain
LUNG: Minimal respiratory distress with some rales heard anteriorly
ABDOMEN: Soft with no peritoneal signs, no tenderness
NEUROLOGIC: The patient has trouble following simple commands, she primarily keeps her eyes closed, she cannot name the month and cannot tell me her age
PSYCHIATRIC: Appropriate mental status, normal insight and judgement
EXTREMITIES: Nontender, no edema, moves all extremities equally
SKIN: She appears pale
NUMBER AND COMPLEXITY OF PROBLEMS ADDRESSED AT THE ENCOUNTER
� Chronic conditions affecting care: A-fib on Eliquis
� Acute Exacerbation and/or Progression of Chronic Illness: This is an acute problem
� Differential Diagnosis includes: CVA/TIA, hypoglycemia, electrolyte abnormality,
AMOUNT AND/OR COMPLEXITY OF DATA TO BE REVIEWED AND ANALYZED
� I performed an independent evaluation of and my interpretation is:
EKG: Suspect sinus with rate of 127, left bundle branch block similar to prior but more prominent likely rate related
CT: CT head shows no acute abnormality, CTA head neck with contrast shows no LVO but there is some atherosclerosis of the carotids
X-rays: Suspect pulmonary vascular congestion on chest x-ray
Laboratory Studies: Initial blood sugar 103, chemistries unremarkable
Other:
� Review of other/old records: The patient was seen here 2 months ago with concerns for temporal arteritis and is now status post temporal artery biopsy
� Clinical information was obtained by an independent historian: I spoke to and EMS for history
� Prescriptions/Medications Considered but not given:
� Further testing considered but not performed:
RISK OF COMPLICATIONS AND/OR MORBIDITY OR MORTALITY OF PATIENT MANAGEMENT
� Social determinants of health affecting care: Lives at home with
� Discussion with other providers: I spoke to Dr. Fields at 7:43 AM he was evaluated the patient and CT. Hospitalist, Dr. Hartman for admission.
� Escalation of care including admission/observation vs risk of discharge considered: The patient has an acute change in her mental status. She is not following commands appropriately. She has expressive aphasia. She cannot
name the month or tell me her age. Her strength is good in all extremities.
ANY OTHER UPDATES:
The patient remains tachycardic in the emergency department with rates around 130. She has a left bundle branch block, question atrial flutter will give beta-imani. She is also found to be hypoxic with room air sats of 88%. Chest x-ray by my
read suggestion interstitial edema. Will give a low-dose of Lasix and I added on BNP.
Past History
Past History
ED Past Medical History: Arrthythmia, Cancer (Breast) and Other (Recurrent urinary tract infection, episode of change of mental status 2016)
ED Past Surgical History: Cardiac (AICD 03/27/2015) and Gynecological (Hysterectomy)
Social History
Tobacco: Non-smoker
Alcohol: None
Drug: None
Personal:
Living: with family
Employment: Retired
Family History
Family History: Other (Noncontributory)
Phy Exam
Physical Exam
Physical Exam:
See HPI
Course
Orders/Labs/Results
Orders:
Orders
07/07/24 07:34
Electrocardiogram (*1) Urgent
Reason for Study: TIA/Stroke
CT HEAD STROKE ALERT W/o Cont Urgent
Comment:
Reason For Exam: acute expressive aphasia
CT HEAD/NECK ANG STROKE ALERT Urgent
Comment:
Reason For Exam: acute expressive aphasia
EKG- Treatment ONCE
07/07/24 07:38
Complete Blood Count/With Diff Urgent
Comprehensive Metabolic Panel Urgent
Free T3 Urgent
Comment: ADD ON
Free T4 Urgent
NT-proBNP Urgent
Comment: ADD ON
TSH Urgent
Comment: ADD ON
07/07/24 08:10
CR Chest Portable - 1 View Urgent
Comment:
Reason For Exam: hypoxia
Reason Study Needs to be Portable: Patient Unstable
07/07/24 08:27
Add On- LAB Urgent
Tests Added?: bnp
07/07/24 08:37
Metoprolol [Lopressor] 2.5 mg IV NOW STA
07/07/24 08:39
Furosemide [Lasix] 20 mg IV NOW STA
07/07/24 09:42
Add On- LAB Urgent
Tests Added?: TSH, FT4, FT3
07/07/24 09:44
CARDIOLOGY CONSULT Routine
Consulting Provider: Theodore Henderson
Was physician already notified: Yes
Reason for consult: Afib with RVR, pulmonary edema
07/07/24 09:47
NEUROLOGY CONSULT Routine
Consulting Provider: Kristin Fields
Was physician already notified: Yes
Reason for consult: stroke
MRI Brain [MR Brain Without Contrast] Routine
Comment:
Reason For Exam: stroke
Recent pill cam endoscopy?: No
07/07/24 10:09
CT Abd/pel W Iv And Oral Contr Urgent
Comment:
Reason For Exam: abdominal pain, urinary retention
COVID-19 Antigen Urgent
Source: Nasal Swab
PT/INR [Prothrombin Time] Stat
PTT Stat
Influenza A+B Rapid Molecular Urgent
TONY Source: Nasal Swab
Specimen Description:
Iohexol [Omnipaque] See Protocol PO NOW STA
Rios Catheter [Catheter- Indwelling] As Directed
Reason for insertion: Acute Retention
Discontinue Date/Time: 07/10/24 0600
07/07/24 10:20
Add On- LAB Urgent
Tests Added?: Lipase
07/07/24 10:21
Echo 2D MMode Color/Doppler Routine
Reason for Study: CHF
07/07/24 10:22
UA Reflex to Culture [Urinalysis Reflex To Culture] Stat
Date Specimen was Collected: 07/07/24
Time Specimen was Collected: 10:10
Blood Culture Q30M
TONY Source: Blood/Venous
Specimen Description:
Blood Culture Q30M
TONY Source: Blood/Venous
Specimen Description:
07/07/24 10:24
Admit/Transfer Patient As Directed
Co-Sign Provider:
Level of Care: Inpatient admission
Assign to:: Telemetry
Physician / Group: Hospitalist
Diagnosis: stroke, abd pain
Reason for Telemetry: Arrhythmia
Date to Stop Telemetry: 07/10/24
Time to Stop Telemetry: 11:00
Reason for Hospitalization: stroke, abd pain
Expected length of stay greater than two midnights?: Yes
ELOS- Estimated Length of Stay in days: 4
I certify the patient meets the requirements for IP care: Yes
PRN Pain Medication Management As Directed
May give lesser potent ordered pain med per pt: Yes
preference::
Protocol:: Medication orders for pain may be administered in a
manner that supports deferring to patient preference
when the pt is:
- Requesting an ordered lesser potent pain medication.
Least to most potent pain medications are defined
as: acetaminophen < NSAID < tramadol < opioids
(morphine, oxycodone, hydromorphone).
- Requesting a lesser dose of the same medication IF
ORDERED.
- Requesting a less intrusive route of administration
if both routes are prescribed by the provider (PO <
IV).
07/07/24 10:27
Code Status As Directed
Resuscitation Status: Full Code
07/07/24 10:30
Troponin I Q8H
07/07/24 10:31
Aspirin 325 mg PO NOW STA
07/07/24 12:00
CefTRIAXone [Rocephin] 1,000 mg IV Q24H
Sterile Water [Sterile Water For Injection] 10 ml IV Q24H
07/07/24 18:30
Troponin I Q8H
07/08/24 02:30
Troponin I Q8H
07/10/24 11:00
DC Protocol for Telemetry ONCE
Abnormal Lab Results
07/07/24 07/07/24
07:32 07:38
RBC 3.18 L 10^6/uL
(4.20-5.40)
Hgb 10.6 L g/dL
(12.0-16.0)
Hct 32.2 L %
(37.0-47.0)
MCV 101.3 H fL
(81.0-99.0)
MCH 33.3 H pg
(27.0-31.0)
MCHC 32.9 L g/dL
(33.0-37.0)
RDW 20.4 H %
(11.5-14.5)
Abs Immat Gran (auto) 0.5 H 10^3/uL
(0-0.05)
Immature Gran % 5.5 H %
(0-0.5)
Lymphocytes % 14.6 L %
(20.5-51.1)
BUN 22 H mg/dl
(7-17)
Glucose 102 H mg/dl
(70-99)
POC Glucose 103 H mg/dl
(70-99)
07/07/24 07:38
07/07/24 07:38
Vital Signs
Initial and Last Documented VS:
Initial Vital Signs
Pulse Resp Pulse Ox
134 16 95
07/07/24 07:32 07/07/24 07:32 07/07/24 07:32
Last Documented Vital Signs
Temp Pulse Resp BP Pulse Ox
36.5 C 122 32 136/65 95
07/07/24 09:31 07/07/24 09:30 07/07/24 09:30 07/07/24 09:00 07/07/24 09:30
*Critical Care Note
Total Time (30-74mins, 75-104mins- exclusive of procedures): Not Applicable
ED Attending Note
-
Portions of this chart may have been created with voice recognition software.� Occasional wrong word or��sound alike� substitutions may have occurred due to the inherent limitations of voice recognition software.
Discharge Plan
Departure
Patient Disposition: Admit
Date of Disposition: 07/07/24
Time of Disposition: 08:43
Presentation/result/management discussed w/ accepting MD/DO: Hospitalist
Discharge Problem:
Acute CVA (cerebrovascular accident)
Interventions
Interventions:
*General Assessment Last Done: 07/07/24 07:46
*Neglect/Abuse Screening Last Done: 07/07/24 07:46
*ED- Fall Risk Assessment Last Done: 07/07/24 07:46
*ED COVID-19 Vaccine History Last Done: 07/07/24 07:50
ED- Pulmonary Assessment Last Done: 07/07/24 08:04
ED- Neurological Assessment Last Done: 07/07/24 08:04
ED- Cardiac Assessment Last Done: 07/07/24 08:04
[2024-07-07 07:37] LABS: Glucose - Point of Care 103 mg/dl (70-99)
--- NOTE | 2024-07-07 07:44 | CON.NEURO ---
Consultation
Order
Date of Consultation: 07/07/24
Requesting Provider: Cliff Amin DO
Reason for Consult: Stroke alert
Prehospital notification: 7:23 am
Neurology Consultation Note.
HPI: This is an 78-year-old woman who presented to [facility] on July 07, 2028 with headache and encephalopathy.
The patient is unable to provide the history. Last time seen in usual state of health�10 PM on July 06, 2024.
Blayne was seen by neurology service in March 2024 for headaches.
Left temporal artery biopsy (04/10/2024)�focal calcifications and focal disruption of the elastic lamina suggestive of previous arthritis versus trauma.
ER VS: 150/102, 137, afebrile
PDMP:Tramadol Hcl 50 Mg�30 tablets filled in on 02/24/2024
Labs: Pending
CT head wo contrast�basal ganglia calcification, atrophy and left cerebellar infarct
PMH: R Breast cancer, malignant melanoma, A-fib on AC, hypothyroidism, HTN, HFrEF, NICM, IBS, inflammatory arthropathy, glaucoma, FRITZ, polyneuropathy, giant cell arteritis, Magalie's Syndrome, ambulatory dysfunction
PSH: AICD, bilateral cataract surgery, R TKA, bioprosthetic AVR, MVR, BL NENA, sigmoidectomy, tubal ligation, TVH + anterior colporrhaphy,, cholecystectomy,
SH: ,
FH: Not contributory to current presentation
All: Allopurinol, colchicine, levofloxacin, vancomycin
ROS: Unable due to encephalopathy
General: In moderate distress due to head
Cardio: Regular rate and rhythm without murmur. Extremities are without cyanosis or edema.
Neuro:
Mental Status: Alert, attends to examiner, oriented to name. Follows simple requests consistently. Poor attention increased processing time. Nonfluent. No hemineglect
Cranial Nerves: Pupils are equally round, surgical. Horizontal extraocular movements are intact. Blink to threat bilaterally. No facial weakness, hearing is preserved
Motor: No pronator or arm drift.
Sensory: Localizes noxious stimuli
Coordination: No tremors myoclonic movements. Does not cooperate with dysmetria evaluation
Gait: deferred
Assessment and Plan:
I. Acute encephalopathy. Not a candidate for IV TNK due to active systemic anticoagulation in the last time seen in usual state of health
II. PA AFib
III. History of inflammatory arthropathy
-Continue Telemetry monitoring
-Please check TFTs, ESR, CRP, ua, ua cx, followup CBC, COMP
-Follow-up CTA head and neck to rule out dissection or aneurysm.
-Hold Eliquis and start aspirin 81 mg once a day
-Obtain brain MRI (if AICD is MRI compatible) will repeat CT head in 24 hours
-Will contact patient's family to obtain collateral history
-DVT prophylaxis.
I personally reviewed all radiology and labs along with past medical records pertinent to current medical problems. Total time spent in patient care is 60 minutes.
Thank you for allowing us to participate in the care of this patient. We will continue to follow. Please do not hesitate to contact us with any questions or concerns.
Subjective/Objective
Subjective Data
Date of Service: July 07, 2024
Objective Data
Vital Signs
Pulse Resp BP Pulse Ox
127 20 150/102 97
07/07/24 07:40 07/07/24 07:40 07/07/24 07:40 07/07/24 07:40
Patient Allergies
allopurinol Allergy (Verified 04/09/24 05:49)
Unknown
colchicine Allergy (Verified 04/09/24 05:49)
Unknown
levofloxacin Allergy (Verified 04/09/24 17:42)
developed C-Diff
vancomycin Allergy (Verified 04/09/24 17:42)
developed C-diff
Medications
-
Home Medications
�Medication �Instructions �Recorded
apixaban 5 mg tablet (Eliquis) 5 mg PO BID Blood Clot 08/26/22
Prevention/Tx
gabapentin 100 mg capsule 200 mg PO HS 08/26/22
latanoprost 0.005 % eye drops 1 drp BOTH EYES HS Eye Condition 08/26/22
methimazole 5 mg tablet 2.5 mg PO DAILY Thyroid 08/26/22
brimonidine 0.2 %-timolol 0.5 % 1 drp BOTH EYES BID 03/06/24
eye drops (Combigan)
mirtazapine 7.5 mg tablet 7.5 mg PO HS 03/06/24
acetaminophen 500 mg tablet 1,000 mg PO DAILYPRN PRN HEADACHES 04/09/24
(Tylenol Extra Strength)
carvedilol 6.25 mg tablet (Coreg) 6.25 mg PO BID 04/09/24
methenamine hippurate 1 gram tablet 1 g PO BID 04/09/24
prednisone 10 mg tablet 40 mg PO DAILY 04/09/24
Vital Signs and Labs
-
Vital Signs and Labs:
Vital Signs
Pulse Resp BP Pulse Ox
133 20 159/81 94
07/07/24 07:46 07/07/24 07:40 07/07/24 07:46 07/07/24 07:46
Lab Results
07/07/24 07:38
Sodium 140 mmol/L (135-145) 07/07/24 07:38
Potassium 4.0 mmol/L (3.5-5.1) 07/07/24 07:38
BUN 22 mg/dl (7-17) H 07/07/24 07:38
Glucose 102 mg/dl (70-99) H 07/07/24 07:38
Calcium 9.0 mg/dl (8.4-10.2) 07/07/24 07:38
Home Medications
-
Home Medications
apixaban 5 mg tablet (Eliquis) 5 mg PO BID Blood Clot Prevention/Tx 08/26/22
gabapentin 100 mg capsule 200 mg PO HS 08/26/22
latanoprost 0.005 % eye drops 1 drp BOTH EYES HS Eye Condition 08/26/22
methimazole 5 mg tablet 2.5 mg PO DAILY Thyroid 08/26/22
brimonidine 0.2 %-timolol 0.5 % eye drops (Combigan) 1 drp BOTH EYES BID 03/06/24
mirtazapine 7.5 mg tablet 7.5 mg PO HS 03/06/24
acetaminophen 500 mg tablet (Tylenol Extra Strength) 1,000 mg PO DAILYPRN PRN HEADACHES 04/09/24
carvedilol 6.25 mg tablet (Coreg) 6.25 mg PO BID 04/09/24
methenamine hippurate 1 gram tablet 1 g PO BID 04/09/24
prednisone 10 mg tablet 40 mg PO DAILY 04/09/24
[2024-07-07 08:03] LABS: ALT (SGPT) 32 U/L (0-35); AST (SGOT) 28 U/L (14-36); Albumin 3.9 g/dl (3.5-5.0); Alkaline Phosphatase 66 U/L (38-126); Blood Urea Nitrogen 22 mg/dl (7-17); Carbon Dioxide 26 mmol/L (22-30); Chloride 106 mmol/L (98-107); Glucose 102 mg/dl (70-99); Sodium 140 mmol/L (135-145); Total Bilirubin 1.3 mg/dl (0.2-1.3); Total Protein 6.5 g/dl (6.3-8.2); eGFR > 60.00
[2024-07-07 08:33] LABS: Hematocrit 32.2 % (37.0-47.0); Hemoglobin 10.6 g/dL (12.0-16.0); Mean Corp Hgb Conc. 32.9 g/dL (33.0-37.0); Mean Corpuscular Hgb 33.3 pg (27.0-31.0); Mean Corpuscular Volume 101.3 fL (81.0-99.0); Platelet Count 202 10^3/uL (130-400); Red Blood Cell Count 3.18 10^6/uL (4.20-5.40); Red Cell Dist. Width 20.4 % (11.5-14.5); White Blood Cell Count 8.4 10^3/uL (4.8-10.8)
[2024-07-07] MEDS: LOPRESSOR 2.5 MG IV (08:46)
[2024-07-07] MEDS: LASIX 20 MG IV (08:46)
[2024-07-07 09:01] LABS: NT-proBNP 5500 pg/ml
[2024-07-07 09:54] LABS: % Basophils 0.4 % (0-2); % Eosinophils 1.6 % (0-6); % Immature Granulocytes 5.5 % (0-0.5); % Lymphocytes 14.6 % (20.5-51.1); % Monocytes 3.6 % (1.7-9.3); % Neutrophils 74.3 % (42.2-75.2); Absolute Eosinophils 0.1 10^3/uL (0-0.7); Absolute Immature Granulocytes 0.5 10^3/uL (0-0.05); Absolute Lymphocytes 1.2 10^3/uL (1.2-3.4); Absolute Monocytes 0.3 10^3/uL (0.1-0.6); Absolute Neutrophils 6.2 10^3/uL (1.4-6.5)
--- NOTE | 2024-07-07 10:33 | HPS.HSE ---
Family Physician
-
Family Physician: Petty Ventura PA-C
Chief Complaint
-
confusion, aphasia
History of Present Illness
78yo F with PMHx of anemia, possible PUD followed by Venegasib on eliquis, HFrEF, s/p ICD, HTN, glaucoma, frequent UTI, hyperthyroidism, GCA on high dose prednisone brought by after he found her confused and non-verbal sitting on the
side of the bed in AM. Patient had also started with headache and worsening L abd pain at the night prior. DUe to non-verbal status stroke code called in ED. CTA was without LVO or hemodinamically significant carotid stenosis, no tPa 2/2 last known
normal was a night prior. Patient in ED found with tachycardia, abdominal pain and urinary retention. XR concerning for pulmonary edema, however bedside no clinical signs of volume overload, however in distress 2/2 lower abdominal pain
On bedside eval patient without neurological deficit, however confused and in distress due to abdominal pain, but responding to commands and questions appropriately
Medical History
Past Medical History
Past Medical History: Reports Other (See HPI)
Past Surgical History: Reports Other (see HPI)
Social History
Tobacco: Non-smoker
Alcohol: None
Drug: None
Family History
Family History: Not pertinent
Allergies / Home Medications
Allergies reflects when Allergies were last updated in [facility].
Home Medications with original date entered in [facility]
Allergy/Medication List:
Allergies
Allergy/AdvReac Type Severity Reaction Status Date / Time
allopurinol Allergy Unknown Verified 07/07/24 08:04
colchicine Allergy Unknown Verified 07/07/24 08:04
levofloxacin Allergy developed Verified 07/07/24 08:04
C-Diff
vancomycin Allergy developed Verified 07/07/24 08:04
C-diff
Home Medications
apixaban 5 mg tablet (Eliquis) 5 mg PO BID Blood Clot Prevention/Tx 08/26/22
gabapentin 100 mg capsule 200 mg PO HS 08/26/22
latanoprost 0.005 % eye drops 1 drp BOTH EYES HS Eye Condition 08/26/22
methimazole 5 mg tablet 2.5 mg PO DAILY Thyroid 08/26/22
brimonidine 0.2 %-timolol 0.5 % eye drops (Combigan) 1 drp BOTH EYES BID 03/06/24
mirtazapine 7.5 mg tablet 7.5 mg PO HS 03/06/24
acetaminophen 500 mg tablet (Tylenol Extra Strength) 1,000 mg PO DAILYPRN PRN HEADACHES 04/09/24
carvedilol 6.25 mg tablet (Coreg) 6.25 mg PO BID 04/09/24
methenamine hippurate 1 gram tablet 1 g PO BID 04/09/24
prednisone 10 mg tablet 40 mg PO DAILY 04/09/24
famotidine 40 mg tablet 40 mg PO DAILY 07/07/24
Review of Systems
-
History Source: Patient and Family
A 12 point ROS was completed and negative except as noted: Yes
Abdomen/GI: Reports Abdominal Pain
: Reports Difficulty Voiding
Physical Exam
Vital Signs
Vital Signs
Temp Pulse Resp BP Pulse Ox
97.7 F 122 32 136/65 95
07/07/24 09:31 07/07/24 09:30 07/07/24 09:30 07/07/24 09:00 07/07/24 09:30
Physical Exam
General: Comfortable, Appears in Distress and Pain
HEENT: NormoCephalic, Anicteric and Moist mucous membranes
Respiratory: Clear; No Wheezes or Crackles
Cardiac: Regular Rhythm and Tachycardia; No Murmur
GI: Soft, Tender and Distended
Musculoskeletal: No Clubbing, No Cyanosis and No Edema
Skin: Warm; No Rash or Jaundice
Neuro: Awake, Alert, Oriented, AO x 3 and No Motor Deficits
Psych: Calm
Laboratory Results
-
07/07/24 07:38
07/07/24 07:38
Laboratory Results
Total Bilirubin 1.3 mg/dl (0.2-1.3) 07/07/24 07:38
AST 28 U/L (14-36) 07/07/24 07:38
ALT 32 U/L (0-35) 07/07/24 07:38
Alkaline Phosphatase 66 U/L (38-126) 07/07/24 07:38
Data Reviewed
-
Diagnostic Radiology: Report Reviewed by me
CT Scan: Report Reviewed by me
Lab Data: Labs Reviewed by me
Impression/Plan
-
A/P:
#Aphasia, acute metabolic encephalopathy, concern for CVA
high risk for stroke 2/2 GCA
telemetry
Permissive HTN
Neuro consult, hold eliquis until evaluated
MRI brain
Echo
check TSH, HgbA1c, Lipids
ASA, high dose statin
#Abdominal pain with Hx of frequent UTI
#Acute urinary retention
Rios
Ucx
Bcx
CT abd/pelvis, meanwhile NPO, no IVF with pulmonary edema
#Pulmonary edema, possible mild acute on chronic HFrEF
#Possible Afib with RVR
s/p lasix, BB in ED
Suspect 2/2 abdomina pain and urinary retention
ProBNP 5500 - lasix as needed
telemetry
cont rate control
Cardio consult
cont rate control
Echo
Currently without recent Hx of respiratory symptoms - unlikely pneumonia, will favor edema on XR
#Anemia, macrocytic
chronic
Anemia w/u
switch to PPI
follow CBC
check stool
#Insomnia
cont Remeron
#GCA
cont prednisone
check EST
#Hyperthyroidism
cont Methimazole
check TSH, FT4, T#
DVT ppx on SCDs
Full code - discussed in details with family bedside
I have spent at least 78min reviewing the chart, test results, communication with consultants and providing direct patient care
[2024-07-07 10:35] LABS: Urine Albumin Negative (Neg - Trace); Urine Bilirubin Negative (Negative); Urine Character Clear (Clear); Urine Color Yellow; Urine Glucose Negative (Negative); Urine Ketone Negative (Negative); Urine Leukocyte Negative (Negative); Urine Nitrite Negative (Negative); Urine Occult Blood Negative (Negative); Urine Urobilinogen Negative (Neg - 1+)
[2024-07-07 10:50] LABS: COVID-19 Antigen Negative (Negative)
[2024-07-07 10:51] LABS: PT 15.5 Sec (11.4-14.6)
[2024-07-07 10:52] LABS: APTT 32.2 Sec (23.4-35.0)
[2024-07-07 11:21] LABS: Lipase 228 U/L (23-300)
[2024-07-07 11:28] LABS: Troponin I 0.041 ng/ml
[2024-07-07 11:40] LABS: Free T3 3.39 pg/ml (2.77-5.27); Free T4 1.44 ng/dl (0.78-2.19)
[2024-07-07] MEDS: ASPIRIN 325 MG PO (11:49)
[2024-07-07] MEDS: OMNIPAQUE 50 ML PO (11:49)
[2024-07-07] MEDS: ROCEPHIN 1000 MG IV (11:50)
[2024-07-07] MEDS: STERILE WATER FOR INJECTION 10 ML IV (11:50)
[2024-07-07 11:54] LABS: TSH 3.71 uIU/ml (0.47-4.68)
--- NOTE | 2024-07-07 12:22 | CON.CAR ---
Addendum entered and electronically signed by Theodore Henderson MD 07/07/24 14:25:
I saw and examined the patient.
The ICE RINK ATTENDANT's note was reviewed and I agree with the note.
Comment:
Mrs. Cisneros is an 78 yo female with paroxysmal Afib on Eliquis, anemia, HFrEF, EF 35-40%, Medtronic ICD, HTN, s/p MV annuloplasty ring, moderate mitral regurgitation, bioprosthetic aortic valve, GCA on prednisone, who was brought to the ER by
family for confusion. Stroke alert was called and CT imaging was unremarkable. She was noted to have sinus tachycardia up to 140 bpm, given IV Lopressor. She is admitted to the hospitalist service and we are consulted for Afib/HFrEF. History was
obtained from patient and family. Her reports that she was in her usual state of health prior to this morning she woke up and was very confused, moving very slowly, not herself. Of note, she saw her PCP this week for visual changes and
brain MRI had been ordered but not done yet. She has improved slightly since arrival to the ED but remains confused. She denies chest pain, shortness of breath, lower extremity edema, palpitations and orthopnea. She has had a 10 pound weight gain
in the past 3 months which had initially been attributed to prednisone.
On exam she appears to be in mild distress with an elevated respiratory rate, satting 98% on 2 L nasal cannula, crackles in bilateral lung bases, fast HR with regular rhythm, no murmurs, no lower extremity edema. Labs notable for troponin 0.04 ->
0.195, proBNP 5500, creatinine 0.9, hemoglobin 10.6.
Acute hypoxic respiratory failure
-She has bilateral infiltrates on chest x-ray, elevated NT proBNP, and crackles. Likely has some component of acute on chronic HFrEF, but her BNP is lower than it has been in the past and she examines otherwise euvolemic, so I wonder if there is an
additional pulmonary process going on.
-So far she has received 20 mg IV Lasix and we will continue with 40 mg IV Lasix daily.
-Strict I/Os, daily standing weights
-Consider chest CT if not improving with Lasix
Acute on chronic HFrEF
-Severe exacerbation requiring IV diuresis and close monitoring of labs and telemetry
-TTE 08/17/2023: EF 35-40%, mildly reduced RV function, MVRe with normal gradients and moderate MR, bio AVR with normal gradients
-40 mg IV Lasix daily as above
-Continue home carvedilol 6.25 mg twice daily
-Has not been able to tolerate any other GDMT due to hypotension and frequent UTIs
-S/p ICD
-Update echo this admission
Altered mental status
-CT head and CTA head/neck are unremarkable. TSH normal. No evidence of UTI by UA.
-Brain MRI will need to be Tuesday because of her device
-Neurology following
-Plan is for repeat CT head tomorrow morning
-Hold Eliquis
Troponin elevation
-Likely due to nonischemic myocardial injury in the setting of heart failure exacerbation +/- possible stroke. She denies chest pain. ECG with stable LBBB.
-Continue to trend troponin with ECGs to peak
Sinus tachycardia
-Unclear etiology. No evidence of A-fib on telemetry.
-Continue pain workup (follow-up CT A/P) and neuro work-up
Paroxysmal atrial fibrillation
-In sinus rhythm here
-Continue carvedilol
-No Eliquis due to concern for stroke
Original Note:
Consultation
Consultation Request
Date/Time Consultation Requested: 07/07/24 9:45a
Date/Time Consultation Performed: 07/07/24 11:45a
Requesting Provider: Dr. Domínguez
Performing Provider: HOLLY Vargas for Dr. Henderson
Reason for Consultation: Afib, pulmonary edema
Medical History
-
Chief Complaint: confusion
History of Present Illness:
Mrs. Cisneros is an 78 yo female with paroxysmal Afib on Eliquis, anemia, HFrEF, EF 35-40%, Medtronic ICD, HTN, s/p MV annuloplasty ring, moderate mitral regurgitation, bioprosthetic aortic valve, GCA on prednisone, who was brought to the ER by
family for confusion. Stroke alert was called and CT imaging was unremarkable. She was noted to have sinus tachycardia up to 140 bpm, given IV Lopressor and now BP is low. She is admitted to the hospitalist service and we are consulted for
Afib/HFrEF. She has stable weights at home and does not appear volume overloaded on exam today.
Past Medical History
Past Medical History: Other (as above)
Social History
Tobacco: Non-Smoker
Personal:
Living: With Family
Family History
Family History: Reviewed & Not Pertinent
Allergies / Home Medications
Allergy/AdvReac Type Severity Reaction Status Date / Time
allopurinol Allergy Unknown Verified 07/07/24 08:04
colchicine Allergy Unknown Verified 07/07/24 08:04
levofloxacin Allergy developed Verified 07/07/24 08:04
C-Diff
vancomycin Allergy developed Verified 07/07/24 08:04
C-diff
�Medication �Instructions �Recorded �Confirmed �Type
apixaban 5 mg tablet (Eliquis) 5 mg PO BID Blood Clot 08/26/22 07/07/24 History
Prevention/Tx
gabapentin 100 mg capsule 200 mg PO HS 08/26/22 07/07/24 History
latanoprost 0.005 % eye drops 1 drp BOTH EYES HS Eye Condition 08/26/22 07/07/24 History
methimazole 5 mg tablet 2.5 mg PO DAILY Thyroid 08/26/22 07/07/24 History
brimonidine 0.2 %-timolol 0.5 % 1 drp BOTH EYES BID 03/06/24 07/07/24 History
eye drops (Combigan)
mirtazapine 7.5 mg tablet 7.5 mg PO HS 03/06/24 07/07/24 History
acetaminophen 500 mg tablet 1,000 mg PO DAILYPRN PRN HEADACHES 04/09/24 07/07/24 History
(Tylenol Extra Strength)
carvedilol 6.25 mg tablet (Coreg) 6.25 mg PO BID 04/09/24 07/07/24 History
methenamine hippurate 1 gram tablet 1 g PO BID 04/09/24 07/07/24 History
prednisone 10 mg tablet 40 mg PO DAILY 04/09/24 07/07/24 History
famotidine 40 mg tablet 40 mg PO DAILY 07/07/24 07/07/24 History
Review of Systems
-
History Source: Patient
All other systems: Negative unless noted
Physical Exam
Vital Signs
Temp Pulse Resp BP Pulse Ox
97.7 F 136 29 106/59 97
07/07/24 09:31 07/07/24 11:30 07/07/24 11:30 07/07/24 11:00 07/07/24 11:30
Lab Results
07/07/24 07:38
07/07/24 07:38
Troponin I 0.041 ng/ml H* 07/07/24 07:38
Ooi-N-Qma[place]a Pept 5500 pg/ml 07/07/24 07:38
Physical Exam
General: Well Developed and Other (mild distress from abdominal discomfort and tachypnea)
HEENT: Normocephalic and Anicteric
Respiratory: Clear and Accessory Resp Muscle Use (at times, tachypnea)
Cardiac: S1/S2 and Regular Rhythm (tachycardia)
Breast: Deferred by me
GI: Soft, Normal Bowel Sounds and Distended
Rectal: Deferred by Provider
Genito-urinary: Clear Urine (Rios)
Musculoskeletal: No Edema
Skin: Warm and Dry
Neuro: Awake, Alert and Oriented
Psych: Calm
Impression / Plan
-
Sinus tachycardia - given IV Lopressor 2.5mg in the ER.
- rates down to 120s, on Coreg as outpatient but with TIA symptoms, permissive HTN.
- monitor on tele.
- has paroxysmal Afib on Eliquis, holding it for now with TIA symptoms.
Confusion - at home, now improved.
- BAO/aphasia/TIA symptoms.
- CT head negative.
- neurology consulted.
- brain MRI ordered.
HFrEF - chronic.
- compensated.
- monitor daily weights.
Abdominal pain - somewhat improved with Rios.
- CT ordered per hospitalist.
ICD - stabe with normal function, no discharges.
GCA - chronic, on prednisone.
Data Reviewed
-
EKG: Tracing Personally Visualized and interpreted (ST 127, LBBB)
Radiology: Report Reviewed by me (CXR: mild interstitial pulmonary edema)
Medical Tests (Nuc Med, Echo etc): Report Reviewed by me (echo 07/2023: EF 35-40%, global hypokinesis with anteroseptal akinesis/dyskinesis, Well-seated #26 mm Aleena mitral annuloplasty ring, moderate mitral regurgitation, well-seated #21mm
Trifecta bioprosthetic aortic valve peak/mean gradient 10/5 mmHg.)
Labs: Labs Reviewed by me
Old Records: Reviewed
--- NOTE | 2024-07-07 12:55 | W.PN.UPDATE ---
Update Note
Progress Note Update
mild trop elevation 2/2 Afib with rvre -cont to monitor. Card to follow
[2024-07-07 14:07] LABS: Troponin I 0.195 ng/ml
[2024-07-07 15:44] LABS: Erythrocyte Sed Rate 41 mm/hour (0-20)
[2024-07-07] MEDS: PROTONIX IV 40 MG IV (15:46)
[2024-07-07] MEDS: NSS (PRESERVATIVE FREE) 10 ML IV (15:46)
[2024-07-07] MEDS: COREG 6.25 MG PO ×2 (15:46→20:37)
[2024-07-07 15:54] LABS: HDL Cholesterol 46 mg/dl; LDL Cholesterol, Calculated 112 mg/dl; Total Cholesterol 195 mg/dl (50-199); Triglyceride 189 mg/dl (10-149); Very Low Density Lipoprotein 37 mg/dl (0-30)
--- NOTE | 2024-07-07 17:06 | PTCARENOTE ---
Rec'd pt from ED. NIHSS completed w/ ED SUSIE Galloway. NIHSS-1. Pt unable to correctly give birthday. Pt is slightly anxious and confused at times but able to be reoriented. at bedside. Pt has no complaints at this time. Rios catheter draining
clear yellow urine. Tele- Afib. HR 120-140s. Assessment completed as documented. Plan of care reviewed w/ pt and verbalizes understanding. Currently in bed; call carlotta w/in reach.
[2024-07-07] MEDS: LIPITOR 80 MG PO (18:23)
[2024-07-07 20:27] LABS: Troponin I 0.213 ng/ml
[2024-07-07] MEDS: TIMOPTIC 0.5% OPHTHALMIC SOLUTION 1 DROP BOTH EYES (20:37)
[2024-07-07] MEDS: ALPHAGAN 0.2% EYE DROPS 1 DROP BOTH EYES (20:37)
[2024-07-07 21:37] LABS: Glucose - Point of Care 122 mg/dl (70-99)
[2024-07-07 21:48] LABS: Hematocrit 29.5 % (37.0-47.0); Mean Corp Hgb Conc. 33.9 g/dL (33.0-37.0); Mean Corpuscular Volume 97.4 fL (81.0-99.0); Mean Platelet Volume 10.7 fL (7.4-10.4); Platelet Count 180 10^3/uL (130-400); Red Blood Cell Count 3.03 10^6/uL (4.20-5.40); Red Cell Dist. Width 20.4 % (11.5-14.5); White Blood Cell Count 11.3 10^3/uL (4.8-10.8)
[2024-07-07 22:10] LABS: Blood Urea Nitrogen 28 mg/dl (7-17); Calcium 8.4 mg/dl (8.4-10.2); Carbon Dioxide 21 mmol/L (22-30); Chloride 101 mmol/L (98-107); Glucose 111 mg/dl (70-99); Magnesium 1.7 mg/dl (1.6-2.3); Potassium 3.4 mmol/L (3.5-5.1); Sodium 136 mmol/L (135-145); eGFR 45.76
[2024-07-07 22:36] LABS: Lactic Acid 1.7 mmol/L (0.7-2.0)
[2024-07-07 22:44] LABS: B.E. 1.8 mmol/L; HCO3 23.7 mmol/L (21-28); PCO2 29 mmHg (32-35); PO2 118 mmHg (83-108); pH 7.52 (7.35-7.45)
--- NOTE | 2024-07-07 22:53 | W.PN.UPDATE ---
Update Note
Progress Note Update
RN reported patient HR in 130's-180's, BP 82/40's, EKG noted. Patient seen and evaluated. AA oriented to name, Lung rales at bases, irregular HR, +BS 4 quad. slightly clammy, facial expression with pain, but denies chest pain, shortness of breath,
lightheadedness, dizziness. NIH 1 per nursing, VS 89/60 manual 86/54, HR 130's-150's, Afib, RR 22 Eliquis on hold, blood sugar 122. Received Coreg 6.25 at 8:30 PM. Trop results noted. Labs ordered.
Dr. Henderson made aware. Advised Amiodarone bolus with drip.
meanwhile Patient notably drowsy, arousable with sternal rub, BP 86/40's HR 128 RR 28 Oxygen sat 98% 2l, IV bolus x1, Ordered stat ABG, lactic acid.
Dr. Henderson advised empiric antibiotics, Norepinephrine drip keep map >65 Repeated BP 86/32 MAP 50 HR 128
orders in, ICU CONSUMER RELATIONS SPECIALIST made aware, Hospitalist aware, will transfer patient to ICU
likely sepsis source lungs? , chest Xray results noted, lab results noted. repleted potassium,urine results noted, blood culture pending, ABG pending
Spouse made aware.
--- NOTE | 2024-07-07 23:08 | PTCARENOTE ---
pt. upgraded from IVU to ICU. for hypotension concerns potential need to start norepi.
Pt. arrived to ICU, proper sized BP cuff placed on pt. now Normotensive.
Awaiting orders.
--- NOTE | 2024-07-07 23:37 | PTCARENOTE ---
STAT head ct completed.
[2024-07-07] MEDS: NEURONTIN PO (23:44)
--- NOTE | 2024-07-07 23:44 | PTCARENOTE ---
Amio bolus never started in IVU. GTT , pharmacy notified, new bag to be sent up.
[2024-07-07] MEDS: REMERON PO (23:45)
[2024-07-07] MEDS: NSS 500 IV (23:45)
[2024-07-07] MEDS: MAGNESIUM SULFATE 100 IV (23:46)
[2024-07-07] MEDS: ZOSYN 50 IV (23:50)
[2024-07-07] MEDS: KCL 270 MEQ IV (23:50)
[2024-07-07] MEDS: XALATAN OPHTHALMIC SOLUTION 1 DROP BOTH EYES (23:52)
[2024-07-07] MEDS: CORDARONE 103 MG IV (23:57)
[2024-07-08] VITALS (63 sets, daily range): BP systolic 73–134; BP diastolic 34–82; BMI 21.5
--- NOTE | 2024-07-08 | PTCARENOTE ---
Received patient at change of shift. Afib on the monitor, HR in the 120s. VSS on 2L. NIHSS 1, completed with dayshift nurse. Patient oriented x3 but drowsy. No change from previous shift. PM dose of Coreg 6.25mg administered around 20:30, shortly
after pt HR increased, ranging from 140-170s. WOOL GROWER Kulwant Kruger notified and came to bedside. BP 82/52. 99% on 2L. New labs obtained and IV fluids started. Patient became difficult to arouse. Report given to ICU nurse and patient transferred per WOOL GROWER.
[2024-07-08] MEDS: CORDARONE 518 MG IV (00:30)
[2024-07-08] MEDS: VANCOCIN 530 MG IV (01:40)
[2024-07-08] MEDS: LEVOPHED 250 IV ×2 (01:40→23:48)
[2024-07-08 03:23] LABS: % Basophils 0.3 % (0-2); % Eosinophils 1.3 % (0-6); % Immature Granulocytes 2.3 % (0-0.5); % Lymphocytes 9.6 % (20.5-51.1); % Monocytes 3.7 % (1.7-9.3); % Neutrophils 82.8 % (42.2-75.2); Absolute Eosinophils 0.1 10^3/uL (0-0.7); Absolute Immature Granulocytes 0.2 10^3/uL (0-0.05); Absolute Monocytes 0.4 10^3/uL (0.1-0.6); Absolute Neutrophils 8.3 10^3/uL (1.4-6.5); Hematocrit 24.2 % (37.0-47.0); Hemoglobin 8.2 g/dL (12.0-16.0); Mean Corp Hgb Conc. 33.9 g/dL (33.0-37.0); Mean Corpuscular Hgb 33.7 pg (27.0-31.0); Mean Corpuscular Volume 99.6 fL (81.0-99.0); Mean Platelet Volume 10.4 fL (7.4-10.4); Nucleated Red Blood Cells % 0.2 %; Platelet Count 146 10^3/uL (130-400); Red Blood Cell Count 2.43 10^6/uL (4.20-5.40); Red Cell Dist. Width 20.2 % (11.5-14.5); Reticulocyte Count 4.5 % (0.4-2.8)
[2024-07-08 03:47] LABS: ALT (SGPT) 26 U/L (0-35); AST (SGOT) 24 U/L (14-36); Albumin 2.7 g/dl (3.5-5.0); Alkaline Phosphatase 51 U/L (38-126); Blood Urea Nitrogen 29 mg/dl (7-17); Calcium 7.5 mg/dl (8.4-10.2); Carbon Dioxide 23 mmol/L (22-30); Chloride 106 mmol/L (98-107); Estimated Creatinine Clearance 26 ml/min; Glucose 114 mg/dl (70-99); HDL Cholesterol 31 mg/dl; Iron < 20 ug/dl (37-170); LDH 592 U/L (120-246); LDL Cholesterol, Calculated 46 mg/dl; Magnesium 2.3 mg/dl (1.6-2.3); Potassium 3.7 mmol/L (3.5-5.1); Sodium 136 mmol/L (135-145); Total Bilirubin 1.3 mg/dl (0.2-1.3); Total Cholesterol 106 mg/dl (50-199); Total Protein 4.8 g/dl (6.3-8.2); Triglyceride 147 mg/dl (10-149); Very Low Density Lipoprotein 29 mg/dl (0-30); eGFR 41.57
[2024-07-08 03:53] LABS: Troponin I 0.304 ng/ml
[2024-07-08 03:55] LABS: Percent Saturation 9.21658 % (20-50); Total Iron Binding Capacity 217 ug/dl (265-497)
[2024-07-08 04:46] LABS: Folate > 20.0 ng/ml (2.76-20); Vitamin B12 444 pg/ml (239-931)
--- NOTE | 2024-07-08 05:02 | PTCARENOTE ---
Pt. still having confused speech, however it is clear.
Amio gtt running, BP low after amio, norepi started.
No further changes in assessment.
[2024-07-08] MEDS: ZOSYN 50 IV ×4 (05:40→23:49)
[2024-07-08 07:45] LABS: Hematocrit 25.4 % (37.0-47.0); Hemoglobin 8.5 g/dL (12.0-16.0)
[2024-07-08] MEDS: ALPHAGAN 0.2% EYE DROPS 1 DROP BOTH EYES ×2 (07:53→20:59)
[2024-07-08] MEDS: SOLU-CORTEF 200 MG IV (07:53)
[2024-07-08] MEDS: LOW STRENGTH ASPIRIN 81 MG PO (07:54)
[2024-07-08] MEDS: NSS (PRESERVATIVE FREE) 10 ML IV ×2 (07:54→21:01)
[2024-07-08] MEDS: LASIX 40 MG IV (07:54)
[2024-07-08] MEDS: TAPAZOLE 2.5 MG PO (07:54)
[2024-07-08] MEDS: PROTONIX IV 40 MG IV ×2 (07:54→21:00)
[2024-07-08] MEDS: TIMOPTIC 0.5% OPHTHALMIC SOLUTION 1 DROP BOTH EYES ×2 (07:55→21:01)
--- NOTE | 2024-07-08 07:55 | PHA.VAN.IN ---
Assessment
- Assessment
Renal Function: Appears elevated from baseline
Renal Function may be Overestimated due to: age and weight
Concomitant Antimicrobials: zosyn
Plan
- Plan
Initial / Loading Dose: 1500mg
Maintenance Regimen: prn by level
Monitoring: random 07/09 in am
MRSA Screen: Ordered per protocol (initial pcr invalid, Vesna from micro reordered)
Pharmacokinetics Vancomycin I
- -
Patient Age: 78
Patient Sex: Female
Vancomycin Day #: 1
Indication: Pulmonary/Respiratory
Requesting Provider: Vanna Kruger
Pertinent Antimicrobial Allergies:
vanco=developed c-diff
levofloxacin=developed c-diff
Height / Weight:
Height 5 ft 1 in
Actual Weight 51.5 kg
IBW in k.8
- Vital Signs / Lab Results
Temp Pulse Resp BP Pulse Ox
98.6 F 88 22 113/44 100
07/08/24 07:31 07/08/24 04:45 07/08/24 04:45 07/08/24 04:45 07/08/24 07:31
Lab Results - Hematology
07/07/24 07/07/24 07/08/24
07:38 21:41 03:12
WBC 8.4 11.3 H 10.0
Lab Results - Chemistry
07/07/24 07/07/24 07/08/24
07:38 21:41 03:12
BUN 22 H 28 H 29 H
Creatinine 0.9 1.2 H 1.3 H
Estimated Creat Clear 26
Albumin 3.9 2.7 L
07/07/24
22:16
Lactic Acid 1.7
Lab Results - Urine
07/07/24
10:22
Urine Nitrite (Reflex) Negative
Leukocyte Esterase Rfl Negative
Microbiology Results
07/08/24 03:12 Nasal Screen MRSA (PCR) - Final
Nose
07/07/24 10:09 Influenza Types A & B ([facility]AN[facility]) - Final
Nasal Swab Negative for Influenza A & B, NAAT
Negative results must be combined with clinical observations
and patient history.
Nucleic Acid Amplification test (NAAT)performed on the
[employer] platform.
[2024-07-08 08:15] LABS: Troponin I 0.408 ng/ml
[2024-07-08 08:21] LABS: Procalcitonin 6.33 ng/ml (0.0-0.25)
--- NOTE | 2024-07-08 08:25 | CON.INTV ---
Consultation
Consultation Request
Date/Time Consultation Requested: 07/08/2024154
Date/Time Consultation Performed: 07/08/2024817
Requesting Provider: HOLLY Thorne
Performing Provider: Dr. Morrissey
Reason for Consultation: Hypoxia, rapid A-fib, Hypotensive on pressors
Medical History
-
Chief Complaint: Confusion
History of Present Illness:
78-year-old female with past medical history of Afib on eliquis, HFrEF, s/p ICD, HTN, glaucoma, frequent UTI, hyperthyroidism, GCA on prednisone who presented with confusion, last known normal the night prior at 10 PM. She had a headache with
worsening left-sided abdominal pain the night prior. In the ER, a stroke alert was called with CT head showing no acute intracranial abnormality, and CTA head/neck showing no high-grade stenosis, LVO, and <50% stenosis of the bilateral carotid
bulbs. Neurology was consulted to evaluate for tPA and she was not considered a candidate due to active systemic anticoagulation with Eliquis. Initial labs showed Hb 10.6, glucose 102, troponin 0.041, CRP 47.3, proBNP 5500, TSH 3.71, urinalysis
with no signs of UTI, and COVID-19 antigen negative. Flu swab A/B both negative + blood cultures were obtained. She was found to be in rapid A-fib with heart rate in the 150s, BP initially 150/102, and saturating 95% on room air. In the ER she
was given 20 mg IV Lasix +2.5mg Lopressor. She was initially admitted to telemetry. Throughout the evening on 07/07 - 07/08, heart rate became more uncontrolled with rates in the 130�180s and she became hypotensive. Amiodarone drip started and
Levophed also started, and patient transferred to the ICU for further care. Enhanced Environmental Operator service is now consulted for additional management/recommendations.
When I saw the patient today, she was resting in bed, sleepy but easily arousable. NIHSS this morning was 2. Current heart rate 79, BP 78/34 with Levophed at 2 mcg/min. Saturating 97% on room air. Also on amiodarone at 0.5 mg/min. Her ,
Josh, and her son, Vernon, both at bedside. Per the family, she has been 'off' for several months. Her hemoglobin is low but she has not had any bloody or black stool. No other change in her medications recently. She currently denies SOB at rest
or headache.
PMHx: R Breast cancer (2003) s/p lumpectomy, XRT + chemo, malignant melanoma - RUE (2011), A-fib on eliquis, hyperthyroidism, HTN, chronic HFrEF, NICM, IBS, inflammatory arthropathy, glaucoma, FRITZ, polyneuropathy, giant cell arteritis on outpatient
methylprednisolone, Magalie's Syndrome, ambulatory dysfunction, MVP, history of Lyme disease, history of VF s/p ICD placement (03/2015)
PSHx: Right breast lumpectomy, AICD, bilateral cataract surgery, R TKA, bioprosthetic AVR, MV-repair, BL NENA, sigmoidectomy, tubal ligation, TVH + anterior colporrhaphy, cholecystectomy, cataract surgery bilaterally, sigmoid resection
Past Medical History
Past Medical History: Other (Above as per HPI)
Past Surgical History: Other (Above as per HPI)
Social History
Tobacco: Non-smoker
Alcohol: None
Drug: None
Personal:
Living: With Family
Family History
Family History: CAD (Father), Hypertension (Mother) and Other (Mother: Osteoporosis + glaucoma)
Allergies / Home Medications
Allergies
Allergy/AdvReac Type Severity Reaction Status Date / Time
allopurinol Allergy Unknown Verified 07/07/24 08:04
colchicine Allergy Unknown Verified 07/07/24 08:04
levofloxacin Allergy developed Verified 07/07/24 08:04
C-Diff
vancomycin Allergy developed Verified 07/07/24 08:04
C-diff
Home Medications
�Medication �Instructions �Recorded �Confirmed �Last Taken �Type
apixaban 5 mg tablet (Eliquis) 5 mg PO BID Blood Clot 06/08/23 04/19/25 04/18/25 20:00 History
Prevention/Tx
gabapentin 100 mg capsule 100 mg PO HS Pain 08/26/22 07/08/24 07/06/24 22:00 History
latanoprost 0.005 % eye drops 1 drp BOTH EYES HS Eye Condition 08/26/22 07/07/24 07/06/24 22:00 History
methimazole 5 mg tablet 2.5 mg PO DAILY Thyroid 08/26/22 07/07/24 07/06/24 08:00 History
brimonidine 0.2 %-timolol 0.5 % 1 drp BOTH EYES BID Eye Condition 03/06/24 07/07/24 07/06/24 20:00 History
eye drops (Combigan)
mirtazapine 7.5 mg tablet 7.5 mg PO HS PRN Mental 03/06/24 07/07/24 07/06/24 22:00 History
Health/Anxiety
acetaminophen 500 mg tablet 1,000 mg PO DAILYPRN PRN HEADACHES 04/09/24 07/07/24 04/09/24 History
(Tylenol Extra Strength)
carvedilol 6.25 mg tablet (Coreg) 6.25 mg PO BID Blood Pressure 04/09/24 07/07/24 07/07/24 15:00 History
methenamine hippurate 1 gram tablet 1 g PO BID Urinary Issue 04/09/24 07/07/24 07/06/24 20:00 History
famotidine 40 mg tablet 40 mg PO DAILY Gastrointestinal 07/07/24 07/07/24 07/06/24 20:00 History
Issue
methylprednisolone 4 mg tablet 2 mg PO 2000 07/08/24 07/08/24 Unknown History
methylprednisolone 4 mg tablet 4 mg PO 0800,1200 07/08/24 07/08/24 07/06/24 12:00 History
Review of Systems
-
Unable to Obtain full review of systems at this time due to: Acuity
Vitals / Labs / Diagnostic Testing
Vital Signs
Temp Pulse Resp BP Pulse Ox
98.6 F 88 22 113/44 100
07/08/24 07:31 07/08/24 04:45 07/08/24 04:45 07/08/24 04:45 07/08/24 07:31
Lab Data
07/08/24 03:12
Laboratory Results
07/07/24 07/07/24
10:09 22:30
PT 15.5 H
INR 1.20
APTT 32.2
pH 7.52 H
pCO2 29 L
pO2 118 H
HCO3 23.7
O2 Delivery Level
Microbiology
07/08/24 03:12 Nose Nasal Screen MRSA (PCR) - Final
07/07/24 10:09 Nasal Swab Influenza Types A & B (HANH) - Final
Negative for Influenza A & B, NAAT
Negative results must be combined with clinical observations
and patient history.
Nucleic Acid Amplification test (NAAT)performed on the
[employer] platform.
Diagnostic Testing:
Physical Exam
-
HEENT: Normocephalic and Anicteric
Cardiovascular: Irregular Rhythm and Peripheral Edema (negative)
Respiratory: Wheeze (negative), Rhonchi (negative), Non-Labored Respirations, Other (Bilateral coarse breath sounds) and Other (Diminished breath sounds bilaterally)
GI: Soft, Non Distended, Non Tender and Normal Bowel Sounds
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
Skin: Warm and Dry
General: Respiratory Distress (negative), Comfortable, Fever (negative) and Chills (negative)
Assessment
-
Assessment: 78-year-old female with past medical history of Afib on eliquis, HFrEF, s/p ICD, HTN, glaucoma, frequent UTI, hyperthyroidism, GCA on prednisone who presented with confusion, last known normal the night prior at 10 PM. She had a
headache with worsening left-sided abdominal pain the night prior. In the ER, a stroke alert was called with CT head showing no acute intracranial abnormality, and CTA head/neck showing no high-grade stenosis, LVO, and <50% stenosis of the
bilateral carotid bulbs. Neurology was consulted to evaluate for tPA and she was not considered a candidate due to active systemic anticoagulation with Eliquis. Initial labs showed Hb 10.6, glucose 102, troponin 0.041, CRP 47.3, proBNP 5500, TSH
3.71, urinalysis with no signs of UTI, and COVID-19 antigen negative. Flu swab A/B both negative + blood cultures were obtained. She was found to be in rapid A-fib with heart rate in the 150s, BP initially 150/102, and saturating 95% on room air.
In the ER she was given 20 mg IV Lasix +2.5mg Lopressor. She was initially admitted to telemetry. Throughout the evening on 07/07 - 07/08, heart rate became more uncontrolled with rates in the 130�180s and she became hypotensive. Amiodarone drip
started and Levophed also started, and patient transferred to the ICU for further care. Enhanced Environmental Operator service is now consulted for additional management/recommendations.
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
Impression:
#Acute respiratory failure predominantly due to interstitial pulmonary edema in the setting of pneumonia
#CAP - upper lobe predominant (R >L)
#Acute on chronic HFrEF exacerbation
#Acute expressive aphasia (CT head negative for acute intracranial abnormality; CTA H/N negative for stenosis or LVO)
#ALCON (baseline creatinine 0.9)
#Iron deficiency anemia
#Elevated troponin
#Moderate MR
#s/p mitral annuloplasty + bioprosthetic AVR
#History of suspected GCA on outpatient methylprednisolone (8 mg AM and afternoon with 10mg HS - managed by rheumatology via Dr. Crain)
#History of ventricular fibrillation s/p dual-ICD implantation (03/2015)
#History of right-sided breast cancer (2003) s/p lumpectomy, XRT + chemotherapy
#Chronic left cerebellar infarct
Plan:
- CT chest obtained today shows interlobular septal thickening with bilateral upper lobe predominant consolidations with centrilobular groundglass with scattered subpleural interstitial thickening
- On the lung krishnamurthy from prior CT abdomen/pelvis from 03/09/2024 there was also some subtle subpleural interstitial changes at that time
- Would continue to diurese if BP can tolerate with strict I/O and monitor UOP
- Empirically continue antibiotics (currently on Vanco/Zosyn/Doxy); procal is elevated but in the setting of ALCON unclear how accurate this is
- Follow-up infectious workup with blood cultures; check sputum culture if patient can produce a decent sample; can DC IV vancomycin if MRSA swab negative
- Echo checked today showed LVEF 47% (previously 35-40% via TTE from 08/17/2023) with anteroseptal dyskinesis, normal RV size with mildly reduced RV systolic function, mild TR with a PASP 27 mmHg
- Maintain SpO2 >90-94%
- Wean down supplemental O2 flow rate as tolerated while maintaining SpO2 as above
- Aspiration precautions
- prn nebulized bronchodilators - not currently bronchospastic
- Continue amio gtt
- Goal HR<110
- Cards consulted - recs appreciated
- Consider ICD interrogation
- Repeat echo (see below for results) - of note, last echo done on 08/17/2023 showing reduced LVEF at 35-40% with global hypokinesis with anteroseptal akinesis/dyskinesis, normal RV size with mildly reduced systolic function, with moderate MR and a
well-seated mitral annuloplasty ring + well-seated bioprosthetic aortic valve
- Incentive spirometer encouraged 10x per hour for at least 4 hrs a day
- Maintain MAP>65
- Currently on vasopressors with Levophed; wean down as tolerated to maintain MAP as above
- May need to switch to Gaston-Synephrine if arrhythmia worsens while on Levophed
- Hold antihypertensives for now
- Continue stress dose steroids, weaning as she clinically improved
- Once she is off pressors then can quickly wean off hydrocortisone and return back to her home dose of methylprednisolone 8mg AM and afternoon and 10mg HS (follows Dr. Crain as outpt)
- Trend sCr
- Replete electrolytes with K>4, Mg>2
- Monitor UOP
- Renally dose all meds/ABx
- Continue with neurochecks + NIHSS q shift
- MRI brain pending
- Neuro on board - recs appreciated
- Aspirin started and Eliquis currently being held
- She does have a history of a chronic left cerebellar infarct
- Maintain euglycemia with goal BG 140-180; HbA1c 5.6 from 07/07/2024
- Trend H/H and transfuse if needed to keep Hb>7g/dL; keep plt>20k, unless there is concern for bleeding then keep plt>50k
- Currently patient is not clinically bleeding; per the , the anemia has been known as an outpatient and she was supposed to submit a stool occult but have not mailed it yet
- GI has been consulted and recs appreciated
- For now, continue with PPI 40 mg IV q12hr
- Eliquis being held and ASA started, per neurology; may need to hold aspirin if Hb continues to decrease
- DVT ppx: SCDs for now
- Full Code
Continue ICU level of care for this critically ill patient. Dr. Morrissey updated the family ( Josh + son Vernon) at the bedside and answered all her questions.
Critical care statement: A total of 42 minutes of critical care time was provided for this patient today. This includes management of unstable vital signs, evaluation of the patient at bedside, reviewing the patient's pertinent medical records
including radiographs, microbiology, laboratory evaluations, and discussion with primary team, consultants, pharmacy, nutrition, physical therapy, case management, charge nurse, critical care nursing, and respiratory therapy.
Data:
Transthoracic echocardiogram 07/08/2024:
Normal left ventricular size with mildly reduced systolic function. LVEF 47%.
Anteroseptal wall dyskinesis.
Normal right ventricular size with mildly reduced systolic function.
Well-seated mitral annuloplasty ring with mean gradient 6 mmHg.
Well-seated bioprosthetic aortic valve with mean gradient 12 mmHg and mild AR.
Mild tricuspid regurgitation. PASP 27 mmHg.
Compared to prior echocardiogram on 08/17/2023, there is now mild paravalvular
aortic regurgitation. No obvious vegetations visualized. Echocardiogram is
otherwise stable.
CT chest 07/08/2024: Bilateral interstitial and groundglass pulmonary opacities most suspicious for pulmonary edema. Other etiologies including an atypical infectious process would be difficult to completely exclude.
[2024-07-08] MEDS: COREG PO (08:56)
--- NOTE | 2024-07-08 09:21 | W.PN.HOSP.TC ---
Today's Communication/Plan
-
CT chest
Stress dose steroids
PPI BID
US appendix
cont Abx
GI and nephrology consult
Lasix
Cardiology informed on further troponin elevation
Assessment / Plan
Assessment / Plan
78yo F with PMHx of anemia, possible PUD followed by , Afib on eliquis, HFrEF, s/p ICD, HTN, glaucoma, frequent UTI, hyperthyroidism, GCA on high dose prednisone brought by after he found her confused and non-verbal sitting on the
side of the bed in AM. Developed hypotension overnight with Afib with RVR on 07/08/24. Managed for possible stroke and infection, likely pneumonia, but abd CT with termianl ileum thickening. COmplicated with elevated troponin, anemia and ALCON
A/P:
#Septic shock
Unclear source, maybe pneumonia
s/p norepinephrine - weaned off
CT chest
Vanco/Zosyn - procalcitonin 6.33
Bcx
UA neg for infection
#Aphasia, then word finding difficulty with acute metabolic encephalopathy, concern for CVA
high risk for stroke 2/2 GCA
telemetry
Permissive HTN
CTA head: bilateral carotid bulbs contributing to less than 50% stenosis, no LVO
Neuro consult, hold eliquis until MRI brain results
check TSH, HgbA1c, Lipids
ASA, high dose statin
repeated CT head without acute findings
#Acute urinary retention
Patel and target early TOV
#Pulmonary edema, possible mild acute on chronic HFrEF
#Afib with RVR
#Elevated troponin, most likely non-ischemic myocardial injury and 2/2 tachycardia and CHF
AMio drip
s/p lasix, BB in ED
ProBNP 5500
telemetry
cont rate control
Cardio consult
cont rate control
Lasix,Echo, follow electrolytes and daily weights
#ALCON
had CTA head neck in ED, cannot exclude JUAN
Urinary studies
already with patel
follow Cr
Nephrology due to need in diuresis
#Anemia, macrocytic, acute on chronic
#5 mm segment of the terminal ileum with mild circumferential wall thickening
Lactate WNL
closely related to appendix, but no definite appendicitis signs on CT - dedicated US f appendix ordered
Hold off iron with concern for infection
WIth high LDH - check Croombs and haptoglobin, follow LDH
PPI BID
serial H&H, transfuse as needed -consent from obtained over the phone
Check FOBT
GI consult
#Rectal fecal impaction
laxatives, enema PRN
#Insomnia
cont Remeron
#GCA
Increase to stress dose steroids with sepsis and elevated ESR
#Hyperthyroidism
cont Methimazole
TSH, FT4, FT3 WNL
DVT ppx on SCDs
Full code - discussed in details with family bedside
I have spent at least 78min critical care time reviewing the chart, test results, communication with consultants and providing direct patient care
Anticipated Discharge: > 48 hours
Subjective/Interval History
-
Date of Service: July 08, 2024
Objective Data
-
Labs:
Laboratory Results
07/07/24 07/07/24 07/08/24
21:41 22:30 03:12
WBC 11.3 H 10.0
Hgb 10.0 L 8.2 L
Hct 29.5 L 24.2 L
Plt Count 180 146
HCO3 23.7
Sodium 136 136
Potassium 3.4 L 3.7
Chloride 101 106
Carbon Dioxide 21 L 23
BUN 28 H 29 H
Creatinine 1.2 H 1.3 H
Glucose 111 H 114 H
Calcium 8.4 7.5 L
Total Bilirubin 1.3
AST 24
ALT 26
Alkaline Phosphatase 51
07/08/24 07/08/24 07/08/24
07:37 15:15 23:15
WBC
Hgb 8.5 L Pending Pending
Hct 25.4 L Pending Pending
Plt Count
HCO3
Sodium
Potassium
Chloride
Carbon Dioxide
BUN
Creatinine
Glucose
Calcium
Total Bilirubin
AST
ALT
Alkaline Phosphatase
Vital Signs:
Vital Signs
Temp Pulse Resp BP Pulse Ox
98.6 F 88 22 113/44 100
07/08/24 07:31 07/08/24 04:45 07/08/24 04:45 07/08/24 04:45 07/08/24 07:31
I&O
07/07/24 07/08/24 07/09/24
06:59 06:59 06:59
Intake Total 1305.6 / 1305.6
Output Total 560 / 560
Balance 745.6 / 745.6
Review of Systems
-
Unable to obtain full review of systems at this time due to: Other (dysarthria )
History Source: Patient
Physical Exam
-
General: No Apparent Distress
HEENT: Normocephalic
Respiratory: Clear to Auscultation
Cardiac: Irregular Rhythm
GI: Soft, Nontender and Nondistended
Genito-urinary: No Costovertebral Tender
Musculoskeletal: No Clubbing, No Cyanosis and No Edema
Skin: Dry
Neuro: Awake, Alert, Oriented and Other (trouble with words finding)
Psych: Confused
[2024-07-08 09:42] LABS: Glycohemoglobin (HgbA1c) 5.6 % (4.0-5.6)
[2024-07-08 09:59] LABS: Erythrocyte Sed Rate 72 mm/hour (0-20)
--- NOTE | 2024-07-08 10:25 | W.CON.NEPH ---
Consultation
-
Date/Time Consultation Requested: 07/08/24 0915
Date/Time Consultation Performed: 07/08/24 1030
Requesting Provider: Ruben Jean Baptiste
Performing Provider: Josue Ruby
Reason for Consultation: ALCON
Medical History
-
Chief Complaint: Confusion, aphasia
History of Present Illness:
78yo F with PMHx of possible PUD followed by on pepcid, Afib on eliquis on coreg, HFrEF not on lasix, s/p ICD, s/p MV annuloplasty ring, moderate mitral regurgitation, bioprosthetic aortic valve, HTN, glaucoma, frequent UTI, hyperthyroidism
on Methimazole, GCA on prednisone brought by after he found her confused and non-verbal sitting on the side of the bed in AM on 07/07. Patient had also started with headache and worsening L abd pain at the night prior. CTA head and neck was
negative. She also had urinary retention and patel placed. She also underwent CT abd with contrast on 07/07 with no acute findings, CXR concerning for pulmonary edema. She received lasix. She also had Pa fib for which she was on Amio briefly. No in
sinus. Her cr on admit was at 0.9 and this am at 1.3 hence nephrology consulted. Family reports no prior kidney disease. Pt is remains confused and unable to provide history. No noted fever.
Past Medical History
PUD, Afib on eliquis, HFrEF, s/p ICD, s/p MV annuloplasty ring, moderate mitral regurgitation, bioprosthetic aortic valve, HTN, glaucoma, frequent UTI, hyperthyroidism/goiter on Methimazole, GCA
Social History
Tobacco: Non-Smoker
Alcohol: None
Drug: None
Personal:
Living: With Family
Employment: Other ([employer])
Family History
Family History: Not Pertinent
Allergies / Home Medications
Allergy/AdvReac Type Severity Reaction Status Date / Time
allopurinol Allergy Unknown Verified 07/07/24 08:04
colchicine Allergy Unknown Verified 07/07/24 08:04
levofloxacin Allergy developed Verified 07/07/24 08:04
C-Diff
vancomycin Allergy developed Verified 07/07/24 08:04
C-diff
�Medication �Instructions �Recorded �Confirmed �Type
apixaban 5 mg tablet (Eliquis) 5 mg PO BID Blood Clot 08/26/22 07/07/24 History
Prevention/Tx
gabapentin 100 mg capsule 100 - 300 mg PO HS PRN neuropathy 08/26/22 07/08/24 History
latanoprost 0.005 % eye drops 1 drp BOTH EYES HS Eye Condition 08/26/22 07/07/24 History
methimazole 5 mg tablet 2.5 mg PO DAILY Thyroid 08/26/22 07/07/24 History
brimonidine 0.2 %-timolol 0.5 % 1 drp BOTH EYES BID Eye Condition 03/06/24 07/07/24 History
eye drops (Combigan)
mirtazapine 7.5 mg tablet 7.5 mg PO HS PRN Mental 03/06/24 04/09/24 History
Health/Anxiety
acetaminophen 500 mg tablet 1,000 mg PO DAILYPRN PRN HEADACHES 04/09/24 07/07/24 History
(Tylenol Extra Strength)
carvedilol 6.25 mg tablet (Coreg) 6.25 mg PO BID Blood Pressure 04/09/24 07/07/24 History
methenamine hippurate 1 gram tablet 1 g PO BID Urinary Issue 04/09/24 07/07/24 History
famotidine 40 mg tablet 40 mg PO 1800 Gastrointestinal 07/07/24 07/08/24 History
Issue
melatonin 5 mg tablet 5 mg PO HS 07/08/24 07/08/24 History
methotrexate sodium 2.5 mg tablets 10 mg PO MO 07/08/24 History
in a dose pack
methylprednisolone 4 mg tablet 2 mg PO 2000 07/08/24 07/08/24 History
methylprednisolone 4 mg tablet 4 mg PO 0800,1200 07/08/24 07/08/24 History
tramadol 25 mg tablet 25 mg PO Q6H PRN pain 07/08/24 History
Review of Systems
-
unable to obtain pt is confused
Physical Exam
Vital Signs
Vital Signs
Temp Pulse Resp BP Pulse Ox
98.6 F 88 22 113/44 100
07/08/24 07:31 07/08/24 04:45 07/08/24 04:45 07/08/24 04:45 07/08/24 07:31
Lab Results
WBC 10.0 10^3/uL (4.8-10.8) 07/08/24 03:12
RBC 2.43 10^6/uL (4.20-5.40) L 07/08/24 03:12
Plt Count 146 10^3/uL (130-400) 07/08/24 03:12
Sodium 136 mmol/L (135-145) 07/08/24 03:12
Potassium 3.7 mmol/L (3.5-5.1) 07/08/24 03:12
Chloride 106 mmol/L (98-107) 07/08/24 03:12
Carbon Dioxide 23 mmol/L (22-30) 07/08/24 03:12
BUN 29 mg/dl (7-17) H 07/08/24 03:12
Creatinine 1.3 mg/dL (0.6-1.0) H 07/08/24 03:12
eGFR 41.57 07/08/24 03:12
Glucose 114 mg/dl (70-99) H 07/08/24 03:12
Calcium 7.5 mg/dl (8.4-10.2) L 07/08/24 03:12
Yhd-N-Twkotxfnkmu Pept 5500 pg/ml 07/07/24 07:38
Albumin 2.7 g/dl (3.5-5.0) L 07/08/24 03:12
Physical Exam
General: No Distress, Nontoxic and Other (lethargic, arousable)
HEENT: EOMI, Anicteric, Conjunctivae Clear and Facial Symmetry
Respiratory: Crackels, Normal Excursion and Nonlabored Respirations
Cardiac: S1/S2 and Regular Rate/Rhythm
Breast: Deferred by me
Abdomen: Soft, Nontender and Nondistended
Musculoskeletal: No Cyanosis and No Edema
Skin: No Rash
Neuro: Other (unable to assess, pt not cooperative)
Psych: Other (unable to assess)
Assessment/Plan
-
IMP:
Aphasia, acute metabolic encephalopathy
Abdominal pain with Hx of frequent UTI
Acute urinary retention
possible mild acute on chronic HFrEF
P Afib with RVR
Anemia
Insomnia
GCA
Hyperthyroidism
Plan:
A/w AMS, neg CTA, also with CHF
ALCON-bland UA, no hydro on CT
suspect perenal/cardiorenal and JUAN
monitor UOP with patel
cont diuresis as CT chest still shows pulm edema
Bp are soft, off pressors this am , BB on hold
echo noted EF 47%
wt is down today
alkalemia-possible primary resp alkalosis
MRI tomorrow
follow labs
d/w family at bedside and nursing
--- NOTE | 2024-07-08 10:33 | W.PN.NEURO.1 ---
Today's Communication / Plan
-
.
Subjective/Objective
Subjective Data
Date of Service: July 08, 2024
Neurology follow-up note.
Ms. Cisneros reports no complaints. According to her spouse, the patient got up, sat on the side of the bed, and then walked to the bedroom door with her walker. When asked what she was doing, she stated she didn't know. The patient's
attempted to walk her down the corridor, but it took a long time. Uncharacteristically, she screamed at him to leave her alone and appeared scared, prompting him to call an ambulance.
Mr. Cisneros has been experiencing cognitive changes, which have become more noticeable recently. She has difficulty finishing sentences and answering questions. The patient's notes that they had previously attributed these changes to normal
aging.
Regarding daily functioning, the patient stopped driving two years ago due to nervousness in traffic. She can manage her medications with occasional reminders from her , who uses a chart to track medication times. The patient's reading habits
have changed, as she now only reads magazines instead of books. However, her reading ability, math skills, and writing skills remain intact. 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
24-hour events: Transiently hypotensive down to 86/56, afebrile. Was started on norepinephrine.
Labs: Hemoglobin 10.6�8.5, creatinine�1.2�1.3, normal sodium, lactic acid, troponin�0.304�0.408, C-reactive protein�246.6, procalcitonin�6.33, normal vitamin B12, folate, LDL, TSH, ProBNP 5500.
CTA head and neck�no evidence of hemodynamically significant stenosis.
CT chesr/abdomen-3 mm pancreatic low-attenuation/cystic structure, bilateral interstitial and groundglass pulmonary opacities.
Repeat CT head-no acute abnormalities.
PMH: R Breast cancer, malignant melanoma, A-fib on AC, hypothyroidism, HTN, HFrEF, NICM, CKD, IBS, inflammatory arthropathy, glaucoma, FRITZ, polyneuropathy, giant cell arteritis, Magalie's Syndrome, ambulatory dysfunction
PSH: AICD, bilateral cataract surgery, L TKA, bioprosthetic AVR, MVR, BL NENA, sigmoidectomy, tubal ligation, TVH + anterior colporrhaphy,, cholecystectomy,
SH: ,
FH: Not contributory to current presentation
All: Allopurinol, colchicine, levofloxacin, vancomycin
ROS: Negative for headache, change in vision, strength. Positive for anxiety, urinary retention
General: In moderate distress due to head
Cardio: Regular rate and rhythm without murmur. Extremities are without cyanosis or edema.
Neuro:
Mental Status: Alert, oriented to name, date of . Not to the age. Poor attention and impaired comprehension. Follows simple requests intermittently. No hemineglect. Nonfluent.
Cranial Nerves: Pupils are equally round, surgical. Horizontal extraocular movements are intact. Blink to threat bilaterally. No facial weakness, hearing is preserved
Motor: No pronator or arm drift.
Coordination: No tremors myoclonic movements. Does not cooperate with dysmetria evaluation
Gait: deferred
Assessment and Plan:
I. Multifactorial encephalopathy (vascular, infectious?, neurodegenerative?)
II. PA AFib, anemia
III. 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
IV. Chronic left cerebellar infarct.
-Continue Telemetry monitoring
-Hold Eliquis and start aspirin 81 mg once a day
-Obtain brain MRI (if AICD is MRI compatible) will repeat CT head in 24 hours
-DVT prophylaxis.
-The case was discussed with patient's spouse and son.
I personally reviewed all radiology and labs along with past medical records pertinent to current medical problems. Total time spent in patient care is 37 minutes.
Thank you for allowing us to participate in the care of this patient. We will continue to follow. Please do not hesitate to contact us with any questions or concerns.
Objective Data
Vital Signs
Temp Pulse Resp BP Pulse Ox
37.0 C 88 22 113/44 100
07/08/24 07:31 07/08/24 04:45 07/08/24 04:45 07/08/24 04:45 07/08/24 07:31
Lab Results
07/08/24 03:12
PT 15.5 Sec (11.4-14.6) H 07/07/24 10:09
INR 1.20 07/07/24 10:09
APTT 32.2 Sec (23.4-35.0) 07/07/24 10:09
Sodium 136 mmol/L (135-145) 07/08/24 03:12
Potassium 3.7 mmol/L (3.5-5.1) 07/08/24 03:12
BUN 29 mg/dl (7-17) H 07/08/24 03:12
Glucose 114 mg/dl (70-99) H 07/08/24 03:12
Calcium 7.5 mg/dl (8.4-10.2) L 07/08/24 03:12
Dwk-J-Zlmdbywielp Pept 5500 pg/ml 07/07/24 07:38
LDL Cholesterol, Calc 46 mg/dl 07/08/24 03:12
Vitamin B12 444 pg/ml (239-931) 07/08/24 03:12
Patient Allergies
allopurinol Allergy (Verified 07/07/24 08:04)
Unknown
colchicine Allergy (Verified 07/07/24 08:04)
Unknown
levofloxacin Allergy (Verified 07/07/24 08:04)
developed C-Diff
vancomycin Allergy (Verified 07/07/24 08:04)
developed C-diff
Vital Signs and Labs
-
Vital Signs and Labs:
Vital Signs
Temp Pulse Resp BP Pulse Ox
37.0 C 88 22 113/44 100
07/08/24 07:31 07/08/24 04:45 07/08/24 04:45 07/08/24 04:45 07/08/24 07:31
Lab Results
07/08/24 03:12
PT 15.5 Sec (11.4-14.6) H 07/07/24 10:09
INR 1.20 07/07/24 10:09
APTT 32.2 Sec (23.4-35.0) 07/07/24 10:09
Sodium 136 mmol/L (135-145) 07/08/24 03:12
Potassium 3.7 mmol/L (3.5-5.1) 07/08/24 03:12
BUN 29 mg/dl (7-17) H 07/08/24 03:12
Glucose 114 mg/dl (70-99) H 07/08/24 03:12
Calcium 7.5 mg/dl (8.4-10.2) L 07/08/24 03:12
Gty-G-Qfcvhweafmq Pept 5500 pg/ml 07/07/24 07:38
LDL Cholesterol, Calc 46 mg/dl 07/08/24 03:12
Vitamin B12 444 pg/ml (239-931) 07/08/24 03:12
Medications
-
Medications:
Generic Name Dose Route Start Last Admin
Trade Name Freq PRN Reason Stop Dose Admin
Acetaminophen 650 mg 07/07/24 15:22
Acetaminophen 650 Mg Rectal Suppository RECTAL 08/04/24 15:21
Q4HPRN PRN
ALTMAN, mild pain, or temp >100.4F
Acetaminophen 650 mg 07/07/24 15:22
Acetaminophen 325 Mg Tablet PO 08/04/24 15:21
Q4HPRN PRN
ALTMAN, mild pain, or temp >100.4F
Aspirin 81 mg 07/08/24 08:00 07/08/24 07:54
Aspirin 81 Mg Chewable Tablet PO 08/05/24 07:59 81 mg
DAILY JOSE Administration
Atorvastatin Calcium 80 mg 07/07/24 18:00 07/07/24 18:23
Atorvastatin (Lipitor) 80 Mg Tablet PO 08/04/24 17:59 80 mg
QPM JOSE Administration
Brimonidine Tartrate 1 drop 07/07/24 20:00 07/08/24 07:53
Brimonidine 0.2% (Ophthalmic Solution) Bottle BOTH EYES 08/04/24 19:59 1 drop
BID JOSE Administration
Carvedilol 6.25 mg 07/07/24 14:25 07/08/24 08:56
Carvedilol 6.25 Mg Tablet PO 08/04/24 14:24 Not Given
BID JOSE
Furosemide 40 mg 07/08/24 08:00 07/08/24 07:54
Furosemide 40 Mg (10 Mg/Ml) 4 Ml Vial IV 08/05/24 07:59 40 mg
DAILY JOSE Administration
Gabapentin 200 mg 07/07/24 22:00 07/07/24 23:44
Gabapentin 100 Mg Capsule PO 08/04/24 21:59 Not Given
HS JOSE
Hydrocortisone Sodium Succinate 50 mg 07/08/24 12:00
Hydrocortisone Sodium Succinate 100 Mg/2 Ml Vial IV 08/05/24 11:59
Q6 JOSE
Amiodarone HCl 900 mg/ 518 mls @ 0 mls/hr 07/07/24 22:30 07/08/24 00:30
Dextrose/Water IV 518 mls
PER PROTOCOL JOSE Administration
Protocol
Per Protocol
Piperacillin Sod/Tazobactam Sod 3.375 gram in 50 mls @ 100 mls/hr 07/07/24 23:45 07/08/24 05:40
Zosyn IV 50 mls
Q6H JOSE Administration
Norepinephrine Bitartrate 4 mg in 250 mls @ 0 mls/hr 07/07/24 22:30 07/08/24 01:40
Levophed IV 250 mls
PER PROTOCOL JOSE Administration
Protocol
Per Protocol
Vancomycin HCl 1 each/ Device 0 mls @ 0 mls/hr 07/07/24 23:25
IV
PER PROTOCOL JOSE
As Directed
Latanoprost 1 drop 07/07/24 22:00 07/07/24 23:52
Latanoprost 0.005% (Ophthalmic Solution) 2.5 Ml Bottle BOTH EYES 08/04/24 21:59 1 drop
HS JOSE Administration
Methimazole 2.5 mg 07/08/24 08:00 07/08/24 07:54
Methimazole 5 Mg Tablet PO 08/05/24 07:59 2.5 mg
DAILY JOSE Administration
Mirtazapine 7.5 mg 07/07/24 22:00 07/07/24 23:45
Mirtazapine 7.5 Mg Regular Release Tablet PO 08/04/24 21:59 Not Given
HS JOSE
Pantoprazole Sodium 40 mg 07/07/24 15:22 07/08/24 07:54
Pantoprazole Sodium 40 Mg/10 Ml Vial IV 08/04/24 15:21 40 mg
Q12 JOSE Administration
Polyethylene Glycol 17 grams 07/08/24 10:00
Polyethylene Glycol Powder 17 Grams Packet PO 08/05/24 09:59
DAILY JOSE
Sodium Chloride 0 flush 07/07/24 14:00
Sodium Chloride 0.9% (Flush) Syringe IV 08/04/24 13:59
PER PROTOCOL JOSE
Sodium Chloride 10 ml 07/07/24 15:22 07/08/24 07:54
Sodium Chloride 0.9% (Preservative Free) 10 Ml Vial IV 08/04/24 15:21 10 ml
Q12 JOSE Administration
Timolol Maleate 1 drop 07/07/24 20:00 07/08/24 07:55
Timolol 0.5% (Ophthalmic Solution) Bottle BOTH EYES 08/04/24 19:59 1 drop
BID JOSE Administration
Home Medications
-
Home Medications
apixaban 5 mg tablet (Eliquis) 5 mg PO BID Blood Clot Prevention/Tx 08/26/22
gabapentin 100 mg capsule 100 - 300 mg PO HS PRN neuropathy 08/26/22
latanoprost 0.005 % eye drops 1 drp BOTH EYES HS Eye Condition 08/26/22
methimazole 5 mg tablet 2.5 mg PO DAILY Thyroid 08/26/22
brimonidine 0.2 %-timolol 0.5 % eye drops (Combigan) 1 drp BOTH EYES BID Eye Condition 03/06/24
mirtazapine 7.5 mg tablet 7.5 mg PO HS PRN Mental Health/Anxiety 03/06/24
acetaminophen 500 mg tablet (Tylenol Extra Strength) 1,000 mg PO DAILYPRN PRN HEADACHES 04/09/24
carvedilol 6.25 mg tablet (Coreg) 6.25 mg PO BID Blood Pressure 04/09/24
methenamine hippurate 1 gram tablet 1 g PO BID Urinary Issue 04/09/24
famotidine 40 mg tablet 40 mg PO 1800 Gastrointestinal Issue 07/07/24
melatonin 5 mg tablet 5 mg PO HS 07/08/24
methotrexate sodium 2.5 mg tablets in a dose pack 10 mg PO MO 07/08/24
methylprednisolone 4 mg tablet 2 mg PO 199907/08/24
methylprednisolone 4 mg tablet 4 mg PO 0800,1200 07/08/24
tramadol 25 mg tablet 25 mg PO Q6H PRN pain 07/08/24
--- NOTE | 2024-07-08 11:06 | CON.GI ---
Consultation
-
Date/Time Consultation Requested: 07/08/24 0900
Date/Time Consultation Performed: 07/08/24 1100
Requesting Provider: Dr. Ruben Domínguez
Performing Provider: Dr. Matthieu Bettencourt
Reason for Consultation: Anemia, terminal ileum inflammation
Medical History
Chief Complaint / HPI
Chief Complaint: Confusion, aphasia
History of Present Illness:
Ms. Cisneros is a 78 y.o female with past medical history of HTN, hyperthyroidism, giant cell arteritis (on prednisone/MTX), diverticulitis, (s/p robotic sigmoid resection 11/2022), hx of CCY (11/2022), recent anemia, A Fib (on eliquis), and HFrEF (w/
EF 35-40%, s/p ICD) who presented from home after she was found to be confused and non-verbal in bed on 07/07/24 concerning for potential CVA and found to have acute hypoxic respiratory failure, acute on chronic HFrEF, and concern for septic lo.
Additionally, she was found to have anemia and nonspecific inflammation in the terminal ileum for which Gastroenterology has been consulted for further evaluation and management.
Patient is a poor historian given her mental status, thus history largely obtained from chart review and in speaking with patient's and son. Her reports that she was in her USOH until yesterday morning and when she woke up very
confused and altered. She was moving very slowly and not acting like her self. Of note, she previously saw her PCP due to concern for visual changes where brain MRI was ordered but was never performed. She then became progressively confused and
non-verbal, prompting her to come to the hospital. Otherwise, her denies any dark and/or bloody stools at home. She has been taking fiber supplementation to help regulate her bowel habits due to her irregular bowel movements but denies this
being a change in her bowel habits. Denies any previous abdominal pain, nausea/vomiting, dysphagia/odynophagia, rectal bleeding or other abdominal discomfort. Denies any unintentional weight loss, further notes weight gain of approximately 10 lbs
over the past few months due to her prednisone given the concern for her newly diagnosed GCA. She is on eliquis due to her history of A Fib, but no other antiplatelet agents and denies any other NSAIDs.
Of note, patient was most recently seen with her primary tumbler drier operator with Dr. Montalvo back on 07/03/2024. She presented for follow-up and did endorse occasional pill dysphagia which seemed to have started after starting her prednisone and
methotrexate which was recently started for her newly diagnosed giant cell arteritis. There was also concern for erratic bowel habits along with fecal urgency and was advised fiber supplementation such as Benefiber along with Gas-X along with
pelvic floor therapy. There was a consideration of pursuing an EGD if no improvement with famotidine 40 mg once daily for her dysphagia along with her anemia as she was found to have a recent hemoglobin from 06/26/2024 with a hemoglobin of 10.7 with
an MCV of 97. Of note, her previous CBC back on 04/09/2024 revealed a hemoglobin of 12.9. She was advised to get repeat blood work along with iron studies along with consideration for an eventual repeat EGD in the future.
Upon admission to the hospital, there was concern for potential CVA given her mental status along with concern for potential sepsis as she was found to have a CT chest demonstrating bilateral interstitial and ground-glass pulmonary opacities most
suspicious for pulmonary edema versus an atypical infectious process. She was briefly started on IV Levo which has been weaned off. Additionally, CT Abd/pelvis revealed interstitial thickening and patchy ground-glass opacities along with mild
circumferential wall thickening of the terminal ileum, suspicious for nonspecific terminal ileitis but without any significant inflammatory soft tissue. Additionally, the distal appendix blends imperceptibly with the margin of the terminal ileum
stranding along with rectal fecal impaction. Since she has been in the ICU, denies any melena or bloody stools. Had one small, pellet-like stool yesterday in discussion with nursing. She has been receiving miralax.
Prior Pertinent GI Records:
- �02/2024 CT abdomen pelvis without IV or oral contrast stable right hepatic lobe cyst streak artifact from left hip prosthesis but overall no significantly enlarged lymph nodes. Stable sigmoidectomy.� Bowels without evidence of obstruction or
inflammatory changes. Mild diffuse colonic stool burden, stable 6 mm soft tissue nodule along the lateral margin of the proximal descending colon
- 11/2022 Robotic sigmoid resection showing chronic diverticulitis and a cholecystectomy showing chronic cholecystitis with Dr. Lai
- 12/2021 Colonoscopy for abdominal pain and alternating diarrhea constipation. External hemorrhoids, significant diverticulosis in the left colon with scarred mucosa in the sigmoid causing restriction. Biopsies showed normal tissue. Mild congestion
throughout which was negative for microscopic colitis. Small multiple hyperplastic polyps and 1 small cecal adenoma removed otherwise normal to the terminal ileum.
- Colonoscopy, July 2016 - unable to get past the restricted sigmoid. biopsies negative for microscopic colitis
- EGD, July 2016 biopsies of the esophagus and stomach revealed only mild chronic inflammation, no active inflammation, no evidence of H. pylori or Arreguin's esophagus. Was told to continue 20 mg of omeprazole to control daily symptoms. Duodenal
biopsies negative for celiac.
Past Medical History
Past Medical History: Other ( R Breast cancer, malignant melanoma, A-fib on AC, hypothyroidism, HTN, HFrEF, NICM, IBS, inflammatory arthropathy, glaucoma, FRITZ, polyneuropathy, giant cell arteritis, Magalie's Syndrome, ambulatory dysfunction)
Past Surgical History: Other (AICD, bilateral cataract surgery, R TKA, bioprosthetic AVR, MVR, BL NENA, sigmoidectomy, tubal ligation, TVH + anterior colporrhaphy,, cholecystectomy)
Social History
Tobacco: Non-Smoker
Alcohol: None
Drug: None
Personal:
Family History
Family History: Reviewed & Not Pertinent
Allergies / Home Medications
Allergy/AdvReac Type Severity Reaction Status Date / Time
allopurinol Allergy Unknown Verified 07/07/24 08:04
colchicine Allergy Unknown Verified 07/07/24 08:04
levofloxacin Allergy developed Verified 07/07/24 08:04
C-Diff
vancomycin Allergy developed Verified 07/07/24 08:04
C-diff
�Medication �Instructions �Recorded
apixaban 5 mg tablet (Eliquis) 5 mg PO BID Blood Clot 08/26/22
Prevention/Tx
gabapentin 100 mg capsule 100 - 300 mg PO HS PRN neuropathy 08/26/22
latanoprost 0.005 % eye drops 1 drp BOTH EYES HS Eye Condition 08/26/22
methimazole 5 mg tablet 2.5 mg PO DAILY Thyroid 08/26/22
brimonidine 0.2 %-timolol 0.5 % 1 drp BOTH EYES BID Eye Condition 03/06/24
eye drops (Combigan)
mirtazapine 7.5 mg tablet 7.5 mg PO HS PRN Mental 03/06/24
Health/Anxiety
acetaminophen 500 mg tablet 1,000 mg PO DAILYPRN PRN HEADACHES 04/09/24
(Tylenol Extra Strength)
carvedilol 6.25 mg tablet (Coreg) 6.25 mg PO BID Blood Pressure 04/09/24
methenamine hippurate 1 gram tablet 1 g PO BID Urinary Issue 04/09/24
famotidine 40 mg tablet 40 mg PO 1800 Gastrointestinal 07/07/24
Issue
melatonin 5 mg tablet 5 mg PO HS 07/08/24
methotrexate sodium 2.5 mg tablets 10 mg PO MO 07/08/24
in a dose pack
methylprednisolone 4 mg tablet 2 mg PO 2000 07/08/24
methylprednisolone 4 mg tablet 4 mg PO 0800,1200 07/08/24
tramadol 25 mg tablet 25 mg PO Q6H PRN pain 07/08/24
Review of Systems
-
Unable to obtain full review of systems at this time due to: Other (Unable to obtain given mental status)
Vital Signs
Temp Pulse Resp BP Pulse Ox
98.6 F 88 22 113/44 100
07/08/24 07:31 07/08/24 04:45 07/08/24 04:45 07/08/24 04:45 07/08/24 07:31
Physical Exam
Exam
General: Other (Chronically-ill appearing, lethargic in bed, appears comfortable)
HEENT: Moist Mucous Membranes
Respiratory: Other (Normal WOB)
Cardiac: Other (RR on tele)
GI: Soft, Non Tender and Non Distended
Skin: Warm
Neuro: Other (Lethargic)
Results
WBC 10.0 10^3/uL (4.8-10.8) 07/08/24 03:12
Hgb 8.5 g/dL (12.0-16.0) L 07/08/24 07:37
Hct 25.4 % (37.0-47.0) L 07/08/24 07:37
MCV 99.6 fL (81.0-99.0) H 07/08/24 03:12
Plt Count 146 10^3/uL (130-400) 07/08/24 03:12
Absolute Neuts (auto) 8.3 10^3/uL (1.4-6.5) H 07/08/24 03:12
PT 15.5 Sec (11.4-14.6) H 07/07/24 10:09
INR 1.20 07/07/24 10:09
APTT 32.2 Sec (23.4-35.0) 07/07/24 10:09
Sodium 136 mmol/L (135-145) 07/08/24 03:12
Potassium 3.7 mmol/L (3.5-5.1) 07/08/24 03:12
Chloride 106 mmol/L (98-107) 07/08/24 03:12
Carbon Dioxide 23 mmol/L (22-30) 07/08/24 03:12
BUN 29 mg/dl (7-17) H 07/08/24 03:12
Creatinine 1.3 mg/dL (0.6-1.0) H 07/08/24 03:12
Calcium 7.5 mg/dl (8.4-10.2) L 07/08/24 03:12
Total Bilirubin 1.3 mg/dl (0.2-1.3) 07/08/24 03:12
AST 24 U/L (14-36) 07/08/24 03:12
ALT 26 U/L (0-35) 07/08/24 03:12
Alkaline Phosphatase 51 U/L (38-126) 07/08/24 03:12
Lipase 228 U/L (23-300) 07/07/24 07:38
Diagnostic Image Results: As detailed in HPI
Assessment / Plan
-
Ms. Cisneros is a 78 y.o female with past medical history of HTN, hyperthyroidism, giant cell arteritis (on prednisone/MTX), diverticulitis, (s/p robotic sigmoid resection 11/2022), hx of CCY (11/2022), recent anemia, A Fib (on eliquis), and HFrEF (w/
EF 35-40%, s/p ICD) who presented from home after she was found to be confused and non-verbal in bed on 07/07/24 concerning for potential CVA and found to have acute hypoxic respiratory failure, acute on chronic HFrEF, and concern for septic lo.
Additionally, she was found to have anemia and nonspecific inflammation in the terminal ileum for which Gastroenterology has been consulted for further evaluation and management.
#Acute Encephalopathy (c/f CVA vs Infectious versus Vascular)
#Septic Shock 2/2 #C/f PNA
#Acute on Chronic Decompensated HF #HFrEF
#Hx of GCA (on chronic steroids)
#Acute on Chronic Normocytic Anemia
#Iron Deficiency
#Nonspecific Terminal Inflammation
#Fecal Impaction
Impression: Patient presenting from home and found to have an acute change in mental status where she was found to be nonverbal in bed concerning for potential CVA versus toxic metabolic encephalopathy versus other intracranial process.
Additionally, there was concern for septic shock on admission felt secondary to possible pneumonia along with acute on chronic decompensated heart failure exacerbation and acute hypoxic respiratory failure with bilateral infiltrates seen on recent
imaging. Currently, she remains lethargic at bedside and Neurology has been following with previous unremarkable CT head/CTA imaging. She is currently scheduled for a brain MRI for further evaluation given the concern for potential CVA. In regards
to her anemia, this does appear to be new as her previous baseline appears to be Hgb 12s back on 03/2024. She was advised further work-up by her primary Belt Conveyor Drier with Dr. Montalvo along with consideration of an EGD as an outpatient as she did
endorse pill-induced dysphagia. On admission, she was found to have a Hgb of 10.6 which has slowly drifted down to 8.5 without signs of overt GI bleeding. Suspect component of sepsis along with component of iron deficiency anemia as well. Some
concern for hemolysis although T Bili wnl and suspect LDH elevated in setting of sepsis. She does have risk factors for PUD given her prolonged steroids but very low suspicion and BUN:Bad Work Gatherer ratio elevated in setting of her ALCON. Otherwise, her family
denies any melena, dark black stools, rectal bleeding or other bloody stools while she was at home. Given her current neurological status and critical clinical condition with acute on chronic heart failure exacerbation, ALCON, acute hypoxic
respiratory failure and concern for septic shock I would defer on any plans on working her anemia up further from a GI standpoint. Furthermore, proceeding with potential endoscopy would require anesthesia and given the concern for acute change in
mental status would want to avoid this as not to cause any worsening changes in regards to her mental status. If she were to develop overt GI bleeding, would reconsider an endoscopic evaluation pending her clinical course. However, there has been no
melena, bloody stools or other evidence of overt GI bleeding since her ICU course and I would defer any plans for an endoscopic evaluation at this time. In regards to her terminal ileitis, this is fairly nonspecific and she is without any symptoms
to suggest this either in speaking with the patient's family. Her previous colonoscopy in 2021 was unremarkable including random biopsies (negative for colitis/microscopic colitis) and pathology from her sigmoid colon given her prior resection only
revealed chronic diverticulitis. For now, I would continue to trend her serial hemoglobin and monitor for signs of overt GI bleeding while treating her with IV PPI along with ongoing maximal supportive care as per ICU team.
Recommendations:
-Diet as per AQUATIC SCIENTIST, maintain aspiration precautions
-Trend Hgb with serial CBC, transfuse as needed
-Empiric IV PPI 40 mg BiD
-Remains on IV abx as per primary ICU team
-Miralax 17 gm BiD for bowel regimen, give one rectal enema now with MoM enema given fecal impaction seen on previous CT imaging
-No plans for any endoscopic evaluation at this time given her neurologic status and overall clinical condition without any overt signs of GI bleeding
-Eliquis remains on hold given upcoming brain MRI, okay to resume from a GI standpoint when cleared by Neurology
-No symptoms to suggest ileitis and not seen on prior CT imaging back on 02/2025. If concern for diarrhea / looser stools, could check stool studies
-Would consider a MRI-E given the concern for possible terminal ileitis as an outpatient but defer any further w/u regarding this while inpatient
-If patient were to experience melena and/or bloody stools, please notify GI and could reconsider a potential endoscopic evaluation pending her clinical course
-Avoidance of all NSAIDs
-Rest of ongoing supportive care as per primary ICU team
Discussed with patient's family including her and son at bedside. Discussed with both primary medicine and ICU team along with nursing.
Data Reviewed
-
Radiology: Image Personally Visualized and interpreted and Report Reviewed by me
CT Scan: Image Personally Visualized and interpreted and Report Reviewed by me
Old Records: Reviewed
-
-
Thank you for consultation and allowing me to participate in the patient's care. Please call the economic consultant GI physician during the after hours with any questions or concerns.
--- NOTE | 2024-07-08 11:11 | CM ---
CM following re: discharge planning.
Reviewed pt' chart, met with pt. pt's and pt's son at bedside.
Pt is an 78 year old female, admitted with primary dx of CVA/TIA. MRI tomorrow.
Pt has been living with in an independent apartment at [facility], has 2supportive sons. Per pt ambulates with a cane inside the apartment. uses a walker and a w/c for a long distance.
Per if pt needs SNF they preferred [facility], [facility] or [facility]. If acute rehab recommended, family preferred [facility]. Per pt was before at [facility] and [facility]
and she did not have a good experience.
PT, OT, ST will evaluate the pt to determine a level of care at discharge.
PCP: Petty Figueroa
Pharmacy: [facility]
D/C plan: SNF vs acute rehab. Awaiting for PT, OT, ST evaluations and recommendations.
CM will follow with discharge plan updates as hospitalization progresses
--- NOTE | 2024-07-08 11:35 | PTOTSP ---
Speech Pathology Evaluation
78F with admission for CVA/TIA symptoms, dx with BAO, septic shock, and possible PNA. Upgraded from IVU to ICU for hypotension concerns.
Impression:
Mild oral dysphagia characterized by slow mastication of regular solids requiring thin liquid wash to clear, likely acute in the presence of AMS/lethargy. No overt s/s of aspiration observed.
Aspiration risk is increased in the presence of current workup for CVA/TIA, BAO, L sided facial weakness, and possible PNA.
Word finding difficulties and AMS, would recommend follow up speech-language evaluation.
Recommend:
1. Soft and bite sized (IDDSI 6), thin liquids
2. Meds as best tolerated
3. Strategies: partial feeding assistance
4. PRINCIPAL SOFTWARE ENGINEER service to follow up re: assess tolerance of current diet level and need for VSE; speech-language evaluation
[2024-07-08] MEDS: MIRALAX 17 GRAMS PO (11:47)
[2024-07-08] MEDS: VIBRAMYCIN 260 MG IV ×2 (11:48→23:49)
[2024-07-08] MEDS: TYLENOL 650 MG PO (11:49)
--- NOTE | 2024-07-08 12:03 | W.PN.CD ---
Today's Communication / Plan
-
Hold beta-imani and further Lasix due to hypotension
Antibiotics per primary team
Continue IV amiodarone
Holding Eliquis for possible stroke
MRI brain tomorrow
Impression / Plan
-
Mrs. Cisneros is an 78 yo female with paroxysmal Afib on Eliquis, anemia, HFrEF, EF 35-40%, Medtronic ICD, HTN, s/p MV annuloplasty ring, moderate mitral regurgitation, bioprosthetic aortic valve, GCA on prednisone, who was brought to the ER by
family for confusion. Cardiology consulted for atrial fibrillation with RVR.
Shock
-Required norepinephrine briefly overnight, now stopped. Suspect sepsis rather than cardiogenic given that her EF is stable on echo
-No infectious source at this time. Blood cultures pending. Has new mild paravalvular AR on echo. If blood cultures turn positive, needs KALPESH.
-Resume norepinephrine if needed for goal MAP greater than 65
-Continue infectious workup and broad-spectrum antibiotics
Acute hypoxic respiratory failure
-She has bilateral infiltrates on chest x-ray, elevated NT proBNP, and crackles. Likely has some component of acute on chronic HFrEF, but her BNP is lower than it has been in the past and she examines otherwise euvolemic, so I wonder if there is an
additional pulmonary process going on.
-Got 40 mg IV Lasix this morning. Additional Lasix held due to shock. Can resume tomorrow if BP stable.
-Strict I/Os, daily standing weights
Paroxysmal atrial fibrillation with RVR
-Started on amiodarone on 07/07 PM due to RVR and hypotension. Now back in sinus rhythm.
-Continue IV amiodarone
-Holding home carvedilol for hypotension
-No Eliquis due to concern for stroke
Acute on chronic HFrEF
-Severe exacerbation requiring IV diuresis and close monitoring of labs and telemetry
-TTE 07/08/2024: LVEF 47%, stable anteroseptal dyskinesis, normal mitral and aortic valve gradients, mild paravalvular AR, normal PASP
-Hold Lasix as above
-Hold carvedilol for hypotension
-Has not been able to tolerate any other GDMT due to hypotension and frequent UTIs
-S/p ICD
Altered mental status
-CT head and CTA head/neck are unremarkable. TSH normal. No evidence of UTI by UA.
-Brain MRI will need to be Tuesday because of her device
-Neurology following
-Hold Eliquis
Troponin elevation
-Likely due to nonischemic myocardial injury in the setting of heart failure exacerbation +/- A-fib with RVR with ALCON. She denies chest pain. ECG with stable LBBB.
-Continue to trend troponin with ECGs to peak
-No treatment for ACS at this time. I have a low suspicion for ACS and worry that she has an intracranial process we can make worse with heparin.
CCT: 45 minutes
Subjective: Overnight she went into A-fib with RVR with hypotension. Started on amiodarone and norepinephrine which has since been weaned. Says she feels 'terrible 'but cannot localize any specific complaints. Still very confused and drowsy.
Physical Exam
Vital Signs/Labs
Vital Signs
Temp Pulse Resp BP Pulse Ox
97.7 F 88 22 113/44 100
07/08/24 11:00 07/08/24 04:45 07/08/24 04:45 07/08/24 04:45 07/08/24 07:31
07/07/24 07/08/24 07/09/24
06:59 06:59 06:59
Actual Weight 113 lb 8.609 oz
07/08/24 03:12
PT 15.5 Sec (11.4-14.6) H 07/07/24 10:09
INR 1.20 07/07/24 10:09
APTT 32.2 Sec (23.4-35.0) 07/07/24 10:09
Magnesium 2.3 mg/dl (1.6-2.3) 07/08/24 03:12
Triglycerides 147 mg/dl (10-149) 07/08/24 03:12
LDL Cholesterol, Calc 46 mg/dl 07/08/24 03:12
VLDL Cholesterol, Calc 29 mg/dl (0-30) 07/08/24 03:12
HDL Cholesterol 31 mg/dl 07/08/24 03:12
TSH 3.71 uIU/ml (0.47-4.68) 07/07/24 07:38
Free T4 1.44 ng/dl (0.78-2.19) 07/07/24 07:38
07/07/24
07:38
Uqr-W-Zlrqewopgmv Pept 5500
LAB Results
07/07/24 07/07/24 07/07/24
07:38 13:27 18:30
Troponin I 0.041 H* 0.195 H* D Cancelled
07/07/24 07/08/24 07/08/24
19:53 03:12 07:37
Troponin I 0.213 H* 0.304 H* D 0.408 H* D
Physical Exam
Constitutional: Other (Drowsy, appears unwell)
Cardiovascular: Rhythm & rate is regular, Pedal edema is absent, Systolic murmur present and S1S2 is normal
Respiratory: Respiratory effort normal and Crackles Present
Data Reviewed
-
Date of Service: July 08, 2024
Medical Decision Making: Reviewed Test Results, Independent Historian Assessment, Test Interpretation and Review of Case with other Provider
EKG: Tracing Personally Visualized and interpreted
Echo: Tracing Personally Visualized and interpreted
X-Ray/CT/US/MRI/NUC/PET: Report Reviewed by me, Discussed with Physician and Discussed with Patient
Labs: Labs Reviewed by me
Old Records: Reviewed
--- NOTE | 2024-07-08 12:32 | PTCARENOTE ---
Pt remains forgetful/confused but sandoval, follows commands. Assists with repositioning in bed. Poor appetite/intake. Family ( and son) at bedside and updated t/o shift.
[2024-07-08] MEDS: SOLU-CORTEF 50 MG IV ×3 (12:59→23:48)
--- NOTE | 2024-07-08 13:34 | PTCARENOTE ---
bp again low, it coordinator in room and aware. Levo resumed.
[2024-07-08] MEDS: FEOSOL 325 MG PO (16:13)
[2024-07-08 16:19] LABS: Hematocrit 24.9 % (37.0-47.0); Hemoglobin 8.5 g/dL (12.0-16.0)
--- NOTE | 2024-07-08 16:43 | PTCARENOTE ---
Pt given milk and molasses enema without results. More alert this evening. Wakes up confused, but reorients easily, speech improved and less word finding. Using call laguerre appropriately this afternoon.Otherwise no changes.
[2024-07-08 16:44] LABS: Troponin I 0.215 ng/ml
[2024-07-08] MEDS: LIPITOR 80 MG PO (17:17)
[2024-07-08 17:43] LABS: Osmolality Urine 261 mOsm/kg (300-900)
[2024-07-08 17:59] LABS: Urine Sodium 39 mmol/L (30-90)
--- NOTE | 2024-07-08 19:25 | PTCARENOTE ---
Assumed care of pt. approx 1900.
Resting in bed, orientation and mentation greatly improved from HS. See neuro flowsheets for more details.
Amio remains on, pt. converted for day team. Cont. to follow.
All questions answered to and patient bedside.
[2024-07-08] MEDS: NEURONTIN 200 MG PO (20:59)
[2024-07-08] MEDS: REMERON 7.5 MG PO (21:00)
[2024-07-08] MEDS: XALATAN OPHTHALMIC SOLUTION 1 DROP BOTH EYES (21:01)
[2024-07-09] VITALS (54 sets, daily range): BP systolic 94–139; BP diastolic 42–110; BMI 21.3
[2024-07-09 00:03] LABS: Hematocrit 22.9 % (37.0-47.0)
--- NOTE | 2024-07-09 00:15 | PTCARENOTE ---
No change in pt. assessment.
--- NOTE | 2024-07-09 04:41 | PTCARENOTE ---
Pt. confused upon waking up, reoriented w.o issue, Neurological check remained intact. clear speech, no difficulty in finding words.
No further changes in assessment.
[2024-07-09 04:51] LABS: % Basophils 0.1 % (0-2); % Immature Granulocytes 1.4 % (0-0.5); % Lymphocytes 5.9 % (20.5-51.1); % Monocytes 2.6 % (1.7-9.3); ALT (SGPT) 25 U/L (0-35); AST (SGOT) 28 U/L (14-36); Absolute Immature Granulocytes 0.1 10^3/uL (0-0.05); Absolute Lymphocytes 0.6 10^3/uL (1.2-3.4); Absolute Monocytes 0.3 10^3/uL (0.1-0.6); Absolute Neutrophils 9.1 10^3/uL (1.4-6.5); Albumin 2.9 g/dl (3.5-5.0); Alkaline Phosphatase 56 U/L (38-126); Blood Urea Nitrogen 26 mg/dl (7-17); Calcium 7.7 mg/dl (8.4-10.2); Carbon Dioxide 21 mmol/L (22-30); Chloride 107 mmol/L (98-107); Estimated Creatinine Clearance 28 ml/min; Glucose 234 mg/dl (70-99); Hematocrit 23.7 % (37.0-47.0); Hemoglobin 8.3 g/dL (12.0-16.0); LDH 744 U/L (120-246); Magnesium 2.2 mg/dl (1.6-2.3); Mean Corpuscular Hgb 33.9 pg (27.0-31.0); Mean Corpuscular Volume 96.7 fL (81.0-99.0); Mean Platelet Volume 10.6 fL (7.4-10.4); Nucleated Red Blood Cells % 0 %; Platelet Count 196 10^3/uL (130-400); Potassium 2.9 mmol/L (3.5-5.1); Red Blood Cell Count 2.45 10^6/uL (4.20-5.40); Red Cell Dist. Width 19.2 % (11.5-14.5); Sodium 139 mmol/L (135-145); Total Bilirubin 1.1 mg/dl (0.2-1.3); Total Protein 5.3 g/dl (6.3-8.2); White Blood Cell Count 10.1 10^3/uL (4.8-10.8); eGFR 45.76
[2024-07-09 04:55] LABS: Vancomycin Random 10.4 ug/ml
[2024-07-09] MEDS: SOLU-CORTEF 50 MG IV (05:02)
[2024-07-09] MEDS: ZOSYN 50 IV (05:03)
[2024-07-09] MEDS: NOVOLOG FLEXPEN 3 UNITS SC (05:11)
[2024-07-09] MEDS: KCL ELIXIR 40 MEQ PO (05:11)
[2024-07-09] MEDS: KCL 270 MEQ IV (05:11)
--- NOTE | 2024-07-09 05:20 | PTCARENOTE ---
serum GLU elevated, of note pt recently started on stress dose steroids. K+ also low, icu AMBER notified, see mar for orders.
--- NOTE | 2024-07-09 06:08 | W.PN.GI.CBS2 ---
Today's Communication / Plan
-
No signs of overt GI bleeding and H/h remains stable. Going for MRI brain later today, appreciate Neuro recommendations. Continue IV PPI and monitor for signs of overt GI bleeding while inpatient. Given her neurologic status, will defer any plans
for an endoscopic evaluation at this time. See rest of care as outlined below. GI will sign-off, please call back with any questions or concerns.
Assessment / Plan
-
Ms. Cisneros is a 78 y.o female with past medical history of HTN, hyperthyroidism, giant cell arteritis (on prednisone/MTX), diverticulitis, (s/p robotic sigmoid resection 11/2022), hx of CCY (11/2022), recent anemia, A Fib (on eliquis), and HFrEF (w/
EF 35-40%, s/p ICD) who presented from home after she was found to be confused and non-verbal in bed on 07/07/24 concerning for potential CVA and found to have acute hypoxic respiratory failure, acute on chronic HFrEF, and concern for septic lo.
Additionally, she was found to have anemia and nonspecific inflammation in the terminal ileum for which Gastroenterology has been consulted for further evaluation and management.
#Acute Encephalopathy (c/f CVA vs Infectious versus Vascular)
#Septic Shock 2/2 #C/f PNA
#Acute on Chronic Decompensated HF #HFrEF
#Hx of GCA (on chronic steroids)
#Acute on Chronic Normocytic Anemia
#Iron Deficiency
#Nonspecific Terminal Inflammation
#Fecal Impaction
Impression: Patient presenting from home and found to have an acute change in mental status where she was found to be nonverbal in bed concerning for potential CVA versus toxic metabolic encephalopathy versus other intracranial process.
Additionally, there was concern for septic shock on admission felt secondary to possible pneumonia along with acute on chronic decompensated heart failure exacerbation and acute hypoxic respiratory failure with bilateral infiltrates seen on recent
imaging. Currently, she remains lethargic at bedside and Neurology has been following with previous unremarkable CT head/CTA imaging. She is currently scheduled for a brain MRI for further evaluation given the concern for potential CVA. In regards
to her anemia, this does appear to be new as her previous baseline appears to be Hgb 12s back on 03/2024. She was advised further work-up by her primary Banking Attorney with Dr. Montalvo along with consideration of an EGD as an outpatient as she did
endorse pill-induced dysphagia. On admission, she was found to have a Hgb of 10.6 which has slowly drifted down to 8.5 without signs of overt GI bleeding. Suspect component of sepsis along with component of iron deficiency anemia as well. Some
concern for hemolysis although T Bili wnl and suspect LDH elevated in setting of sepsis. She does have risk factors for PUD given her prolonged steroids but very low suspicion and BUN:Outreach Clinician ratio elevated in setting of her ALCON. Otherwise, her family
denies any melena, dark black stools, rectal bleeding or other bloody stools while she was at home. Given her current neurological status and critical clinical condition with acute on chronic heart failure exacerbation, ALCON, acute hypoxic
respiratory failure and concern for septic shock I would defer on any plans on working her anemia up further from a GI standpoint. Furthermore, proceeding with potential endoscopy would require anesthesia and given the concern for acute change in
mental status would want to avoid this as not to cause any worsening changes in regards to her mental status. If she were to develop overt GI bleeding, would reconsider an endoscopic evaluation pending her clinical course. However, there has been no
melena, bloody stools or other evidence of overt GI bleeding since her ICU course and I would defer any plans for an endoscopic evaluation at this time. In regards to her terminal ileitis, this is fairly nonspecific and she is without any symptoms
to suggest this either in speaking with the patient's family. Her previous colonoscopy in 2021 was unremarkable including random biopsies (negative for colitis/microscopic colitis) and pathology from her sigmoid colon given her prior resection only
revealed chronic diverticulitis. For now, I would continue to trend her serial hemoglobin and monitor for signs of overt GI bleeding while treating her with IV PPI along with ongoing maximal supportive care as per ICU team.
Recommendations:
-Diet as per DRILLING PLANT OPERATOR, maintain aspiration precautions
-Trend Hgb with serial CBC, transfuse as needed
-Empiric IV PPI 40 mg BiD
-Remains on IV abx as per primary ICU team
-Miralax 17 gm BiD for bowel regimen, having brown stools
-No plans for any endoscopic evaluation at this time given her neurologic status and overall clinical condition without any overt signs of GI bleeding
-Ultimately, she would benefit from an eventual EGD along with consideration of a repeat colonoscopy given her CT findings and KE, but would defer to outpatient given her current condition pending further Neurologic w/u
-Dya remains on hold given upcoming brain MRI, okay to resume from a GI standpoint when cleared by Neurology
-No symptoms to suggest ileitis and not seen on prior CT imaging back on 02/2025. If concern for diarrhea / looser stools, could check stool studies
-Would consider a MRI-E given the concern for possible terminal ileitis as an outpatient but defer any further w/u regarding this while inpatient
-If patient were to experience melena and/or bloody stools, please notify GI and could reconsider a potential endoscopic evaluation pending her clinical course
-Avoidance of all NSAIDs
-Rest of ongoing supportive care as per primary ICU team
Previously discussed with patient's family including her and son at bedside extensively yesterday afternoon on 07/08/24.
Discussed with both primary medicine and ICU team along with nursing this AM. GI will sign-off, please call back with any questions or concerns.
Subjective
Subjective
Date of Service: July 09, 2024
- Hgb remains stable in 8s without signs of overt GI bleeding
- Otherwise, no acute events overnight
Somnolent this AM, remains confused. No reported dark and/or bloody stools by nursing this AM. Going for brain MRI later today.
Objective
Data Reviewed
Laboratory Data:
Laboratory Results
07/09/24 04:09
07/09/24 04:09
Laboratory Results
PT 15.5 Sec (11.4-14.6) H 07/07/24 10:09
INR 1.20 07/07/24 10:09
APTT 32.2 Sec (23.4-35.0) 07/07/24 10:09
Magnesium 2.2 mg/dl (1.6-2.3) 07/09/24 04:09
Total Bilirubin 1.1 mg/dl (0.2-1.3) 07/09/24 04:09
AST 28 U/L (14-36) 07/09/24 04:09
ALT 25 U/L (0-35) 07/09/24 04:09
Alkaline Phosphatase 56 U/L (38-126) 07/09/24 04:09
Lipase 228 U/L (23-300) 07/07/24 07:38
Vital Signs and I&O:
Vital Signs
Temp Pulse Resp BP Pulse Ox
98.2 F 70 16 99/42 95
07/08/24 22:50 07/09/24 05:00 07/09/24 05:00 07/09/24 05:00 07/09/24 05:00
I&O
07/07/24 07/08/24 07/09/24
06:59 06:59 06:59
Intake Total 1305.6 / 1325.3 1321.2 / 1321.2
Output Total 560 / 560 1630 / 1630
Balance 745.6 / 765.3 -308.8 / -308.8
Physical Exam
Physical Exam
HEENT: Anicteric and Moist mucous membranes
Cardiology: Other (RR on tele)
Pulmonary: Other (Normal WOB on room air)
GI: Soft, Non Distended and Non Tender
Extremities: No Edema
Neuro: Other (Moves all four extremities spontaneously)
[2024-07-09] MEDS: NOVOLOG FLEXPEN-MODERATE RESISTANCE 3 UNITS SC (07:47)
[2024-07-09] MEDS: MIRALAX 17 GRAMS PO (07:51)
[2024-07-09] MEDS: TAPAZOLE 2.5 MG PO (07:51)
[2024-07-09] MEDS: FEOSOL 325 MG PO (07:51)
[2024-07-09] MEDS: NSS (PRESERVATIVE FREE) 10 ML IV (07:52)
[2024-07-09] MEDS: LOW STRENGTH ASPIRIN 81 MG PO (07:52)
[2024-07-09] MEDS: PROTONIX IV 40 MG IV (07:52)
[2024-07-09 07:56] LABS: Glucose - Point of Care 217 mg/dl (70-99)
[2024-07-09] MEDS: TIMOPTIC 0.5% OPHTHALMIC SOLUTION 1 DROP BOTH EYES ×2 (08:03→19:37)
[2024-07-09] MEDS: ALPHAGAN 0.2% EYE DROPS 1 DROP BOTH EYES ×2 (08:03→19:37)
--- NOTE | 2024-07-09 08:23 | PTCARENOTE ---
report received, assessments per work list. handoff NIH completed. monitor nsr with avb and prolonged QT. levophed, amiodarone per work list. lungs with crackles 1/4 up bilaterally. respirations nonlabored on room air. patel draining clear yellow
urine. small lópez smear of stool noted on pad. abdomen distended. hyperactive bowel sounds. call laguerre in reach. tolerating oral meds and diet without signs aspiration. reviewed plan of care
--- NOTE | 2024-07-09 08:38 | PHA.VAN.FU ---
Vancomycin Assessment / Plan
- Assessment
Renal Function: Stable
WBC's are: WNL
In the past 24 hrs, patient has been: Afebrile
Concomitant Antimicrobials: piperacillin/tazobactam, doxycycline
- Assessment - Therapeutic Drug Monitoring
Random Level: 10.4 - drawn ~26H after 1500mg loading dose
- Dosing Plan
Dosing by Level: Re-dose today (Vanc 500mg)
- Monitoring Plan
Random Level: 07/10 0600
- Follow Up
Pharmacy will continue to follow.
Vancomycin Follow UP
- -
Patient Age: 78
Patient Sex: Female
Vancomycin Day #: 2
Indication: Pulmonary/Respiratory
Requesting Provider: Vanna Kruger
Pertinent Antimicrobial Allergies:
vanco=developed c-diff
levofloxacin=developed c-diff
Height / Weight:
Height 5 ft 1 in
Actual Weight 51.1 kg
IBW in k.8
- Vital Signs / Lab Results
Temp Pulse Resp BP Pulse Ox
97.6 F 89 30 129/74 94
07/09/24 08:00 07/09/24 08:15 07/09/24 08:15 07/09/24 08:15 07/09/24 08:15
Lab Results - Hematology
07/07/24 07/07/24 07/08/24
07:38 21:41 03:12
WBC 8.4 11.3 H 10.0
07/09/24
04:09
WBC 10.1
Lab Results - Chemistry
07/07/24 07/07/24 07/08/24
07:38 21:41 03:12
BUN 22 H 28 H 29 H
Creatinine 0.9 1.2 H 1.3 H
Estimated Creat Clear 26
Albumin 3.9 2.7 L
07/09/24
04:09
BUN 26 H
Creatinine 1.2 H
Estimated Creat Clear 28
Albumin 2.9 L
07/07/24
22:16
Lactic Acid 1.7
Microbiology Results
07/08/24 11:57 Legionella Urinary Antigen - Final
Urine Negative for Legionella pneumophila Serogroup 1 antigen.
A negative result does not rule out the possiblity of
Legionella infection due to other serogroups or species of
Legionella. Clinical correlation is recommended.
Streptococcus pneumoniae Antigen (M - Final
Negative for Streptococcus pneumoniae antigen.
A negative result does not exclude infection with
Streptococcus pneumoniae. Clinical correlation is
recommended.
07/07/24 10:22 Blood Culture - Preliminary
Blood/Venous No Growth in 24 hours- Final report to follow
07/07/24 10:22 Blood Culture - Preliminary
Blood/Venous No Growth in 24 hours- Final report to follow
07/08/24 09:03 Nasal Screen MRSA (PCR) - Final
Nose
07/08/24 03:12 Nasal Screen MRSA (PCR) - Final
Nose
07/07/24 10:09 Influenza Types A & B (HANH) - Final
Nasal Swab Negative for Influenza A & B, NAAT
Negative results must be combined with clinical observations
and patient history.
Nucleic Acid Amplification test (NAAT)performed on the
[employer] platform.
Therapeutic Drug Monitoring
Random Vancomycin 10.4 ug/ml 07/09/24 04:09
[2024-07-09] MEDS: ProAmatine 5 MG PO ×3 (10:40→17:31)
--- NOTE | 2024-07-09 10:46 | W.PN.INTV ---
Today's Communication / Plan
Recommendations
- Discontinue Zosyn, start Rocephin and continue doxycycline
- Start midodrine 5 mg 3 times daily, wean Levophed as tolerated
- Follow-up chest x-ray in a.m., BNP in a.m.
- Increase MiraLAX to twice a day, add bisacodyl suppository as needed
- DC hydrocortisone, start prednisone 5 mg twice a day
Assessment
-
Assessment: 78-year-old female with past medical history of Afib on eliquis, HFrEF, s/p ICD, HTN, glaucoma, frequent UTI, hyperthyroidism, GCA on prednisone who presented with confusion, last known normal the night prior at 10 PM. She had a
headache with worsening left-sided abdominal pain the night prior. In the ER, a stroke alert was called with CT head showing no acute intracranial abnormality, and CTA head/neck showing no high-grade stenosis, LVO, and <50% stenosis of the
bilateral carotid bulbs. Neurology was consulted to evaluate for tPA and she was not considered a candidate due to active systemic anticoagulation with Eliquis. Initial labs showed Hb 10.6, glucose 102, troponin 0.041, CRP 47.3, proBNP 5500, TSH
3.71, urinalysis with no signs of UTI, and COVID-19 antigen negative. Flu swab A/B both negative + blood cultures were obtained. She was found to be in rapid A-fib with heart rate in the 150s, BP initially 150/102, and saturating 95% on room air.
In the ER she was given 20 mg IV Lasix +2.5mg Lopressor. She was initially admitted to telemetry. Throughout the evening on 07/07 - 07/08, heart rate became more uncontrolled with rates in the 130�180s and she became hypotensive. Amiodarone drip
started and Levophed also started, and patient transferred to the ICU for further care. Lace Tearing Supervisor service was consulted for additional management/recommendations.
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
Assessment and plan:
#1. Acute respiratory failure due to pulmonary edema, and possibly multifocal pneumonia
-Patient received Lasix earlier, currently on hold due to hypotension
-MRSA screen negative, discontinue vancomycin
-Influenza A, B, COVID, Legionella and pneumococcal antigen negative. Discontinue Zosyn and switch to Rocephin, continue doxycycline for CAP
- Will resume diuresis once patient is off pressors
#2. Acute on chronic HFrEF exacerbation, EF 47% with Minh=septal wall hypokinesis. PAST 27 mm. Well seated Mitral Annuloplasty and well seated bioprosthetic AV with mild AR as per ECHO 06/2024.
-Lasix currently on hold in view of hypotension
-Strict input/output. +330 mL over last 24 hours
-Follow-up chest x-ray and BNP in a.m.
#2a. A-fib with rapid ventricular rate. Patient now in normal sinus rhythm
- Currently on amiodarone drip, anticipate transition to oral amiodarone
- Beta-imani once patient's blood pressure improves and she is off pressor support
- Eliquis on hold pending brain MRI
#3. Shock, cardiogenic versus septic related to pneumonia. Atrial fibrillation with rapid ventricular rate likely also contributed.
-Start midodrine 5 mg 3 times daily, continue to wean Levophed, currently infusing @2
-Continue antibiotic, ceftriaxone and doxycycline, follow-up on cultures
- Nonspecific terminal ileal inflammation noted on CT, GI service on case, no abdominal pain noted on exam
#4. Acute encephalopathy, ? CVA versus underlying neurocognitive deficit. Reportedly having some memory issues over the last 6 months[address]
-CT has been unremarkable, neurology service on case
-TSH and B12 unremarkable
-MRI brain today
-Patient currently awake, alert and oriented. Per at bedside, mental status is significantly improved since admission.
#5. Acute kidney injury, nonoliguric, admission creatinine was 0.9, went up to 1.2. Suspect related to hypotension, diuresis. Patient received IV contrast for CT, contrast nephropathy also in differential diagnosis.
- Maintain MAP above 65, continue to hold diuresis
- Check labs in a.m., CT scan without evidence of obstruction.
#6. S/p mitral annuloplasty + bioprosthetic AVR, h/o V Fib, s/o AICD (2016)
- Echo reassuring
- Potassium low at 2.9, replacing with both p.o. and IV supplementation, target keep above 4. Magnesium 2.2
#7. History of suspected giant cell arteritis, on chronic steroid therapy. (Follows up with rheumatology service, Dr. Crain)
- Lately has been on 8 mg of methylprednisolone daily, 4 mg in the morning, 4 in the afternoon and 2 at night.
- Switch IV hydrocortisone to prednisone 5 mg twice a day
#8. Anemia
- Eliquis currently on hold, no melena or hematochezia noted, GI service on case
- Unless patient shows signs of active bleeding, further workup as outpatient
DVT prophylaxis, Eliquis currently on hold, will resume if MRI negative
GI prophylaxis, currently on Protonix
Continue ICU level of care for this critically ill patient. Updated patient's at bedside
Critical care statement: A total of 45 minutes of critical care time was provided for this patient today. This includes management of unstable vital signs, evaluation of the patient at bedside, reviewing the patient's pertinent medical records
including radiographs, microbiology, laboratory evaluations, and discussion with primary team, consultants, pharmacy, nutrition, physical therapy, case management, charge nurse, critical care nursing, and respiratory therapy.
Data:
Transthoracic echocardiogram 07/08/2024:
Normal left ventricular size with mildly reduced systolic function. LVEF 47%.
Anteroseptal wall dyskinesis.
Normal right ventricular size with mildly reduced systolic function.
Well-seated mitral annuloplasty ring with mean gradient 6 mmHg.
Well-seated bioprosthetic aortic valve with mean gradient 12 mmHg and mild AR.
Mild tricuspid regurgitation. PASP 27 mmHg.
Compared to prior echocardiogram on 08/17/2023, there is now mild paravalvular
aortic regurgitation. No obvious vegetations visualized. Echocardiogram is
otherwise stable.
CT chest 07/08/2024: Bilateral interstitial and groundglass pulmonary opacities most suspicious for pulmonary edema. Other etiologies including an atypical infectious process would be difficult to completely exclude.
Subjective Dataa
Subjective Data
Date of Service:
Date of Service: July 09, 2024
Subjective:
Patient comfortably sitting in bed, in no acute distress. Breathing at room air.
Review of Systems
Genitourinary: Other (All 14 systems reviewed and negative except as stated above in the history of present illness.)
Objective Data
Data Reviewed
Vital Signs / I&O / Oxygen:
Vital Signs
Temp Pulse Resp BP Pulse Ox
97.6 F 75 25 103/53 97
07/09/24 08:00 07/09/24 10:40 07/09/24 10:30 07/09/24 10:40 07/09/24 10:30
Intake and Output
07/08/24 07/09/24 07/10/24
06:59 06:59 06:59
Intake Total 1305.6 / 1325.3 1637.9 / 1744.6 869.3 / 869.3
Output Total 560 / 560 1750 / 1750 275 / 275
Balance 745.6 / 765.3 -112.1 / -5.4 594.3 / 594.3
SaO2 97
Nasal Cannula flow liters per 2
minute
Physical Exam
General: Comfortable
HEENT: Normocephalic
Cardiovascular: S1-S2
Respiratory: Clear and Non-Labored Respirations
GI: Soft and Non Distended
Neurology: Awake, Alert and Oriented
Skin: Warm
Labs/Micro/Reports
Lab Data
07/09/24 04:09
07/09/24 04:09
Microbiology
07/08/24 09:03 Nose MRSA Screen - Final
No Methicillin Resistant Staphylococcus aureus isolated.
07/08/24 11:57 Urine Legionella Urinary Antigen - Final
Negative for Legionella pneumophila Serogroup 1 antigen.
A negative result does not rule out the possiblity of
Legionella infection due to other serogroups or species of
Legionella. Clinical correlation is recommended.
07/08/24 11:57 Urine Streptococcus pneumoniae Antigen (M - Final
Negative for Streptococcus pneumoniae antigen.
A negative result does not exclude infection with
Streptococcus pneumoniae. Clinical correlation is
recommended.
07/07/24 10:22 Blood/Venous Blood Culture - Preliminary
No Growth in 24 hours- Final report to follow
07/07/24 10:22 Blood/Venous Blood Culture - Preliminary
No Growth in 24 hours- Final report to follow
07/08/24 09:03 Nose Nasal Screen MRSA (PCR) - Final
07/08/24 03:12 Nose Nasal Screen MRSA (PCR) - Final
07/07/24 10:09 Nasal Swab Influenza Types A & B (HANH) - Final
Negative for Influenza A & B, NAAT
Negative results must be combined with clinical observations
and patient history.
Nucleic Acid Amplification test (NAAT)performed on the
[employer] platform.
--- NOTE | 2024-07-09 11:14 | W.PN.CD ---
Addendum entered and electronically signed by Theodore Henderson MD 07/09/24 11:30:
Correction: She again required norepinephrine overnight. It is now off and she has been started on midodrine 5 mg 3 times daily.
Will hold off on diuretics today
After discussion with iron worker apprentice and primary team, we will plan for a KALPESH on Tuesday assuming that she remains off pressors
Original Note:
Today's Communication / Plan
-
Switch amiodarone to p.o.
Brain MRI today
Will discuss with iron worker apprentice and primary team if KALPESH is warranted
Continue antibiotics
Impression / Plan
-
Mrs. Cisneros is an 78 yo female with paroxysmal Afib on Eliquis, anemia, HFrEF, EF 35-40%, [employer] ICD, HTN, s/p MV annuloplasty ring, moderate mitral regurgitation, bioprosthetic aortic valve, GCA on prednisone, who was brought to the ER by
family for confusion. Cardiology consulted for atrial fibrillation with RVR.
Shock, resolved
-Required norepinephrine briefly on 07/07, now stopped. Suspect sepsis rather than cardiogenic given that her EF is stable on echo
-No infectious source at this time. Maybe pneumonia? Blood cultures pending. Has new mild paravalvular AR on echo. If blood cultures turn positive, needs KALPESH.
-Continue infectious workup and broad-spectrum antibiotics
Acute hypoxic respiratory failure
-She has bilateral infiltrates on chest x-ray, elevated NT proBNP, and crackles. Likely has some component of acute on chronic HFrEF, but her BNP is lower than it has been in the past and she examines otherwise euvolemic, so I wonder if there is an
additional pulmonary process going on.
-Given Lasix initially but then held due to shock. Give 40mg IV Lasix today (has not required pressors for almost 48 hours)
-Strict I/Os, daily standing weights
Paroxysmal atrial fibrillation with RVR
-Started on IV amiodarone on 07/07 PM due to RVR and hypotension. Now back in sinus rhythm.
-Convert to p.o. amiodarone
-Holding home carvedilol for hypotension
-No Eliquis due to concern for stroke
Acute on chronic HFrEF
-Severe exacerbation requiring IV diuresis and close monitoring of labs and telemetry
-TTE 07/08/2024: LVEF 47%, stable anteroseptal dyskinesis, normal mitral and aortic valve gradients, mild paravalvular AR, normal PASP
-Lasix as above
-Hold carvedilol for recent hypotension
-Has not been able to tolerate any other GDMT due to hypotension and frequent UTIs
-S/p ICD
Altered mental status
-CT head and CTA head/neck are unremarkable. TSH normal. No evidence of UTI by UA.
-Brain MRI today
-Neurology following
-Hold Eliquis
Troponin elevation
-Likely due to nonischemic myocardial injury in the setting of heart failure exacerbation +/- A-fib with RVR with ALCON. She denies chest pain. ECG with stable LBBB.
-No treatment for ACS at this time. I have a low suspicion for ACS and worry that she has an intracranial process we can make worse with heparin.
CCT: 32 minutes
Subjective: Her mental status is vastly improved. She does not remember much from the past 2 days. She has no specific complaints. Feels much better overall.
Physical Exam
Vital Signs/Labs
Vital Signs
Temp Pulse Resp BP Pulse Ox
97.6 F 78 25 113/59 98
07/09/24 08:00 07/09/24 11:00 07/09/24 11:00 07/09/24 11:00 07/09/24 11:00
07/08/24 07/09/24 07/10/24
06:59 06:59 06:59
Actual Weight 113 lb 8.609 oz 112 lb 10.499 oz
07/09/24 04:09
07/09/24 04:09
PT 15.5 Sec (11.4-14.6) H 07/07/24 10:09
INR 1.20 07/07/24 10:09
APTT 32.2 Sec (23.4-35.0) 07/07/24 10:09
Magnesium 2.2 mg/dl (1.6-2.3) 07/09/24 04:09
Triglycerides 147 mg/dl (10-149) 07/08/24 03:12
LDL Cholesterol, Calc 46 mg/dl 07/08/24 03:12
VLDL Cholesterol, Calc 29 mg/dl (0-30) 07/08/24 03:12
HDL Cholesterol 31 mg/dl 07/08/24 03:12
TSH 3.71 uIU/ml (0.47-4.68) 07/07/24 07:38
Free T4 1.44 ng/dl (0.78-2.19) 07/07/24 07:38
07/07/24
07:38
Pgn-X-Hogjibiosqd Pept 5500
LAB Results
07/07/24 07/07/24 07/07/24
07:38 13:27 18:30
Troponin I 0.041 H* 0.195 H* D Cancelled
07/07/24 07/08/24 07/08/24
19:53 03:12 07:37
Troponin I 0.213 H* 0.304 H* D 0.408 H* D
07/08/24
16:10
Troponin I 0.215 H*
Physical Exam
Constitutional: No acute distress and Comfortable
Cardiovascular: Rhythm & rate is regular, Pedal edema is absent, S1S2 is normal and Murmur/rub/gallop absent
Respiratory: Respiratory effort normal and Crackles Present
Neuro/Psych: AO x 3
Data Reviewed
-
Date of Service: July 09, 2024
Medical Decision Making: Reviewed Test Results, Independent Historian Assessment, Test Interpretation and Review of Case with other Provider
EKG: Tracing Personally Visualized and interpreted
Echo: Report Reviewed by me
X-Ray/CT/US/MRI/NUC/PET: Report Reviewed by me
Labs: Labs Reviewed by me
--- NOTE | 2024-07-09 11:16 | PTCARENOTE ---
Addendum entered by Emerita Dorman RN 07/09/24 13:03:
reassessed. no changes. awaiting MRI. report to oncoming RN
Original Note:
levophed weaned to off. midodrine initiated.cardiology at bedside. instructed this clinical writer to d/c amiodarone. to begin oral dosing. IV removed right wrist as per protocol right upper arm restriction.
[2024-07-09] MEDS: PACERONE 400 MG PO ×2 (11:26→19:35)
[2024-07-09] MEDS: STERILE WATER FOR INJECTION 10 ML IV (11:29)
[2024-07-09] MEDS: ROCEPHIN 1000 MG IV (11:29)
--- NOTE | 2024-07-09 11:30 | W.PN.HOSP.TC ---
Today's Communication/Plan
-
Monitor blood pressure
Continue antibiotics-narrowed today
KALPESH Tuesday
Much in the ICU today
Wait for cultures
MRI of the brain
Assessment / Plan
Assessment / Plan
78yo F with PMHx of anemia, possible PUD followed by , Afib on eliquis, HFrEF, s/p ICD, HTN, glaucoma, frequent UTI, hyperthyroidism, GCA on high dose prednisone brought by after he found her confused and non-verbal sitting on the
side of the bed in AM. Developed hypotension overnight with Afib with RVR on 07/08/24. Managed for possible stroke and infection, likely pneumonia, but abd CT with termianl ileum thickening. Complicated with elevated troponin, anemia and ALCON.
states that by 07/08/2024 afternoon she was back to herself.
On examination earlier patient was awake and alert able to converse. was at bedside
Denies any discomfort
Cardiovascular system S1-S2 normal
Chest few scattered rales bilaterally
Abdomen soft and nontender
No pedal edema
CT chest without IV contrast 07/08/2024-bilateral interstitial and groundglass opacities most suspicious for pulmonary edema. Atypical infections would be difficult to completely exclude.
CT A/P 07/07/24-No obstructive uropathy. Patel catheter within urinary bladder, which is empty.Mild circumferential wall thickening of the terminal ileum. Suspicious for nonspecific terminal ileitis. However, no significant inflammatory soft tissue
stranding.Proximal appendix identified, and appears unremarkable. Distal appendix blends imperceptibly with the terminal ileum wall thickening.Rectal fecal impaction.Possible volume overload or mild congestive heart failure. Mild fatty infiltration
of liver. Stable hepatic cysts.
3 mm pancreatic low-attenuation/cystic structure. Possible distended side branch or intraductal papillary mucinous neoplasm. This may be slightly more pronounced compared to prior examination, or possibly related to differences in slice thickness
and selection. Recommend follow-up in 2-[address]-no acute changes
CTA head and neck-no high-grade stenosis or occlusion of [place] or artery vasculature in the neck less than 50% stenosis bilateral carotid bulbs.
ECHO- Normal left ventricular size with mildly reduced systolic function. LVEF 47%.Anteroseptal wall dyskinesis.Normal right ventricular size with mildly reduced systolic function.Well-seated mitral annuloplasty ring with mean gradient 6
mmHg.Well-seated bioprosthetic aortic valve with mean gradient 12 mmHg and mild AR.Mild tricuspid regurgitation. PASP 27 mmHg.Compared to prior echocardiogram on 08/17/2023, there is now mild paravalvular
aortic regurgitation. No obvious vegetations visualized.
A/P
#Shock
Unclear reason septic shock versus cardiogenic shock
s/p norepinephrine -wean off as tolerated
CT chest-no convincing evidence of pneumonia
Procalcitonin 6.33
Vanco/Zosyn -changed to ceftriaxone and doxycycline
Influenza negative Legionella and strep antigen negative, COVID-19 serology negative
UA neg for infection
For KALPESH Tuesday
Cultures are negative so far
#Aphasia, then word finding difficulty with acute metabolic encephalopathy, concern for CVA
Unclear if patient has TME secondary to underlying cognitive dysfunction and some kind of infection.
high risk for stroke 2/2 GCA
CTA head: bilateral carotid bulbs contributing to less than 50% stenosis, no LVO
Neuro consult, Hold Eliquis until MRI brain results
Normal TSH and HgbA1c
Continue ASA, high dose statin
#Acute urinary retention
Patel and target early TOV
Urinalysis without any evidence of infection
#Pulmonary edema, possible mild acute on chronic HFrEF
Afib with RVR
Elevated troponin, most likely non-ischemic myocardial injury and 2/2 tachycardia and CHF
Amio drip changed to PO by cards
Hold beta-blockers and Lasix secondary to hypotension
ProBNP 5500
Continue telemetry
Cardiology following
KALPESH planned for Tuesday
# History of mitral annuloplasty and bioprosthetic aortic valve replacement
# Elevated-trending down. Likely nonischemic myocardial injury
# Hypokalemia-replace
#ALCON
Had CTA head neck in ED, cannot exclude JUAN
Urinary studies- [place]
already with patel
follow Cr
Nephrology has been consulted
# Anemia, macrocytic, acute on chronic
Slightly elevated LDH. Haptoglobin pending
Transfuse as needed - obtained consent from obtained over the phone
Severe Iron deficiency-will need IV iron
GI consulted.
No plans for endoscopy
# 5 mm segment of the terminal ileum with mild circumferential wall thickening
closely related to appendix, but no definite appendicitis signs on CT - USS appendix not visualised.
Patient does not have right lower quadrant tenderness or pain.
May need outpatient colonoscopy and EGD as OP per GI.
MRI-E given the concern for possible terminal ileitis as an outpatient
# Fecal impaction-Resolved. Had BMs.
# Insomnia-cont Remeron, melatonin
# GCA/reactive arthritis-continue steroids. Follows with . Was on 4 mg of methylprednisolone twice daily
# Hyperthyroidism,cont Methimazole,TSH, FT4, FT3 WNL
# Chronic left cerebellar infarct.
# Neuropathy NOS-continue Gabapentin
# Glaucoma-continue Combigan eyedrops, latanoprost eyedrops
# 3 mm pancreatic low-attenuation cystic structure-outpatient follow-up
# History of C. difficile infection
# History of breast cancer with right breast lumpectomy
# History of melanoma status post excision from back in 2007 and thigh in 2008
# History of pacemaker/AICD March 2015
# Hypoalbuminemia
# Osteoarthritis/DDD/gout
# DVT ppx on SCDs
# Full code - discussed in details with family bedside
Discussed with at side
Discussed with nursing
Discussed with departmental buyer and cardiology
Total Critical Care Time 40 minutes. I was immediately available to the patient and staff. I personally examined, reviewed labs, diagnostic images/reports, interpretations, treatment plans, discussed patient care with other providers and family ,
entered orders as appropriate and documented the medical record.
Anticipated Discharge: > 48 hours
Subjective/Interval History
-
Date of Service: July 09, 2024
Objective Data
-
Labs:
Laboratory Results
07/08/24 07/09/24
23:46 04:09
WBC 10.1
Hgb 8.0 L 8.3 L
Hct 22.9 L 23.7 L
Plt Count 196 D
Sodium 139
Potassium 2.9 L
Chloride 107
Carbon Dioxide 21 L
BUN 26 H
Creatinine 1.2 H
Glucose 234 H
Calcium 7.7 L
Total Bilirubin 1.1
AST 28
ALT 25
Alkaline Phosphatase 56
Vital Signs:
Vital Signs
Temp Pulse Resp BP Pulse Ox
97.6 F 76 25 113/59 98
07/09/24 08:00 07/09/24 11:26 07/09/24 11:00 07/09/24 11:26 07/09/24 11:00
I&O
07/08/24 07/09/24 07/10/24
06:59 06:59 06:59
Intake Total 1305.6 / 1325.3 1637.9 / 1744.6 886.0 / 886.0
Output Total 560 / 560 1750 / 1750 275 / 275
Balance 745.6 / 765.3 -112.1 / -5.4 611.0 / 611.0
[2024-07-09] MEDS: VIBRAMYCIN 100 MG PO ×2 (11:40→19:32)
[2024-07-09 12:09] LABS: Glucose - Point of Care 138 mg/dl (70-99)
[2024-07-09] MEDS: NOVOLOG FLEXPEN-MODERATE RESISTANCE SC ×2 (12:14→17:19)
--- NOTE | 2024-07-09 12:59 | W.PN.NEPH.PH ---
Today's Communication / Plan
-
cont supportive care
Assessment/Plan
-
IMP:
Aphasia, acute metabolic encephalopathy
Abdominal pain with Hx of frequent UTI
Acute urinary retention
possible mild acute on chronic HFrEF
P Afib with RVR
Anemia
Insomnia
GCA
Hyperthyroidism
Plan:
A/w AMS, neg CTA, also with CHF
ALCON-bland UA, no hydro on CT
suspect prerenal/cardiorenal and JUAN
cr slightly better at 1.2
non oliguric, ok for VT when ready
holding lasix, wt is down today and replace k
Bp stable, BB on hold
echo noted EF 47%, eventual KALPESH
MRI today
follow labs
d/w family at bedside
will s/o, call with ?s
-
-
Date of Service: July 09, 2024
CC / HPI / ROS
-
Chief Complaint:
ALCON
History of Present Illness:
cr slightly better at 1.2
k low 2.9
Bp stable off pressors
nonoliguric with patel
Review of Systems:
no cp or sob at rest
feels well today and conversing more
Labs
-
Labs:
WBC 10.1 10^3/uL (4.8-10.8) 07/09/24 04:09
RBC 2.45 10^6/uL (4.20-5.40) L 07/09/24 04:09
Hgb 8.3 g/dL (12.0-16.0) L 07/09/24 04:09
Hct 23.7 % (37.0-47.0) L 07/09/24 04:09
Plt Count 196 10^3/uL (130-400) D 07/09/24 04:09
Sodium 139 mmol/L (135-145) 07/09/24 04:09
Potassium 2.9 mmol/L (3.5-5.1) L 07/09/24 04:09
Chloride 107 mmol/L (98-107) 07/09/24 04:09
Carbon Dioxide 21 mmol/L (22-30) L 07/09/24 04:09
BUN 26 mg/dl (7-17) H 07/09/24 04:09
Creatinine 1.2 mg/dL (0.6-1.0) H 07/09/24 04:09
eGFR 45.76 07/09/24 04:09
Glucose 234 mg/dl (70-99) H 07/09/24 04:09
Calcium 7.7 mg/dl (8.4-10.2) L 07/09/24 04:09
Qsn-A-Apqmyidvrag Pept 5500 pg/ml 07/07/24 07:38
Albumin 2.9 g/dl (3.5-5.0) L 07/09/24 04:09
Physical Exam
-
Vital Signs:
Vital Signs
Temp Pulse Resp BP Pulse Ox
97.6 F 74 29 104/58 97
07/09/24 11:35 07/09/24 12:00 07/09/24 12:00 07/09/24 12:00 07/09/24 12:00
Cardiovascular:: Regular rate and rhythm
Respiratory:: Bilateral: Rales
Lung Excursion:: Normal
Abdomen:: Nontender and Soft
Extremity Edema:: None: Bilateral:
Patel Catheter: Yes
--- NOTE | 2024-07-09 14:16 | PTCARENOTE ---
1230-Assumed care of pt.NIHSS completed in tandem with outgoing RN.+GAR.No drift or droop.Speech is appropriate.NIHSS 0.Denies pain.SR with 1st AVB and prolonged QT noted.Lungs CTA.Slight BANEGAS noted.Pt continent and incontinent for moderate liquid
brown stool.Rios draining yellow urine.Skin integrity as documented.Pt's at bedside.Pt declines getting OOB [place] [address]/10 as per control technician.Plan of care discussed.
--- NOTE | 2024-07-09 15:15 | CM ---
Chart reviewed
For KALPESH Tuesday
Started midodrine
PT/OT eval pending
MRI pending
Plan - TBD based on pt needs; CM will follow
[2024-07-09 15:38] LABS: Vitamin D, 25-OH*** 36.1 ng/mL (30-80)
--- NOTE | 2024-07-09 16:00 | PTCARENOTE ---
Pt assessed.No change in assessment noted.
[2024-07-09] MEDS: LIPITOR 80 MG PO (17:31)
[2024-07-09 17:39] LABS: Glucose - Point of Care 100 mg/dl (70-99)
[2024-07-09] MEDS: DELTASONE 5 MG PO (19:35)
[2024-07-09] MEDS: PROTONIX 40 MG PO (19:35)
--- NOTE | 2024-07-09 20:24 | PTCARENOTE ---
Pt received start of shift, HR SR w/ 1st degree AVB and prolonged QT on telemetry. NIH completed at bedside with outgoing RN, JONN 0. Rios draining clear yellow urine. Pt refusing PM miralax. Tolerating PO meds w/ applesauce. Educted pt on plan of
care, pt states understanding.
[2024-07-09 21:42] LABS: Glucose - Point of Care 102 mg/dl (70-99)
[2024-07-09] MEDS: NEURONTIN 200 MG PO (22:42)
[2024-07-09] MEDS: XALATAN OPHTHALMIC SOLUTION 1 DROP BOTH EYES (22:42)
[2024-07-09] MEDS: REMERON 7.5 MG PO (22:42)
[2024-07-10] VITALS (37 sets, daily range): BP systolic 96–147; BP diastolic 47–90; PULSE 85–89; O2SAT 95–96; BMI 21.3
--- NOTE | 2024-07-10 00:27 | PTCARENOTE ---
BM x2. Rings appropriately. NIH remains 0. Rios continues to drain yellow urine.
[2024-07-10 04:55] LABS: Hematocrit 22.7 % (37.0-47.0); Hemoglobin 7.6 g/dL (12.0-16.0); Mean Corp Hgb Conc. 33.5 g/dL (33.0-37.0); Mean Corpuscular Volume 98.7 fL (81.0-99.0); Mean Platelet Volume 10.3 fL (7.4-10.4); Platelet Count 204 10^3/uL (130-400); Red Cell Dist. Width 19.7 % (11.5-14.5); White Blood Cell Count 7.5 10^3/uL (4.8-10.8)
[2024-07-10 05:10] LABS: Blood Urea Nitrogen 16 mg/dl (7-17); Calcium 7.9 mg/dl (8.4-10.2); Carbon Dioxide 22 mmol/L (22-30); Chloride 113 mmol/L (98-107); Estimated Creatinine Clearance 34 ml/min; Glucose 97 mg/dl (70-99); Potassium 3.3 mmol/L (3.5-5.1); Sodium 143 mmol/L (135-145); eGFR 56.95
[2024-07-10] MEDS: KCL 270 MEQ IV (05:45)
--- NOTE | 2024-07-10 05:48 | PTCARENOTE ---
K low on AM labs. ICU MONITOR WORKER aware, K reyna ordered. Blanca pulled per order.
[2024-07-10] MEDS: ProAmatine 5 MG PO ×2 (07:48→12:31)
[2024-07-10] MEDS: FEOSOL 325 MG PO (07:48)
[2024-07-10] MEDS: TAPAZOLE 2.5 MG PO (07:48)
[2024-07-10] MEDS: LOW STRENGTH ASPIRIN 81 MG PO (07:49)
[2024-07-10] MEDS: PROTONIX 40 MG PO ×2 (07:49→20:31)
[2024-07-10] MEDS: PACERONE 400 MG PO ×2 (07:49→20:31)
[2024-07-10] MEDS: DELTASONE 5 MG PO ×2 (07:49→20:30)
[2024-07-10] MEDS: VIBRAMYCIN 100 MG PO ×2 (07:49→20:31)
[2024-07-10] MEDS: ALPHAGAN 0.2% EYE DROPS 1 DROP BOTH EYES ×2 (07:50→20:28)
[2024-07-10] MEDS: TIMOPTIC 0.5% OPHTHALMIC SOLUTION 1 DROP BOTH EYES ×2 (07:50→20:29)
[2024-07-10 08:09] LABS: Glucose - Point of Care 99 mg/dl (70-99)
[2024-07-10] MEDS: NOVOLOG FLEXPEN-MODERATE RESISTANCE SC ×3 (08:27→17:26)
--- NOTE | 2024-07-10 09:31 | PTCARENOTE ---
report received, assessments per work list. monitor nsr with pac, prolonged qt and AVB. lungs with crackles, mildly dyspneic with exertion. multiple soft brown bowel movements. assisted to commode then chair. tolerating oral intake. call laguerre in
reach
--- NOTE | 2024-07-10 09:51 | W.PN.HOSP.TC ---
Today's Communication/Plan
-
MRI of the brain
Discontinue Patel catheter
Restart beta-imani
No dose of IV Cardizem for rapid rates
Complete course of antibiotics-patient has URI symptoms now-possibly had atypical pneumonia
Moving forward anticoagulation may be problematic given hemoglobin of 7.5
IV iron
Assessment / Plan
Assessment / Plan
78yo F with PMHx of anemia, possible PUD followed by , Afib on eliquis, HFrEF, s/p ICD, HTN, glaucoma, frequent UTI, hyperthyroidism, GCA on high dose prednisone brought by after he found her confused and non-verbal sitting on the
side of the bed in AM. Developed hypotension overnight with Afib with RVR on 07/08/24. Managed for possible stroke and infection, likely pneumonia, but abd CT with termianl ileum thickening. Complicated with elevated troponin, anemia and ALCON.
states that by 07/08/2024 afternoon she was back to herself.
On examination earlier patient was awake and alert .
Denies any discomfort
Cardiovascular system S1-S2 irregular
Chest few scattered rales bilaterally
Abdomen soft and nontender
No pedal edema
CT chest without IV contrast 07/08/2024-bilateral interstitial and groundglass opacities most suspicious for pulmonary edema. Atypical infections would be difficult to completely exclude.
CT A/P 07/07/24-No obstructive uropathy. Patel catheter within urinary bladder, which is empty.Mild circumferential wall thickening of the terminal ileum. Suspicious for nonspecific terminal ileitis. However, no significant inflammatory soft tissue
stranding.Proximal appendix identified, and appears unremarkable. Distal appendix blends imperceptibly with the terminal ileum wall thickening.Rectal fecal impaction.Possible volume overload or mild congestive heart failure. Mild fatty infiltration
of liver. Stable hepatic cysts.
3 mm pancreatic low-attenuation/cystic structure. Possible distended side branch or intraductal papillary mucinous neoplasm. This may be slightly more pronounced compared to prior examination, or possibly related to differences in slice thickness
and selection. Recommend follow-up in 2-[address]-no acute changes
CTA head and neck-no high-grade stenosis or occlusion of the [place] of [place] or artery vasculature in the neck less than 50% stenosis bilateral carotid bulbs.
ECHO- Normal left ventricular size with mildly reduced systolic function. LVEF 47%.Anteroseptal wall dyskinesis.Normal right ventricular size with mildly reduced systolic function.Well-seated mitral annuloplasty ring with mean gradient 6
mmHg.Well-seated bioprosthetic aortic valve with mean gradient 12 mmHg and mild AR.Mild tricuspid regurgitation. PASP 27 mmHg.Compared to prior echocardiogram on 08/17/2023, there is now mild paravalvular
aortic regurgitation. No obvious vegetations visualized.
A/P
#Shock
Unclear reason septic shock versus cardiogenic shock
s/p norepinephrine -weaned off
CT chest-no convincing evidence of pneumonia, patient does report upper respiratory symptoms now
Procalcitonin 6.33
Vanco/Zosyn -changed to ceftriaxone and doxycycline-complete the course for atypical pneumonia
Influenza negative Legionella and strep antigen negative, COVID-19 serology negative
UA neg for infection
For KALPESH Tuesday
Cultures are negative so far
#Aphasia, then word finding difficulty with acute metabolic encephalopathy, concern for CVA
Unclear if patient has TME secondary to underlying cognitive dysfunction and infection.
high risk for stroke 2/2 GCA
CTA head: bilateral carotid bulbs contributing to less than 50% stenosis, no LVO
Neuro consult, Hold Eliquis until MRI brain results
Normal TSH and HgbA1c
Continue ASA, high dose statin
#Acute urinary retention
Patel and target early TOV
Urinalysis without any evidence of infection
#Pulmonary edema, possible mild acute on chronic HFrEF
Afib with RVR
Give one time IV cardizem and resume BB
Elevated troponin, most likely non-ischemic myocardial injury and 2/2 tachycardia and CHF
Amio drip changed to PO by cards
Hold beta-blockers and Lasix secondary to hypotension
ProBNP 5500
Continue telemetry
Cardiology following
KALPESH planned for Tuesday
# History of mitral annuloplasty and bioprosthetic aortic valve replacement
# Elevated-trending down. Likely nonischemic myocardial injury
# Hypokalemia-replace
#ALCON
Resolved
Had CTA head neck in ED, cannot exclude JUAN
Urinary studies- [place]
DC patel
Nephrology has been consulted
# Anemia, macrocytic, acute on chronic
Slightly elevated LDH. Haptoglobin pending
Transfuse as needed - obtained consent from obtained over the phone
Severe Iron deficiency- IV iron ordered
GI consulted.No plans for endoscopy
# 5 mm segment of the terminal ileum with mild circumferential wall thickening
closely related to appendix, but no definite appendicitis signs on CT - USS appendix not visualised.
Patient does not have right lower quadrant tenderness or pain.
May need outpatient colonoscopy and EGD as OP per GI.
MRI-E given the concern for possible terminal ileitis as an outpatient
# Fecal impaction-Resolved. Had BMs.
# Insomnia-cont Remeron, melatonin
# GCA/reactive arthritis-continue steroids. Follows with . Was on 4 mg of methylprednisolone twice daily
# Hyperthyroidism,cont Methimazole,TSH, FT4, FT3 WNL
# Chronic left cerebellar infarct.ASA
# Neuropathy NOS-continue Gabapentin
# Glaucoma-continue Combigan eyedrops, latanoprost eyedrops
# 3 mm pancreatic low-attenuation cystic structure-outpatient follow-up
# History of C. difficile infection
# History of breast cancer with right breast lumpectomy
# History of melanoma status post excision from back in 2007 and thigh in 2008
# History of pacemaker/AICD March 2015
# Hypoalbuminemia
# Osteoarthritis/DDD/gout
# DVT ppx on SCDs
# Full code
Discussed with nursing
Discussed with technical developer and ICU team
Anticipated Discharge: > 48 hours
Subjective/Interval History
-
Date of Service: July 10, 2024
Objective Data
-
Labs:
Laboratory Results
07/10/24
04:36
WBC 7.5
Hgb 7.6 L
Hct 22.7 L
Plt Count 204
Sodium 143
Potassium 3.3 L
Chloride 113 H
Carbon Dioxide 22
BUN 16
Creatinine 1.0
Glucose 97
Calcium 7.9 L
Vital Signs:
Vital Signs
Temp Pulse Resp BP Pulse Ox
98.4 F 93 27 119/81 93
07/10/24 08:21 07/10/24 09:00 07/10/24 09:00 07/10/24 09:00 07/10/24 05:00
I&O
07/09/24 07/10/24 07/11/24
06:59 06:59 06:59
Intake Total 1637.9 / 1744.6 1726.0 / 1726.0 240 / 240
Output Total 1750 / 1750 975 / 975
Balance -112.1 / -5.4 751.0 / 751.0 240 / 240
--- NOTE | 2024-07-10 10:24 | W.PN.INTV ---
Today's Communication / Plan
Recommendations
- Continue antibiotics for 5 days
- Start Lopressor 12.5 mg p.o. twice daily in view of rapid ventricular rate, titrate as tolerated by blood pressure
- Replace potassium
- Continue to hold Lasix today, check BNP in the a.m.
Assessment
-
Assessment: 78-year-old female with past medical history of Afib on eliquis, HFrEF, s/p ICD, HTN, glaucoma, frequent UTI, hyperthyroidism, GCA on prednisone who presented with confusion, last known normal the night prior at 10 PM. She had a
headache with worsening left-sided abdominal pain the night prior. In the ER, a stroke alert was called with CT head showing no acute intracranial abnormality, and CTA head/neck showing no high-grade stenosis, LVO, and <50% stenosis of the
bilateral carotid bulbs. Neurology was consulted to evaluate for tPA and she was not considered a candidate due to active systemic anticoagulation with Eliquis. Initial labs showed Hb 10.6, glucose 102, troponin 0.041, CRP 47.3, proBNP 5500, TSH
3.71, urinalysis with no signs of UTI, and COVID-19 antigen negative. Flu swab A/B both negative + blood cultures were obtained. She was found to be in rapid A-fib with heart rate in the 150s, BP initially 150/102, and saturating 95% on room air.
In the ER she was given 20 mg IV Lasix +2.5mg Lopressor. She was initially admitted to telemetry. Throughout the evening on 07/07 - 07/08, heart rate became more uncontrolled with rates in the 130�180s and she became hypotensive. Amiodarone drip
started and Levophed also started, and patient transferred to the ICU for further care. [facility] [employer] service was consulted for additional management/recommendations.
Chronic conditions [place]: R Breast cancer (2003) s/p lumpectomy, XRT + chemo, malignant melanoma - RUE (2011), A-fib on eliquis, hyperthyroidism, HTN, chronic HFrEF, NICM, IBS, inflammatory arthropathy, glaucoma, FRITZ, polyneuropathy, giant cell
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
Assessment and plan:
#1. Acute respiratory failure due to pulmonary edema, and possibly multifocal pneumonia
-Patient received Lasix earlier, currently on hold due to hypotension. CXR signofocantly improved, more suggestive of Pulm edema.
-MRSA screen negative, discontinueed vancomycin
-Influenza A, B, COVID, Legionella and pneumococcal antigen negative. Discontinued Zosyn and switched to Rocephin, continue doxycycline for CAP (07/09)
-Hold lasix for now
-Target 5 days of antibiotics
#2. Acute on chronic HFrEF exacerbation, EF 47% with Minh=septal wall hypokinesis. PAST 27 mm. Well seated Mitral Annuloplasty and well seated bioprosthetic AV with mild AR as per ECHO 06/2024.
-Lasix currently on hold in view of hypotension
-Strict input/output. -396 mL over last 24 hours
-Follow-up chest x-ray with improved Pulmonary edema. BNP in AM.
#2a. A-fib with rapid ventricular rate. Patient back in A fib with RVR this am (07/10)
- Amiodarone IN has been switched to PO
- Low dose Lopressor as tolerated. Getting Cardizem IV bolus
- Eliquis on hold pending brain MRI
#3. Shock, cardiogenic versus septic related to pneumonia. Atrial fibrillation with rapid ventricular rate likely also contributed. With CXR significantly improved, suspect CHF more likely than pneumonia
- On midodrine 5 mg 3 times daily. Off Levophed since 10 am, 07/09.
- Continue antibiotic, ceftriaxone and doxycycline, follow-up on cultures, total 5 days
- Nonspecific terminal ileal inflammation noted on CT, GI service on case, no abdominal pain noted on exam
- KALPESH in AM for further evaluation.
#4. Acute encephalopathy, ? CVA versus underlying neurocognitive deficit. Reportedly having some memory issues over the last 6 [address] has been unremarkable, neurology service on case
-TSH and B12 unremarkable
-MRI brain today
-Patient currently awake, alert and oriented x 3.
#5. Acute kidney injury, nonoliguric, admission creatinine was 0.9, went up to 1.2, now 1.0. Suspect related to hypotension, diuresis. Patient received IV contrast for CT, contrast nephropathy also in differential diagnosis.
- Maintain MAP above 65, continue to hold diuresis
- Replace low K with KCL PO.
#6. S/p mitral annuloplasty + bioprosthetic AVR, h/o V Fib, s/o AICD (2016)
- 2-D Echo reassuring
- KALPESH in AM in view of suspected cardiogenic shock.
#7. History of suspected giant cell arteritis, on chronic steroid therapy. (Follows up with rheumatology service, Dr. Crain)
- Lately had been on 8 mg of methylprednisolone daily, 4 mg in the morning, 4 in the afternoon and 2 at night.
- Switched IV hydrocortisone to prednisone 5 mg twice a day. Further titration as out patient
#8. Anemia
- Eliquis currently on hold, no melena or hematochezia noted, GI service on case
- Unless patient shows signs of active bleeding, further workup as outpatient
DVT prophylaxis, Eliquis currently on hold, will resume if MRI negative
GI prophylaxis, currently on Protonix
Continue ICU level of care for this critically ill patient. Updated patient's at bedside
Critical care statement: A total of 52 minutes of critical care time was provided for this patient today. This includes management of unstable vital signs, evaluation of the patient at bedside, reviewing the patient's pertinent medical records
including radiographs, microbiology, laboratory evaluations, and discussion with primary team, consultants, pharmacy, nutrition, physical therapy, case management, charge nurse, critical care nursing, and respiratory therapy.
Data:
Transthoracic echocardiogram 07/08/2024:
Normal left ventricular size with mildly reduced systolic function. LVEF 47%.
Anteroseptal wall dyskinesis.
Normal right ventricular size with mildly reduced systolic function.
Well-seated mitral annuloplasty ring with mean gradient 6 mmHg.
Well-seated bioprosthetic aortic valve with mean gradient 12 mmHg and mild AR.
Mild tricuspid regurgitation. PASP 27 mmHg.
Compared to prior echocardiogram on 08/17/2023, there is now mild paravalvular
aortic regurgitation. No obvious vegetations visualized. Echocardiogram is
otherwise stable.
CT chest 07/08/2024: Bilateral interstitial and groundglass pulmonary opacities most suspicious for pulmonary edema. Other etiologies including an atypical infectious process would be difficult to completely exclude.
Subjective Dataa
Subjective Data
Date of Service:
Date of Service: July 10, 2024
Subjective:
Patient is awake, alert, comfortably sitting in chair, in no acute distress.
Review of Systems
Genitourinary: Other (All 14 systems reviewed and negative except as stated above in the history of present illness.)
Objective Data
Data Reviewed
Vital Signs / I&O / Oxygen:
Vital Signs
Temp Pulse Resp BP Pulse Ox
98.4 F 93 27 119/81 93
07/10/24 08:21 07/10/24 09:00 07/10/24 09:00 07/10/24 09:00 07/10/24 05:00
Intake and Output
07/09/24 07/10/24 07/11/24
06:59 06:59 06:59
Intake Total 1637.9 / 1744.6 1726.0 / 1726.0 240 / 240
Output Total 1750 / 1750 975 / 975
Balance -112.1 / -5.4 751.0 / 751.0 240 / 240
SaO2 93
Nasal Cannula flow liters per 2
minute
Physical Exam
General: Comfortable
HEENT: Normocephalic
Cardiovascular: S1-S2
Respiratory: Clear and Non-Labored Respirations
GI: Soft and Non Distended
Neurology: Awake, Alert and Oriented
Skin: Warm
Labs/Micro/Reports
Lab Data
07/10/24 04:36
07/10/24 04:36
Microbiology
07/07/24 10:22 Blood/Venous Blood Culture - Preliminary
No Growth in 48 hours- Final report to follow
07/07/24 10:22 Blood/Venous Blood Culture - Preliminary
No Growth in 48 hours- Final report to follow
07/08/24 09:03 Nose MRSA Screen - Final
No Methicillin Resistant Staphylococcus aureus isolated.
07/08/24 11:57 Urine Legionella Urinary Antigen - Final
Negative for Legionella pneumophila Serogroup 1 antigen.
A negative result does not rule out the possiblity of
Legionella infection due to other serogroups or species of
Legionella. Clinical correlation is recommended.
07/08/24 11:57 Urine Streptococcus pneumoniae Antigen (M - Final
Negative for Streptococcus pneumoniae antigen.
A negative result does not exclude infection with
Streptococcus pneumoniae. Clinical correlation is
recommended.
07/08/24 09:03 Nose Nasal Screen MRSA (PCR) - Final
07/08/24 03:12 Nose Nasal Screen MRSA (PCR) - Final
07/07/24 10:09 Nasal Swab Influenza Types A & B (HANH) - Final
Negative for Influenza A & B, NAAT
Negative results must be combined with clinical observations
and patient history.
Nucleic Acid Amplification test (NAAT)performed on the
[employer] platform.
[2024-07-10] MEDS: CARDIZEM 5 MG IV (10:29)
[2024-07-10] MEDS: LOPRESSOR 12.5 MG PO ×2 (10:30→11:17)
--- NOTE | 2024-07-10 10:44 | PTCARENOTE ---
patient just prior to transport to MRI rhythm changed to afib, confirm with ekg. parts room assistant, hospitalist, cards updated. transport to MRI. per tech upon interrogation of pacer, they were unable to complete MRI due to heart rate 120's. returned from
MRI. parts room assistant, automotive drivability technician, hospitalist updated. stat medication administered. patient remains in afib. with periods nsr avb. rate 90-110
[2024-07-10] MEDS: KCL ELIXIR 40 MEQ PO (10:49)
--- NOTE | 2024-07-10 11:13 | W.PN.CD ---
Today's Communication / Plan
-
KALPESH tomorrow
Cont amio increased metop
Possible IV lasix this afternoon
Standing weight daily
Impression / Plan
-
Mrs. Cisneros is an 78 yo female with paroxysmal Afib on Eliquis, anemia, HFrEF, EF 35-40%, [employer] ICD, HTN, s/p MV annuloplasty ring, moderate mitral regurgitation, bioprosthetic aortic valve, GCA on prednisone, who was brought to the ER by
family for confusion. Cardiology consulted for atrial fibrillation with RVR.
Shock, resolved
-Required norepinephrine briefly on 07/07, now stopped. Suspect sepsis rather than cardiogenic given that her EF is stable on echo
-No infectious source at this time. Maybe pneumonia? Blood cultures pending. Has new mild paravalvular AR on echo. If blood cultures turn positive, needs KALPESH.
-Continue infectious workup and broad-spectrum antibiotics
- KALPESH tomorrow to rule out endocarditis
Acute hypoxic respiratory failure
-She has bilateral infiltrates on chest x-ray, elevated NT proBNP, and crackles. Likely has some component of acute on chronic HFrEF, but her BNP is lower than it has been in the past and she examines otherwise euvolemic, so I wonder if there is an
additional pulmonary process going on.
-Lasix 40 mg IV this afternoon
-Strict I/Os, daily standing weights
Paroxysmal atrial fibrillation with RVR
-Started on IV amiodarone on 07/07 PM due to RVR and hypotension. Now back in sinus rhythm.
-Convert to p.o. amiodarone
-BP are lower will switch coreg to metop
-No Eliquis due to concern for stroke
Acute on chronic HFrEF
-Severe exacerbation requiring IV diuresis and close monitoring of labs and telemetry
-TTE 07/08/2024: LVEF 47%, stable anteroseptal dyskinesis, normal mitral and aortic valve gradients, mild paravalvular AR, normal PASP
-Lasix as above
-Hold carvedilol for recent hypotension
-Has not been able to tolerate any other GDMT due to hypotension and frequent UTIs
-S/p ICD
Altered mental status
-CT head and CTA head/neck are unremarkable. TSH normal. No evidence of UTI by UA.
-Brain MRI today
-Neurology following
-Hold Eliquis
Troponin elevation
-Likely due to nonischemic myocardial injury in the setting of heart failure exacerbation +/- A-fib with RVR with ALCON. She denies chest pain. ECG with stable LBBB.
-No treatment for ACS at this time. I have a low suspicion for ACS and worry that she has an intracranial process we can make worse with heparin.
CCT: 32 minutes
Subjective: She feels well today no new complaints
Physical Exam
Vital Signs/Labs
Vital Signs
Temp Pulse Resp BP Pulse Ox
98.4 F 128 27 117/74 93
07/10/24 08:21 07/10/24 10:30 07/10/24 09:00 07/10/24 10:30 07/10/24 05:00
07/09/24 07/10/24 07/11/24
06:59 06:59 06:59
Actual Weight 112 lb 10.499 oz 112 lb 14.027 oz
07/10/24 04:36
07/10/24 04:36
PT 15.5 Sec (11.4-14.6) H 07/07/24 10:09
INR 1.20 07/07/24 10:09
APTT 32.2 Sec (23.4-35.0) 07/07/24 10:09
Magnesium 2.2 mg/dl (1.6-2.3) 07/09/24 04:09
Triglycerides 147 mg/dl (10-149) 07/08/24 03:12
LDL Cholesterol, Calc 46 mg/dl 07/08/24 03:12
VLDL Cholesterol, Calc 29 mg/dl (0-30) 07/08/24 03:12
HDL Cholesterol 31 mg/dl 07/08/24 03:12
TSH 3.71 uIU/ml (0.47-4.68) 07/07/24 07:38
Free T4 1.44 ng/dl (0.78-2.19) 07/07/24 07:38
07/07/24
07:38
[id number] Pept 5500
LAB Results
07/07/24 07/07/24 07/07/24
07:38 13:27 18:30
Troponin I 0.041 H* 0.195 H* D Cancelled
07/07/24 07/08/24 07/08/24
19:53 03:12 07:37
Troponin I 0.213 H* 0.304 H* D 0.408 H* D
07/08/24
16:10
Troponin I 0.215 H*
Physical Exam
Constitutional: No acute distress and Comfortable
EENT: Anicteric
Cardiovascular: Rhythm/rate is irregular
Respiratory: Respiratory effort normal and Lungs clear to auscul.
GI: Soft
Neuro/Psych: Alert and Oriented
Data Reviewed
-
Date of Service: July 10, 2024
EKG: Tracing Personally Visualized and interpreted (af)
Echo: Report Reviewed by me
Labs: Labs Reviewed by me
[2024-07-10] MEDS: STERILE WATER FOR INJECTION 10 ML IV (11:18)
[2024-07-10] MEDS: ROCEPHIN 1000 MG IV (11:18)
[2024-07-10 11:45] LABS: Glucose - Point of Care 131 mg/dl (70-99)
[2024-07-10 11:46] LABS: Haptoglobin 181 mg/dL (30-200)
[2024-07-10] MEDS: FERRLECIT 110 MG IV (12:31)
--- NOTE | 2024-07-10 12:42 | PTCARENOTE ---
reassessed.patient returned to nsr, avb prolonged qt. no void since patel removed this am. bladder scan 41 ml. having multiple soft stools on bedside commode. oob to chair for lunch. spouse at bedside updated
--- NOTE | 2024-07-10 13:14 | PN.CDI ---
CDI
- -
CDI:
Physician Documentation Request
Admit Date: 07/07/24 10:37
Dear Doctor Amanda,
Patient presented to ED with a change in mental status.
Director Social progress notes include a diagnosis of 'Acute respiratory failure due to pulmonary edema, and possibly multifocal pneumonia'
Per documented vital signs, patient has not exceeded 4L
Recognized standard criteria for respiratory failure includes:
(Source: [facility] Hospitalist Jan 2013)
ABGs (1 or more)
�PaO2 <60 or RA SpO2 <91%
�PaCO2 >45 and pH <7.35
�pO2 decrease or pcO2 increase by 10 mmHg from baseline if known Symptoms:
�Tachypnea, SOB, dyspnea
�Pallor or cyanosis
�Anxiety or restlessness
�Use of accessory muscles
�Retractions (grunting in newborns)
�Unable to speak in complete sentences
Supplemental O2 requirement of 40% (5LPM) or more Intubation is not required
Based on the above information and the recognized standard for respiratory failure could you please verify this diagnoses is still accurate and reflective of the patient�s condition to ensure quality of the medical record.
Please clarify in the Progress Notes:
�Respiratory failure is/was present and is a clinical diagnosis based on (please include this additional support in the medical record)
�After study respiratory failure has been ruled out
�Other
Use of terms such as suspected, likely, concern for, or probable (associated with a specific diagnosis that is being evaluated, monitored, or treated as if it exists) are acceptable and can be coded in the inpatient setting, when documented at the
time of discharge.
Thank you,
Ana Garcia RN, BSN
CDI Specialist
tiger text
Please use your independent medical judgment in providing your response.
--- NOTE | 2024-07-10 14:50 | CM ---
CM following re: discharge planning.
Reviewed pt' chart, met with pt.
Per chart review, MRI tomorrow, KALPESH tomorrow, continue supportive care.
Pt has been living with in an independent apartment at [facility], has 2supportive sons. Per pt ambulates with a cane inside the apartment, uses a walker and a w/c for a long distance.
Per if pt needs SNF they preferred [facility], [facility] or [facility]. If acute rehab recommended, family preferred [facility]. Per pt was before at [facility] and [facility]
and she did not have a good experience.
PT, OT evaluations pending. ST recommends skilled services.
D/C plan: SNF vs acute rehab. Awaiting for PT, OT evaluations and recommendations.
CM will follow with discharge plan updates as hospitalization progresses
--- NOTE | 2024-07-10 15:52 | PTCARENOTE ---
Addendum entered by Emerita Dorman RN 07/10/24 19:08:
appetite improved with advancement of diet. in and out of afib. report to oncoming RN
Original Note:
patient reassessed. oob with PT to commode. increased dyspnea with minimal exertion. heart rate 130's with activity. after period recovery sitting in chair, heart rate 90's. crackles unchanged from initial assessments. voided small amount urine.
continues to have frequent loose soft brown stools. abdomen distended, soft with hyper active bowel sounds.ST@bedside.
[2024-07-10 17:08] LABS: Glucose - Point of Care 108 mg/dl (70-99)
[2024-07-10] MEDS: LIPITOR 80 MG PO (17:50)
[2024-07-10] MEDS: ProAmatine PO (17:50)
[2024-07-10] MEDS: XALATAN OPHTHALMIC SOLUTION 1 DROP BOTH EYES (20:29)
[2024-07-10] MEDS: REMERON 7.5 MG PO (20:30)
[2024-07-10] MEDS: NEURONTIN 200 MG PO (20:31)
[2024-07-10] MEDS: LOPRESSOR 25 MG PO (20:31)
[2024-07-10 21:35] LABS: Glucose - Point of Care 109 mg/dl (70-99)
--- NOTE | 2024-07-10 23:11 | PTCARENOTE ---
no changes in assessment. NIH 0. on 2L NC currently. NPO after 0000 for KALPESH. pt back and forth between SR and afib on monitor, HR 80-110s. offers no complaints at this time. call laguerre in reach.
[2024-07-11] VITALS (23 sets, daily range): BP systolic 88–148; BP diastolic 52–95; BMI 21.5
--- NOTE | 2024-07-11 04:35 | PTCARENOTE ---
Addendum entered by Caitlin Manning RN 07/11/24 04:42:
pt HR 110s-130s, ICU SUMMER INTERN aware, stat dose of lopressor ordered
Original Note:
AM labs sent. pt OOB with assist x2 to commode. denies SOB or CP. currently in afib on monitor. assessment unchanged. call laguerre in reach
[2024-07-11] MEDS: LOPRESSOR 2.5 MG IV (04:48)
[2024-07-11 04:56] LABS: Hematocrit 24.4 % (37.0-47.0); Hemoglobin 8.2 g/dL (12.0-16.0); Mean Corp Hgb Conc. 33.6 g/dL (33.0-37.0); Mean Corpuscular Hgb 33.7 pg (27.0-31.0); Mean Corpuscular Volume 100.4 fL (81.0-99.0); Mean Platelet Volume 10.5 fL (7.4-10.4); Platelet Count 273 10^3/uL (130-400); Red Blood Cell Count 2.43 10^6/uL (4.20-5.40); Red Cell Dist. Width 20.3 % (11.5-14.5); White Blood Cell Count 9.3 10^3/uL (4.8-10.8)
[2024-07-11 05:18] LABS: Blood Urea Nitrogen 15 mg/dl (7-17); Calcium 8.5 mg/dl (8.4-10.2); Carbon Dioxide 21 mmol/L (22-30); Chloride 111 mmol/L (98-107); Estimated Creatinine Clearance 34 ml/min; Glucose 115 mg/dl (70-99); Magnesium 1.9 mg/dl (1.6-2.3); Potassium 4.8 mmol/L (3.5-5.1); Sodium 140 mmol/L (135-145); eGFR 56.95
[2024-07-11 05:22] LABS: NT-proBNP 15900 pg/ml
--- NOTE | 2024-07-11 08:03 | W.PN.INTV ---
Today's Communication / Plan
Recommendations
- MRI brain, KALPESH pending
- stop midodrine
- start lopressor 25mg TID
- start eliquis
Assessment
-
Assessment:
78yo F pmh HFrEF (EF 47%), afib on eliquis, HTN, giant cell arteritis who presented with confusion. Pt reported ALTMAN w worsening L sided abdominal pain the night prior. In the ED, CT head and CTA head/neck showed no acute abnormalities or stenosis, pt
not given tPA due to active anticoagulation with eliquis. She later became hypotensive and tachycardic to the 180s so amiodarone and levophed drips were start and pt transferred to the ICU for further care.
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
R Breast cancer (2003) s/p lumpectomy, XRT + chemo
malignant melanoma - RUE (2011)
A-fib on eliquis
hyperthyroidism
HTN
chronic HFrEF
NICM
IBS
inflammatory arthropathy
glaucoma
FRITZ
polyneuropathy
giant cell arteritis on outpatient methylprednisolone
Magalie's Syndrome
ambulatory dysfunction
MVP
history of Lyme disease
history of VF s/p ICD placement (03/2015)
Plan:
Acute respiratory failure secondary to pulmonary edema, possible multifocal pneumonia
- influenza A/B, COVID negative
- on rocephin and doxycycline for CAP
- 5 days of abx
Acute on chronic HFrEF (EF 47%) exacerbation
- lasix
- I's/O's
- BNP elevated
- Keep K>4, Mg>2
Afib w RVR
- restart eliquis 2.5mg BID
- on amiodarone for rate control
- lopressor 25mg TID
Shock secondary to possibly cardiogenic vs septic related to pneumonia - resolved
- off levophed, midodrine
- blood cx: no growth at 72 hrs
- cont ceftriaxone, doxycycline
- KALPESH pending
Acute encephalopathy vs possible CVA vs underlying neurocognitive deficit
- CT head: no acute intracranial abnormalities
- TSH, B12 WNL
- MRI brain pending
ALCON nonoliguric
Hypomagnesemia
- maintain MAP>65
- replete electrolytes as necessary
MVP s/p mitral annuloplasty
s/p bioprosthetic AVR
Vfib s/p AICD
- TTE reassuring
- KALPESH pending
Giant Cell Arteritis
- follows w Dr. Crain
- on chronic steroids
Anemia
- no signs of active bleeding
Diet: NPO for KALPESH
DVT ppx: eliquis
Code status: full code
Subjective Dataa
Subjective Data
Date of Service:
Date of Service: July 11, 2024
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
Subjective:
Pt tachycardic in 130s overnight, given stat dose of lopressor. Pt reports feeling cold
Review of Systems
General: Chills
Objective Data
Data Reviewed
Vital Signs / I&O / Oxygen:
Vital Signs
Temp Pulse Resp BP Pulse Ox
98.1 F 124 50 123/81 98
07/11/24 07:00 07/11/24 07:07 07/11/24 07:07 07/11/24 07:07 07/11/24 07:07
Intake and Output
07/10/24 07/11/24 07/12/24
06:59 06:59 06:59
Intake Total 1726.0 / 1726.0 955 / 955
Output Total 975 / 975 75 / 75
Balance 751.0 / 751.0 880 / 880
Physical Exam
General: Comfortable
HEENT: Normocephalic
Cardiovascular: S1-S2, Irregular Rhythm and Other (tachycardia)
Respiratory: Clear and Non-Labored Respirations
GI: Soft, Non Distended, Flat, Non Tender and Normal Bowel Sounds
Neurology: Awake, Alert and Oriented
Skin: Warm and Dry
Labs/Micro/Reports
Lab Data
07/11/24 04:26
07/11/24 04:26
Microbiology
07/07/24 10:22 Blood/Venous Blood Culture - Preliminary
No Growth in 72 hours- Final report to follow
07/07/24 10:22 Blood/Venous Blood Culture - Preliminary
No Growth in 72 hours- Final report to follow
07/08/24 09:03 Nose MRSA Screen - Final
No Methicillin Resistant Staphylococcus aureus isolated.
07/08/24 11:57 Urine Legionella Urinary Antigen - Final
Negative for Legionella pneumophila Serogroup 1 antigen.
A negative result does not rule out the possiblity of
Legionella infection due to other serogroups or species of
Legionella. Clinical correlation is recommended.
07/08/24 11:57 Urine Streptococcus pneumoniae Antigen (M - Final
Negative for Streptococcus pneumoniae antigen.
A negative result does not exclude infection with
Streptococcus pneumoniae. Clinical correlation is
recommended.
07/08/24 09:03 Nose Nasal Screen MRSA (PCR) - Final
07/08/24 03:12 Nose Nasal Screen MRSA (PCR) - Final
[2024-07-11] MEDS: NOVOLOG FLEXPEN-MODERATE RESISTANCE SC (08:15)
[2024-07-11] MEDS: TAPAZOLE 2.5 MG PO (08:46)
[2024-07-11] MEDS: PACERONE 400 MG PO ×2 (08:46→21:50)
[2024-07-11] MEDS: DELTASONE 5 MG PO ×2 (08:46→21:51)
[2024-07-11] MEDS: LOPRESSOR 25 MG PO (08:47)
[2024-07-11] MEDS: PROTONIX 40 MG PO (08:47)
[2024-07-11] MEDS: ProAmatine 5 MG PO (08:47)
[2024-07-11] MEDS: ALPHAGAN 0.2% EYE DROPS 1 DROP BOTH EYES ×2 (08:54→21:50)
[2024-07-11] MEDS: TIMOPTIC 0.5% OPHTHALMIC SOLUTION 1 DROP BOTH EYES ×2 (08:54→21:50)
[2024-07-11] MEDS: VIBRAMYCIN 100 MG PO ×2 (08:54→21:55)
[2024-07-11] MEDS: LOW STRENGTH ASPIRIN 81 MG PO (08:54)
--- NOTE | 2024-07-11 09:00 | PTCARENOTE ---
Pt rec'd this am from night RN, assisted oob to use BSC upon walking rounds, then into chair. Pt with loose brn stool in bsc, BANEGAS noted. Pt on 2L nasal cannula, sat 98%. Fine crackles b/l bases. Pt NPO for KALPESH at this time. Pt also for MRI brain
today, pending acceptable HR. Pt medicated and assessed, plan of care discussed in rounds. at bedside, call laguerre in reach. Pt tolerated oob to chair for 2 hours and then became fatigued and very SOB with transfer back. Left resting in bed.
--- NOTE | 2024-07-11 09:14 | W.PN.HOSP.TC ---
Today's Communication/Plan
-
Unfortunately MRI could not be obtained yesterday because of rapid heart rate.
Restart Eliquis if okay with neurology since MRI has been delayed
Patient is for KALPESH today-
Needs rate control-cardiology managing
Assessment / Plan
Assessment / Plan
78yo F with PMHx of anemia, possible PUD followed by , Afib on eliquis, HFrEF, s/p ICD, HTN, glaucoma, frequent UTI, hyperthyroidism, GCA on high dose prednisone brought by after he found her confused and non-verbal sitting on the
side of the bed in AM. Developed hypotension overnight with Afib with RVR on 07/08/24. Managed for possible stroke and infection, likely pneumonia, but abd CT with termianl ileum thickening. Complicated with elevated troponin, anemia and ALCON.
states that by 07/08/2024 afternoon she was back to herself.
On examination earlier patient was awake and alert .
Denies any discomfort, mild SOB with exertion
Cardiovascular system S1-S2 irregular, tachy
Chest few scattered rales bilaterally
Abdomen soft and nontender
No pedal edema
CT chest without IV contrast 07/08/2024-bilateral interstitial and groundglass opacities most suspicious for pulmonary edema. Atypical infections would be difficult to completely exclude.
CT A/P 07/07/24-No obstructive uropathy. Rios catheter within urinary bladder, which is empty.Mild circumferential wall thickening of the terminal ileum. Suspicious for nonspecific terminal ileitis. However, no significant inflammatory soft tissue
stranding.Proximal appendix identified, and appears unremarkable. Distal appendix blends imperceptibly with the terminal ileum wall thickening.Rectal fecal impaction.Possible volume overload or mild congestive heart failure. Mild fatty infiltration
of liver. Stable hepatic cysts.
3 mm pancreatic low-attenuation/cystic structure. Possible distended side branch or intraductal papillary mucinous neoplasm. This may be slightly more pronounced compared to prior examination, or possibly related to differences in slice thickness
and selection. Recommend follow-up in 2-[address]-no acute changes
CTA head and neck-no high-grade stenosis or occlusion of the [place] or artery vasculature in the neck less than 50% stenosis bilateral carotid bulbs.
ECHO- Normal left ventricular size with mildly reduced systolic function. LVEF 47%.Anteroseptal wall dyskinesis.Normal right ventricular size with mildly reduced systolic function.Well-seated mitral annuloplasty ring with mean gradient 6
mmHg.Well-seated bioprosthetic aortic valve with mean gradient 12 mmHg and mild AR.Mild tricuspid regurgitation. PASP 27 mmHg.Compared to prior echocardiogram on 08/17/2023, there is now mild paravalvular
aortic regurgitation. No obvious vegetations visualized.
A/P
#Shock
Unclear reason septic shock versus cardiogenic shock
s/p norepinephrine -weaned off
CT chest-no convincing evidence of pneumonia, patient does report upper respiratory symptoms now
Procalcitonin 6.33
Vanco/Zosyn -changed to ceftriaxone and doxycycline-complete the course for atypical pneumonia
Influenza negative Legionella and strep antigen negative, COVID-19 serology negative
UA neg for infection
For KALPESH today
Cultures are negative so far
#Aphasia, then word finding difficulty with acute metabolic encephalopathy, concern for CVA
Unclear if patient has TME secondary to underlying cognitive dysfunction and infection.
high risk for stroke 2/2 GCA
CTA head: bilateral carotid bulbs contributing to less than 50% stenosis, no LVO
Neuro consult appreciated, Hold Eliquis until MRI brain results
Normal TSH and HgbA1c
Continue ASA, high dose statin
#Acute urinary retention
Rios out
Urinalysis without any evidence of infection
#Pulmonary edema, possible mild acute on chronic HFrEF
Afib with RVR
Continue BB
Elevated troponin, most likely non-ischemic myocardial injury and 2/2 tachycardia and CHF
Amio drip changed to PO by cards
Hold beta-blockers and Lasix secondary to hypotension
ProBNP 5500
Continue telemetry
Cardiology following
KALPESH planned for today
# History of mitral annuloplasty and bioprosthetic aortic valve replacement
# Elevated-trending down. Likely nonischemic myocardial injury
# Hypokalemia-replace
#ALCON
Resolved
Had CTA head neck in ED, cannot exclude JUAN
Urinary studies- [place]
Rios out
Nephrology signed off
# Anemia, macrocytic, acute on chronic
Slightly elevated LDH. Haptoglobin mormal rules out Hemolysis
Transfuse as needed - obtained consent from obtained over the phone
Severe Iron deficiency- IV iron ordered
GI consulted.No plans for endoscopy
# 5 mm segment of the terminal ileum with mild circumferential wall thickening
closely related to appendix, but no definite appendicitis signs on CT - USS appendix not visualised.
Patient does not have right lower quadrant tenderness or pain.
May need outpatient colonoscopy and EGD as OP per GI.
MRI-E given the concern for possible terminal ileitis as an outpatient
# Fecal impaction-Resolved. Had BMs.
# Insomnia-cont Remeron, melatonin
# GCA/reactive arthritis-continue steroids. Follows with . Was on 4 mg of methylprednisolone twice daily
# Hyperthyroidism,cont Methimazole,TSH, FT4, FT3 WNL
# Chronic left cerebellar infarct.ASA
# Neuropathy NOS-continue Gabapentin
# Glaucoma-continue Combigan eyedrops, latanoprost eyedrops
# 3 mm pancreatic low-attenuation cystic structure-outpatient follow-up
# History of C. difficile infection
# History of breast cancer with right breast lumpectomy
# History of melanoma status post excision from back in 2007 and thigh in 2008
# History of pacemaker/AICD March 2015
# Hypoalbuminemia
# Osteoarthritis/DDD/gout
# DVT ppx on SCDs
# Full code
Discussed with nursing
D/W Cards
D/W at bed side
Anticipated Discharge: > 48 hours
Subjective/Interval History
-
Date of Service: July 11, 2024
Objective Data
-
Labs:
Laboratory Results
07/11/24
04:26
WBC 9.3
Hgb 8.2 L
Hct 24.4 L
Plt Count 273 D
Sodium 140
Potassium 4.8 D
Chloride 111 H
Carbon Dioxide 21 L
BUN 15
Creatinine 1.0
Glucose 115 H
Calcium 8.5
Vital Signs:
Vital Signs
Temp Pulse Resp BP Pulse Ox
98.1 F 130 28 130/91 97
07/11/24 07:00 07/11/24 08:46 07/11/24 08:00 07/11/24 08:46 07/11/24 08:11
I&O
07/10/24 07/11/24 07/12/24
06:59 06:59 06:59
Intake Total 1726.0 / 1726.0 955 / 955
Output Total 975 / 975 75 / 75
Balance 751.0 / 751.0 880 / 880
--- NOTE | 2024-07-11 09:29 | W.PN.CD ---
Today's Communication / Plan
-
Amiodarone 150mg IV bolus now
increase metoprolol to 50mg tid of tartrate
Lasix 40 IV this afternoon and intensely monitor her bp and lytes
Impression / Plan
-
Mrs. Cisneros is an 78 yo female with paroxysmal Afib on Eliquis, anemia, HFrEF, EF 35-40%, Medtronic ICD, HTN, s/p MV annuloplasty ring, moderate mitral regurgitation, bioprosthetic aortic valve, GCA on prednisone, who was brought to the ER by
family for confusion. Cardiology consulted for atrial fibrillation with RVR.
Shock, resolved
-Required norepinephrine briefly on 07/07, now stopped. Suspect sepsis rather than cardiogenic given that her EF is stable on echo
-No infectious source at this time. Maybe pneumonia?
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
Acute hypoxic respiratory failure
- Likely has some component of acute on chronic HFrEF.
-interval improvement on cxr, but more sob this am
-continue IV lasix 40mg x1 this pm after recovers and reassess for additional dosing tomorrow
-RVR may be adding to dyspnea.
-Strict I/Os, daily standing weights
Paroxysmal atrial fibrillation with RVR
-in and out of the rhythm multiple times in the last 24 hours.
-Started on IV amiodarone on 07/07 PM due to RVR and hypotension. Had some sinus beats during KALPESH, will given an additional dose of IV amiodarone now, continue po loading
-on metoprolol, will increase for better rate control with holding parameters
-Neuro ok with Eliquis resumption.
Acute on chronic HFrEF
-Severe exacerbation requiring IV diuresis and close monitoring of labs and telemetry
-TTE 07/08/2024: LVEF 47%, stable anteroseptal dyskinesis, normal mitral and aortic valve gradients, mild paravalvular AR, normal PASP
-Lasix as above
-Hold carvedilol for recent hypotension, now on metoprolol tartrate with eventual plan to switch to succinate
-will increase metoprolol for rate control during PAF
-Has not been able to tolerate any other GDMT due to hypotension and frequent UTIs
-S/p ICD
Altered mental status
-CT head and CTA head/neck are unremarkable. TSH normal. No evidence of UTI by UA.
-Brain MRI today
-Neurology following
Troponin elevation
-Likely due to nonischemic myocardial injury in the setting of heart failure exacerbation +/- A-fib with RVR with ALCON. She denies chest pain. ECG with stable LBBB.
-No treatment for ACS at this time. I have a low suspicion for ACS and worry that she has an intracranial process we can make worse with heparin.
Subjective: She feels fatigued, sob with using the restroom today
Physical Exam
Vital Signs/Labs
Vital Signs
Temp Pulse Resp BP Pulse Ox
98.1 F 130 28 130/91 97
07/11/24 07:00 07/11/24 08:46 07/11/24 08:00 07/11/24 08:46 07/11/24 08:11
07/10/24 07/11/24 07/12/24
06:59 06:59 06:59
Actual Weight 112 lb 14.027 oz 113 lb 8.609 oz
07/11/24 04:26
07/11/24 04:26
PT 15.5 Sec (11.4-14.6) H 07/07/24 10:09
INR 1.20 07/07/24 10:09
APTT 32.2 Sec (23.4-35.0) 07/07/24 10:09
Magnesium 1.9 mg/dl (1.6-2.3) 07/11/24 04:26
Triglycerides 147 mg/dl (10-149) 07/08/24 03:12
LDL Cholesterol, Calc 46 mg/dl 07/08/24 03:12
VLDL Cholesterol, Calc 29 mg/dl (0-30) 07/08/24 03:12
HDL Cholesterol 31 mg/dl 07/08/24 03:12
TSH 3.71 uIU/ml (0.47-4.68) 07/07/24 07:38
Free T4 1.44 ng/dl (0.78-2.19) 07/07/24 07:38
07/07/24 07/11/24
07:38 04:26
Wes-E-Tgagumkjdrg Pept 5500 [id number]
LAB Results
07/08/24
16:10
Troponin I 0.215 H*
Physical Exam
Constitutional: No acute distress
Cardiovascular: Rhythm & rate is regular, Pedal edema is absent, Diastolic murmur absent, JVD present (2/6 in the RUSB) and Systolic murmur present
Respiratory: Respiratory effort normal, Lungs clear to auscul., Wheeze Absent, Crackles Absent and Rhonchi Absent
Neuro/Psych: AO x 3
Data Reviewed
-
Date of Service: July 11, 2024
EKG: Other (afib with rvr and sinus all in the last 24 hours)
[2024-07-11] MEDS: CORDARONE 103 MG IV (12:27)
[2024-07-11] MEDS: MAGNESIUM OXIDE 500 MG PO (13:05)
[2024-07-11] MEDS: LASIX 40 MG IV (13:05)
[2024-07-11] MEDS: STERILE WATER FOR INJECTION 10 ML IV (13:06)
[2024-07-11] MEDS: ROCEPHIN 1000 MG IV (13:06)
[2024-07-11] MEDS: ELIQUIS 2.5 MG PO ×2 (13:20→21:55)
[2024-07-11] MEDS: FERRLECIT 110 MG IV (13:56)
[2024-07-11] MEDS: LOPRESSOR 50 MG PO ×2 (15:53→21:51)
--- NOTE | 2024-07-11 15:53 | CM ---
CM following re: discharge planning.
Reviewed pt' chart, met with pt. Pt's son and pt's at bedside.
Pt has been living with in an independent apartment at [facility], has 2supportive sons. Per pt ambulates with a cane inside the apartment, uses a walker and a w/c for a long distance.
PT and OT evaluations noted - SNF level of care recommended. CM made a referral to preferred SNFs: [facility], [facility], [facility].
Both pt and her family are aware that [facility] offered a bed and they will meet with [facility] director of admission tomorrow.
D/C plan: [facility].
CM will follow with discharge plan updates as hospitalization progresses
--- NOTE | 2024-07-11 17:21 | PTCARENOTE ---
Pt was downgraded to IMU today. Pt was initially taken for MRI this am but was unable to complete it at that time again due to HR being too fast for AICD to be changed to MRI mode. Pt sent to optical lab technician afterward and did have KALPESH completed. Pt with
multiple loose/soft BMs on bedpan this afternoon, poor appetite, using bedpan every 30 min to half hour for urine s/p Lasix as well. Pt c/o abdominal pain and cramping, poor appetite continues. Pt with hx IBS. and son visiting. MRI
completed this afternoon at 2:30 with [employer] rep called in for assist. Pt now back in room with family at bedside. Call laguerre in reach.
--- NOTE | 2024-07-11 18:08 | PTCARENOTE ---
Addendum entered by Leilani Romeo RN 07/11/24 19:12:
Stool to r/o C diff sent per Dr. Ventura. Enhanced precautions initiated.
Original Note:
Pt reports burning with urination, reported to attending Dr. Ventura. Also discussed frequent BMs with Dr. Ventura. She stated she will order additional stool and urine studies.
[2024-07-11] MEDS: LIPITOR 80 MG PO (18:18)
[2024-07-11] MEDS: TYLENOL 650 MG PO (18:22)
[2024-07-11] MEDS: XALATAN OPHTHALMIC SOLUTION 1 DROP BOTH EYES (21:49)
[2024-07-11] MEDS: NEURONTIN 200 MG PO (21:51)
[2024-07-11] MEDS: REMERON 7.5 MG PO (21:51)
[2024-07-11] MEDS: FLORASTOR 250 MG PO (21:55)
[2024-07-12] VITALS (26 sets, daily range): BP systolic 82–138; BP diastolic 53–103; BMI 21.3
[2024-07-12 04:49] LABS: Hematocrit 25.3 % (37.0-47.0); Hemoglobin 8.4 g/dL (12.0-16.0); Mean Corp Hgb Conc. 33.2 g/dL (33.0-37.0); Mean Corpuscular Hgb 33.5 pg (27.0-31.0); Mean Corpuscular Volume 100.8 fL (81.0-99.0); Mean Platelet Volume 10.7 fL (7.4-10.4); Platelet Count 244 10^3/uL (130-400); Red Blood Cell Count 2.51 10^6/uL (4.20-5.40); Red Cell Dist. Width 20.3 % (11.5-14.5)
[2024-07-12 05:14] LABS: Blood Urea Nitrogen 22 mg/dl (7-17); Calcium 7.9 mg/dl (8.4-10.2); Carbon Dioxide 25 mmol/L (22-30); Chloride 111 mmol/L (98-107); Estimated Creatinine Clearance 31 ml/min; Glucose 140 mg/dl (70-99); Potassium 3.9 mmol/L (3.5-5.1); Sodium 143 mmol/L (135-145)
--- NOTE | 2024-07-12 07:24 | PTCARENOTE ---
Pt rec'd from night RN, awake and oriented, pleasant. Feeling better this am, slept all night. BMs slowed overnight, only 3. Cdiff negative. Plan of care discussed with patient, she said her will be in early to see the doctors. She denies
plans to go to a rehab and stated that her facility where she lives is 'very accomodating' and 'we can bring in additional help if we need it.' Call laguerre in hand, safe environment maintained.
[2024-07-12] MEDS: ELIQUIS 2.5 MG PO ×2 (08:54→21:02)
[2024-07-12] MEDS: TAPAZOLE 2.5 MG PO (08:54)
[2024-07-12] MEDS: PROTONIX 40 MG PO (08:54)
[2024-07-12] MEDS: DELTASONE 5 MG PO ×2 (08:54→21:02)
[2024-07-12] MEDS: PACERONE 400 MG PO ×2 (08:55→21:01)
[2024-07-12] MEDS: LOPRESSOR 50 MG PO ×2 (08:55→22:14)
[2024-07-12] MEDS: ALPHAGAN 0.2% EYE DROPS 1 DROP BOTH EYES ×2 (08:56→21:02)
[2024-07-12] MEDS: FLORASTOR 250 MG PO ×2 (08:56→21:02)
[2024-07-12] MEDS: VIBRAMYCIN 100 MG PO (08:56)
[2024-07-12] MEDS: TIMOPTIC 0.5% OPHTHALMIC SOLUTION 1 DROP BOTH EYES ×2 (08:56→21:02)
--- NOTE | 2024-07-12 09:27 | W.PN.CD ---
Today's Communication / Plan
-
Continue metoprolol 50 mg 3 times daily
Continue amiodarone 400 mg twice daily
Continue apixaban 2.5 mg twice daily
Hold diuresis today for slight increase in BUN/creatinine
Antibiotics per primary
Impression / Plan
-
Mrs. Cisneros is an 78 yo female with paroxysmal Afib on Eliquis, anemia, HFrEF, EF 35-40%, Medtronic ICD, HTN, s/p MV annuloplasty ring, moderate mitral regurgitation, bioprosthetic aortic valve, GCA on prednisone, who was brought to the ER by
family for confusion. Cardiology consulted for atrial fibrillation with RVR.
Paroxysmal atrial fibrillation with RVR
-Rates somewhat improved, though jumped when she tried to get OOB to chair
-Started on IV amiodarone on 07/07 PM due to RVR and hypotension. Additional IV bolus given 07/11
-Continue p.o. amiodarone 400 mg twice daily
-Continue metoprolol 50 mg 3 times daily with holding parameters
-Neuro ok with Eliquis resumption. Continue 2.5 mg twice daily.
Shock, resolved
-Required norepinephrine briefly on 07/07, now stopped. Suspect sepsis rather than cardiogenic given that her EF is stable on echo
-No infectious source at this time. Maybe pneumonia?
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
-Plan is for 5 days abx
Acute hypoxic respiratory failure
- Likely has some component of acute on chronic HFrEF.
-IV lasix 40mg x1 yesterday but now increased BUN and Cr. Hold additional doses today
-RVR may be adding to dyspnea.
-Strict I/Os, daily standing weights
Acute on chronic HFrEF
-TTE 07/08/2024: LVEF 47%, stable anteroseptal dyskinesis, normal mitral and aortic valve gradients, mild paravalvular AR, normal PASP
-IV lasix 40mg x1 yesterday but now increased BUN and Cr. Hold additional doses today
-Hold carvedilol for recent hypotension, now on metoprolol tartrate with eventual plan to switch to succinate
-will increase metoprolol for rate control during PAF
-Has not been able to tolerate any other GDMT due to hypotension and frequent UTIs
-S/p ICD
Altered mental status, reolved
-CT head and CTA head/neck are unremarkable. TSH normal. No evidence of UTI by UA. Brain MRI with tiny acute cortical infarct
-Suspect due to septic shock as above
Troponin elevation
-Likely due to nonischemic myocardial injury in the setting of heart failure exacerbation +/- A-fib with RVR with ALCON. She denies chest pain. ECG with stable LBBB.
-No treatment for ACS at this time
Subjective: She feels overall improved from yesterday. Tried to get up and out of bed but HR is in the 140s�150s. Short of breath with long sentences.
Physical Exam
Vital Signs/Labs
Vital Signs
Temp Pulse Resp BP Pulse Ox
97.7 F 106 25 101/80 97
07/12/24 08:00 07/12/24 08:55 07/12/24 07:00 07/12/24 08:55 07/12/24 07:00
07/11/24 07/12/24 07/13/24
06:59 06:59 06:59
Actual Weight 113 lb 8.609 oz 112 lb 6.972 oz
07/12/24 04:34
07/12/24 04:34
PT 15.5 Sec (11.4-14.6) H 07/07/24 10:09
INR 1.20 07/07/24 10:09
APTT 32.2 Sec (23.4-35.0) 07/07/24 10:09
Magnesium 1.9 mg/dl (1.6-2.3) 07/11/24 04:26
Triglycerides 147 mg/dl (10-149) 07/08/24 03:12
LDL Cholesterol, Calc 46 mg/dl 07/08/24 03:12
VLDL Cholesterol, Calc 29 mg/dl (0-30) 07/08/24 03:12
HDL Cholesterol 31 mg/dl 07/08/24 03:12
TSH 3.71 uIU/ml (0.47-4.68) 07/07/24 07:38
Free T4 1.44 ng/dl (0.78-2.19) 07/07/24 07:38
07/07/24 07/11/24
07:38 04:26
Zei-I-Bwbyhlqapve Pept 5500 [id number]
Physical Exam
Constitutional: Other (dyspneic while trying to get out of bed)
Cardiovascular: Pedal edema is absent, Rhythm/rate is irregular and S1S2 is normal
Respiratory: Lungs clear to auscul.
Neuro/Psych: AO x 3
Data Reviewed
-
Date of Service: July 12, 2024
Medical Decision Making: Reviewed Test Results, Independent Historian Assessment, Test Interpretation and Review of Case with other Provider
EKG: Tracing Personally Visualized and interpreted
Echo: Report Reviewed by me
X-Ray/CT/US/MRI/NUC/PET: Report Reviewed by me
Labs: Labs Reviewed by me
--- NOTE | 2024-07-12 09:30 | PTCARENOTE ---
Pt asking to get oob to chair and use bedside commode, sitting on edge of bed, pt's HR immediately increase as high as 140s, pt tachypneic and dyspneic, did not recover after 5 min, Dr. Henderson in room to assess patient, recommended pt not to get
oob. Pt then assisted back into bed, using bedpan for several soft BMs (Dr. Henderson aware) and then with new headache pain 8/10 at top left section of her head. Pt then nauseated, throwing up with turning for bedpan. Pt provided with ice pack for
her head per her request and PRN Tylenol. Post med pain assessment patient reports pain down to 1/10 but nausea again returned. Drs. Henderson and Audrey and BRIDGE TENDER Rayne Dutton notified, Dr. Ventura at bedside. Orders rec'd. CXR taken.
[2024-07-12] MEDS: CARDIZEM 5 MG IV (10:10)
[2024-07-12] MEDS: TYLENOL 650 MG PO (10:29)
--- NOTE | 2024-07-12 10:40 | W.PN.HOSP.TC ---
Today's Communication/Plan
-
1 dose of Cardizem IV to help with heart rate
Heart rate control
Assessment / Plan
Assessment / Plan
78yo F with PMHx of anemia, possible PUD followed by , Afib on eliquis, HFrEF, s/p ICD, HTN, glaucoma, frequent UTI, hyperthyroidism, GCA on high dose prednisone brought by after he found her confused and non-verbal sitting on the
side of the bed in AM. Developed hypotension overnight with Afib with RVR on 07/08/24. Managed for possible stroke and infection, likely pneumonia, but abd CT with termianl ileum thickening. Complicated with elevated troponin, anemia and ALCON.
states that by 07/08/2024 afternoon she was back to herself.
On examination earlier patient was awake and alert .
Denies any discomfort, mild SOB with exertion
Cardiovascular system S1-S2 irregular, tachy
Chest few scattered rales bilaterally
Abdomen soft and nontender
No pedal edema
CT chest without IV contrast 07/08/2024-bilateral interstitial and groundglass opacities most suspicious for pulmonary edema. Atypical infections would be difficult to completely exclude.
CT A/P 07/07/24-No obstructive uropathy. Rios catheter within urinary bladder, which is empty.Mild circumferential wall thickening of the terminal ileum. Suspicious for nonspecific terminal ileitis. However, no significant inflammatory soft tissue
stranding.Proximal appendix identified, and appears unremarkable. Distal appendix blends imperceptibly with the terminal ileum wall thickening.Rectal fecal impaction.Possible volume overload or mild congestive heart failure. Mild fatty infiltration
of liver. Stable hepatic cysts.
3 mm pancreatic low-attenuation/cystic structure. Possible distended side branch or intraductal papillary mucinous neoplasm. This may be slightly more pronounced compared to prior examination, or possibly related to differences in slice thickness
and selection. Recommend follow-up in 2-[address]-no acute changes
CTA head and neck-no high-grade stenosis or occlusion of the w[place] of [place] or artery vasculature in the neck less than 50% stenosis bilateral carotid bulbs.
ECHO- Normal left ventricular size with mildly reduced systolic function. LVEF 47%.Anteroseptal wall dyskinesis.Normal right ventricular size with mildly reduced systolic function.Well-seated mitral annuloplasty ring with mean gradient 6
mmHg.Well-seated bioprosthetic aortic valve with mean gradient 12 mmHg and mild AR.Mild tricuspid regurgitation. PASP 27 mmHg.Compared to prior echocardiogram on 08/17/2023, there is now mild paravalvular
aortic regurgitation. No obvious vegetations visualized.
MRI of the brain-1.5 mm focus of restricted diffusion involving posterior cortex of the left precentral gyrus suspicious for tiny acute cortical infarct. Chronic ischemic changes. Small chronic infarct in the left cerebellum
A/P
#Shock
Unclear reason septic shock versus cardiogenic shock
s/p norepinephrine -weaned off
CT chest-no convincing evidence of pneumonia, patient does report upper respiratory symptoms now
Procalcitonin 6.33
Vanco/Zosyn -changed to ceftriaxone and doxycycline-complete the course for atypical pneumonia
Influenza negative Legionella and strep antigen negative, COVID-19 serology negative
UA neg for infection
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
Cultures are negative so far
#Aphasia, then word finding difficulty with acute metabolic encephalopathy, concern for CVA
Unclear if patient has TME secondary to underlying cognitive dysfunction and infection.
MRI with a small stroke noted. CTA without any evidence of carotid stenosis
CTA head: bilateral carotid bulbs contributing to less than 50% stenosis, no LVO
Normal TSH and HgbA1c
Eliquis restarted
Continue Eliquis and statin
#Acute urinary retention
Rios out
Urinalysis without any evidence of infection
#Pulmonary edema, possible mild acute on chronic HFrEF
Afib with RVR-give 1 dose of Cardizem now
Continue BB
Elevated troponin, most likely non-ischemic myocardial injury and 2/2 tachycardia and CHF
Amio drip changed to PO by cards
Continue beta-blockers and Lasix made as needed secondary to hypotension
ProBNP 5500
Continue telemetry
Cardiology following
# Diarrhea-better today. C. difficile negative. Possibly could be secondary to amiodarone per cardiology
# History of mitral annuloplasty and bioprosthetic aortic valve replacement-KALPESH without any vegetations
# Elevated-trending down. Likely nonischemic myocardial injury
# Hypokalemia-replace
#ALCON
Resolved
Had CTA head neck in ED, cannot exclude JUAN
Urinary studies- [place]
Rios out
Nephrology signed off
# Anemia, macrocytic, acute on chronic
Slightly elevated LDH. Haptoglobin mormal rules out Hemolysis
Transfuse as needed - obtained consent from obtained over the phone
Severe Iron deficiency- IV iron ordered
GI consulted.No plans for endoscopy
# 5 mm segment of the terminal ileum with mild circumferential wall thickening
closely related to appendix, but no definite appendicitis signs on CT - USS appendix not visualized.
Patient does not have right lower quadrant tenderness or pain.
May need outpatient colonoscopy and EGD as OP per GI.
MRI-E given the concern for possible terminal ileitis as an outpatient
# Fecal impaction-Resolved.
# Insomnia-cont Remeron, melatonin
# GCA/reactive arthritis-continue steroids. Follows with . Was on 4 mg of methylprednisolone twice daily and 2 mg at night
Spoke to Dr. Crain today updated regarding patient's hospital stay also aware that patient is on prednisone 10 mg daily now
Hold methotrexate
# Hyperthyroidism,cont Methimazole,TSH, FT4, FT3 WNL
# Chronic left cerebellar infarct.ASA
# Neuropathy NOS-continue Gabapentin
# Glaucoma-continue Combigan eyedrops, latanoprost eyedrops
# 3 mm pancreatic low-attenuation cystic structure-outpatient follow-up
# History of C. difficile infection
# History of breast cancer with right breast lumpectomy
# History of melanoma status post excision from back in 2007 and thigh in 2008
# History of pacemaker/AICD March 2015
# Hypoalbuminemia
# Diverticulosis with history of diverticulitis in the past
# Osteoarthritis/DDD/gout
# DVT ppx on Eliquis
# Full code
Discussed with nursing
D/W Cards
D/W at bed side
D/W OP Rheum .
Time spent over 50 minutes
Anticipated Discharge: > 48 hours
Subjective/Interval History
-
Date of Service: July 12, 2024
Objective Data
-
Labs:
Laboratory Results
07/12/24
04:34
WBC 10.0
Hgb 8.4 L
Hct 25.3 L
Plt Count 244
Sodium 143
Potassium 3.9
Chloride 111 H
Carbon Dioxide 25
BUN 22 H
Creatinine 1.1 H
Glucose 140 H
Calcium 7.9 L
Vital Signs:
Vital Signs
Temp Pulse Resp BP Pulse Ox
97.7 F 128 25 137/75 97
07/12/24 08:00 07/12/24 10:10 07/12/24 07:00 07/12/24 10:10 07/12/24 07:00
I&O
07/11/24 07/12/24 07/13/24
06:59 06:59 06:59
Intake Total 955 / 955 350 / 350
Output Total 75 / 75
Balance 880 / 880 350 / 350
--- NOTE | 2024-07-12 11:42 | W.PN.UPDATE ---
Addendum entered and electronically signed by Alba Ventura MD 07/12/24 12:20:
Chest x-ray reviewed by me
Original Note:
Update Note
Progress Note Update
Reevaluated patient as she was nauseous and vomiting. She is also feeling short of breath.
On examination patient states that she had a headache earlier today which is better at this moment with Tylenol. She also has been feeling nauseous
Temperature is 100.5
Tachycardia is better
Chest still has rales
Abdomen-soft nontender patient also denies any pain
Treat symptoms of nausea with Zofran
Chest x-ray
Will request infectious disease consultation-doubt infectious etiology as all cultures have been negative so far
C. difficile negative
Check norovirus
Discussed again with rheumatology. Per rheumatology patient was trialed on high-dose of steroids for her headaches without much improvement. She also was confused with high-dose of steroids as outpatient. She was placed on methotrexate also
without much improvement in her headaches as outpatient.
[2024-07-12] MEDS: ZOFRAN 4 MG IV (11:49)
[2024-07-12] MEDS: ROCEPHIN 1000 MG IV (11:50)
[2024-07-12] MEDS: STERILE WATER FOR INJECTION 10 ML IV (11:50)
--- NOTE | 2024-07-12 12:01 | PTCARENOTE ---
Pt given Stat dose Zofran, again nauseated and vomiting. stool sent for norovirus per orders.
[2024-07-12 12:13] LABS: Erythrocyte Sed Rate 86 mm/hour (0-20)
--- NOTE | 2024-07-12 12:20 | PTCARENOTE ---
2 sets blood cultures drawn and sent.
[2024-07-12 13:41] LABS: Complement C3 131 mg/dl (88-165)
[2024-07-12] MEDS: FERRLECIT 110 MG IV (13:47)
--- NOTE | 2024-07-12 13:52 | CM ---
CM following re: discharge planning.
Reviewed pt' chart, met with pt. Pt's at bedside.
Pt has been living with in an independent apartment at [facility], has 2supportive sons. Per pt ambulates with a cane inside the apartment, uses a walker and a w/c for a long distance.
PT and OT continue recommending SNF level of care.
CM received a phone call from [facility]F treasury director and she confirmed she will offer a bed if pt and her family are seriously to come there for a short term rehab.
Pt's stated he preferred [facility] SNF and he will meet with [facility] treasury director today at 2:00 p.m. to sign an admission package and they will hold a bed for pt.
D/C plan: [facility] for a short term rehab.
CM will follow with discharge plan updates as hospitalization progresses
--- NOTE | 2024-07-12 13:54 | CON.ID ---
Consultation
-
Date/Time Consultation Requested: 07/12/2024 1120
Date/Time Consultation Performed: 07/12/2024 1330
Requesting Provider: Dr. Ventura
Performing Provider: Dr. Verma
Reason for Consultation: Fever
Chief Complaint / Past History
History of Present Illness
chanelle Cisneros is an 78-year-old female being evaluated at the request of Dr. Ventura in regards to fever and possible infection. History is obtained from chart review, along with patient interview.
The patient initially presented to the emergency room at [facility] on 07/07 for reported change in mental status after she woke up sat on her bed and seemed confused to her . Ultimately, he called 911 and she was brought to the ER
for further evaluation. At that time she admitted to headache along with some left-sided abdominal discomfort. Stroke code was called, and the patient was evaluated by Neurology. Ultimately, no acute CVA was noted. Her hospital course has been
significant for exacerbation of CHF, her acute respiratory failure and rapid A-fib. Today, she developed a fever to 100.5 degrees, and Infectious Diseases is asked to comment upon further antimicrobial therapy. At admission, she initially was
placed on Zosyn, this was transitioned to 2 ceftriaxone and doxycycline, and currently she is on day 4 of that combination therapy. At present, she denies any cough or congestion. She denies any fevers or chills. She denies any pain at present,
although did note a headache earlier this morning. She denies any neck stiffness. She reports occasional shortness of breath. She denies any abdominal pain. She notes that she had dysuria yesterday, which is now resolved. She denies any
myalgias or arthralgias. She reports no sick contacts.
Past History
Additional Past Medical History:
A-fib (on Eliquis)
CHF
HTN
Glaucoma
Hx UTI
Hypothyroidism
GCA (on prednisone)
IBS
Inflammatory arthropathy
Glaucoma
Additional Past Surgical History:
Right breast CA (2003) s/p lumpectomy/XRT/chemo
Hx malignant melanoma (right upper extremity; 2011)
ICD placement
Cataract surgery
Left hip replacement
Right knee replacement
Bioprosthetic aortic valve/mitral valve repair
Sigmoidectomy
Cholecystectomy
Allergy History:
allopurinol Allergy (Verified 07/07/24 08:04)
Unknown
colchicine Allergy (Verified 07/07/24 08:04)
Unknown
levofloxacin Allergy (Verified 07/07/24 08:04)
developed C-Diff
vancomycin Allergy (Verified 07/07/24 08:04)
developed C-diff
Medications Reviewed: Yes
Current Antibiotics:
Ceftriaxone (day #4)
Doxycycline (day #4)
Social History
Tobacco: Former Smoker
Alcohol: Occasional
Drug: None
Living: With Family
Employment: Retired
Family History
Family History: Not Pertinent
Review of Systems
Vital Signs
Temp Pulse Resp BP Pulse Ox
100.5 F H 95 27 85/64 97
07/12/24 11:19 07/12/24 13:15 07/12/24 13:15 07/12/24 13:07 07/12/24 13:15
Physical Exam
Physical Exam
Constitutional: No Acute Distress, Comfortable and Non-toxic
Head: Normocephalic
Eyes: No Conjunctival Hemorrhage and Sclera Anicteric
Oral: No Thrush and No Ulcers
Cardiovascular: S1/S2; Negative S3/S4
Pulmonary: Clear and Non Labored; Negative Wheezes, Rales or Rhonchi
Gastrointestinal: Soft, Non Tender, Non Distended, Normal Bowel Sounds, No Rebound and No Guarding
Extremities: Negative Edema, Cyanosis or Erythema
Neurological: Awake, Alert and Oriented
Psychological: Calm
.
Lab / Diagnostic Study Results
07/12/24 04:34
07/12/24 04:34
Abs Immat Gran (auto) 0.1 10^3/uL (0-0.05) H 07/09/24 04:09
Absolute Neuts (auto) 9.1 10^3/uL (1.4-6.5) H 07/09/24 04:09
Absolute Lymphs (auto) 0.6 10^3/uL (1.2-3.4) L 07/09/24 04:09
Absolute Monos (auto) 0.3 10^3/uL (0.1-0.6) 07/09/24 04:09
Absolute Basos (auto) 0.0 10^3/uL (0-0.2) 07/09/24 04:09
Immature Gran % 1.4 % (0-0.5) H 07/09/24 04:09
Neutrophils % 90.0 % (42.2-75.2) H 07/09/24 04:09
Lymphocytes % 5.9 % (20.5-51.1) L 07/09/24 04:09
Monocytes % 2.6 % (1.7-9.3) 07/09/24 04:09
Eosinophils % 0.0 % (0-6) 07/09/24 04:09
Basophils % 0.1 % (0-2) 07/09/24 04:09
ESR 86 mm/hour (0-20) H 07/12/24 04:34
PT 15.5 Sec (11.4-14.6) H 07/07/24 10:09
INR 1.20 07/07/24 10:09
Lactic Acid 1.7 mmol/L (0.7-2.0) 07/07/24 22:16
C-Reactive Protein 157.70 mg/L (0.0-10.00) H 07/12/24 04:34
Procalcitonin 6.33 ng/ml (0.0-0.25) H* 07/08/24 07:37
Microbiology Results
Micro:
07/12/24 12:13 Blood Culture - Pending
Blood/Venous
07/12/24 12:18 Blood Culture - Pending
Blood/Venous
07/12/24 11:51 - Pending
Feces/Stool
07/07/24 10:22 Blood Culture - Final
Blood/Venous No Growth - Final Report
07/07/24 10:22 Blood Culture - Final
Blood/Venous No Growth - Final Report
07/11/24 18:49 C. difficile GDH Antigen & Toxins - Final
Feces/Stool Negative for toxigenic C.difficile
07/08/24 09:03 MRSA Screen - Final
Nose No Methicillin Resistant Staphylococcus aureus isolated.
07/08/24 11:57 Legionella Urinary Antigen - Final
Urine Negative for Legionella pneumophila Serogroup 1 antigen.
A negative result does not rule out the possiblity of
Legionella infection due to other serogroups or species of
Legionella. Clinical correlation is recommended.
Streptococcus pneumoniae Antigen (M - Final
Negative for Streptococcus pneumoniae antigen.
A negative result does not exclude infection with
Streptococcus pneumoniae. Clinical correlation is
recommended.
07/08/24 09:03 Nasal Screen MRSA (PCR) - Final
Nose
07/08/24 03:12 Nasal Screen MRSA (PCR) - Final
Nose
07/07/24 10:09 Influenza Types A & B (HANH) - Final
Nasal Swab Negative for Influenza A & B, NAAT
Negative results must be combined with clinical observations
and patient history.
Nucleic Acid Amplification test (NAAT)performed on the
[employer] platform.
Imaging:
07/12/2024 CXR (portable): Cardiomediastinal silhouette is within normal limits. Median sternotomy wires and left subclavian AICD are in place. Hazy opacity within the right mid to upper lung zone. Minimal interstitial prominence which is grossly
unchanged. Please see full dictation for additional detail. Film personally viewed.
07/11/2024 MRI brain without contrast: A 1.5 mm focus of suggested restricted diffusion involving the posterior cortex of the left precentral gyrus suspicious for tiny acute cortical infarct. No other acute infarcts noted. Chronic ischemic changes.
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 Please see full dictation for additional detail.
07/08/24 CT chest without contrast: Bilateral interstitial and groundglass pulmonary opacities most suspicious for pulmonary edema. Please see full dictation for additional detail.
Assessment / Plan
Fever
Elevated ESR and CRP
Elevated prior procalcitonin
A-fib (on Eliquis)
CHF
HTN
Glaucoma
Hx UTI
Hypothyroidism
GCA (on prednisone)
IBS
Inflammatory arthropathy
Glaucoma
Recommendations:
Patient currently is on day #6 of antibiotic therapy. Cultures have been nonrevealing to this point.
Suspect procalcitonin may be elevated due to a myriad of other factors, and not reflective of current bacterial process.
Suspect elevated inflammatory numbers may be secondary to patient's underlying history of GCA.
Would have low threshold to discontinue further antibiotics with close observation.
Would continue to monitor white count and temperature curve.
Continue supportive measures.
Care Review
Plan reviewed with: Physician (Hospitalist)
[2024-07-12] MEDS: LOPRESSOR PO (15:25)
--- NOTE | 2024-07-12 17:08 | W.PN.NEURO.1 ---
Today's Communication / Plan
-
.
Subjective/Objective
Subjective Data
Date of Service: July 12, 2024
Neurology follow-up note.
Ms. Cisneros reports no complaints. She is eager to go home.
Brain MRI wo fritz(07/11/2024) showed an acute posterior cortex of the left precentral gyrus cortical infarct
PMH: R Breast cancer, malignant melanoma, A-fib on AC, hypothyroidism, HTN, HFrEF, NICM, CKD, IBS, inflammatory arthropathy, glaucoma, FRITZ, polyneuropathy, giant cell arteritis, Magalie's Syndrome, ambulatory dysfunction
PSH: AICD, bilateral cataract surgery, L TKA, bioprosthetic AVR, MVR, BL NENA, sigmoidectomy, tubal ligation, TVH + anterior colporrhaphy,, cholecystectomy,
SH: ,
FH: Not contributory to current presentation
All: Allopurinol, colchicine, levofloxacin, vancomycin
ROS: Negative for headache, change in vision, strength. Positive for anxiety, urinary retention
General: In moderate distress due to head
Cardio: Regular rate and rhythm without murmur. Extremities are without cyanosis or edema.
Neuro:
Mental Status: Alert, fully oriented. Follows complex requests. Mildly impaired attention and preserved comprehension.
Cranial Nerves: Pupils are equally round, surgical. Horizontal extraocular movements are intact. Visual krishnamurthy are intact bilateral. No facial weakness, hearing is preserved. No dysarthria
Motor: Proximal symmetric muscle hypotrophy, mild leg drift. No pronator drift. Proximal leg weakness.
Coordination: No dysmetria
Gait: deferred
Assessment and Plan:
I. Acute/subacute left MCA territory punctuate cortical infarct. Likely etiology�embolic
II. PA AFib, anemia
III. 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
IV. Chronic left cerebellar infarct.
V. Proximal myopathy.
-Continue Telemetry monitoring
-Avoid myotoxic medications (prednisone)
-Continue Eliquis for secondary stroke prophylaxis.
-No indications for CSF studies from neurological perspective.
-DVT prophylaxis.
-The case was discussed with patient's spouse
-continue PT
- Please recall neurology services any questions or concerns
I personally reviewed all radiology and labs along with past medical records pertinent to current medical problems. Total time spent in patient care is 37 minutes.
Thank you for allowing us to participate in the care of this patient. We will continue to follow. Please do not hesitate to contact us with any questions or concerns
Objective Data
Vital Signs
Temp Pulse Resp BP Pulse Ox
36.8 C 92 25 87/68 99
07/12/24 15:21 07/12/24 15:25 07/12/24 14:45 07/12/24 15:25 07/12/24 14:45
Lab Results
07/12/24 04:34
07/12/24 04:34
PT 15.5 Sec (11.4-14.6) H 07/07/24 10:09
INR 1.20 07/07/24 10:09
APTT 32.2 Sec (23.4-35.0) 07/07/24 10:09
Sodium 143 mmol/L (135-145) 07/12/24 04:34
Potassium 3.9 mmol/L (3.5-5.1) 07/12/24 04:34
BUN 22 mg/dl (7-17) H 07/12/24 04:34
Glucose 140 mg/dl (70-99) H 07/12/24 04:34
Calcium 7.9 mg/dl (8.4-10.2) L 07/12/24 04:34
Owu-W-Whishuiehzr Pept 60221 pg/ml 07/11/24 04:26
LDL Cholesterol, Calc 46 mg/dl 07/08/24 03:12
Vitamin B12 444 pg/ml (239-931) 07/08/24 03:12
Patient Allergies
allopurinol Allergy (Verified 04/19/25 08:04)
Unknown
colchicine Allergy (Verified 07/07/24 08:04)
Unknown
levofloxacin Allergy (Verified 07/07/24 08:04)
developed C-Diff
vancomycin Allergy (Verified 07/07/24 08:04)
developed C-diff
Vital Signs and Labs
-
Vital Signs and Labs:
Vital Signs
Temp Pulse Resp BP Pulse Ox
36.8 C 92 25 87/68 99
07/12/24 15:21 07/12/24 15:25 07/12/24 14:45 07/12/24 15:25 07/12/24 14:45
Lab Results
07/12/24 04:34
07/12/24 04:34
PT 15.5 Sec (11.4-14.6) H 07/07/24 10:09
INR 1.20 07/07/24 10:09
APTT 32.2 Sec (23.4-35.0) 07/07/24 10:09
Sodium 143 mmol/L (135-145) 07/12/24 04:34
Potassium 3.9 mmol/L (3.5-5.1) 07/12/24 04:34
BUN 22 mg/dl (7-17) H 07/12/24 04:34
Glucose 140 mg/dl (70-99) H 07/12/24 04:34
Calcium 7.9 mg/dl (8.4-10.2) L 07/12/24 04:34
Yyt-W-Zmrhhbteiad Pept 84391 pg/ml 07/11/24 04:26
LDL Cholesterol, Calc 46 mg/dl 07/08/24 03:12
Vitamin B12 444 pg/ml (239-931) 07/08/24 03:12
Medications
-
Medications:
Generic Name Dose Route Start Last Admin
Trade Name Freq PRN Reason Stop Dose Admin
Acetaminophen 650 mg 07/07/24 15:22
Acetaminophen 650 Mg Rectal Suppository RECTAL 08/04/24 15:21
Q4HPRN PRN
ALTMAN, mild pain, or temp >100.4F
Acetaminophen 650 mg 07/07/24 15:22 07/12/24 10:29
Acetaminophen 325 Mg Tablet PO 08/04/24 15:21 650 mg
Q4HPRN PRN Administration
ALTMAN, mild pain, or temp >100.4F
Amiodarone HCl 400 mg 07/09/24 12:00 07/12/24 08:55
Amiodarone 200 Mg Tablet PO 08/06/24 11:59 400 mg
BID JOSE Administration
Apixaban 2.5 mg 07/11/24 10:15 07/12/24 08:54
Apixaban (Eliquis) 2.5 Mg Tablet PO 08/08/24 10:14 2.5 mg
BID JOSE Administration
Atorvastatin Calcium 40 mg 07/12/24 18:00
Atorvastatin (Lipitor) 40 Mg Tablet PO 08/09/24 17:59
QPM JOSE
Bisacodyl 10 mg 07/09/24 09:28
Bisacodyl 10 Mg Rectal Suppository RECTAL 08/06/24 09:27
DAILYPRN PRN
Constipation
Brimonidine Tartrate 1 drop 07/07/24 20:00 07/12/24 08:56
Brimonidine 0.2% (Ophthalmic Solution) Bottle BOTH EYES 08/04/24 19:59 1 drop
BID JOSE Administration
Furosemide 20 mg 07/11/24 11:00 07/11/24 13:06
Furosemide 20 Mg Tablet PO 08/08/24 10:59 Not Given
DAILY JOSE
Gabapentin 200 mg 07/07/24 22:00 07/11/24 21:51
Gabapentin 100 Mg Capsule PO 08/04/24 21:59 200 mg
HS JOSE Administration
Ferric Sodium Gluconate 110 mls @ 110 mls/hr 07/10/24 14:00 07/12/24 13:47
Complex 125 mg/ Sodium IV 07/14/24 14:59 110 mls
Chloride DAILY@1400 JOSE Administration
Latanoprost 1 drop 07/07/24 22:00 07/11/24 21:49
Latanoprost 0.005% (Ophthalmic Solution) 2.5 Ml Bottle BOTH EYES 08/04/24 21:59 1 drop
HS JOSE Administration
Methimazole 2.5 mg 07/08/24 08:00 07/12/24 08:54
Methimazole 5 Mg Tablet PO 08/05/24 07:59 2.5 mg
DAILY JOSE Administration
Metoprolol Tartrate 50 mg 07/11/24 16:00 07/12/24 15:25
Metoprolol 50 Mg Regular Release Tablet PO 08/08/24 15:59 Not Given
TID JOSE
Mirtazapine 7.5 mg 07/07/24 22:00 07/11/24 21:51
Mirtazapine 7.5 Mg Regular Release Tablet PO 08/04/24 21:59 7.5 mg
HS JOSE Administration
Pantoprazole Sodium 40 mg 07/12/24 08:00 07/12/24 08:54
Pantoprazole 40 Mg Delayed Release Tablet PO 08/09/24 07:59 40 mg
DAILY JOSE Administration
Polyethylene Glycol 17 grams 07/10/24 16:22
Polyethylene Glycol Powder 17 Grams Packet PO 08/07/24 16:21
BIDPRN PRN
CONSTIPATION
Prednisone 5 mg 07/09/24 20:00 07/12/24 08:54
Prednisone 5 Mg Tablet PO 08/06/24 19:59 5 mg
BID JOSE Administration
Saccharomyces Boulardii 250 mg 07/11/24 20:00 07/12/24 08:56
Saccharomyces Boulardi (Florastor) 250 Mg Capsule PO 08/08/24 19:59 250 mg
BID JOSE Administration
Sodium Chloride 0 flush 07/07/24 14:00
Sodium Chloride 0.9% (Flush) Syringe IV 08/04/24 13:59
PER PROTOCOL JOSE
Timolol Maleate 1 drop 07/07/24 20:00 07/12/24 08:56
Timolol 0.5% (Ophthalmic Solution) Bottle BOTH EYES 08/04/24 19:59 1 drop
BID JOSE Administration
Home Medications
-
Home Medications
apixaban 5 mg tablet (Eliquis) 2.5 mg PO BID Blood Clot Prevention/Tx 08/26/22
gabapentin 100 mg capsule 100 - 300 mg PO HS PRN neuropathy 08/26/22
latanoprost 0.005 % eye drops 1 drp BOTH EYES HS Eye Condition 08/26/22
methimazole 5 mg tablet 2.5 mg PO DAILY Thyroid 08/26/22
brimonidine 0.2 %-timolol 0.5 % eye drops (Combigan) 1 drp BOTH EYES BID Eye Condition 03/06/24
mirtazapine 7.5 mg tablet 7.5 mg PO HS PRN Mental Health/Anxiety 03/06/24
acetaminophen 500 mg tablet (Tylenol Extra Strength) 1,000 mg PO DAILYPRN PRN HEADACHES 04/09/24
carvedilol 6.25 mg tablet (Coreg) 6.25 mg PO BID Blood Pressure 04/09/24
methenamine hippurate 1 gram tablet 1 g PO BID Urinary Issue 04/09/24
famotidine 40 mg tablet 40 mg PO 1800 Gastrointestinal Issue 07/07/24
melatonin 5 mg tablet 5 mg PO HS Sleep 07/08/24
methylprednisolone 4 mg tablet 2 mg PO 2000 INFLAMMATION 07/08/24
methylprednisolone 4 mg tablet 4 mg PO 0800,1200 INFLAMMATION 07/08/24
tramadol 25 mg tablet 25 mg PO Q6H PRN pain 07/08/24
methotrexate sodium 2.5 mg tablet 10 mg PO MO Autoimmune Disorder 07/09/24
[2024-07-12] MEDS: LIPITOR 40 MG PO (18:16)
[2024-07-12] MEDS: XALATAN OPHTHALMIC SOLUTION 1 DROP BOTH EYES (21:06)
[2024-07-12] MEDS: REMERON 7.5 MG PO (22:15)
[2024-07-12] MEDS: NEURONTIN 200 MG PO (22:15)
--- NOTE | 2024-07-12 23:09 | PTCARENOTE ---
Received patient AAOx3, following commands, denying pain. Afib 80s-100s, BP stable, normothermic. Weak pedal pulses b/l. On 2 liters nasal cannula saturating 96%, lung sounds diminished throughout with crackles in the bases. BANEGAS, tachypneic.
Continent of bowel and bladder, uses bedpan. PIV patent, WNL. Call laguerre within reach.
[2024-07-13] VITALS (30 sets, daily range): BP systolic 75–140; BP diastolic 45–122; PULSE 2–122; BMI 21.4
--- NOTE | 2024-07-13 04:24 | PTCARENOTE ---
No change in pt status since initial assessment. No s/s of distress assessed. Will continue to monitor.
[2024-07-13 06:51] LABS: Hematocrit 25.2 % (37.0-47.0); Hemoglobin 8.4 g/dL (12.0-16.0); Mean Corp Hgb Conc. 33.3 g/dL (33.0-37.0); Mean Corpuscular Hgb 33.3 pg (27.0-31.0); Mean Platelet Volume 10.7 fL (7.4-10.4); Platelet Count 305 10^3/uL (130-400); Red Blood Cell Count 2.52 10^6/uL (4.20-5.40); Red Cell Dist. Width 19.9 % (11.5-14.5)
[2024-07-13 07:05] LABS: Blood Urea Nitrogen 26 mg/dl (7-17); Calcium 7.9 mg/dl (8.4-10.2); Carbon Dioxide 21 mmol/L (22-30); Chloride 111 mmol/L (98-107); Estimated Creatinine Clearance 31 ml/min; Glucose 100 mg/dl (70-99); Magnesium 2.1 mg/dl (1.6-2.3); Sodium 144 mmol/L (135-145)
--- NOTE | 2024-07-13 08:38 | PTCARENOTE ---
Addendum entered by Viral Boyd RN 07/13/24 10:22:
pt. placed on bipap, Lasix ordered, CXR shows pulm edema, bladder scanned pt. found to have 1L in bladder no urination HS, patel ordered placed by paper roller due to ongoing retention/on going diuresis for Pulm edema/CHF exac.
Original Note:
Assumed care of pt. approx 0700.
Tachycardic, RR in 30s, Resp called to place on Midflo, 02 uptitrated to 12L, still desatting, labored breathing, hospitalist called bedside, stat CXR ordered.
--- NOTE | 2024-07-13 08:44 | W.PN.HOSP.TC ---
Today's Communication/Plan
-
Agree with BIPAP and Lasix.
I doubt pulm edema alone is contributing to her hypoxia.
Should we think of opportunistic infections and other causes?
Assessment / Plan
Assessment / Plan
78yo F with PMHx of anemia, possible PUD followed by , Afib on eliquis, HFrEF, s/p ICD, HTN, glaucoma, frequent UTI, hyperthyroidism, GCA on high dose prednisone brought by after he found her confused and non-verbal sitting on the
side of the bed in AM. Developed hypotension overnight with Afib with RVR on 07/08/24. Managed for possible stroke and infection, likely pneumonia, but abd CT with termianl ileum thickening. Complicated with elevated troponin, anemia and ALCON.
states that by 07/08/2024 afternoon she was back to herself.
On examination earlier patient was awake and alert . SOB
Cardiovascular system S1-S2 irregular, tachy
Chest few scattered rales bilaterally
Abdomen soft and nontender
No pedal edema
CT chest without IV contrast 07/08/2024-bilateral interstitial and groundglass opacities most suspicious for pulmonary edema. Atypical infections would be difficult to completely exclude.
CT A/P 07/07/24-No obstructive uropathy. Rios catheter within urinary bladder, which is empty.Mild circumferential wall thickening of the terminal ileum. Suspicious for nonspecific terminal ileitis. However, no significant inflammatory soft tissue
stranding.Proximal appendix identified, and appears unremarkable. Distal appendix blends imperceptibly with the terminal ileum wall thickening.Rectal fecal impaction.Possible volume overload or mild congestive heart failure. Mild fatty infiltration
of liver. Stable hepatic cysts.
3 mm pancreatic low-attenuation/cystic structure. Possible distended side branch or intraductal papillary mucinous neoplasm. This may be slightly more pronounced compared to prior examination, or possibly related to differences in slice thickness
and selection. Recommend follow-up in 2-[address]-no acute changes
CTA head and neck-no high-grade stenosis or occlusion of the [place] or artery vasculature in the neck less than 50% stenosis bilateral carotid bulbs.
ECHO- Normal left ventricular size with mildly reduced systolic function. LVEF 47%.Anteroseptal wall dyskinesis.Normal right ventricular size with mildly reduced systolic function.Well-seated mitral annuloplasty ring with mean gradient 6
mmHg.Well-seated bioprosthetic aortic valve with mean gradient 12 mmHg and mild AR.Mild tricuspid regurgitation. PASP 27 mmHg.Compared to prior echocardiogram on 08/17/2023, there is now mild paravalvular
aortic regurgitation. No obvious vegetations visualized.
MRI of the brain-1.5 mm focus of restricted diffusion involving posterior cortex of the left precentral gyrus suspicious for tiny acute cortical infarct. Chronic ischemic changes. Small chronic infarct in the left cerebellum
A/P
# Acute hypoxic resp failure
CXR reviewed by me
Showed Pulm edema.
IV Lasix now
Cardiology following.
Requested pulm to see given persistent t hypoxia
Looks like there may be more than pulm edema
#Shock
Unclear reason septic shock versus cardiogenic shock
s/p norepinephrine -weaned off
CT chest-no convincing evidence of pneumonia, patient does report upper respiratory symptoms now
Procalcitonin 6.33
Vanco/Zosyn -changed to ceftriaxone and doxycycline-complete the course for atypical pneumonia. completed
Influenza negative Legionella and strep antigen negative, COVID-19 serology negative
UA neg for infection
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
Cultures are negative so far
ID consulted.
#Aphasia, then word finding difficulty with acute metabolic encephalopathy, concern for CVA
Unclear if patient has TME secondary to underlying cognitive dysfunction and infection.
MRI with a small stroke noted. CTA without any evidence of carotid stenosis
CTA head: bilateral carotid bulbs contributing to less than 50% stenosis, no LVO
Normal TSH and HgbA1c
Eliquis restarted
Continue Eliquis and statin
#Acute urinary retention
Rios out
Urinalysis without any evidence of infection
Bladder scan to make sure no retention.
#Pulmonary edema, possible mild acute on chronic HFrEF
Afib with RVR-On AMio
Continue BB
Elevated troponin, most likely non-ischemic myocardial injury and 2/2 tachycardia and CHF
Amio drip changed to PO by cards
Continue beta-blockers and Lasix
ProBNP 5500
Continue telemetry
Cardiology following
# Diarrhea-Norovirus and C. difficile negative. Possibly could be secondary to amiodarone per cardiology
# History of mitral annuloplasty and bioprosthetic aortic valve replacement-KALPESH without any vegetations
# Elevated-trending down. Likely nonischemic myocardial injury
# Hypokalemia-replace
#ALCON-Had resolved
Creat 1.1. watch with lasix.
Had CTA head neck in ED, cannot exclude JUAN
Urinary studies- [place]
Rios out
Nephrology signed off
# Anemia, macrocytic, acute on chronic
Slightly elevated LDH. Haptoglobin mormal rules out Hemolysis
Transfuse as needed - obtained consent from obtained over the phone
Severe Iron deficiency- IV iron when clinically better.
GI consulted.No plans for endoscopy
# 5 mm segment of the terminal ileum with mild circumferential wall thickening
closely related to appendix, but no definite appendicitis signs on CT - USS appendix not visualized.
Patient does not have right lower quadrant tenderness or pain.
May need outpatient colonoscopy and EGD as OP per GI.
MRI-E given the concern for possible terminal ileitis as an outpatient
# Fecal impaction-Resolved.
# Insomnia-cont Remeron, melatonin
# GCA/reactive arthritis-continue steroids. Follows with . Was on 4 mg of methylprednisolone twice daily and 2 mg at night
Spoke to Dr. Crain today updated regarding patient's hospital stay also aware that patient is on prednisone 10 mg daily now
Hold methotrexate
# Hyperthyroidism,cont Methimazole,TSH, FT4, FT3 WNL
# Chronic left cerebellar infarct.ASA, Statin
# Neuropathy NOS-continue Gabapentin
# Glaucoma-continue Combigan eyedrops, latanoprost eyedrops
# 3 mm pancreatic low-attenuation cystic structure-outpatient follow-up
# History of C. difficile infection
# History of breast cancer with right breast lumpectomy
# History of melanoma status post excision from back in 2007 and thigh in 2008
# History of pacemaker/AICD March 2015
# Hypoalbuminemia
# Diverticulosis with history of diverticulitis in the past
# Osteoarthritis/DDD/gout
# DVT ppx on Eliquis
# Full code
Discussed with nursing
D/W Cards
D/W pulm
D/W OP Rheum . yesterday twice.
Patient has had several markers positive at some time in the past. She was treated with steroids for GCA even though the Biopsy was not classic. Even while ons steroids, pt kep having head aches. Plan was to change to methotrexate and stop steroids.
She got admitted.
Rheum recommended to get an LP if pt keeps having head aches.
Also recommended ANCA,Rpt UBALDO with reflex to DSDNA,Boyd , [employer]ULT AMPHIBI[employer] VEHICLE CREWMAN,SSA/SSB, Scl 70, C3,C4,ferritin,TG,Coag panel JANEY level.
Also send out tests IL18 and cxcl9 ( [facility])
Pt very sob today and not in a place to get LP today.
Should we think of opportunistic infections ?
Time spent over 55 minutes
Anticipated Discharge: > 48 hours
Subjective/Interval History
-
Date of Service: July 13, 2024
Objective Data
-
Labs:
Laboratory Results
07/13/24
06:41
WBC 12.0 H
Hgb 8.4 L
Hct 25.2 L
Plt Count 305 D
Sodium 144
Potassium 4.0
Chloride 111 H
Carbon Dioxide 21 L
BUN 26 H
Creatinine 1.1 H
Glucose 100 H
Calcium 7.9 L
Vital Signs:
Vital Signs
Temp Pulse Resp BP Pulse Ox
98.2 F 80 23 101/55 92
07/13/24 08:00 07/13/24 04:00 07/13/24 04:00 07/13/24 04:00 07/13/24 08:26
I&O
07/12/24 07/13/24 07/14/24
06:59 06:59 06:59
Intake Total 350 / 350 240 / 240
Balance 350 / 350 240 / 240
[2024-07-13] MEDS: LOPRESSOR 50 MG PO (08:52)
[2024-07-13] MEDS: ELIQUIS 2.5 MG PO ×2 (08:53→20:45)
[2024-07-13] MEDS: PACERONE 400 MG PO (08:53)
[2024-07-13] MEDS: DELTASONE 5 MG PO (08:55)
[2024-07-13] MEDS: PROTONIX 40 MG PO (08:55)
[2024-07-13] MEDS: TAPAZOLE 2.5 MG PO (08:55)
[2024-07-13] MEDS: FLORASTOR 250 MG PO ×2 (08:55→20:45)
--- NOTE | 2024-07-13 08:58 | PN.CDI ---
Addendum entered and electronically signed by Alba Ventura MD 07/13/24 18:09:
Documentation is complete at this time.
Original Note:
CDI
- -
CDI:
Physician Documentation Request
Admit Date: 07/07/24 10:37
Dear Doctor Audrey,
Patient presented and admitted due to concern for stroke.
07/08 hospitalist progress note includes septic shock.
07/09- hospitalist progress note states 'shock. Unclear reason septic vs cardiogenic shock'
Cardiology notes 07/10- state 'shock, resolved....Suspect sepsis rather than cardiogenic given that her EF is stable on echo'
Please clarify the shock type:
Septic shock vs cardiogenic shock remains a diagnosis
Cardiogenic shock ruled out, septic shock only
Shock, unknown type
Other
Use of terms such as suspected, likely, concern for, or probable (associated with a specific diagnosis that is being evaluated, monitored, or treated as if it exists) are acceptable and can be coded in the inpatient setting, when documented at the
time of discharge.
Thank you,
Ana Garcia RN, BSN
CDI Specialist
tiger text
Please use your independent medical judgment in providing your response.
--- NOTE | 2024-07-13 09:01 | RESPNOTE ---
called to bedside for increased O2 requirement. O2 requirement went from 6L O2 to 15L midflow over 30-40min. Dr. Ventura at bedside. CXR ordered. then Dr. Patel at bedside. increased edema on xray- bipap initiated 12/23 with 12L O2, SpO2 improved to
95-99%, RR 20-22. IV Lasix ordered.
[2024-07-13] MEDS: LASIX 40 MG IV ×2 (09:12→16:03)
[2024-07-13] MEDS: TIMOPTIC 0.5% OPHTHALMIC SOLUTION 1 DROP BOTH EYES ×2 (09:13→20:45)
[2024-07-13] MEDS: ALPHAGAN 0.2% EYE DROPS 1 DROP BOTH EYES ×2 (09:13→20:45)
--- NOTE | 2024-07-13 09:35 | PN.CDI ---
Addendum entered and electronically signed by Alba Ventura MD 07/13/24 18:08:
unclear
Original Note:
CDI
- -
CDI:
Physician Documentation Request
Admit Date: 07/07/24 10:37
Dear Doctor Audrey,
Patient presented with concern for stroke on 07/07
07/08 Progress notes include a diagnosis of sepsis.
While hospitalized patient completed course of ceftriaxone and doxycycline for atypical pneumonia.
07/07 patient was afebrile
07/07 documented heart rates ranges from 108-165, and respirations between 16-41
WBC's as follows:
07/07/24 07/07/24
07:38 21:41
WBC 8.4 11.3 H
Please clarify the following:
Sepsis was present on admission
Sepsis was not present on admission
Unable to determine
Use of terms such as suspected, likely, concern for, or probable (associated with a specific diagnosis that is being evaluated, monitored, or treated as if it exists) are acceptable and can be coded in the inpatient setting, when documented at the
time of discharge.
Thank you,
Ana Garcia RN, BSN
CDI Specialist
tiger text
Please use your independent medical judgment in providing your response.
--- NOTE | 2024-07-13 09:39 | W.PN.ID1 ---
Date of Service
Date of Service: July 13, 2024
Today's Communication
Continue off antibiotics for today. See below�
Assessment / Plan
Fever
Hypoxemic respiratory failure; on BiPAP
Elevated ESR and CRP
Elevated prior procalcitonin
Leukocytosis
- New today; suspect steroid effect
A-fib (on Eliquis)
CHF
HTN
Glaucoma
Hx UTI
Hypothyroidism
GCA (on prednisone)
IBS
Inflammatory arthropathy
Glaucoma
Recommendations:
Cultures have been nonrevealing to this point.
Suspect prior procalcitonin may be elevated due to a myriad of other factors, and not reflective of current bacterial process.
Suspect elevated inflammatory numbers may be secondary to patient's underlying history of GCA.
Antibiotics discontinued 07/12. Continue to observe off antibiotics for the present.
Would continue to monitor white count and temperature curve.
Case discussed extensively with Hospitalist Service. Concern for possible opportunistic infection.
Check sputum culture. Check sputum silver stain. Will check Aspergillus antibodies.
Continue supportive measures.
����������������������������������������������������������
Chief Complaint
-: Fever
Subjective / Review of Systems
Patient seen and examined. Chart reviewed. Overnight with increased O2 requirements, and patient now on BiPAP. Reports feeling chilly, but no fevers.
Vital Signs / Physical Exam
Vital Signs
Vital Signs
Temp Pulse Resp BP Pulse Ox
98.2 F 127 23 128/115 92
07/13/24 08:00 07/13/24 09:12 07/13/24 04:00 07/13/24 09:12 07/13/24 08:26
Physical Exam
Constitutional: Comfortable, Chronically Ill and Non-toxic
Cardiovascular: S1/S2; Negative S3/S4
Pulmonary: Coarse and Other (BiPAP in place.)
Gastrointestinal: Soft, Non Tender and Non Distended
Neurological: Awake and Alert
Psychological: Calm
Objective Data
Lab Data
Lab Results
07/13/24 06:41
07/13/24 06:41
ESR 86 mm/hour (0-20) H 07/12/24 04:34
PT 15.5 Sec (11.4-14.6) H 07/07/24 10:09
INR 1.20 07/07/24 10:09
APTT 32.2 Sec (23.4-35.0) 07/07/24 10:09
Estimated Creat Clear 31 ml/min 07/13/24 06:41
Lactic Acid 1.7 mmol/L (0.7-2.0) 07/07/24 22:16
Total Bilirubin 1.1 mg/dl (0.2-1.3) 07/09/24 04:09
AST 28 U/L (14-36) 07/09/24 04:09
ALT 25 U/L (0-35) 07/09/24 04:09
Alkaline Phosphatase 56 U/L (38-126) 07/09/24 04:09
C-Reactive Protein 157.70 mg/L (0.0-10.00) H 07/12/24 04:34
Most recent labs reviewed.
Micro Results:
07/12/24 11:51 - Final
Feces/Stool Negative for Norovirus GI and GII.
07/12/24 12:13 Blood Culture - Pending
Blood/Venous
07/12/24 12:18 Blood Culture - Pending
Blood/Venous
07/07/24 10:22 Blood Culture - Final
Blood/Venous No Growth - Final Report
07/07/24 10:22 Blood Culture - Final
Blood/Venous No Growth - Final Report
07/11/24 18:49 C. difficile GDH Antigen & Toxins - Final
Feces/Stool Negative for toxigenic C.difficile
07/08/24 09:03 MRSA Screen - Final
Nose No Methicillin Resistant Staphylococcus aureus isolated.
07/08/24 11:57 Legionella Urinary Antigen - Final
Urine Negative for Legionella pneumophila Serogroup 1 antigen.
A negative result does not rule out the possiblity of
Legionella infection due to other serogroups or species of
Legionella. Clinical correlation is recommended.
Streptococcus pneumoniae Antigen (M - Final
Negative for Streptococcus pneumoniae antigen.
A negative result does not exclude infection with
Streptococcus pneumoniae. Clinical correlation is
recommended.
07/08/24 09:03 Nasal Screen MRSA (PCR) - Final
Nose
07/08/24 03:12 Nasal Screen MRSA (PCR) - Final
Nose
07/07/24 10:09 Influenza Types A & B (HANH) - Final
Nasal Swab Negative for Influenza A & B, NAAT
Negative results must be combined with clinical observations
and patient history.
Nucleic Acid Amplification test (NAAT)performed on the
[employer] platform.
Imaging:
07/13/2024 CXR (portable): Stable severe right upper lobe airspace disease. Stable diffuse interstitial prominence bilaterally. No significant pleural effusions. No visualized pneumothorax.
07/12/2024 CXR (portable): Cardiomediastinal silhouette is within normal limits. Median sternotomy wires and left subclavian AICD are in place. Hazy opacity within the right mid to upper lung zone. Minimal interstitial prominence which is grossly
unchanged. Please see full dictation for additional detail. Film personally viewed.
07/11/2024 MRI brain without contrast: A 1.5 mm focus of suggested restricted diffusion involving the posterior cortex of the left precentral gyrus suspicious for tiny acute cortical infarct. No other acute infarcts noted. Chronic ischemic changes.
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 Please see full dictation for additional detail.
07/08/24 CT chest without contrast: Bilateral interstitial and groundglass pulmonary opacities most suspicious for pulmonary edema. Please see full dictation for additional detail.
Chest X-Ray: Image Reviewed and Report Reviewed
Care Review
Plan reviewed with: Physician (Hospitalist; Critical Care)
--- NOTE | 2024-07-13 09:54 | W.PN.CD ---
Today's Communication / Plan
-
Consider IV 40 mg lasix
Cont abx
Degree of hypoxia seems to be out of proportion to HF?
Impression / Plan
-
Mrs. Cisneros is an 78 yo female with paroxysmal Afib on Eliquis, anemia, HFrEF, EF 35-40%, [employer] ICD, HTN, s/p MV annuloplasty ring, moderate mitral regurgitation, bioprosthetic aortic valve, GCA on prednisone, who was brought to the ER by
family for confusion. Cardiology consulted for atrial fibrillation with RVR.
Paroxysmal atrial fibrillation with RVR now appears to be sinus tach
-Rates somewhat improved, though jumped when she tried to get OOB to chair
-Started on IV amiodarone on 07/07 PM due to RVR and hypotension. Additional IV bolus given 07/11
-Continue p.o. amiodarone 400 mg twice daily
-Continue metoprolol 50 mg 3 times daily with holding parameters
-Neuro ok with Eliquis resumption. Continue 2.5 mg twice daily.
Shock, resolved
-Required norepinephrine briefly on 07/07, now stopped. Suspect sepsis rather than cardiogenic given that her EF is stable on echo
-No infectious source at this time. Maybe pneumonia?
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
-Plan is for 5 days abx
Acute hypoxic respiratory failure worsening
- Likely has some component of acute on chronic HFrEF.
-IV lasix 40mg x1 yesterday but now increased BUN and Cr. Hold additional doses today
-RVR may be adding to dyspnea.
-Strict I/Os, daily standing weights
Acute on chronic HFrEF --> Weights appear stable
-TTE 07/08/2024: LVEF 47%, stable anteroseptal dyskinesis, normal mitral and aortic valve gradients, mild paravalvular AR, normal PASP
-Does not appear too volume overloaded
-Hold carvedilol for recent hypotension, now on metoprolol tartrate with eventual plan to switch to succinate
-will increase metoprolol for rate control during PAF
-Has not been able to tolerate any other GDMT due to hypotension and frequent UTIs
-S/p ICD
Altered mental status, reolved
-CT head and CTA head/neck are unremarkable. TSH normal. No evidence of UTI by UA. Brain MRI with tiny acute cortical infarct
-Suspect due to septic shock as above
Troponin elevation
-Likely due to nonischemic myocardial injury in the setting of heart failure exacerbation +/- A-fib with RVR with ALCON. She denies chest pain. ECG with stable LBBB.
-No treatment for ACS at this time
Subjective: She appears to be in sinus tachycardia, however, worsening hypoxia and tachypnea now on BIPAP
Physical Exam
Vital Signs/Labs
Vital Signs
Temp Pulse Resp BP Pulse Ox
98.2 F 127 23 128/115 92
07/13/24 08:00 07/13/24 09:12 07/13/24 04:00 07/13/24 09:12 07/13/24 08:26
07/12/24 07/13/24 07/14/24
06:59 06:59 06:59
Actual Weight 112 lb 6.972 oz
07/13/24 06:41
07/13/24 06:41
PT 15.5 Sec (11.4-14.6) H 07/07/24 10:09
INR 1.20 07/07/24 10:09
APTT 32.2 Sec (23.4-35.0) 07/07/24 10:09
Magnesium 2.1 mg/dl (1.6-2.3) 07/13/24 06:41
Triglycerides 147 mg/dl (10-149) 07/08/24 03:12
LDL Cholesterol, Calc 46 mg/dl 07/08/24 03:12
VLDL Cholesterol, Calc 29 mg/dl (0-30) 07/08/24 03:12
HDL Cholesterol 31 mg/dl 07/08/24 03:12
TSH 3.71 uIU/ml (0.47-4.68) 07/07/24 07:38
Free T4 1.44 ng/dl (0.78-2.19) 07/07/24 07:38
07/07/24 07/11/24
07:38 04:26
Vci-[id number] Pept 5500 [id number]
Physical Exam
Constitutional: No acute distress and Distress
EENT: Anicteric
Cardiovascular: Rhythm & rate is regular
Respiratory: Other (poor air movement b/l)
GI: Soft
Neuro/Psych: AO x 3
Data Reviewed
-
Date of Service: July 13, 2024
Medical Decision Making: Reviewed Test Results
EKG: Tracing Personally Visualized and interpreted (sinus tach)
Echo: Report Reviewed by me
Labs: Labs Reviewed by me
Critical Care Time (in minutes): 32
--- NOTE | 2024-07-13 11:09 | PTCARENOTE ---
PT. switched from Bipap back to midflow.
--- NOTE | 2024-07-13 12:03 | W.PN.PUL3 ---
Addendum entered and electronically signed by Myke Patel MD 07/13/24 17:38:
-Upgraded to ICU
-Patient re-examined in the evening after she started developing respiratory distress off BIPAP
-Lasix 40 mg IV repeat, resume BIPAP
-d/c Prednisone and switch to solumedrol 20 mg IV BID for now
-Intermittent breaks from BIPAP as tolerated
-CT chest in AM
-Patient at risk of respiratory failure requiring intubation, mechanical ventilation
Total 90 min of critical care time spent throughout the day
Original Note:
Today's Communication / Plan
-
- Lasix 40 mg IV stat, initiate BiPAP
- Plan for another dose of Lasix 40 mg IV later today if blood pressure allows
- Follow-up CT chest without contrast in a.m. to evaluate lung parenchyma for any interstitial lung disease or other abnormalities
- BNP in a.m.
Assessment
-
78-year-old female with past medical history of Afib on eliquis, HFrEF, s/p ICD, HTN, glaucoma, frequent UTI, hyperthyroidism, GCA on prednisone who presented with confusion, last known normal the night prior at 10 PM. She had a headache with
worsening left-sided abdominal pain the night prior. In the ER, a stroke alert was called with CT head showing no acute intracranial abnormality, and CTA head/neck showing no high-grade stenosis, LVO, and <50% stenosis of the bilateral carotid
bulbs. Neurology was consulted to evaluate for tPA and she was not considered a candidate due to active systemic anticoagulation with Eliquis. Initial labs showed Hb 10.6, glucose 102, troponin 0.041, CRP 47.3, proBNP 5500, TSH 3.71, urinalysis
with no signs of UTI, and COVID-19 antigen negative. Flu swab A/B both negative + blood cultures were obtained. She was found to be in rapid A-fib with heart rate in the 150s, BP initially 150/102, and saturating 95% on room air. In the ER she
was given 20 mg IV Lasix +2.5mg Lopressor. She was initially admitted to telemetry. Throughout the evening on 07/07 - 07/08, heart rate became more uncontrolled with rates in the 130�180s and she became hypotensive. Amiodarone drip started and
Levophed also started, and patient transferred to the ICU for further care. Booster Assembler service was consulted for additional management/recommendations.
Patient had subsequently improved and was transferred out of ICU.
07/13, patient noted to be hypoxic in the morning with increased work of breathing and tachypnea. Pulmonary consultation was again requested for further input.
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
Assessment and plan:
#1. Acute respiratory failure suspect primarily related to pulmonary edema. Chest x-ray reviewed (07/13) suggestive of worsening congestion
-Initiate BiPAP, patient reexamined after BiPAP, significantly improved work of breathing
-Lasix 40 mg IV stat, Rios catheter for close input and output measurement. Reportedly patient did not get Lasix yesterday in view of mild worsening of creatinine
-Patient has completed 5 days of antibiotic and extensive infectious workup has been negative including influenza A B, COVID-19, Legionella and strep pneumo antigen, cultures.
-On review of prior x-rays, with fluctuating level of infiltrates, rapid changes more suggestive of pulmonary edema rather than infection
-Will give additional 40 mg of Lasix later today if her blood pressure allows, and get a follow-up CT chest without contrast in the morning for better evaluation of parenchyma, in case patient has any concomitant interstitial lung disease.
-Amiodarone related interstitial pneumonitis also in differential however it is less likely considering it was started during this hospitalization and patient presented with interstitial infiltrates suggestive of pulmonary edema
-Patient otherwise denies cough, is afebrile and has low likelihood of opportunistic infection
#2. Acute on chronic HFrEF exacerbation, EF 47% with Minh-septal wall hypokinesis. PAST 27 mm. Well seated Mitral Annuloplasty and well seated bioprosthetic AV with mild AR as per ECHO 06/2024.
- Lasix 40 mg IV stat given, will repeat another dose later today if blood pressure allows
- BNP in a.m., follow-up chest CT in a.m.
#2a. A-fib with rapid ventricular rate. Paroxysmally in atrial fibrillation with rapid ventricular rate
- Currently on amiodarone as well as metoprolol
- Eliquis for anticoagulation
#3. Shock, cardiogenic versus septic related to pneumonia. Atrial fibrillation with rapid ventricular rate likely also contributed. With CXR significantly improved, suspect CHF more likely than pneumonia
- Off Levophed since 10 am, 07/09. Off Midodrine
- Target antibiotics for 5 days total
- Nonspecific terminal ileal inflammation noted on CT, GI service on case, no abdominal pain noted on exam
#4. Acute encephalopathy, related to CVA noted on MRI
- Encephalopathy resolved, patient is currently awake, alert and oriented
- TSH and B12 normal
#5. Acute kidney injury, non-liguric, admission creatinine was 0.9, went up to 1.2, now 1.1. Suspect related to hypotension, diuresis. Patient received IV contrast for CT, contrast nephropathy also in differential diagnosis.
- Improved, creatinine has been stable around 1.1 now
#6. S/p mitral annuloplasty + bioprosthetic AVR, h/o V Fib, s/o AICD (2016)
- 2-D Echo reassuring
#7. History of suspected giant cell arteritis, on chronic steroid therapy. (Follows up with rheumatology service, Dr. Crain)
- Lately had been on 8 mg of methylprednisolone daily, 4 mg in the morning, 4 in the afternoon and 2 at night.
- Currently on prednisone 5 mg twice a day
#8. Anemia
- Eliquis resumed 04/23, no melena or hematochezia noted, GI service on case
- Unless patient shows signs of active bleeding, further workup as outpatient
DVT prophylaxis, Eliquis PO
GI prophylaxis, currently on Protonix
Patient was reexamined after placement on BiPAP with improved work of breathing and saturation.
Updated patient's at bedside. Case discussed with infectious disease service as well.
Total time spent on this consultation/encounter __58__ minutes which includes review of history, physical exam, medications, laboratory data, personal review of imaging, extensive review of outpatient records, discussion with care team and
respiratory therapy.
Subjective Data
-
Date of Service:
Date of Service: July 13, 2024
Objective Data
Data Reviewed
Vital Signs / I&O / Oxygen:
Vital Signs
Temp Pulse Resp BP Pulse Ox
98.2 F 102 30 136/85 96
07/13/24 11:21 07/13/24 10:00 07/13/24 10:00 07/13/24 10:00 07/13/24 11:56
Intake and Output
07/12/24 07/13/24 07/14/24
06:59 06:59 06:59
Intake Total 350 / 350 240 / 240 0 / 0
Output Total 2000 / 2000
Balance 350 / 350 240 / 240 -2000 / -2000
SaO2 96
Nasal Cannula flow liters per 9
minute
Labs/Micro/Reports
Lab Data
07/13/24 06:41
07/13/24 06:41
Microbiology
07/12/24 11:51 Feces/Stool - Final
Negative for Norovirus GI and GII.
07/07/24 10:22 Blood/Venous Blood Culture - Final
No Growth - Final Report
07/07/24 10:22 Blood/Venous Blood Culture - Final
No Growth - Final Report
07/11/24 18:49 Feces/Stool C. difficile GDH Antigen & Toxins - Final
Negative for toxigenic C.difficile
--- NOTE | 2024-07-13 12:47 | CM ---
CM following re: discharge planning.
Reviewed pt' chart, met with pt. Pt's at bedside.
Pt has been living with in an independent apartment at [facility], has 2supportive sons. Per pt ambulates with a cane inside the apartment, uses a walker and a w/c for a long distance.
PT and OT continue recommending SNF level of care.
Pt's stated he met with [facility] SN[facility] director of mobile marketing yesterday, signed an admission package and they will hold a bed for pt.
D/C plan: [facility] for a short term rehab.
CM will follow with discharge plan updates as hospitalization progresses
[2024-07-13 13:53] LABS: Triglycerides 123 mg/dl (10-149)
--- NOTE | 2024-07-13 14:13 | PTCARENOTE ---
Blood CX. cancelled due to normothermia per network designer.
[2024-07-13] MEDS: LOPRESSOR PO (16:03)
--- NOTE | 2024-07-13 16:15 | PTCARENOTE ---
PT. complaining of increased chest tightness, tachypnea persisting rate in the 30s, Life Sciences Teacher notified, orders to place patient back on Bipap 10/5, give additional dose of IV lasix.
[2024-07-13] MEDS: SOLU-MEDROL PF 20 MG IV (17:33)
[2024-07-13] MEDS: LIPITOR PO (17:33)
--- NOTE | 2024-07-13 17:40 | PTCARENOTE ---
PT. upgraded to ICU due to ongoing resp. concerns.
--- NOTE | 2024-07-13 20:30 | W.PN.UPDATE ---
Update Note
Progress Note Update
07/13/24
1999 - Patient having intermittent and sustaining burst of Afib 130s-150s heart rate. Discussed with Dr. Gautam, tile professional, will stop PO amiodarone and transition to gtt with no bolus.
[2024-07-13] MEDS: CORDARONE 518 MG IV (20:41)
[2024-07-13] MEDS: KCL ELIXIR 20 MEQ PO (20:47)
[2024-07-13] MEDS: PACERONE PO (21:25)
[2024-07-13] MEDS: REMERON 7.5 MG PO (22:06)
[2024-07-13] MEDS: NEURONTIN 200 MG PO (22:06)
[2024-07-13] MEDS: XALATAN OPHTHALMIC SOLUTION 1 DROP BOTH EYES (22:07)
[2024-07-13] MEDS: XANAX 0.25 MG PO (22:07)
[2024-07-14] VITALS (25 sets, daily range): BP systolic 83–114; BP diastolic 53–87; BMI 20.8
--- NOTE | 2024-07-14 | PTCARENOTE ---
Pt received at 19:00, at bedside. Ox3, pleasant, anxious about oxygen level and potential need for bipap tonight. Initially HR 110s-130s, then sustained 140s-150s. Amiodarone gtt ordered and started as ordered. Pt then hypotensive w/ SBP in
the 80s, discussed with provider, decreased to 0.5mg/min after 2.5hrs. Remains in afib, but now controlled in the 90s-100s. HFNC 55L/60%, pulse ox 98% and above, crackles t/o. +bowel sounds, poor appetite. Rios in place, clear yellow urine. Safe
environment maintained, call laguerre within reach, plan of care continues.
[2024-07-14 04:41] LABS: Hematocrit 28.9 % (37.0-47.0); Hemoglobin 9.5 g/dL (12.0-16.0); Mean Corp Hgb Conc. 32.9 g/dL (33.0-37.0); Mean Corpuscular Hgb 32.8 pg (27.0-31.0); Mean Corpuscular Volume 99.7 fL (81.0-99.0); Mean Platelet Volume 10.3 fL (7.4-10.4); Platelet Count 329 10^3/uL (130-400); White Blood Cell Count 12.8 10^3/uL (4.8-10.8)
[2024-07-14 05:01] LABS: NT-proBNP 22800 pg/ml
[2024-07-14 05:08] LABS: Blood Urea Nitrogen 34 mg/dl (7-17); Calcium 7.9 mg/dl (8.4-10.2); Carbon Dioxide 26 mmol/L (22-30); Chloride 103 mmol/L (98-107); Estimated Creatinine Clearance 24 ml/min; Glucose 97 mg/dl (70-99); Potassium 4.2 mmol/L (3.5-5.1); Sodium 138 mmol/L (135-145); eGFR 38.03
[2024-07-14] MEDS: SOLU-MEDROL PF 20 MG IV (05:54)
--- NOTE | 2024-07-14 07:22 | W.PN.INTV ---
Today's Communication / Plan
Recommendations
- Comfort care measures
- Hospice evaluation
- Corporate Legal Manager service is available as needed
Assessment
-
78-year-old female with past medical history of Afib on eliquis, HFrEF, s/p ICD, HTN, glaucoma, frequent UTI, hyperthyroidism, GCA on prednisone who presented with confusion, last known normal the night prior at 10 PM. She had a headache with
worsening left-sided abdominal pain the night prior. In the ER, a stroke alert was called with CT head showing no acute intracranial abnormality, and CTA head/neck showing no high-grade stenosis, LVO, and <50% stenosis of the bilateral carotid
bulbs. Neurology was consulted to evaluate for tPA and she was not considered a candidate due to active systemic anticoagulation with Eliquis. Initial labs showed Hb 10.6, glucose 102, troponin 0.041, CRP 47.3, proBNP 5500, TSH 3.71, urinalysis
with no signs of UTI, and COVID-19 antigen negative. Flu swab A/B both negative + blood cultures were obtained. She was found to be in rapid A-fib with heart rate in the 150s, BP initially 150/102, and saturating 95% on room air. In the ER she
was given 20 mg IV Lasix +2.5mg Lopressor. She was initially admitted to telemetry. Throughout the evening on 07/07 - 07/08, heart rate became more uncontrolled with rates in the 130�180s and she became hypotensive. Amiodarone drip started and
Levophed also started, and patient transferred to the ICU for further care. Corporate Legal Manager service was consulted for additional management/recommendations.
Patient had subsequently improved and was transferred out of ICU.
07/13, patient noted to be hypoxic in the morning with increased work of breathing and tachypnea. Pulmonary consultation was again requested for further input.
Chronic conditions RETAIL PLANNER: R Breast cancer (2003) s/p lumpectomy, XRT + chemo, malignant melanoma - RUE (2011), A-fib on eliquis, hyperthyroidism, HTN, chronic HFrEF, NICM, IBS, inflammatory arthropathy, glaucoma, FRITZ, polyneuropathy, giant cell
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
Assessment and plan:
#1. Acute respiratory failure, likely related to volume overload as well as suspect rheumatoid arthritis related interstitial lung disease
- Over the last 36 hours, patient has developed worsening shortness of breath. Pulmonary service was reconsulted on 07/13. X-ray was suggestive of volume overload and patient was aggressively diuresed. She is about 4 L negative and was able to be
taken off BiPAP however continued to need high flow nasal cannula. 07/14, patient noted to have increased work of breathing with some paradoxical abdominal breathing. CT chest was pursued and it showed worsening interstitial changes despite
aggressive diuresis, suspicious for noncardiogenic pulmonary edema versus interstitial lung disease related to possibly underlying rheumatoid arthritis.
- I along with Dr. Barak Gautam (Cardiology), met with patient's , both sons as well as the [id number]. We discussed about declining respiratory status and potential need for intubation as patient is developing paradoxical abdominal
breathing. Regarding the etiology, we discussed the worsened CT scan and suspicion for underlying interstitial lung disease possibly related to rheumatoid arthritis. Considering poor response to aggressive diuresis, it is suspected that her
symptoms are related to additional interstitial processes in addition to volume overload. Patient's family expressed that they would not want to proceed with intubation, mechanical ventilation.
Patient weighs 49 EKG, and has very poor functional status and certainly may need a very prolonged intubation and may not be able to be weaned considering aggressive pulmonary parenchymal pathology. We discussed the option of empiric high-dose
steroids for interstitial lung disease as well as possible right heart catheter in the future to evaluate further, but it would need intubation and mechanical ventilation as patient is tiring out on BiPAP/high flow nasal cannula.
- Family expressed understanding and opted to pursue comfort focused care. Family also requested hospice evaluation which was ordered
Other medical diagnoses:
#2. Acute on chronic HFrEF exacerbation
#2a. A-fib with rapid ventricular rate
#3. Shock, cardiogenic versus septic related to pneumonia
#4. Acute encephalopathy with acute CVA
#5. Acute kidney injury, non-liguric
#6. S/p mitral annuloplasty + bioprosthetic AVR, h/o V Fib, s/o AICD (2016)
#7. History of suspected giant cell arteritis, on chronic steroid therap
#8. Anemia
Comfort care orders placed.
Total time spent on this consultation/encounter __58__ minutes which includes review of history, physical exam, medications, laboratory data, personal review of imaging, extensive review of outpatient records, discussion with care team and
respiratory therapy.
Subjective Dataa
Subjective Data
Date of Service:
Date of Service: July 14, 2024
Chief Complaint: Corporate Legal Manager Follow Up
Subjective:
Patient noted to have increased work of breathing. Tolerating high flow nasal cannula overall.
Review of Systems
Genitourinary: Other (No cough, however increased dyspnea.)
Objective Data
Data Reviewed
Vital Signs / I&O / Oxygen:
Vital Signs
Temp Pulse Resp BP Pulse Ox
98.4 F 103 28 101/75 97
07/14/24 03:38 07/14/24 05:30 07/14/24 05:30 07/14/24 05:30 07/14/24 05:30
Intake and Output
07/13/24 07/14/24 07/15/24
06:59 06:59 06:59
Intake Total 240 / 240 150 / 150
Output Total 4445 / 4445
Balance 240 / 240 -4295 / -4295
SaO2 97
Nasal Cannula flow liters per 55
minute
Physical Exam
General: Respiratory Distress
HEENT: Normocephalic
Cardiovascular: S1-S2, Irregular Rhythm and Other (tachycardia)
Respiratory: Clear and Accessory Resp Muscle Use
GI: Soft, Non Distended, Flat, Non Tender and Normal Bowel Sounds
Neurology: Awake and Alert
Skin: Warm and Dry
Labs/Micro/Reports
Lab Data
07/14/24 04:27
07/14/24 04:27
Microbiology
07/12/24 12:13 Blood/Venous Blood Culture - Preliminary
No Growth in 24 hours- Final report to follow
07/12/24 12:18 Blood/Venous Blood Culture - Preliminary
No Growth in 24 hours- Final report to follow
07/12/24 11:51 Feces/Stool - Final
Negative for Norovirus GI and GII.
07/07/24 10:22 Blood/Venous Blood Culture - Final
No Growth - Final Report
07/07/24 10:22 Blood/Venous Blood Culture - Final
No Growth - Final Report
07/11/24 18:49 Feces/Stool C. difficile GDH Antigen & Toxins - Final
Negative for toxigenic C.difficile
--- NOTE | 2024-07-14 07:45 | PTCARENOTE ---
Assumed care of patient. Pt drowsy but easily arousable. A&Ox3. Pleasant. Denies any pain at present. S1 S2 irregular w/ afib on monitor. Trace generalized edema. Weak PP. Heels elevated on pillow. Knee hi SCD's on. Rec'd on HFNC
55L/60%...sats 100%. Lungs diminished throughout w/ coarse crackles throughout left lung. Weak NPC. Abdomen round...hypo BS. Poor appetite. Rios draining scant norberto urine. Skin pale and intact except for healing biopsy site on left side of
face near ear. ANASTASIIA INT w/ amiodarone gtt infusing. Takes po meds w/o issue. VS documented. Will continue to monitor closely.
[2024-07-14] MEDS: ALPHAGAN 0.2% EYE DROPS 1 DROP BOTH EYES (08:34)
[2024-07-14] MEDS: TIMOPTIC 0.5% OPHTHALMIC SOLUTION 1 DROP BOTH EYES (08:35)
[2024-07-14] MEDS: ELIQUIS 2.5 MG PO (08:36)
[2024-07-14] MEDS: TAPAZOLE 2.5 MG PO (08:36)
[2024-07-14] MEDS: FLORASTOR 250 MG PO (08:37)
[2024-07-14] MEDS: PROTONIX 40 MG PO (08:37)
--- NOTE | 2024-07-14 10:19 | W.PN.HOSP.TC ---
Today's Communication/Plan
-
CAT scan of the chest today without contrast
Holding Lasix secondary to elevated creatinine and soft blood pressures
Continue steroids at current dose
Consider increasing steroid dose if changes on the CT consistent with interstitial lung disease
Consider right heart Catheterization if no answers
Wait for chest regarding opportunistic infections
If gets intubated consider bronc-at present she is unstable for a bronc
Assessment / Plan
Assessment / Plan
78yo F with PMHx of anemia, possible PUD followed by , Afib on eliquis, HFrEF, s/p ICD, HTN, glaucoma, frequent UTI, hyperthyroidism, GCA on high dose prednisone brought by after he found her confused and non-verbal sitting on the
side of the bed in AM. Developed hypotension overnight with Afib with RVR on 07/08/24. Managed for possible stroke and infection, likely pneumonia, but abd CT with termianl ileum thickening. Complicated with elevated troponin, anemia and ALCON.
states that by 07/08/2024 afternoon she was back to herself.
On examination earlier patient was awake and alert . SOB
Cardiovascular system S1-S2 irregular, tachy
Chest few scattered rales bilaterally
Abdomen soft and nontender
No pedal edema
CT chest without IV contrast 07/08/2024-bilateral interstitial and groundglass opacities most suspicious for pulmonary edema. Atypical infections would be difficult to completely exclude.
CT A/P 07/07/24-No obstructive uropathy. Rios catheter within urinary bladder, which is empty.Mild circumferential wall thickening of the terminal ileum. Suspicious for nonspecific terminal ileitis. However, no significant inflammatory soft tissue
stranding.Proximal appendix identified, and appears unremarkable. Distal appendix blends imperceptibly with the terminal ileum wall thickening.Rectal fecal impaction.Possible volume overload or mild congestive heart failure. Mild fatty infiltration
of liver. Stable hepatic cysts.
3 mm pancreatic low-attenuation/cystic structure. Possible distended side branch or intraductal papillary mucinous neoplasm. This may be slightly more pronounced compared to prior examination, or possibly related to differences in slice thickness
and selection. Recommend follow-up in 2-[address]-no acute changes
CTA head and neck-no high-grade stenosis or occlusion of the [place] or artery vasculature in the neck less than 50% stenosis bilateral carotid bulbs.
ECHO- Normal left ventricular size with mildly reduced systolic function. LVEF 47%.Anteroseptal wall dyskinesis.Normal right ventricular size with mildly reduced systolic function.Well-seated mitral annuloplasty ring with mean gradient 6
mmHg.Well-seated bioprosthetic aortic valve with mean gradient 12 mmHg and mild AR.Mild tricuspid regurgitation. PASP 27 mmHg.Compared to prior echocardiogram on 08/17/2023, there is now mild paravalvular
aortic regurgitation. No obvious vegetations visualized.
MRI of the brain-1.5 mm focus of restricted diffusion involving posterior cortex of the left precentral gyrus suspicious for tiny acute cortical infarct. Chronic ischemic changes. Small chronic infarct in the left cerebellum
A/P
# Acute hypoxic resp failure
Differentials include pulmonary edema, interstitial lung disease, opportunistic infections
Patient completed a course for community-acquired pneumonia
Speech evaluation appreciated no evident aspiration
Went on BiPAP 07/13/24-off BiPAP to high flow to mid flow today.
Hypoxia slightly better with Lasix and steroids increased yesterday on 07/13/2024
Cardiology and pulmonary following.
Patient may benefit from right heart catheterization to delineate the reasons for her hypoxia
Repeat CT ordered for today 07/14/2024
Hold further Lasix given elevated creatinine and soft blood pressure
#Shock
Unclear reason septic shock versus cardiogenic shock-possibly mixed reasons
s/p norepinephrine -weaned off
Procalcitonin 6.33
Vanco/Zosyn -changed to ceftriaxone and doxycycline-complete the course for atypical pneumonia. completed
Influenza negative Legionella and strep antigen negative, COVID-19 serology negative
UA neg for infection
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
Cultures are negative so far
ID consulted and following
#Aphasia, then word finding difficulty with acute metabolic encephalopathy, concern for CVA
Unclear if patient has TME secondary to underlying cognitive dysfunction and infection.
MRI with a small stroke noted. CTA without any evidence of carotid stenosis
CTA head: bilateral carotid bulbs contributing to less than 50% stenosis, no LVO
Normal TSH and HgbA1c
Continue Eliquis and statin
#Acute urinary retention
Rios out
Urinalysis without any evidence of infection
Bladder scan to be continued as patient has problems with retention
#Pulmonary edema, possible mild acute on chronic HFrEF
Afib with RVR-On AMio
Continue BB
Elevated troponin, most likely non-ischemic myocardial injury and 2/2 tachycardia and CHF
Amio drip changed to PO -changed back to IV overnight 07/13/2024
Continue beta-blockers as needed
# Diarrhea-Norovirus and C. difficile negative. Possibly could be secondary to amiodarone per cardiology. Diarrhea resolved
# History of mitral annuloplasty and bioprosthetic aortic valve replacement-KALPESH without any vegetations
# Elevated-trending down. Likely nonischemic myocardial injury
# Hypokalemia-replace
#ALCON-Had resolved
Creat 1.1. watch with lasix.
Had CTA head neck in ED, cannot exclude JUAN
Urinary studies- [place]
Rios out
Nephrology signed off
# Anemia, macrocytic, acute on chronic
Slightly elevated LDH. Haptoglobin mormal rules out Hemolysis
Transfuse as needed - obtained consent from obtained over the phone
Severe Iron deficiency-
GI consulted.No plans for endoscopy
# 5 mm segment of the terminal ileum with mild circumferential wall thickening
closely related to appendix, but no definite appendicitis signs on CT - USS appendix not visualized.
Patient does not have right lower quadrant tenderness or pain.
May need outpatient colonoscopy and EGD as OP per GI.
MRI-E given the concern for possible terminal ileitis as an outpatient
# Fecal impaction-Resolved.
# Insomnia-cont Remeron, melatonin
# GCA/reactive arthritis-continue steroids. Follows with . Was on 4 mg of methylprednisolone twice daily and 2 mg at night
Currently on Solu-Medrol 20 twice daily dosage
Spoke to Dr. Crain today updated regarding patient's hospital stay
Hold methotrexate
# Hyperthyroidism,cont Methimazole,TSH, FT4, FT3 WNL
# Chronic left cerebellar infarct.Eliquis, statin
# Neuropathy NOS-continue Gabapentin
# Glaucoma-continue Combigan eyedrops, latanoprost eyedrops
# 3 mm pancreatic low-attenuation cystic structure-outpatient follow-up
# History of C. difficile infection
# History of breast cancer with right breast lumpectomy
# History of melanoma status post excision from back in 2007 and thigh in 2008
# History of pacemaker/AICD March 2015
# Hypoalbuminemia
# Diverticulosis with history of diverticulitis in the past
# Osteoarthritis/DDD/gout
# DVT ppx on Eliquis
# Full code
Discussed with nursing
D/W family at bedside
D/W pulm
D/W OP Rheum .
Patient has had several markers positive at some time in the past. She was treated with steroids for GCA even though the Biopsy was not classic. Even while ons steroids, pt kep having head aches. Plan was to change to methotrexate and stop steroids.
She got admitted.
Rheum recommended to get an LP if pt keeps having head aches.
Also recommended ANCA,Rpt UBALDO with reflex to DSDNA,Boyd , RESIDENTIAL ELECTRICIAN,SSA/SSB, Scl 70, C3,C4,ferritin,TG,Coag panel JANEY level.-Ordered and pending
Also send out tests IL18 and cxcl9 ( [facility])
Total Critical Care Time 36 minutes. I was immediately available to the patient and staff. I personally examined, reviewed labs, diagnostic images/reports, interpretations, treatment plans, discussed patient care with other providers and family ,
entered orders as appropriate and documented the medical record.
Prognosis guarded given the nature of her illness and underlying medical conditions prior to this.
Appreciate service line coordinator discussing CODE STATUS again with the family
Anticipated Discharge: > 48 hours
Subjective/Interval History
-
Date of Service: July 14, 2024
Objective Data
-
Labs:
Laboratory Results
07/14/24
04:27
WBC 12.8 H
Hgb 9.5 L
Hct 28.9 L
Plt Count 329
Sodium 138
Potassium 4.2
Chloride 103
Carbon Dioxide 26
BUN 34 H
Creatinine 1.4 H
Glucose 97
Calcium 7.9 L
Vital Signs:
Vital Signs
Temp Pulse Resp BP Pulse Ox
99.9 F 103 28 101/75 93
07/14/24 08:00 07/14/24 05:30 07/14/24 05:30 07/14/24 05:30 07/14/24 08:14
I&O
07/13/24 07/14/24 07/15/24
06:59 06:59 06:59
Intake Total 240 / 240 150 / 150
Output Total 4445 / 4445
Balance 240 / 240 -4295 / -4295
--- NOTE | 2024-07-14 10:30 | PTCARENOTE ---
CT chest completed.
--- NOTE | 2024-07-14 11:35 | W.PN.UPDATE ---
Update Note
Progress Note Update
CT reviewed by me-really worse looking compared to the previous CT bilateral infiltrates interstitial changes
Dr Patel's conversation with family appreciated. They would like to talk to hospice. Consult placed.
--- NOTE | 2024-07-14 12:00 | PTCARENOTE ---
and updating family. Orders rec'd to place pt on comfort care and code status changed to DNR. Tx to M/S when bed available.
--- NOTE | 2024-07-14 13:04 | W.PN.ID1 ---
Date of Service
Date of Service: July 14, 2024
Today's Communication
PT now comfort care. ID will sign off.
Assessment / Plan
Fever - resolved
Hypoxemic respiratory failure; on High Flow O2
Elevated ESR and CRP
Elevated prior procalcitonin
Leukocytosis
- on steroid
A-fib (on Eliquis)
CHF
HTN
Glaucoma
Hx UTI
Hypothyroidism
GCA (on prednisone)
IBS
Inflammatory arthropathy
Glaucoma
Recommendations:
Cultures have been nonrevealing to this point.
Suspect prior procalcitonin may be elevated due to a myriad of other factors, and not reflective of current bacterial process.
Suspect elevated inflammatory numbers may be secondary to patient's underlying history of GCA.
Antibiotics discontinued 07/12. Continue to observe off antibiotics for the present.
Case discussed extensively with Hospitalist Service. Concern for possible opportunistic infection.
Pt unable to produce sputum for culture/ silver stain.
Aspergillus antibodies pending.
Pt now comfort care.
����������������������������������������������������������
Chief Complaint
-: Fever
Subjective / Review of Systems
Feels comfortable at this time.
Vital Signs / Physical Exam
Vital Signs
Vital Signs
Temp Pulse Resp BP Pulse Ox
97.6 F 107 25 90/68 91
07/14/24 11:00 07/14/24 11:00 07/14/24 11:00 07/14/24 10:00 07/14/24 08:30
Physical Exam
Constitutional: Comfortable and Chronically Ill
Cardiovascular: S1/S2; Negative S3/S4
Pulmonary: Coarse and Other (BiPAP in place.)
Gastrointestinal: Soft, Non Tender and Non Distended
Neurological: AO x 3
Objective Data
Lab Data
Lab Results
07/14/24 04:27
07/14/24 04:27
ESR 86 mm/hour (0-20) H 07/12/24 04:34
PT 15.5 Sec (11.4-14.6) H 07/07/24 10:09
INR 1.20 07/07/24 10:09
APTT 32.2 Sec (23.4-35.0) 07/07/24 10:09
Estimated Creat Clear 24 ml/min 07/14/24 04:27
Lactic Acid 1.7 mmol/L (0.7-2.0) 07/07/24 22:16
Total Bilirubin 1.1 mg/dl (0.2-1.3) 07/09/24 04:09
AST 28 U/L (14-36) 07/09/24 04:09
ALT 25 U/L (0-35) 07/09/24 04:09
Alkaline Phosphatase 56 U/L (38-126) 07/09/24 04:09
C-Reactive Protein 157.70 mg/L (0.0-10.00) H 07/12/24 04:34
Most recent labs reviewed.
Micro Results:
07/12/24 12:13 Blood Culture - Preliminary
Blood/Venous No Growth in 48 hours- Final report to follow
07/12/24 12:18 Blood Culture - Preliminary
Blood/Venous No Growth in 48 hours- Final report to follow
07/12/24 11:51 - Final
Feces/Stool Negative for Norovirus GI and GII.
07/07/24 10:22 Blood Culture - Final
Blood/Venous No Growth - Final Report
07/07/24 10:22 Blood Culture - Final
Blood/Venous No Growth - Final Report
07/11/24 18:49 C. difficile GDH Antigen & Toxins - Final
Feces/Stool Negative for toxigenic C.difficile
07/08/24 09:03 MRSA Screen - Final
Nose No Methicillin Resistant Staphylococcus aureus isolated.
07/08/24 11:57 Legionella Urinary Antigen - Final
Urine Negative for Legionella pneumophila Serogroup 1 antigen.
A negative result does not rule out the possiblity of
Legionella infection due to other serogroups or species of
Legionella. Clinical correlation is recommended.
Streptococcus pneumoniae Antigen (M - Final
Negative for Streptococcus pneumoniae antigen.
A negative result does not exclude infection with
Streptococcus pneumoniae. Clinical correlation is
recommended.
07/08/24 09:03 Nasal Screen MRSA (PCR) - Final
Nose
07/08/24 03:12 Nasal Screen MRSA (PCR) - Final
Nose
07/07/24 10:09 Influenza Types A & B ([facility]AN[facility]) - Final
Nasal Swab Negative for Influenza A & B, NAAT
Negative results must be combined with clinical observations
and patient history.
Nucleic Acid Amplification test (NAAT)performed on the
[facility] [employer] [place] platform.
Imaging:
07/14/[address]: Worsening bilateral groundglass, interstitial, and airspace opacities as above. No effusion, minimal if any fissural thickening, no significant bronchial wall thickening. Findings are most suspicious for pulmonary edema, with
pattern more suggestive of noncardiogenic edema. Atypical infection remains a differential consideration.
07/13/2024 CXR (portable): Stable severe right upper lobe airspace disease. Stable diffuse interstitial prominence bilaterally. No significant pleural effusions. No visualized pneumothorax.
07/12/2024 CXR (portable): Cardiomediastinal silhouette is within normal limits. Median sternotomy wires and left subclavian AICD are in place. Hazy opacity within the right mid to upper lung zone. Minimal interstitial prominence which is grossly
unchanged. Please see full dictation for additional detail. Film personally viewed.
07/11/2024 MRI brain without contrast: A 1.5 mm focus of suggested restricted diffusion involving the posterior cortex of the left precentral gyrus suspicious for tiny acute cortical infarct. No other acute infarcts noted. Chronic ischemic changes.
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 Please see full dictation for additional detail.
07/08/24 CT chest without contrast: Bilateral interstitial and groundglass pulmonary opacities most suspicious for pulmonary edema. Please see full dictation for additional detail.
--- NOTE | 2024-07-14 13:15 | W.PN.CD ---
Today's Communication / Plan
-
Intermittent Lasix if need for comfort
We will sign off please call with concern
Impression / Plan
-
Mrs. Cisneros is an 78 yo female with paroxysmal Afib on Eliquis, anemia, HFrEF, EF 35-40%, Medtronic ICD, HTN, s/p MV annuloplasty ring, moderate mitral regurgitation, bioprosthetic aortic valve, GCA on prednisone, who was brought to the ER by
family for confusion. Cardiology consulted for atrial fibrillation with RVR.
Given worsening pulmonary infiltrates concerning for ILD and increasing 02 requirements family wishes for comfort care
- I discussed with hospitalist and airbrush artist photography and family about increasing concerns including prolonged ventilation, ventilation dependency, and they declined
Paroxysmal atrial fibrillation with RVR now appears to be sinus tach
-Rates somewhat improved, though jumped when she tried to get OOB to chair
-Started on IV amiodarone on 07/07 PM due to RVR and hypotension. Additional IV bolus given 07/11
-Continue p.o. amiodarone 400 mg twice daily
-Continue metoprolol 50 mg 3 times daily with holding parameters
-Neuro ok with Eliquis resumption. Continue 2.5 mg twice daily.
Shock, resolved
-Required norepinephrine briefly on 07/07, now stopped. Suspect sepsis rather than cardiogenic given that her EF is stable on echo
-No infectious source at this time. Maybe pneumonia?
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
-Plan is for 5 days abx
Acute hypoxic respiratory failure worsening
- Likely has some component of acute on chronic HFrEF.
-IV lasix 40mg x1 yesterday but now increased BUN and Cr. Hold additional doses today
-RVR may be adding to dyspnea.
-Strict I/Os, daily standing weights
Acute on chronic HFrEF --> Weights appear stable
-TTE 07/08/2024: LVEF 47%, stable anteroseptal dyskinesis, normal mitral and aortic valve gradients, mild paravalvular AR, normal PASP
-Does not appear too volume overloaded
-Hold carvedilol for recent hypotension, now on metoprolol tartrate with eventual plan to switch to succinate
-will increase metoprolol for rate control during PAF
-Has not been able to tolerate any other GDMT due to hypotension and frequent UTIs
-S/p ICD
Altered mental status, reolved
-CT head and CTA head/neck are unremarkable. TSH normal. No evidence of UTI by UA. Brain MRI with tiny acute cortical infarct
-Suspect due to septic shock as above
Troponin elevation
-Likely due to nonischemic myocardial injury in the setting of heart failure exacerbation +/- A-fib with RVR with ALCON. She denies chest pain. ECG with stable LBBB.
-No treatment for ACS at this time
Subjective: HFNC worsening -- > comfort care
CCT: 41 mins including reviewing tests, discussion with family airbrush artist photography hospitalist etc
Physical Exam
Vital Signs/Labs
Vital Signs
Temp Pulse Resp BP Pulse Ox
97.6 F 107 25 90/68 91
07/14/24 11:00 07/14/24 11:00 07/14/24 11:00 07/14/24 10:00 07/14/24 08:30
07/13/24 07/14/24 07/15/24
06:59 06:59 06:59
Actual Weight 113 lb 1.554 oz 110 lb 0.171 oz
07/14/24 04:27
07/14/24 04:27
PT 15.5 Sec (11.4-14.6) H 07/07/24 10:09
INR 1.20 07/07/24 10:09
APTT 32.2 Sec (23.4-35.0) 07/07/24 10:09
Magnesium 2.1 mg/dl (1.6-2.3) 07/13/24 06:41
Triglycerides 123 mg/dl (10-149) 07/13/24 12:23
LDL Cholesterol, Calc 46 mg/dl 07/08/24 03:12
VLDL Cholesterol, Calc 29 mg/dl (0-30) 07/08/24 03:12
HDL Cholesterol 31 mg/dl 07/08/24 03:12
TSH 3.71 uIU/ml (0.47-4.68) 07/07/24 07:38
Free T4 1.44 ng/dl (0.78-2.19) 07/07/24 07:38
07/07/24 07/11/24 07/14/24
07:38 04: 04:27
Dlb-D-Rjpygxrbeuc Pept 5500 [id number]
Data Reviewed
-
Date of Service: July 14, 2024
EKG: Tracing Personally Visualized and interpreted (af)
Echo: Report Reviewed by me
X-Ray/CT/US/MRI/NUC/PET: Image Personally Visualized and interpreted (CT with lung infiltrate ) and Report Reviewed by me
Labs: Labs Reviewed by me
--- NOTE | 2024-07-14 13:25 | PTCARENOTE ---
Report called to 2N RN. Pt to transfer to Room 2137.
--- NOTE | 2024-07-14 14:12 | CM ---
Chart reviewed. CM consulted for hospice eval and treat. Patient now comfort care.
Spoke w/ patient's , agreeable to discuss w/ business support liaison
[facility] CM spoke w/ Kathie/business support liaison, plan is to speak w/ spouse about plan to monitor on comfort for 24 hours then reassess tomorrow.
Plan: Comfort care. Hospice following
--- NOTE | 2024-07-14 14:35 | PTCARENOTE ---
Patient transferred from ICU. Patient does not complain of pain or discomfort. Patient resting comfortably. 12 L midflow on patient sating 100%. Family at bedside.
--- NOTE | 2024-07-14 14:43 | HOSPNOTE ---
Hospice referral received. Spoke to patients spouse over the phone. Reviewed comfort measures vs inpatient hospice. He is in agreement with comfort measures today and assess for inpatient hospice eligibility tomorrow. His two sons have arrived from
out of town as well. Patient at time of evaluation did not require any PRN comfort medications. Will meet with spouse tomorrow 1130-12 noon to re-evaluate and discuss. If patient is hospice appropriate, will admit to inpatient hospice. CM updated.
More information to follow tomorrow.
--- NOTE | 2024-07-14 16:01 | CHAP ---
Visited Maria A at 11:30am. In our brief conversation, she shared that she is very thankful for her family, grateful to be surrounded by their love, 'no matter what happens.' Emotional and spiritual support provided to Maria A and family, along
with assurance of our on-going support.
[2024-07-14] MEDS: REMERON 7.5 MG PO (21:27)
[2024-07-14] MEDS: ATIVAN 1 MG IV (21:30)
[2024-07-15] MEDS: TYLENOL 650 MG PO (05:08)
[2024-07-15] MEDS: TAPAZOLE 2.5 MG PO (07:57)
[2024-07-15 08:25] VITALS: BP 98/65
--- NOTE | 2024-07-15 10:16 | W.PN.HOSP.TC ---
Addendum entered and electronically signed by Alba Ventura MD 07/15/24 15:07:
.
Original Note:
Today's Communication/Plan
-
lasix for symptoms
Morphine for symptoms
Assessment / Plan
Assessment / Plan
78yo F with PMHx of anemia, possible PUD followed by , Afib on eliquis, HFrEF, s/p ICD, HTN, glaucoma, frequent UTI, hyperthyroidism, GCA on high dose prednisone brought by after he found her confused and non-verbal sitting on the
side of the bed in AM. Developed hypotension overnight with Afib with RVR on 07/08/24. Managed for possible stroke and infection, likely pneumonia, but abd CT with termianl ileum thickening. Complicated with elevated troponin, anemia and ALCON.
states that by 07/08/2024 afternoon she was back to herself.
On examination earlier patient was awake and alert . SOB
Cardiovascular system S1-S2 irregular, tachy
Chest few scattered rales bilaterally
Abdomen soft and nontender
No pedal edema
CT chest without IV contrast 07/08/2024-bilateral interstitial and groundglass opacities most suspicious for pulmonary edema. Atypical infections would be difficult to completely exclude.
CT A/P 07/07/24-No obstructive uropathy. Rios catheter within urinary bladder, which is empty.Mild circumferential wall thickening of the terminal ileum. Suspicious for nonspecific terminal ileitis. However, no significant inflammatory soft tissue
stranding.Proximal appendix identified, and appears unremarkable. Distal appendix blends imperceptibly with the terminal ileum wall thickening.Rectal fecal impaction.Possible volume overload or mild congestive heart failure. Mild fatty infiltration
of liver. Stable hepatic cysts.
3 mm pancreatic low-attenuation/cystic structure. Possible distended side branch or intraductal papillary mucinous neoplasm. This may be slightly more pronounced compared to prior examination, or possibly related to differences in slice thickness
and selection. Recommend follow-up in 2-[address]-no acute changes
CTA head and neck-no high-grade stenosis or occlusion of the [place] of [place] or artery vasculature in the neck less than 50% stenosis bilateral carotid bulbs.
ECHO- Normal left ventricular size with mildly reduced systolic function. LVEF 47%.Anteroseptal wall dyskinesis.Normal right ventricular size with mildly reduced systolic function.Well-seated mitral annuloplasty ring with mean gradient 6
mmHg.Well-seated bioprosthetic aortic valve with mean gradient 12 mmHg and mild AR.Mild tricuspid regurgitation. PASP 27 mmHg.Compared to prior echocardiogram on 08/17/2023, there is now mild paravalvular
aortic regurgitation. No obvious vegetations visualized.
MRI of the brain-1.5 mm focus of restricted diffusion involving posterior cortex of the left precentral gyrus suspicious for tiny acute cortical infarct. Chronic ischemic changes. Small chronic infarct in the left cerebellum
A/P
# Acute hypoxic resp failure
Patient completed a course for community-acquired pneumonia
Speech evaluation appreciated no evident aspiration
#Shock
Unclear reason septic shock versus cardiogenic shock-possibly mixed reasons
s/p norepinephrine -weaned off
Procalcitonin 6.33
#Aphasia, then word finding difficulty with acute metabolic encephalopathy, concern for CVA
Unclear if patient has TME secondary to underlying cognitive dysfunction and infection.
MRI with a small stroke noted. CTA without any evidence of carotid stenosis
CTA head: bilateral carotid bulbs contributing to less than 50% stenosis, no LVO
#Acute urinary retention
Rios out
Urinalysis without any evidence of infection
#Pulmonary edema, possible mild acute on chronic HFrEF
#Afib with RVR
# Diarrhea-Norovirus and C. difficile negative. Possibly could be secondary to amiodarone per cardiology.
# History of mitral annuloplasty and bioprosthetic aortic valve replacement-KALPESH without any vegetations
# Elevated-trending down. Likely nonischemic myocardial injury
# Hypokalemia-
#ALCON-
# Anemia, macrocytic, acute on chronic
# 5 mm segment of the terminal ileum with mild circumferential wall thickening
closely related to appendix, but no definite appendicitis signs on CT - USS appendix not visualized.
Patient does not have right lower quadrant tenderness or pain.
# Fecal impaction-Resolved.
# Insomnia-cont Remeron
# GCA/reactive arthritis-off meds
# Hyperthyroidism,cont Methimazole,TSH, FT4, FT3 WNL
# Chronic left cerebellar infarct.
# Neuropathy NOS-continue Gabapentin
# Glaucoma-
# 3 mm pancreatic low-attenuation cystic structure
# History of C. difficile infection
# History of breast cancer with right breast lumpectomy
# History of melanoma status post excision from back in 2007 and thigh in 2008
# History of pacemaker/AICD March 2015
# Hypoalbuminemia
# Diverticulosis with history of diverticulitis in the past
# Osteoarthritis/DDD/gout
# DNR
Discussed with nursing and family at bed side
D/W Hospice
They are going to tall to family and sign her up for Hospice today
Anticipated Discharge: > 48 hours
Subjective/Interval History
-
Date of Service: July 15, 2024
Objective Data
-
Vital Signs:
Vital Signs
Temp Pulse Resp BP Pulse Ox
97.1 F 91 16 98/65 99
07/15/24 08:25 07/15/24 08:25 07/15/24 08:25 07/15/24 08:25 07/15/24 08:25
I&O
07/14/24 07/15/24 07/16/24
06:59 06:59 06:59
Intake Total 150 / 166.7 880.2 / 880.2
Output Total 4445 / 4445 350 / 350
Balance -4295 / -4278.3 530.2 / 530.2
[2024-07-15] MEDS: ATIVAN 1 MG IV (10:17)
[2024-07-15] MEDS: LASIX 40 MG IV (10:26)
--- NOTE | 2024-07-15 12:00 | HOSPNOTE ---
Hospice to meet with spouse today and if all are in agreement will sign onto inpatient hospice today. Attending aware and in agreement. Primary RN in agreement as well. Will notify admissions and attending once consents are signed. More information
to follow.
[2024-07-15] MEDS: MORPHINE SULFATE 2 MG IV ×2 (13:17→15:12)
--- NOTE | 2024-07-15 13:18 | HOSPNOTE ---
Met with patient and family to discuss hospice philosophy and answer any questions and concerns. Patient, spouse and sons all in agreement with hospice. Spouse signed consents on patients behalf. Assessed patient in the bed breathing labored RR
28-30 on 15L NC, breathless while talking, crackles through out. RN reported patient refused morphine this morning out of fear that means it is the end. Much discussion with patient and family on use of morphine and its use to ease SOB. Patient is
in agreement to try a dose. Does not want to be knocked out but willing to take it for ease of sob so she can talk with her family without struggling. Informal report with SUSIE Peña and requested to give a dose of Morphine. Patient admitted under GIP
level of care for symptoms that can not be managed in the outpatient setting. Discharge planning to continue.
--- NOTE | 2024-07-15 14:56 | CHAP ---
Checked on Maria A, who was resting comfortably at 10:35. and family present. Assurance given of our availability to offer emotional and spiritual support.
--- NOTE | 2024-07-15 15:10 | W.PN.UPDATE ---
Update Note
Progress Note Update
[facility]- [id number]
--- NOTE | 2024-07-16 08:32 | W.PN.UPDATE ---
Update Note
Progress Note Update
Spoke with [employer] device rep; we will turn off tachy therapies spoke on her device as she is now hospice care.
[2024-07-16 22:06] LABS: Angiotensin-1-converting Enzym 55 U/L (16-85)
[2024-07-16 23:45] LABS: SSA 52 (Ro)(ENA) Ab, IgG 2 AU/mL (0-40); SSA 60 (Ro)(ENA) Ab, IgG 0 AU/mL (0-40); SSB (La)(ENA) Ab, IgG 16 AU/mL (0-40); Scleroderma Antibody (Scl-70) 126 AU/mL (0-40); Smith (ENA) Antibody, IgG 2 AU/mL (0-40)
[2024-07-17 08:21] LABS: Myeloperoxidase Antibody 0 AU/mL (0-19); Serine Protease-3, IgG 1 AU/mL (0-19)
== END 2024-07-15 15:16 | disposition hospice, inpatient (51) | DRG 64 ==
LOC: 2 NORTH 10:37
PROVIDERS: Internal Medicine; Internal Medicine Cardiovascular Disease; Nurse Practitioner Family; Nurse Practitioner Gerontology; Nurse Practitioner Primary Care; ADMITTING PHYSICIAN Internal Medicine; ATTENDING PHYSICIAN Hospitalist; CONSULT PHYSICIAN Internal Medicine; CONSULT PHYSICIAN Internal Medicine Critical Care Medicine; CONSULT PHYSICIAN Internal Medicine Infectious Disease; CONSULT PHYSICIAN Psychiatry & Neurology Neurology; CONSULT PHYSICIAN Student in an Organized Health Care Education/Training Program; EMERGENCY PHYSICIAN Emergency Medicine; FAMILY PHYSICIAN Student in an Organized Health Care Education/Training Program
PROC: B24BZZ4 Ultrasonography of Heart with Aorta, Transesophageal (ICD-10-PCS; 2024-07-11)
PROC: 5A09357 Assistance with Respiratory Ventilation, Less than 24 Consecutive Hours, Continuous Positive Airway Pressure (ICD-10-PCS; 2024-07-13)
DX: I63.9 Cerebral infarction, unspecified (principal); A41.9 Sepsis, unspecified organism; G93.41 Metabolic encephalopathy; I50.23 Acute on chronic systolic (congestive) heart failure; J96.01 Acute respiratory failure with hypoxia; R57.0 Cardiogenic shock; R65.21 Severe sepsis with septic shock; J84.9 Interstitial pulmonary disease, unspecified; R57.9 Shock, unspecified; I13.0 Hypertensive heart and chronic kidney disease with heart failure and stage 1 through stage 4 chronic kidney disease, or unspecified chronic kidney disease; D84.821 Immunodeficiency due to drugs; I5A Non-ischemic myocardial injury (non-traumatic); N17.9 Acute kidney failure, unspecified; K50.00 Crohn's disease of small intestine without complications; R47.01 Aphasia; Z95.3 Presence of xenogenic heart valve; K56.41 Fecal impaction; D53.9 Nutritional anemia, unspecified; G47.00 Insomnia, unspecified; E03.9 Hypothyroidism, unspecified; Z86.73 Personal history of transient ischemic attack (TIA), and cerebral infarction without residual deficits; G62.9 Polyneuropathy, unspecified; Z95.810 Presence of automatic (implantable) cardiac defibrillator; Z85.820 Personal history of malignant melanoma of skin; Z85.3 Personal history of malignant neoplasm of breast; Z87.891 Personal history of nicotine dependence; I48.0 Paroxysmal atrial fibrillation; Z79.01 Long term (current) use of anticoagulants; N18.9 Chronic kidney disease, unspecified; Z87.440 Personal history of urinary (tract) infections; Z88.1 Allergy status to other antibiotic agents; T38.0X5A Adverse effect of glucocorticoids and synthetic analogues, initial encounter; E87.6 Hypokalemia; F41.9 Anxiety disorder, unspecified; H54.7 Unspecified visual loss; I44.7 Left bundle-branch block, unspecified; M12.80 Other specific arthropathies, not elsewhere classified, unspecified site; R47.02 Dysphasia; Z79.52 Long term (current) use of systemic steroids; Z79.899 Other long term (current) drug therapy; Z82.49 Family history of ischemic heart disease and other diseases of the circulatory system; Z82.62 Family history of osteoporosis; Z86.19 Personal history of other infectious and parasitic diseases; Z86.79 Personal history of other diseases of the circulatory system; Z87.11 Personal history of peptic ulcer disease; Z90.49 Acquired absence of other specified parts of digestive tract; Z90.710 Acquired absence of both cervix and uterus; Z96.642 Presence of left artificial hip joint; Z96.651 Presence of right artificial knee joint; Z11.52 Encounter for screening for COVID-19
CPT/HCPCS: 36600; 51702; 51798; 70450; 70496; 70498; 70551; 71045; 71250; 74177; 76705; 80048; 80053; 80061; 80202; 81003; 82164; 82306; 82570; 82607; 82728; 82746; 82805; 82962; 83010; 83036; 83516; 83540; 83550; 83605; 83615; 83690; 83735; 83880; 83935; 84145; 84300; 84439; 84443; 84478; 84481; 84484; 85014; 85018; 85025; 85027; 85045; 85610; 85652; 85730; 86140; 86160; 86235; 86606; 86850; 86870; 86880; 86900; 86901; 86902; 87040; 87070; 87324; 87449; 87502; 87641; 87798; 87811; 87899; 92526; 92610; 93005; 93306; 93312; 93320; 93325; 94660; 96374; 96375; 97163; 97167; 99285; J2916; Q9950; Q9967

== ENCOUNTER 2024-07-15 15:28 | Inpatient (IN) | payer OTHER, SELFPAY ==
[2024-07-15 08:00] VITALS: BP 98/65
[2024-07-15 15:39] VITALS: BP 98/65; BMI 20.8
--- NOTE | 2024-07-15 15:45 | PTCARENOTE ---
Patient admitted onto inpatient hospice. Chart flipped.
[2024-07-15] MEDS: ATIVAN 1 MG IV ×2 (16:45→20:07)
[2024-07-15] MEDS: NSS (PRESERVATIVE FREE) 0.5 ML IV (16:46)
[2024-07-15] MEDS: MORPHINE SULFATE 1 MG IV ×2 (16:53→23:46)
[2024-07-15 22:17] VITALS: BP 113/62
--- NOTE | 2024-07-15 22:43 | HOSPNOTE ---
Patient admitted to inpatient hospice level of care. Patient meets inpatient hospice criteria for the management of dyspnea and anxiety that could not be managed in the outpatient setting. Patient has received IVP Morphine and Ativan PRN to good
effect. 02 at 12L mid flow, wean down as tolerated. Hospice will visit daily. Emotional support provided.
[2024-07-16] MEDS: MORPHINE SULFATE 1 MG IV ×5 (02:26→11:10)
[2024-07-16] MEDS: ROBINUL 0.2 MG IV (04:36)
[2024-07-16 07:28] VITALS: BP 106/73
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
--- NOTE | 2024-07-16 10:32 | W.PN.HSP.1 ---
Assessment / Plan
-
Assessment
# Acute hypoxic resp failurePatient completed a course for community-acquired pneumonia
# Interstitial Lung Disease per D/W Pulm
#Shock-Unclear reason septic shock versus cardiogenic shock-possibly mixed reasons
#Aphasia, then word finding difficulty with acute metabolic encephalopathy, concern for CVA-MRI with a small stroke noted. CTA without any evidence of carotid stenosis
#Acute urinary retention
#Pulmonary edema, possible mild acute on chronic HFrEF
#Afib with RVR
# Diarrhea-Norovirus and C. difficile negative. Possibly could be secondary to amiodarone per cardiology.
# History of mitral annuloplasty and bioprosthetic aortic valve replacement-KALPESH without any vegetations
# Elevated troponin
# Hypokalemia-
#ALCON-
# Anemia, macrocytic, acute on chronic
# 5 mm segment of the terminal ileum with mild circumferential wall thickeningclosely related to appendix, but no definite appendicitis signs on CT - USS appendix not visualized.
# Fecal impaction
# Insomnia
# GCA/reactive arthritis
# Hyperthyroidism,cont Methimazole,TSH, FT4, FT3 WNL
# Chronic left cerebellar infarct.
# Neuropathy NOS-continue Gabapentin
# Glaucoma-
# 3 mm pancreatic low-attenuation cystic structure
# History of C. difficile infection
# History of breast cancer with right breast lumpectomy
# History of melanoma status post excision from back in 2007 and thigh in 2008
# History of pacemaker/AICD March 2015
# Hypoalbuminemia
# Diverticulosis with history of diverticulitis in the past
# Osteoarthritis/DDD/gout
# DNR
Plan
Patient was seen and examined today she is requiring more morphine doses therefore transitioning to a drip
Remains on hospice
Discussed with and son at bedside
Discussed with nursing
Today's Communication
Morphine gtt
Physical Exam
-
Temp Pulse Resp BP Pulse Ox
100.5 F H 118 18 106/73 94
07/16/24 07:28 07/16/24 07:28 07/16/24 07:28 07/16/24 07:28 07/16/24 07:28
[2024-07-16] MEDS: TYLENOL/FEVERALL 650 MG RECTAL (11:11)
[2024-07-16] MEDS: MORPHINE 100 IV (11:35)
--- NOTE | 2024-07-16 11:47 | HOSPNOTE ---
Patient appears comfortable at this time. Patient is unresponsive and is having periods of change in breathing pattern. The plan is for a morphine drip to start per protocol. Family present and emotional support provided. Please medicate patient
prior to any care or positioning. Patient will be seen daily and continues to be inpatient appropriate for IV medication administration for shortness of breath.
--- NOTE | 2024-07-16 12:24 | CM ---
Reviewed the chart notes. Patient signing onto [facility]. Prior resided with spouse in an apartment with elevator access. DME included: rolling walker, cane, and wheelchair. CM continues to be available to patient/family.
Plan: [facility]. Morphine gtt.
[2024-07-16] MEDS: MORPHINE SULFATE 2 MG IV ×3 (12:42→13:40)
--- NOTE | 2024-07-16 14:29 | PTCARENOTE ---
Patient found with no spontaneous heart sounds or respirations; family at bedside; Dr. Ventura notified.
--- NOTE | 2024-07-16 15:02 | W.PN.DEATH ---
Addendum entered and electronically signed by Alba Ventura MD 07/16/24 15:24:
Dictation- [id number]
Original Note:
Pronouncement of
-
Called to see patient to pronounce.
No spontaneous heart tones or respirations noted.
Patient not responsive to verbal stimuli.
Patient is pronounced .
Time of : 14:25
Date of : 07/16/24
Cause of : interstitial lung disease
Family Notified: Yes (at bed side)
== END 2024-07-16 14:25 | disposition expired | DRG 951 ==
LOC: 2 NORTH 15:28
PROVIDERS: ADMITTING PHYSICIAN Hospitalist
DX: Z51.5 Encounter for palliative care (principal); J84.9 Interstitial pulmonary disease, unspecified; R09.02 Hypoxemia; I48.91 Unspecified atrial fibrillation